=== PATIENT | male | born 1945 | race Caucasian/White ===

== ENCOUNTER 2017-04-18 18:04 | Emergency (ER) | payer MEDICARE ==
[2017-04-18 18:15] VITALS: O2SAT 92
[2017-04-18] MEDS ORDERED: Tylenol #3 Tablet PO ONE ×2 (18:56→20:18)
--- NOTE | 2017-04-18 19:00 | ERPHSYRPT ---
- History of Present Illness Time Seen by Provider: 04/18/17 18:51 Source: patient, family () Patient Subjective Stated Complaint: tripped over oxygen cord and fell onto chest on arm of sofa. pain to left upper chest Triage Nursing Assessment: ambulated to room per self. is on home oxygen at 3L. skin w/d, color normal, resp slightly labored. tender to left upper chest. no bruising noted at this time. Physician History: CC: chest injury Hx: 71 y/o patient of Dr Johnson tripped in O2 cord and fell against his sofa couch arm. Struck left upper anterior chest wall. Not short of breath. Occurred this afternoon. He took aleve. He has COPD. No head injury, neck pain, back pain or other injury. Pain is sharp and worse when lifting to sit up. Timing/Duration: today Severity: moderate Allergies/Adverse Reactions: ampicillin Allergy (Intermediate, Verified 04/18/17 18:13) Swelling of Hands Home Medications: Fluticasone Propionate [Flonase Allergy Relief] 2 spray NS DAILY 10/21/14 [ History] Fluticasone/Salmeterol Disc [Advair 250-50 Diskus 14 Dose] 1 each IH BID 10/21/14 [History] Furosemide 40 mg PO TID 10/21/14 [History] Gabapentin [Neurontin] 600 mg PO BID 10/21/14 [History] Glipizide 10 mg [Glucotrol 10 MG] 10 mg PO BID 10/21/14 [History] Insulin Glargine,Hum.rec.anlog [Lantus] 10 unit SQ DAILY PRN 10/21/14 [History] Loratadine 10 mg [Claritin 10 mg] 10 mg PO DAILY 10/21/14 [History] Metformin HCl 500 mg [Glucophage 500 MG] 500 mg PO HS 10/21/14 [History] Metformin HCl 850 mg [Glucophage 850 MG] 850 mg PO BID 10/21/14 [History] Metolazone 2.5 mg [Zaroxolyn 2.5 MG] 2.5 mg PO TID 10/21/14 [History] Naproxen 375 mg [Naprosyn 375 mg] 375 mg PO BID 10/21/14 [History] Omeprazole 20 MG [Prilosec 20 mg] 20 mg PO DAILY 10/21/14 [History] Potassium Chloride 10 Meq Tab* [Klor Con 10 MEQ] 4 tab PO TID 10/21/14 [ History] Ranitidine HCl [Zantac] 150 mg PO HS 10/21/14 [History] Roflumilast [Daliresp] 500 mcg PO DAILY 10/21/14 [History] Tiotropium [place] Inhaler [Spiriva 18 Mcg/Cap Inhaler] 1 ea IH DAILY 06/25 [History] Zolpidem Tartrate 10 mg PO HS 10/21/14 [History] Hx Tetanus, Diphtheria Vaccination/Date Given: No Hx Influenza Vaccination/Date Given: No Hx Pneumococcal Vaccination/Date Given: Yes - Review of Systems Constitutional: No Fever, No Chills Eyes: No Symptoms Ears, Nose, & Throat: No Symptoms Respiratory: Dyspnea (normal), No Cough Cardiac: Chest Pain (left upper anterior ribs) Abdominal/Gastrointestinal: No Abdominal Pain Musculoskeletal: Injury (chest), No Back Pain, No Neck Pain Neurological: No Focal Weakness, No Parasthesia All Other Systems: Reviewed and Negative - Past Medical History Pertinent Past Medical History: Yes Neurological History: No Pertinent History ENT History: Cataracts Cardiac History: Congestive Heart Failure Respiratory History: Bronchitis, CHF, COPD, Emphysema, Pneumonia, Sleep Apnea Endocrine Medical History: Diabetes Type II Musculoskeletal History: Arthritis, Fractures GI Medical History: No Pertinent History History: No Pertinent History Psycho-Social History: No Pertinent History Male Reproductive Disorders: No Pertinent History - Past Surgical History Past Surgical History: Yes Neuro Surgical History: No Pertinent History Cardiac: No Pertinent History Respiratory: No Pertinent History Gastrointestinal: No Pertinent History Genitourinary: No Pertinent History Musculoskeletal: No Pertinent History Male Surgical History: No Pertinent History Other Surgical History: Cataract Surgery - Social History Smoking Status: Former smoker How long have you smoked: 45 years Exposure to second hand smoke: Yes Drug Use: none Patient Lives Alone: No - Nursing Vital Signs Nursing Vital Signs: Initial Vital Signs Temperature 97 F 04/18/17 18:06 Pulse Rate 90 04/18/17 18:06 Respiratory Rate 24 04/18/17 18:06 Blood Pressure 171/84 04/18/17 18:06 O2 Sat by Pulse Oximetry 92 L 04/18/17 18:06 Pain Scale Pain Intensity 8 - Physical Exam General Appearance: alert Eye Exam: PERRL/EOMI Ears, Nose, Throat Exam: moist mucous membranes Neck Exam: normal inspection, non-tender, supple Respiratory Exam: normal breath sounds, chest tenderness (left anterior chest wall, no bruising) Cardiovascular Exam: regular rate/rhythm Gastrointestinal/Abdomen Exam: soft, No tenderness, No distention Back Exam: normal inspection, normal range of motion Extremity Exam: normal inspection, normal range of motion Neurologic Exam: alert, oriented x 3, cooperative, sensation nml, No motor deficits Skin Exam: warm, dry, No rash SpO2 Interpretation: borderline oxygenation, O2 applied SpO2: 92 Oxygen Delivery: Nasal Cannula - Course Nursing assessment & vital signs reviewed: Yes - Radiology Exams cxr X-ray Interpretation: Reviewed by me, No Fracture, No Pneumothorax Ordered Tests: Active Orders 24 hr Category Date Time Status ACCUCHECK [Accucheck] STAT Care 04/18/17 19:00 Active Cold Application STAT Care 04/18/17 18:56 Active CHEST 2 VIEWS (PA AND LAT) Stat Exams 04/18/17 18:57 Taken Medication Summary Discontinued Medications Generic Name Dose Route Start Last Admin Trade Name Joceline PRN Reason Stop Dose Admin Acetaminophen/Codeine Phosphate 1 tab 04/18/17 18:56 04/18/17 19:11 Tylenol #3 Tablet PO 04/18/17 18:57 1 tab STAT ONE Administration Acetaminophen/Codeine Phosphate Confirm 04/18/17 19:08 Tylenol #3 Tablet Administered 04/18/17 19:09 Dose 1 tab .ROUTE .STK-MED ONE - Progress Progress Note: 04/18/17 20:19 He is stable. Will release with instr. Counseled pt/family regarding: diagnosis, need for follow-up, rad results - Departure Time of Disposition: 20:19 Departure Disposition: Home Clinical Impression: Contusion of rib on left side Qualifiers: Encounter type: initial encounter Qualified Code(s): S20.212A - Contusion of left front wall of thorax, initial encounter Condition: Stable Critical Care Time: No Referrals: IRMA JOHNSON [Primary Care Provider] - Instructions: Prevent Falls, Rib Contusion Additional Instructions: Ice packs off and on. Take care not to fall. Rx codiene for pain. Follow up with Dr Johnson. Return for fever, difficulty breathing, coughing phlegm or concerns. Prescriptions: Codeine Phosphate/APAP #3 [Tylenol #3 Tablet] 1 tab PO Q4-6HPRN PRN #10 tablet PRN Reason: Pain
[2017-04-18] MEDS ORDERED: Tylenol #3 Tablet ONE ×2 (19:08→20:22)
[2017-04-18 23:01] VITALS: BP 115/60; PULSE 78
--- NOTE | 2017-04-19 08:44 | XRAY ---
Indication: Left-sided chest pain following fall. Comparison: October 21, 2014. PA/lateral chest again demonstrates left mid lung atelectasis/scarring. Remaining lungs clear. Heart is not enlarged. New small hiatal hernia. Bony thorax intact again with osteopenia and degenerative changes. Impression: New hiatal hernia. Nothing acute.
== END 2017-04-18 20:29 | disposition home or self-care (01) ==
LOC: ED 18:04
DX: S20.212A Contusion of left front wall of thorax, initial encounter (principal); R07.89 Other chest pain; W01.0XXA Fall on same level from slipping, tripping and stumbling without subsequent striking against object, initial encounter; E11.9 Type 2 diabetes mellitus without complications; Z79.84 Long term (current) use of oral hypoglycemic drugs; Z79.899 Other long term (current) drug therapy; Z79.4 Long term (current) use of insulin; I50.9 Heart failure, unspecified; J44.9 Chronic obstructive pulmonary disease, unspecified
CPT/HCPCS: 71020; 82962; 99283; A9270-GY

== ENCOUNTER 2018-10-15 15:48 | Emergency (ER) | payer MEDICARE ==
[2018-10-15] MEDS ORDERED: PROVENTIL 2.5 MG/3 ML NEB IH ONE ×2 (16:21→16:48)
[2018-10-15] MEDS ORDERED: solu-MEDROL 125 MG IV ONE (16:21)
[2018-10-15] MEDS ORDERED: solu-MEDROL 125 MG ONE (16:28)
--- NOTE | 2018-10-15 16:28 | ERPHSYRPT ---
- History of Present Illness Time Seen by Provider: 10/15/18 16:09 Source: patient Exam Limitations: no limitations Patient Subjective Stated Complaint: shortness of breath Triage Nursing Assessment: Pt presents short of breath and on 3 L NC, p 112, took a nebulizer treatment about 1500, no edema, right mid lobe has a friction rub, cough for past week with some production Physician History: Pt was treated for Pneumonia, completed PO Levaquin last week. He started c/o productive cough, yellow phlegm again 2-3 days, ago, increasing SOB, wheezing. He denies any chest pain, nausea, vomiting, diaphoresis, diarrhea, sore throat other complaints. Timing/Duration: day(s) (2) Activities at Onset: none Severity of Dyspnea-Max: moderate Severity of Dyspnea-Current: moderate Possible Cause: frequent episodes Modifying Factors: Improves With: albuterol inhaler Associated Symptoms: cough, wheezing, productive cough Allergies/Adverse Reactions: ampicillin Allergy (Intermediate, Verified 10/15/18 16:10) Swelling of Hands Home Medications: Fluticasone Propionate [Flonase Allergy Relief] 2 spray NS DAILY 10/21/14 [ History] Furosemide 40 mg PO TID 10/21/14 [History] Gabapentin [Neurontin] 600 mg PO BID 10/21/14 [History] Glipizide 10 mg [Glucotrol 10 MG] 10 mg PO BID 10/21/14 [History] Insulin Glargine,Hum.rec.anlog [Lantus] 10 unit SQ DAILY PRN 10/21/14 [History] Loratadine 10 mg [Claritin 10 mg] 10 mg PO DAILY 10/21/14 [History] Metformin HCl 500 mg [Glucophage 500 MG] 500 mg PO HS 10/21/14 [History] Metformin HCl 850 mg [Glucophage 850 MG] 850 mg PO BID 10/21/14 [History] Metolazone 2.5 mg [Zaroxolyn 2.5 MG] 2.5 mg PO TID 10/21/14 [History] Naproxen 375 mg [Naprosyn 375 mg] 375 mg PO BID 10/21/14 [History] Omeprazole 20 MG [Prilosec 20 mg] 20 mg PO DAILY 10/21/14 [History] Potassium Chloride 10 Meq Tab* [Klor Con 10 MEQ] 4 tab PO TID 10/21/14 [ History] Ranitidine HCl [Zantac] 150 mg PO HS 10/21/14 [History] Roflumilast [Daliresp] 500 mcg PO DAILY 10/21/14 [History] Zolpidem Tartrate 10 mg PO HS 10/21/14 [History] Fluticasone/Umeclidin/Vilanter [Trelegy Ellipta 100-62.5-25] 1 inh PO UD PRN 12/28 [History] Hx Tetanus, Diphtheria Vaccination/Date Given: No Hx Influenza Vaccination/Date Given: No Hx Pneumococcal Vaccination/Date Given: Yes - Review of Systems Constitutional: No Symptoms Eyes: No Symptoms Ears, Nose, & Throat: No Symptoms Respiratory: Cough, Dyspnea, Wheezing Cardiac: No Symptoms Abdominal/Gastrointestinal: No Symptoms Genitourinary Symptoms: No Symptoms Musculoskeletal: No Symptoms Skin: No Symptoms Neurological: No Symptoms All Other Systems: Reviewed and Negative - Past Medical History Pertinent Past Medical History: Yes Neurological History: No Pertinent History ENT History: Cataracts Cardiac History: Congestive Heart Failure Respiratory History: Bronchitis, CHF, COPD, Emphysema, Pneumonia, Sleep Apnea Endocrine Medical History: Diabetes Type II Musculoskeletal History: Arthritis, Fractures GI Medical History: No Pertinent History History: No Pertinent History Psycho-Social History: No Pertinent History Male Reproductive Disorders: No Pertinent History - Past Surgical History Past Surgical History: Yes Neuro Surgical History: No Pertinent History Cardiac: No Pertinent History Respiratory: No Pertinent History Gastrointestinal: No Pertinent History Genitourinary: No Pertinent History Musculoskeletal: No Pertinent History Male Surgical History: No Pertinent History Other Surgical History: Cataract Surgery - Social History Smoking Status: Former smoker How long have you smoked: 45 years Exposure to second hand smoke: Yes Drug Use: none Patient Lives Alone: No - Nursing Vital Signs Nursing Vital Signs: Initial Vital Signs Temperature 98.0 F 10/15/18 15:55 Pulse Rate 115 H 10/15/18 15:55 Respiratory Rate 24 10/15/18 15:55 Blood Pressure 135/81 10/15/18 15:55 O2 Sat by Pulse Oximetry 94 L 10/15/18 15:55 Pain Scale Pain Intensity 0 - Physical Exam General Appearance: no apparent distress Eye Exam: eyes nml inspection Ears, Nose, Throat Exam: normal ENT inspection, normal pharynx Neck Exam: normal inspection, non-tender, supple, No JVD Respiratory Exam: prolonged expirations, rhonchi (diffuse bilateral, mild), wheezing Cardiovascular/Chest Exam: normal heart sounds, regular rate/rhythm, normal peripheral pulses, No murmur, No edema, No JVD Abdominal/Gastrointestinal Exam: soft, normal bowel sounds, No tenderness Extremity Exam: non-tender, No no calf tenderness Peripheral Pulses Exam: dorsalis-pedis (R): 2+, dorsalis-pedis (L): 2+ Neurologic Exam: alert, oriented x 3, normal mood/affect Skin Exam: normal color, warm, dry, No rash Lymphatic Exam: No adenopathy SpO2 Interpretation: normal SpO2: 95 O2 Delivery: Room Air - Course Nursing assessment & vital signs reviewed: Yes EKG Interpreted by Me: RATE (113/min), Sinus Tach, Left [place] Deviation, Right Bundle Branch Block, Non-specific ST Changes - Radiology Exams Chest X-ray Interpretation: Interpreted by me, Other (LLL infiltrate) Ordered Tests: Active Orders 24 hr Category Date Time Status Damper Maker STAT Care 10/15/18 16:22 Active EKG-ER Only STAT Care 10/15/18 16:21 Active IV Insertion STAT Care 10/15/18 16:21 Active Oxygen-ED Only Nasal Cannula 2 lpm Care 10/15/18 16:21 Active CHEST 2 VIEWS (PA AND LAT) Stat Exams 10/15/18 16:22 Taken BLOOD CULTURE Stat Lab 10/15/18 17:09 Received CBC W DIFF Stat Lab 10/15/18 16:30 Completed CMP Stat Lab 10/15/18 16:30 Completed D-DIMER QUANTITATION Stat Lab 10/15/18 16:30 Completed Lactic Acid Stat Lab 10/15/18 16:21 Ordered MAGNESIUM Stat Lab 10/15/18 16:30 Completed Manual Differential NC Stat Lab 10/15/18 16:30 Completed NT PRO BNP Stat Lab 10/15/18 16:30 Completed PROTIME WITH INR Stat Lab 10/15/18 16:30 Completed PTT Stat Lab 10/15/18 16:30 Completed TROPONIN Q3H Lab 10/15/18 16:30 Completed TROPONIN Q3H Lab 10/15/18 19:30 Ordered TROPONIN Q3H Lab 10/15/18 22:30 Ordered Peak Expiratory Flow Rate ONCE RT 10/15/18 17:39 Completed Respiratory Therapy Assessment DAILY RT 10/15/18 17:39 Completed Medication Summary Discontinued Medications Generic Name Dose Route Start Last Admin Trade Name Jocelnie PRN Reason Stop Dose Admin Albuterol Sulfate 2.5 mg 10/15/18 16:21 10/15/18 16:52 Proventil 2.5 Mg/3 Ml Neb IH 10/15/18 16:22 2.5 mg STAT ONE Administration Albuterol Sulfate Confirm 10/15/18 16:48 Proventil 2.5 Mg/3 Ml Neb Administered 10/15/18 16:49 Dose 2.5 mg IH .STK-MED ONE Methylprednisolone Sodium Succinate 125 mg 10/15/18 16:21 10/15/18 16:31 Solu-Medrol 125 Mg IV 10/15/18 16:22 125 mg STAT ONE Administration Methylprednisolone Sodium Succinate Confirm 10/15/18 16:28 Solu-Medrol 125 Mg Administered 10/15/18 16:29 Dose 125 mg .ROUTE .STK-MED ONE Lab/Rad Data: Laboratory Result Diagrams 10/15/18 16:30 10/15/18 16:30 Laboratory Results 10/15/18 10/15/18 10/15/18 Range/Units 16:30 16:30 16:30 WBC (4.0-10.5) K/mm3 RBC (4.1-5.6) M/mm3 Hgb (12.5-18.0) gm/dl Hct (42-50) % MCV (78-100) fl MCH (26-32) pg MCHC (32-36) g/dl RDW (11.5-14.0) % Plt Count (150-450) K/mm3 MPV (6-9.5) fl Absolute Granulocytes (1.4-6.9) Segmented Neutrophils (36.-66.) % Lymphocytes (Manual) (24-44) % Monocytes (Manual) (0.0-12.0) % Eosinophils (Manual) (0.00-3.0) % Platelet Estimate (NORMAL) RBC Morphology PT (8.83-12.87) SECONDS INR (0.8-3.0) APTT (24.1-36.1) SECONDS D-Dimer 305 (215-500) ng/mL Sodium (137-145) mmol/L Potassium (3.5-5.1) mmol/L Chloride (98-107) mmol/L Carbon Dioxide (22-30) mmol/L Anion Gap (5-15) MEQ/L BUN (9-20) mg/dL Creatinine (0.66-1.25) mg/dL Estimated GFR ML/MIN Glucose (74-106) mg/dL Calcium (8.4-10.2) mg/dL Magnesium (1.6-2.3) mg/dL Total Bilirubin (0.2-1.3) mg/dL AST (17-59) U/L ALT (0-50) U/L Alkaline Phosphatase (38-126) U/L Troponin I < 0.012 (0.000-0.034) ng/mL NT-Pro-B Natriuret Pep (0-900) pg/mL Serum Total Protein (6.3-8.2) g/dL Albumin (3.5-5.0) g/dL Influenza Type A Ag NEGATIVE (NEGATIVE) Influenza Type B Ag NEGATIVE (NEGATIVE) RSV (PCR) NEGATIVE (Negative) 10/15/18 10/15/18 10/15/18 Range/Units 16:30 16:30 16:30 WBC 15.1 H (4.0-10.5) K/mm3 RBC 3.76 L (4.1-5.6) M/mm3 Hgb 12.1 L (12.5-18.0) gm/dl Hct 38.2 L (42-50) % MCV 101.6 H (78-100) fl MCH 32.1 H (26-32) pg MCHC 31.7 L (32-36) g/dl RDW 14.8 H (11.5-14.0) % Plt Count 314 (150-450) K/mm3 MPV 10.3 H (6-9.5) fl Absolute Granulocytes 11.18 H (1.4-6.9) Segmented Neutrophils 77 H (36.-66.) % Lymphocytes (Manual) 14 L (24-44) % Monocytes (Manual) 8 (0.0-12.0) % Eosinophils (Manual) 1 (0.00-3.0) % Platelet Estimate NORMAL (NORMAL) RBC Morphology NORMAL PT 12.6 (8.83-12.87) SECONDS INR 1.08 (0.8-3.0) APTT 31.4 (24.1-36.1) SECONDS D-Dimer (215-500) ng/mL Sodium 137 (137-145) mmol/L Potassium 4.3 (3.5-5.1) mmol/L Chloride 95 L (98-107) mmol/L Carbon Dioxide 32 H (22-30) mmol/L Anion Gap 13.9 (5-15) MEQ/L BUN 22 H (9-20) mg/dL Creatinine 1.01 (0.66-1.25) mg/dL Estimated GFR > 60.0 ML/MIN Glucose 125 H (74-106) mg/dL Calcium 9.3 (8.4-10.2) mg/dL Magnesium 1.8 (1.6-2.3) mg/dL Total Bilirubin 0.80 (0.2-1.3) mg/dL AST 19 (17-59) U/L ALT 17 (0-50) U/L Alkaline Phosphatase 61 (38-126) U/L Troponin I (0.000-0.034) ng/mL NT-Pro-B Natriuret Pep 135 (0-900) pg/mL Serum Total Protein 7.6 (6.3-8.2) g/dL Albumin 4.1 (3.5-5.0) g/dL Influenza Type A Ag (NEGATIVE) Influenza Type B Ag (NEGATIVE) RSV (PCR) (Negative) - Progress Progress: improved Air Movement: good Progress Note: 10/15/18 18:32 Patient was given Duoneb treatment, and iv Solumedrol, and fluid, I was planning to start iv antibiotics for possible LLL Pneumonia, COPD exacerbation, awaiting for lactic acid result, he stated, he felt much better, refused further treatment or admission and signed AMA, wanted to follow up with his physician. He is alert and oriented x4, mentally competent and medically stable , afebrile. Counseled pt/family regarding: lab results, diagnosis, need for follow-up, rad results - Departure Departure Disposition: AMA Clinical Impression: Pneumonia Qualifiers: Pneumonia type: due to unspecified organism Laterality: left Lung location: lower lobe of lung Qualified Code(s): J18.1 - Lobar pneumonia, unspecified organism COPD (chronic obstructive pulmonary disease) Qualifiers: COPD type: chronic bronchitis Chronic bronchitis type: unspecified Qualified Code(s): J42 - Unspecified chronic bronchitis Condition: Stable Critical Care Time: No Referrals: TIMA FRAGOSO [Primary Care Provider] - Instructions: Pneumonia, Adult (DC), Exacerbation of COPD (DC), Chronic Obstructive Pulmonary Disease Additional Instructions: Rest x 2-3 days and follow up with your physician, return if severe shortness of breath, chest pain, vomiting, or fever> 102 F! Prescriptions: Azithromycin 250 mg [Zithromax 250 MG TABLET] 250 mg PO ZPACK #6 tablet
[2018-10-15 16:49] LABS: INR 1.08 (0.8-3.0); PROTIME 12.6 SECONDS (8.83-12.87)
[2018-10-15 16:50] LABS: Granulocyte Absolute (ANC) 11.18 (1.4-6.9); Hematocrit 38.2 % (42-50); Hemoglobin 12.1 gm/dl (12.5-18.0); Mean Cell Volume 101.6 fl (78-100); Mean Corpuscular Hgb Concent. 31.7 g/dl (32-36); Mean Platelet Volume 10.3 fl (6-9.5); Platelet Count 314 K/mm3 (150-450); Red Blood Count 3.76 M/mm3 (4.1-5.6); Red Cell Distribution Width 14.8 % (11.5-14.0); White Blood Count 15.1 K/mm3 (4.0-10.5)
[2018-10-15 16:51] LABS: PTT 31.4 SECONDS (24.1-36.1)
[2018-10-15 17:03] LABS: ALBUMIN 4.1 g/dL (3.5-5.0); ALKALINE PHOSPHATASE 61 U/L (38-126); ANION GAP 13.9 MEQ/L (5-15); BLOOD UREA NITROGEN 22 mg/dL (9-20); CHLORIDE 95 mmol/L (98-107); Calcium 9.3 mg/dL (8.4-10.2); Carbon Dioxide 32 mmol/L (22-30); Creatinine 1 1.01 mg/dL (0.66-1.25); Glucose 125 mg/dL (74-106); MAGNESIUM 1.8 mg/dL (1.6-2.3); NT PRO BNP 135 pg/mL (0-900); Potassium 4.3 mmol/L (3.5-5.1); SGOT/AST 19 U/L (17-59); SGPT/ALT 17 U/L (0-50); SODIUM 137 mmol/L (137-145); Total Protein 7.6 g/dL (6.3-8.2)
[2018-10-15 17:11] LABS: Mean Corpuscular Hemoglobin 32.1 pg (26-32)
[2018-10-15 17:24] LABS: INFLUENZA A NEGATIVE (NEGATIVE); INFLUENZA B NEGATIVE (NEGATIVE); RESPIRATORY SYNCTIAL VIRUS NEGATIVE (Negative)
[2018-10-15 17:55] LABS: Eosinophil 1 % (0.00-3.0); Lymphocytes 14 % (24-44); Monocyte 8 % (0.0-12.0); Neutrophils 77 % (36.-66.); Platelet Estimate NORMAL (NORMAL); Total Cells Counted 100
[2018-10-15 18:16] VITALS: BP 115/68; PULSE 120
[2018-10-15 18:35] VITALS: O2SAT 95
--- NOTE | 2018-10-15 20:03 | XRAY ---
Indication: Cough. Comparison: August 27, 2017. PA/lateral chest again demonstrates COPD with new left lower lobe infiltrate/atelectasis and small effusion. Right lung clear. Heart is not enlarged with stable left CT proven pericardiac fat. Bony thorax is intact again with mild osteopenia and degenerative changes. Impression: New left lower lobe infiltrate/atelectasis/effusion.
== END 2018-10-15 18:20 | disposition left against medical advice (07) ==
LOC: ED 15:48
DX: J18.1 Lobar pneumonia, unspecified organism (principal); J44.9 Chronic obstructive pulmonary disease, unspecified; E11.9 Type 2 diabetes mellitus without complications; Z79.4 Long term (current) use of insulin; I50.9 Heart failure, unspecified; G47.30 Sleep apnea, unspecified; M19.90 Unspecified osteoarthritis, unspecified site
CPT/HCPCS: 36000; 36415; 71046; 80053; 83735; 83880; 84484; 85025; 85379; 85610; 85730; 87040; 87631; 93005; 93041; 94150; 94640; 96374; 99284; J2930; J7609; A9270-GY

== ENCOUNTER 2020-11-11 15:50 | Emergency (ER) | payer MEDICARE ==
[2020-11-11 19:02] VITALS: BP 118/60; PULSE 86; O2SAT 98
--- NOTE | 2020-11-11 19:22 | ERPHSYRPT ---
- History of Present Illness Time Seen by Provider: 11/11/20 17:20 Source: patient Exam Limitations: no limitations Patient Subjective Stated Complaint: Pt states "I was sneezing a coupleof times and I think I detatched my retina in my right eye. there are all kinds of black floaties in there, more than there ever has been." Triage Nursing Assessment: Pt presented alert and oriented X 3, skin wpd tp ambualtes with an upright steady gait, able to speak in clear full setnences pt ambulates with an usteady gait. Physician History: Patient is a 75-year-old male presents to our ED with complaints of acute onset floaters of his right eye. Patient states he sneezed and symptoms started. Patient has a history of retinal detachment on the left eye. Retinal detachment was repaired by Dr. Carrillo in [place]. Patient symptoms are similar. Patient wears glasses. No trauma otherwise. No neck pain. No headache. No nausea or vomiting. Symptoms are mild to moderate in intensity. No specific worsening improving factors. Patient voices no other complaints or concerns at this time. Timing/Duration: yesterday Location: right eye Severity: mild Apparent Injury: no Associated Symptoms: other (No eye pain just floaters.) Visual Assistive Devices: Glasses Chemical Exposure: No Trauma: No Welding Arc/Tanning Bed Exposure: No Allergies/Adverse Reactions: ampicillin Allergy (Intermediate, Verified 10/15/18 16:10) Swelling of Hands Home Medications: Fluticasone Propionate [Flonase Allergy Relief] 2 spray NS DAILY 10/21/14 [ History] Furosemide 40 mg PO TID 10/21/14 [History] Gabapentin [Neurontin] 600 mg PO BID 10/21/14 [History] Glipizide 10 mg [Glucotrol 10 MG] 10 mg PO BID 10/21/14 [History] Insulin Glargine,Hum.rec.anlog [Lantus] 10 unit SQ DAILY PRN 10/21/14 [History] Loratadine 10 mg [Claritin 10 mg] 10 mg PO DAILY 10/21/14 [History] Metformin HCl 500 mg [Glucophage 500 MG] 500 mg PO HS 10/21/14 [History] Metformin HCl 850 mg [Glucophage 850 MG] 850 mg PO BID 10/21/14 [History] Metolazone 2.5 mg [Zaroxolyn 2.5 MG] 2.5 mg PO TID 10/21/14 [History] Naproxen 375 mg [Naprosyn 375 mg] 375 mg PO BID 10/21/14 [History] Omeprazole 20 MG [Prilosec 20 mg] 20 mg PO DAILY 10/21/14 [History] Potassium Chloride 10 Meq Tab* [Klor Con 10 MEQ] 4 tab PO TID 10/21/14 [History] Ranitidine HCl [Zantac] 150 mg PO HS 10/21/14 [History] Roflumilast [Daliresp] 500 mcg PO DAILY 10/21/14 [History] Zolpidem Tartrate 10 mg PO HS 10/21/14 [History] Fluticasone/Umeclidin/Vilanter [Trelegy Ellipta 100-62.5-25] 1 inh PO UD PRN 10/15/18 [History] Hx Tetanus, Diphtheria Vaccination/Date Given: Yes Hx Influenza Vaccination/Date Given: Yes Hx Pneumococcal Vaccination/Date Given: Yes Immunizations Up to Date: Yes Travel Risk - International Travel Have you traveled outside of the country in past 3 weeks: No - Coronavirus Screening Are you exhibiting any of the following symptoms?: No Close contact with a COVID-19 positive Pt in past 14-21 Days: No - Vaccine Status Have you recieved a Covid-19 vaccination: No - Review of Systems Constitutional: No Symptoms, No Fever, No Chills Eyes: No Symptoms Ears, Nose, & Throat: No Symptoms Respiratory: No Symptoms, No Cough, No Dyspnea Cardiac: No Symptoms, No Chest Pain, No Edema, No Syncope Abdominal/Gastrointestinal: No Symptoms, No Abdominal Pain, No Nausea, No Vomiting, No Diarrhea Genitourinary Symptoms: No Symptoms, No Dysuria Musculoskeletal: No Symptoms, No Back Pain, No Neck Pain Skin: No Symptoms, No Rash Neurological: No Symptoms, No Dizziness, No Focal Weakness, No Sensory Changes Psychological: No Symptoms Endocrine: No Symptoms Hematologic/Lymphatic: No Symptoms Immunological/Allergic: No Symptoms All Other Systems: Reviewed and Negative - Past Medical History Pertinent Past Medical History: Yes Neurological History: No Pertinent History ENT History: Cataracts Cardiac History: Congestive Heart Failure Respiratory History: Bronchitis, CHF, COPD, Emphysema, Pneumonia, Sleep Apnea Endocrine Medical History: Diabetes Type II Musculoskeletal History: Arthritis, Fractures GI Medical History: No Pertinent History History: No Pertinent History Psycho-Social History: No Pertinent History Male Reproductive Disorders: No Pertinent History - Past Surgical History Past Surgical History: Yes Neuro Surgical History: No Pertinent History Cardiac: No Pertinent History Respiratory: No Pertinent History Gastrointestinal: No Pertinent History Genitourinary: No Pertinent History Musculoskeletal: No Pertinent History Male Surgical History: No Pertinent History Other Surgical History: Cataract Surgery - Social History Smoking Status: Former smoker How long have you smoked: 45 years Exposure to second hand smoke: No Drug Use: none Patient Lives Alone: No - Nursing Vital Signs Nursing Vital Signs: Initial Vital Signs Temperature 98.5 F 11/11/20 17:04 Pulse Rate 90 11/11/20 17:04 Respiratory Rate 20 11/11/20 17:04 Blood Pressure 130/74 11/11/20 17:04 O2 Sat by Pulse Oximetry 95 11/11/20 17:04 Pain Scale Pain Intensity 4 - Physical Exam Vision Acuity Degree Evaluation Phase: Corrected Vision Acuity Right Eye: 20/50 Vision Acuity Left Eye: 20/50 Intraocular Pressure (Tonopen): left (I pressure of your telemetry 17 on the right 15 on the left) Eye Exam: right eye: vision changes, left eye: normal inspection, PERRL, EOMI Ears, Nose, Throat Exam: normal ENT inspection, TMs normal, pharynx normal, moist mucous membranes Neck Exam: normal inspection, non-tender, supple, full range of motion Respiratory Exam: normal breath sounds, chest tenderness, lungs clear, respiratory distress, airway intact Cardiovascular Exam: regular rate/rhythm, normal heart sounds, normal peripheral pulses Gastrointestinal Exam: soft, normal bowel sounds, No tenderness Extremity Exam: normal inspection, normal range of motion Neurologic: alert, oriented x 3, 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 It appears that patient may be experiencing retinal detachment although vitreous humor detachment is possible as well. I spoke to Dr. Bartlett in [place]. He will see patient tomorrow in his office at 8 AM. [facility] [address] [facility] Telephone number is [phone]. He will see patient tomorrow at 8 AM Central time. Counseled pt/family regarding: diagnosis, need for follow-up - Departure Departure Disposition: Home Clinical Impression: Visual disturbance Condition: Stable Critical Care Time: No Referrals: TIMA FRAGOSO [Primary Care Provider] - Additional Instructions: Please follow-up with Dr. Bartlett in [facility]. The address is [address] [place] [address] [place]. Telephone number is [phone] Bartlett office at 8 AM Central time. Discharge/Care Plan JOANN VALADEZ was seen on 11/11/20 in the Emergency Room. The patient was counseled regarding Diagnosis,Lab results, Imaging studies, need for follow up and when to return to the Emergency Room. Prescriptions given: Discharge Note I have spoken with the patient and/or caregivers. I have explained the patient's condition, diagnosis and treatment plan based on the information available to me at this time. I have answered the patient's and/or caregiver's questions and addressed any concerns. The patient and/or caregivers have as good understanding of the patient's diagnosis, condition and treatment plan as can be expected at this point. The vital signs have been stable. The patient's condition is stable and appropriate for discharge from the emergency department. The patient will pursue further outpatient evaluation with the primary care physician or other designated or consulting physician as outlined in the discharge instructions. The patient and/or caregivers are agreeable to this plan of care and follow-up instructions have been explained in detail. The patient and/or caregivers have received these instruction. The patient/and or caregivers are aware that any significant change in condition or worsening of symptoms should prompt an immediate return to this or the closest emergency department or call 911.
== END 2020-11-11 20:01 | disposition home or self-care (01) ==
LOC: ED 15:50
DX: H53.9 Unspecified visual disturbance (principal)
CPT/HCPCS: 99283

== ENCOUNTER 2022-05-05 08:29 | Observation (INO) | payer MEDICARE ==
[2022-05-05] MEDS ORDERED: solu-MEDROL 125 MG, Sterile H2O 10 ml 2 ML IV ONE ×2 (08:33)
[2022-05-05] MEDS ORDERED: DUONEB 0.5-3 MG/3 ml Neb IH ONE ×2 (08:33→08:38)
[2022-05-05] MEDS ORDERED: solu-MEDROL ONE (09:00)
[2022-05-05] MEDS ORDERED: Sterile H2O 10 ml IJ ONE (09:00)
[2022-05-05 09:02] LABS: Absolute Neutrophil Ct (ANC) 12.91 x10^3/uL (1.4-6.9); Basophil (Absolute #) 0.03 x10^3/uL (0-0.4); Eosinophil % 0.2 % (0.00-5.0); Eosinophil (Absolute #) 0.03 x10^3/uL (0-0.5); Hematocrit 34.4 % (42-50); Hemoglobin 10.8 g/dL (12.5-18.0); Lymphocytes % 5.8 % (24.0-44.0); Mean Cell Volume 102.7 fL (78-100); Mean Corpuscular Hemoglobin 32.2 pg (26-32); Mean Corpuscular Hgb Concent. 31.4 g/dL (32-36); Mean Platelet Volume 10.3 fL (7.5-11.0); Monocyte (Absolute #) 1.55 x10^3/uL (0.0-1.3); Neutrophil % 83.1 % (36.0-66.0); Platelet Count 295 x10^3/uL (150-450); Red Blood Count 3.35 x10^6/uL (4.1-5.6); Red Cell Distribution Width 14.1 % (11.5-14.0); White Blood Count 15.5 x10^3/uL (4.0-10.5)
[2022-05-05] MEDS ORDERED: ENOXAPARIN SODIUM SQ STA (09:03)
--- NOTE | 2022-05-05 09:03 | XRAY ---
Indication: Short of breath and productive cough. Comparison: February 20, 2022 Portable chest again hyperinflated with new moderate bibasilar infiltrates/atelectasis/effusions, left greater than right. Heart not enlarged. Bony thorax intact again with osteopenia and degenerative changes.
--- NOTE | 2022-05-05 09:06 | ERPHSYRPT ---
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 My right hip hurts as well." Triage Nursing Assessment: Pt presented alert and oriented X 3, skin pwd pt able to speak in clear full sentences Pt has intermittant productive cough. PT shaking and resting comfortably on the bed. Physician History: Patient 76-year-old male history of COPD requires 2 L nasal cannula 24 hours/day presents to our ED via EMS for evaluation of cough shortness of breath generalized weakness and tremors. Patient states that he had generalized body aches 2 days ago. Patient states today he feels weak. No trauma. No fever. No chest pain. Symptoms are progressive. Symptoms are moderate in intensity. No specific worsening improving factors. Patient voices no other complaints or concerns at this time. Portions of this note were created with voice recognition technology. There may be grammatical, spelling, punctuation or sound alike errors Timing/Duration: day(s) (2 days ago) Severity: moderate Modifying Factors: Improves With: nothing Associated Symptoms: denies symptoms, cough, fever, No abdominal pain, No rash Allergies/Adverse Reactions: ampicillin Allergy (Intermediate, Verified 10/15/18 16:10) Swelling of Hands Home Medications: Fluticasone Propionate [Flonase Allergy Relief] 2 spray NS DAILY 10/21/14 [History] Furosemide 40 mg PO TID 10/21/14 [History] Gabapentin [Neurontin] 600 mg PO BID 10/21/14 [History] Glipizide 10 mg [Glucotrol 10 MG] 10 mg PO BID 10/21/14 [History] Insulin Glargine,Hum.rec.anlog [Lantus] 10 unit SQ DAILY PRN 10/21/14 [History] Loratadine 10 mg [Claritin 10 mg] 10 mg PO DAILY 10/21/14 [History] Metformin HCl 500 mg [Glucophage 500 MG] 500 mg PO HS 10/21/14 [History] Metformin HCl 850 mg [Glucophage 850 MG] 850 mg PO BID 10/21/14 [History] Metolazone 2.5 mg [Zaroxolyn 2.5 MG] 2.5 mg PO TID 10/21/14 [History] Naproxen 375 mg [Naprosyn 375 mg] 375 mg PO BID 10/21/14 [History] Omeprazole 20 MG [Prilosec 20 mg] 20 mg PO DAILY 10/21/14 [History] Potassium Chloride Tab* [Klor Con 10 MEQ] 4 tab PO TID 10/21/14 [History] Roflumilast [Daliresp] 500 mcg PO DAILY 10/21/14 [History] Zolpidem Tartrate 10 mg PO HS 10/21/14 [History] raNITIdine HCL [Zantac] 150 mg PO HS 10/21/14 [History] Fluticasone/Umeclidin/Vilanter [Trelegy Ellipta 100-62.5-25] 1 inh PO UD PRN 10/15/18 [History] Hx Tetanus, Diphtheria Vaccination/Date Given: Yes Hx Influenza Vaccination/Date Given: Yes Hx Pneumococcal Vaccination/Date Given: Yes Immunizations Up to Date: Yes Travel Risk - International Travel Have you traveled outside of the country in past 3 weeks: No - Coronavirus Screening Symptoms: Fever, Cough: New Onset, Shortness of Breath, Headaches/Body Aches/Fatigue - Vaccine Status Have you recieved a Covid-19 vaccination: Yes Concrete Curer: Moderna - Vaccination Dates Date of 2cond Vaccination (if applicable): 2021 - Review of Systems Constitutional: No Symptoms, No Fever, No Chills Eyes: No Symptoms Ears, Nose, & Throat: No Symptoms Respiratory: No Symptoms, No Cough, No Dyspnea Cardiac: No Symptoms, No Chest Pain, No Edema, No Syncope Abdominal/Gastrointestinal: No Symptoms, No Abdominal Pain, No Nausea, No Vomiting, No Diarrhea Genitourinary Symptoms: No Symptoms, No Dysuria Musculoskeletal: No Symptoms, No Back Pain, No Neck Pain Skin: No Symptoms, No Rash Neurological: No Symptoms, No Dizziness, No Focal Weakness, No Sensory Changes Psychological: No Symptoms Endocrine: No Symptoms Hematologic/Lymphatic: No Symptoms Immunological/Allergic: No Symptoms All Other Systems: Reviewed and Negative - Past Medical History Pertinent Past Medical History: Yes Neurological History: No Pertinent History ENT History: Cataracts Cardiac History: Congestive Heart Failure Respiratory History: Bronchitis, CHF, COPD, Emphysema, Pneumonia, Sleep Apnea Endocrine Medical History: Diabetes Type II Musculoskeletal History: Arthritis, Fractures GI Medical History: No Pertinent History History: No Pertinent History Psycho-Social History: No Pertinent History Male Reproductive Disorders: No Pertinent History - Past Surgical History Past Surgical History: Yes Neuro Surgical History: No Pertinent History Cardiac: No Pertinent History Respiratory: No Pertinent History Gastrointestinal: No Pertinent History Genitourinary: No Pertinent History Musculoskeletal: No Pertinent History Male Surgical History: No Pertinent History Other Surgical History: Cataract Surgery - Social History Smoking Status: Former smoker How long have you smoked: 45 years Exposure to second hand smoke: No Drug Use: none Patient Lives Alone: No - Nursing Vital Signs Nursing Vital Signs: Initial Vital Signs Temperature 100.4 F 05/05/22 08:30 Pulse Rate 107 H 05/05/22 08:30 Respiratory Rate 22 05/05/22 08:30 Blood Pressure 123/63 05/05/22 08:30 O2 Sat by Pulse Oximetry 98 05/05/22 08:30 Pain Scale Pain Intensity 2 - Physical Exam General Appearance: no apparent distress, alert Eye Exam: PERRL/EOMI, eyes nml inspection Ears, Nose, Throat Exam: normal ENT inspection, TMs normal, pharynx normal, moist mucous membranes Neck Exam: normal inspection, non-tender, supple, full range of motion Respiratory Exam: normal breath sounds, lungs clear, airway intact, diminished breath sounds, No respiratory distress Cardiovascular Exam: regular rate/rhythm, normal heart sounds, normal peripheral pulses Gastrointestinal/Abdomen Exam: soft, normal bowel sounds, No tenderness, No mass Back Exam: normal inspection, normal range of motion, No CVA tenderness, No vertebral tenderness Extremity Exam: normal inspection, normal range of motion, pelvis stable Neurologic Exam: alert, oriented x 3, cooperative, normal mood/affect, nml cerebellar function, nml station & gait, sensation nml, No motor deficits Skin Exam: normal color, warm, dry, No rash Lymphatic Exam: No adenopathy SpO2 Interpretation: normal SpO2: 98 O2 Delivery: Room Air - Course Nursing assessment & vital signs reviewed: Yes EKG Interpreted by Me: RATE (107), A-fib, NORMAL INTERVALS, Right Bundle Branch Block - Radiology Exams Chest X-ray Interpretation: Teleradiologist Report Ordered Tests: Active Orders 24 hr Category Date Time Status Shredding Machine Knife Changer STAT Care 05/05/22 08:32 Active EKG-ER Only STAT Care 05/05/22 08:31 Active IV Insertion STAT Care 05/05/22 08:31 Active Pulse Oximetry (ED) STAT Care 05/05/22 08:31 Active CHEST 1 VIEW (PORTABLE) Stat Exams 05/05/22 08:31 Completed BLOOD CULTURE Stat Lab 05/05/22 08:50 Received CBC W DIFF Stat Lab 05/05/22 08:50 Completed CMP Stat Lab 05/05/22 08:50 Completed Lactic Acid Stat Lab 05/05/22 08:31 Completed MAGNESIUM Stat Lab 05/05/22 08:50 Completed NT PRO BNP Stat Lab 05/05/22 08:50 Completed TROPONIN Q4H Lab 05/05/22 08:50 Completed TROPONIN Q4H Lab 05/05/22 12:45 Ordered TROPONIN Q4H Lab 05/05/22 16:45 Ordered UA W/RFX CULTURE Stat Lab 05/05/22 09:12 Completed Respiratory Therapy Assessment DAILY RT 05/05/22 08:41 Active Transfer Order Routine Transfer 05/05/22 Ordered Medication Summary Discontinued Medications Generic Name Dose Route Start Last Admin Trade Name Freq PRN Reason Stop Dose Admin Albuterol/Ipratropium 3 ml 05/05/22 08:33 05/05/22 08:43 Ipratropium/Albuterol Sulfate 3 Ml Ampul.Neb IH 05/05/22 08:34 3 ml STAT ONE Administration Albuterol/Ipratropium Confirm 05/05/22 08:38 Ipratropium/Albuterol Sulfate 3 Ml Ampul.Neb Administered 05/05/22 08:39 Dose 3 ml IH .STK-MED ONE Methylprednisolone Sodium 0 mg 05/05/22 08:33 05/05/22 09:00 Succinate 125 mg/ Sterile IV 05/05/22 08:34 125 mg Water 2 ml STAT ONE Administration Enoxaparin Sodium 100 mg 05/05/22 09:03 05/05/22 09:14 Enoxaparin Sodium 120 Mg/0.8 Ml Syringe SQ 05/05/22 09:04 100 mg STAT STA Administration Enoxaparin Sodium Confirm 05/05/22 09:13 Enoxaparin Sodium 120 Mg/0.8 Ml Syringe Administered 05/05/22 09:14 Dose 120 mg SQ .STK-MED ONE Ceftriaxone Sodium/Dextrose 2 g in 50 mls @ 100 mls/hr 05/05/22 09:20 05/05/22 10:26 Rocephin 2 Gm-D5w 50ml Bag IV 05/05/22 09:49 Infused STAT STA Infusion Acyclovir Sodium 500 mg/ 100 mls @ 100 mls/hr 05/05/22 09:20 05/05/22 09:37 Dextrose IV 05/05/22 10:19 Not Given STAT ONE Azithromycin 500 mg in 250 mls @ 250 mls/hr 05/05/22 09:38 05/05/22 10:31 Zithromax 500 Mg/ 250 Ml Nacl Premix IV 05/05/22 10:37 250 mls/hr STAT STA 250 mls/hr Administration Ceftriaxone Sodium/Dextrose Confirm 05/05/22 09:53 Rocephin 2 Gm-D5w 50ml Bag Administered 05/05/22 09:54 Dose 2 g in 50 mls @ ud IV .STK-MED ONE Azithromycin Confirm 05/05/22 10:30 Zithromax 500 Mg/ 250 Ml Nacl Premix Administered 05/05/22 10:31 Dose 500 mg in 250 mls @ ud IV .STK-MED ONE Methylprednisolone Sodium Succinate Confirm 05/05/22 09:00 Methylprednis Sod Succ 125 Mg/2 Ml Vial Administered 05/05/22 09:01 Dose 125 mg .ROUTE .STK-MED ONE Sterile Water Confirm 05/05/22 09:00 Water For Injection,Sterile 10 Ml Vial Administered 05/05/22 09:01 Dose 10 ml IJ .STK-MED ONE Lab/Rad Data: Laboratory Result Diagrams 05/05/22 08:50 05/05/22 08:50 Laboratory Results 05/05/22 05/05/22 05/05/22 Range/Units 09:12 08:50 08:50 WBC (4.0-10.5) x10^3/uL RBC (4.1-5.6) x10^6/uL Hgb (12.5-18.0) g/dL Hct (42-50) % MCV (78-100) fL MCH (26-32) pg MCHC (32-36) g/dL RDW (11.5-14.0) % Plt Count (150-450) x10^3/uL MPV (7.5-11.0) fL Gran % (36.0-66.0) % Immature Gran % (Auto) (0.00-0.4) % Nucleat RBC Rel Count (0.00-0.1) % Eos # (Auto) (0-0.5) x10^3/uL Immature Gran # (Auto) (0.00-0.03) x10^3u/L Absolute Lymphs (auto) (1.0-4.6) x10^3/uL Absolute Monos (auto) (0.0-1.3) x10^3/uL Absolute Nucleated RBC (0.00-0.01) x10^3u/L Lymphocytes % (24.0-44.0) % Monocytes % (0.0-12.0) % Eosinophils % (0.00-5.0) % Basophils % (0.0-0.4) % Absolute Granulocytes (1.4-6.9) x10^3/uL Basophils # (0-0.4) x10^3/uL Sodium (137-145) mmol/L Potassium (3.5-5.1) mmol/L Chloride (98-107) mmol/L Carbon Dioxide (22-30) mmol/L Anion Gap (5-15) MEQ/L BUN (9-20) mg/dL Creatinine (0.66-1.25) mg/dL Estimated GFR ML/MIN Glucose (74-106) mg/dL Lactic Acid (0.4-2.0) Calcium (8.4-10.2) mg/dL Magnesium (1.6-2.3) mg/dL Total Bilirubin (0.2-1.3) mg/dL AST (17-59) U/L ALT (0-50) U/L Alkaline Phosphatase (38-126) U/L Troponin I < 0.012 (0.000-0.034) ng/mL NT-Pro-B Natriuret Pep (0-1800) pg/mL Serum Total Protein (6.3-8.2) g/dL Albumin (3.5-5.0) g/dL Urinalys Dipstick Clnc MAIN LAB Urine Color YELLOW (YELLOW) Urine Appearance CLEAR (CLEAR) Urine pH 5.5 (5-6) Ur Specific Gibson 1.015 (1.005-1.025) POC Urine Protein Conf NEGATIVE (Negative) Urine Ketones NEGATIVE (NEGATIVE) Urine Nitrite NEGATIVE (NEGATIVE) Urine Bilirubin NEGATIVE (NEGATIVE) Urine Urobilinogen 0.2 (0-1) mg/dL Urine Leukocytes NEGATIVE (NEGATIVE) Urine WBC (Auto) 0-2 (0-5) /HPF Urine RBC (Auto) 0-2 (0-2) /HPF U Epithel Cells (Auto) NONE (FEW) /HPF Urine Bacteria (Auto) NONE (NEGATIVE) /HPF Urine RBC SMALL (0-5) Harpreet/ul Urine Mucus (Auto) SLIGHT (NEGATIVE) /HPF Ur Culture Indicated? NO Urine Glucose NEGATIVE (NEGATIVE) mg/dL Influenza Type A Ag NEGATIVE (NEGATIVE) Influenza Type B Ag NEGATIVE (NEGATIVE) RSV (PCR) NEGATIVE (Negative) SARS-CoV-2 (PCR) NEGATIVE (NEGATIVE) 05/05/22 05/05/22 05/05/22 Range/Units 08:50 08:50 08:31 WBC 15.5 H (4.0-10.5) x10^3/uL RBC 3.35 L (4.1-5.6) x10^6/uL Hgb 10.8 L (12.5-18.0) g/dL Hct 34.4 L (42-50) % MCV 102.7 H (78-100) fL MCH 32.2 H (26-32) pg MCHC 31.4 L (32-36) g/dL RDW 14.1 H (11.5-14.0) % Plt Count 295 (150-450) x10^3/uL MPV 10.3 (7.5-11.0) fL Gran % 83.1 H (36.0-66.0) % Immature Gran % (Auto) 0.7 H (0.00-0.4) % Nucleat RBC Rel Count 0.0 (0.00-0.1) % Eos # (Auto) 0.03 (0-0.5) x10^3/uL Immature Gran # (Auto) 0.11 H (0.00-0.03) x10^3u/L Absolute Lymphs (auto) 0.90 L (1.0-4.6) x10^3/uL Absolute Monos (auto) 1.55 H (0.0-1.3) x10^3/uL Absolute Nucleated RBC 0.00 (0.00-0.01) x10^3u/L Lymphocytes % 5.8 L (24.0-44.0) % Monocytes % 10.0 (0.0-12.0) % Eosinophils % 0.2 (0.00-5.0) % Basophils % 0.2 (0.0-0.4) % Absolute Granulocytes 12.91 H (1.4-6.9) x10^3/uL Basophils # 0.03 (0-0.4) x10^3/uL Sodium 136 L (137-145) mmol/L Potassium 3.8 (3.5-5.1) mmol/L Chloride 100 (98-107) mmol/L Carbon Dioxide 30 (22-30) mmol/L Anion Gap 9.4 (5-15) MEQ/L BUN 14 (9-20) mg/dL Creatinine 0.86 (0.66-1.25) mg/dL Estimated GFR > 60.0 ML/MIN Glucose 82 (74-106) mg/dL Lactic Acid 1.7 (0.4-2.0) Calcium 8.9 (8.4-10.2) mg/dL Magnesium 2.0 (1.6-2.3) mg/dL Total Bilirubin 1.30 (0.2-1.3) mg/dL AST 18 (17-59) U/L ALT 15 (0-50) U/L Alkaline Phosphatase 71 (38-126) U/L Troponin I (0.000-0.034) ng/mL NT-Pro-B Natriuret Pep 694 (0-1800) pg/mL Serum Total Protein 7.5 (6.3-8.2) g/dL Albumin 4.0 (3.5-5.0) g/dL Urinalys Dipstick Clnc Urine Color (YELLOW) Urine Appearance (CLEAR) Urine pH (5-6) Ur Specific Gibson (1.005-1.025) POC Urine Protein Conf (Negative) Urine Ketones (NEGATIVE) Urine Nitrite (NEGATIVE) Urine Bilirubin (NEGATIVE) Urine Urobilinogen (0-1) mg/dL Urine Leukocytes (NEGATIVE) Urine WBC (Auto) (0-5) /HPF Urine RBC (Auto) (0-2) /HPF U Epithel Cells (Auto) (FEW) /HPF Urine Bacteria (Auto) (NEGATIVE) /HPF Urine RBC (0-5) Harpreet/ul Urine Mucus (Auto) (NEGATIVE) /HPF Ur Culture Indicated? Urine Glucose (NEGATIVE) mg/dL Influenza Type A Ag (NEGATIVE) Influenza Type B Ag (NEGATIVE) RSV (PCR) (Negative) SARS-CoV-2 (PCR) (NEGATIVE) - Progress Progress: improved Progress Note: Patient reassessed. Patient breathing easier. No shortness of breath at this time. Work-up reveals atrial fibrillation. Patient received weight-based Lovenox. Patient has a history of COPD. Patient requires 2 L of nasal cannula oxygen 24 hours/day. Blood cultures obtained. X-ray reveals bilateral pneumonia. Antibiotics administered. Patient also received Solu-Medrol. Patient has a megaloblastic anemia with a low-grade fever. Case discussed with Dr. White who accepts admission to observation. Patient is COVID-negative. Plan of care discussed with patient. He agrees to admission at [facility] for further evaluation and treatment. Portions of this note were created with voice recognition technology. There may be grammatical, spelling, punctuation or sound alike errors 05/05/22 10:40 Discussed with .: Gary Will see patient in: hospital (observation) Counseled pt/family regarding: lab results, diagnosis, rad results - Departure Departure Disposition: Observation Clinical Impression: Atrial fibrillation, COPD exacerbation, Fever, Leukocytosis, Megaloblastic anemia, Bilateral pulmonary infiltrates on chest x-ray, Pneumonia Condition: Stable Critical Care Time: No Referrals: TIMA FRAGOSO [Primary Care Provider] - Follow up/PCP as directed Instructions: Chronic Obstructive Pulmonary Disease
[2022-05-05] MEDS ORDERED: ENOXAPARIN SODIUM SQ ONE (09:13)
[2022-05-05] MEDS ORDERED: ROCEPHIN 2 Gm-D5w 50ML BAG** 2 G/50 ML IVPB IV STA (09:20)
[2022-05-05] MEDS ORDERED: Zovirax INJ*** 500 MG in D5w 100ML Mini Bag 100 ML 100 ML IV ONE (09:20)
[2022-05-05 09:23] LABS: Appearance CLEAR (CLEAR); Bilirubin NEGATIVE (NEGATIVE); Glucose NEGATIVE (NEGATIVE); Ketones NEGATIVE (NEGATIVE); Mucus SLIGHT /HPF (NEGATIVE); Ph 5.5 (5-6); Protein,Urine Dip NEGATIVE (Negative); RBC 0-2 /HPF (0-2); RBC SMALL Ery/ul (0-5); Specific Gravity 1.015 (1.005-1.025); WBC 0-2 /HPF (0-5)
[2022-05-05 09:24] LABS: Dipstick done @ ? MAIN LAB; Nitrite NEGATIVE (NEGATIVE); Urobilinogen 0.2 mg/dL (0-1)
[2022-05-05 09:26] LABS: ALKALINE PHOSPHATASE 71 U/L (38-126); ANION GAP 9.4 MEQ/L (5-15); BLOOD UREA NITROGEN 14 mg/dL (9-20); CHLORIDE 100 mmol/L (98-107); Calcium 8.9 mg/dL (8.4-10.2); Carbon Dioxide 30 mmol/L (22-30); Creatinine 1 0.86 mg/dL (0.66-1.25); EST GLOMERULAR FILTRATION RATE > 60.0 ML/MIN; Glucose 82 mg/dL (74-106); NT PRO BNP 694 pg/mL (0-1800); Potassium 3.8 mmol/L (3.5-5.1); SGOT/AST 18 U/L (17-59); SGPT/ALT 15 U/L (0-50); SODIUM 136 mmol/L (137-145); Total Protein 7.5 g/dL (6.3-8.2)
[2022-05-05 09:27] LABS: Urine Cultured Indicated? NO
[2022-05-05 09:38] LABS: INFLUENZA A NEGATIVE (NEGATIVE); INFLUENZA B NEGATIVE (NEGATIVE); RESPIRATORY SYNCTIAL VIRUS NEGATIVE (Negative); SARS-CoV-2 Xpert Express NEGATIVE (NEGATIVE)
[2022-05-05] MEDS ORDERED: Zithromax 500 MG/ 250 ML NaCl Premix 500 MG/250 ML IVPB IV STA (09:38)
[2022-05-05] MEDS ORDERED: ROCEPHIN 2 Gm-D5w 50ML BAG** 2 G/50 ML IVPB IV ONE (09:53)
[2022-05-05] MEDS ORDERED: Zithromax 500 MG/ 250 ML NaCl Premix 500 MG/250 ML IVPB IV ONE (10:30)
[2022-05-05 11:00] LABS: Slide Review 1 YES
[2022-05-05] MEDS ORDERED: PROVENTIL 2.5 MG/3 ML NEB IH SCH ×2 (11:02→15:00)
[2022-05-05] MEDS ORDERED: TYLENOL 325 MG PO PRN (11:22)
[2022-05-05] MEDS: PROVENTIL 2.5 MG/3 ML NEB IH SCH ×2 (13:06→17:04)
[2022-05-05] MEDS: solu-MEDROL 60 MG, Sterile H2O 10 ml 2 ML IV SCH ×2 (17:21)
[2022-05-05] MEDS ORDERED: DUONEB 0.5-3 MG/3 ml Neb IH PRN (17:30)
[2022-05-05] MEDS ORDERED: NON-FORMULARY ITEM (Gabapentin [Neurontin] 600 MG Tablet) PO SCH (18:00)
[2022-05-05] MEDS ORDERED: MEDICATION INTERVENTION MC SCH (18:00)
[2022-05-05] MEDS: Glucophage 850 MG PO SCH (18:36)
[2022-05-05] MEDS: Glucotrol 5 MG PO SCH (18:36)
[2022-05-05] MEDS: NEURONTIN PO SCH (18:36)
--- NOTE | 2022-05-05 20:48 | PCM.HP ---
History of Present Illness - Chief Complaint Chief Complaint: generalized weakness for 1-2 days History of Present Illness: is a 76 year old male.history of COPD requires 2 L nasal cannula 24 hours/day presents to our ED via EMS for evaluation of cough shortness of breath generalized weakness and tremors. Patient states that he had generalized body aches 2 days ago. Patient states today he feels weak. No trauma. No fever. No chest pain. Symptoms are progressive. Symptoms are moderate in intensity. No specific worsening improving factors. Patient voices no other complaints or concerns at this time. - Review of Systems Constitutional: Fever, Fatigue, Lethargy, Weakness, No Chills Eyes: No Symptoms Ears, Nose, & Throat: No Symptoms Respiratory: Cough, Orthopnea, Short Of Breath, Wheezing Cardiac: Orthopnea, No Chest Pain, No Edema, No Syncope Abdominal/Gastrointestinal: No Abdominal Pain, No Nausea, No Vomiting, No Diarrhea Genitourinary Symptoms: No Dysuria Musculoskeletal: No Back Pain, No Neck Pain Skin: No Rash Neurological: No Dizziness, No Focal Weakness, No Sensory Changes Psychological: No Symptoms Endocrine: No Symptoms Hematologic/Lymphatic: No Symptoms Immunological/Allergic: No Symptoms Medications & Allergies Home Medications: Home Medication List Furosemide 40 mg PO DAILY 10/21/14 [History Confirmed 05/05/22] Gabapentin [Neurontin] 600 mg PO 1800 10/21/14 [History Confirmed 05/05/22] Glipizide 10 mg [Glucotrol 10 MG] 10 mg PO BID 10/21/14 [History Confirmed 05/05/22] Insulin Glargine,Hum.rec.anlog [Lantus] 10 unit SQ 1600 10/21/14 [History Confirmed 05/05/22] Loratadine 10 mg [Claritin 10 mg] 10 mg PO DAILY 10/21/14 [History Confirmed 05/05/22] Metformin HCl 500 mg [Glucophage 500 MG] 500 mg PO HS 10/21/14 [History Confirmed 05/05/22] Metformin HCl 850 mg [Glucophage 850 MG] 850 mg PO BID 10/21/14 [History Confirmed 05/05/22] Potassium Chloride Tab* [Klor Con 10 MEQ] 4 tab PO DAILY 10/21/14 [History Confirmed 05/05/22] Fluticasone/Umeclidin/Vilanter [Trelegy Ellipta 100-62.5-25] 1 inh PO DAILY 10/15/18 [History Confirmed 05/05/22] Albuterol/Ipratropium 3ml Neb* [DUONEB 0.5-3 MG/3 ml Neb] 3 ml IH QIDPRN PRN 05/05/22 [History Confirmed 05/05/22] Allergies/Adverse Reactions: Allergies Allergy/AdvReac Type Severity Reaction Status Date / Time ampicillin Allergy Intermediate Swelling Verified 10/15/18 16:10 of Hands - Past Medical History Past Medical History: Yes Neurological History: No Pertinent History ENT History: Cataracts Cardiac History: Congestive Heart Failure Respiratory History: Bronchitis, CHF, COPD, Emphysema, Pneumonia, Sleep Apnea Endocrine Medical History: Diabetes Type II Musculoskelatal History: Arthritis, Fractures GI Medical History: No Pertinent History History: No Pertinent History Pyscho-Social History: No Pertinent History Male Reproductive Disorders: No Pertinent History Comment: Home O2 - Past Surgical History Past Surgical History: Yes Neuro Surgical History: No Pertinent History Cardiac History: No Pertinent History Respiratory Surgery: No Pertinent History GI Surgical History: No Pertinent History Genitourinary Surgical Hx: No Pertinent History Musculskeletal Surgical Hx: No Pertinent History Male Surgical History: No Pertinent History Other Surgical History: Cataract Surgery - Social History Smoking Status: Former smoker How long have you smoked: 45 years Exposure to second hand smoke: No Alcohol: None Drug Use: none - Physical Exam Vital Signs: Vital Signs - 24 hr Temp Pulse Resp BP Pulse Ox 05/05/22 20:00 97.7 F 98 H 18 94/51 95 05/05/22 17:06 104 H 18 94 L 05/05/22 16:00 98.6 F 103 H 16 91/52 96 05/05/22 13:12 106 H 16 95 05/05/22 12:34 98.7 F 107 H 16 122/60 94 L 05/05/22 11:02 98.7 F 107 H 16 122/60 94 L 05/05/22 11:01 98.7 F 107 H 16 122/60 94 L 05/05/22 10:42 98 05/05/22 10:21 100.0 F 107 H 26 H 125/81 93 L 05/05/22 09:51 99.9 F 106 H 22 98/50 98 05/05/22 08:47 98 05/05/22 08:43 107 H 24 98 05/05/22 08:30 100.4 F 107 H 22 123/63 98 General Appearance: no apparent distress, alert Neurologic Exam: alert, oriented x 3, cooperative, normal mood/affect, nml cerebellar function, nml station & gait, sensation nml, No motor deficits Eye Exam: PERRL/EOMI, eyes nml inspection Ears, Nose, Throat Exam: normal ENT inspection, TMs normal, pharynx normal, moist mucous membranes Neck Exam: normal inspection, non-tender, supple, full range of motion Respiratory Exam: diminished breath sounds, prolonged expirations, crackles/rales, rhonchi, wheezing, No respiratory distress Cardiovascular Exam: regular rate/rhythm, normal heart sounds, normal peripheral pulses Gastrointestinal/Abdomen Exam: soft, normal bowel sounds, No tenderness, No mass Back Exam: normal inspection, normal range of motion, No CVA tenderness, No vertebral tenderness Extremity Exam: normal inspection, normal range of motion, pelvis stable Skin Exam: normal color, warm, dry, No rash Lymphatic Exam: No adenopathy Results - Labs Lab/Micro Results: Lab Results-Last 24 Hours 05/05/22 05/05/22 05/05/22 Range/Units 08:31 08:50 08:50 WBC 15.5 H (4.0-10.5) x10^3/uL RBC 3.35 L (4.1-5.6) x10^6/uL Hgb 10.8 L (12.5-18.0) g/dL Hct 34.4 L (42-50) % MCV 102.7 H (78-100) fL MCH 32.2 H (26-32) pg MCHC 31.4 L (32-36) g/dL RDW 14.1 H (11.5-14.0) % Plt Count 295 (150-450) x10^3/uL MPV 10.3 (7.5-11.0) fL Gran % 83.1 H (36.0-66.0) % Immature Gran % (Auto) 0.7 H (0.00-0.4) % Nucleat RBC Rel Count 0.0 (0.00-0.1) % Eos # (Auto) 0.03 (0-0.5) x10^3/uL Immature Gran # (Auto) 0.11 H (0.00-0.03) x10^3u/L Absolute Lymphs (auto) 0.90 L (1.0-4.6) x10^3/uL Absolute Monos (auto) 1.55 H (0.0-1.3) x10^3/uL Absolute Nucleated RBC 0.00 (0.00-0.01) x10^3u/L Lymphocytes % 5.8 L (24.0-44.0) % Monocytes % 10.0 (0.0-12.0) % Eosinophils % 0.2 (0.00-5.0) % Basophils % 0.2 (0.0-0.4) % Absolute Granulocytes 12.91 H (1.4-6.9) x10^3/uL Basophils # 0.03 (0-0.4) x10^3/uL Sodium 136 L (137-145) mmol/L Potassium 3.8 (3.5-5.1) mmol/L Chloride 100 (98-107) mmol/L Carbon Dioxide 30 (22-30) mmol/L Anion Gap 9.4 (5-15) MEQ/L BUN 14 (9-20) mg/dL Creatinine 0.86 (0.66-1.25) mg/dL Estimated GFR > 60.0 ML/MIN Glucose 82 (74-106) mg/dL Lactic Acid 1.7 (0.4-2.0) Calcium 8.9 (8.4-10.2) mg/dL Magnesium 2.0 (1.6-2.3) mg/dL Total Bilirubin 1.30 (0.2-1.3) mg/dL AST 18 (17-59) U/L ALT 15 (0-50) U/L Alkaline Phosphatase 71 (38-126) U/L Troponin I (0.000-0.034) ng/mL NT-Pro-B Natriuret Pep 694 (0-1800) pg/mL Serum Total Protein 7.5 (6.3-8.2) g/dL Albumin 4.0 (3.5-5.0) g/dL Prealbumin (17.6-36.0) mg/dL Urinalys Dipstick Clnc Urine Color (YELLOW) Urine Appearance (CLEAR) Urine pH (5-6) Ur Specific [place] (1.005-1.025) POC Urine Protein Conf (Negative) Urine Ketones (NEGATIVE) Urine Nitrite (NEGATIVE) Urine Bilirubin (NEGATIVE) Urine Urobilinogen (0-1) mg/dL Urine Leukocytes (NEGATIVE) Urine WBC (Auto) (0-5) /HPF Urine RBC (Auto) (0-2) /HPF U Epithel Cells (Auto) (FEW) /HPF Urine Bacteria (Auto) (NEGATIVE) /HPF Urine RBC (0-5) Harpreet/ul Urine Mucus (Auto) (NEGATIVE) /HPF Ur Culture Indicated? Urine Glucose (NEGATIVE) mg/dL Influenza Type A Ag (NEGATIVE) Influenza Type B Ag (NEGATIVE) RSV (PCR) (Negative) SARS-CoV-2 (PCR) (NEGATIVE) Slides for Path Review YES 05/05/22 05/05/22 05/05/22 Range/Units 08:50 08:50 09:12 WBC (4.0-10.5) x10^3/uL RBC (4.1-5.6) x10^6/uL Hgb (12.5-18.0) g/dL Hct (42-50) % MCV (78-100) fL MCH (26-32) pg MCHC (32-36) g/dL RDW (11.5-14.0) % Plt Count (150-450) x10^3/uL MPV (7.5-11.0) fL Gran % (36.0-66.0) % Immature Gran % (Auto) (0.00-0.4) % Nucleat RBC Rel Count (0.00-0.1) % Eos # (Auto) (0-0.5) x10^3/uL Immature Gran # (Auto) (0.00-0.03) x10^3u/L Absolute Lymphs (auto) (1.0-4.6) x10^3/uL Absolute Monos (auto) (0.0-1.3) x10^3/uL Absolute Nucleated RBC (0.00-0.01) x10^3u/L Lymphocytes % (24.0-44.0) % Monocytes % (0.0-12.0) % Eosinophils % (0.00-5.0) % Basophils % (0.0-0.4) % Absolute Granulocytes (1.4-6.9) x10^3/uL Basophils # (0-0.4) x10^3/uL Sodium (137-145) mmol/L Potassium (3.5-5.1) mmol/L Chloride (98-107) mmol/L Carbon Dioxide (22-30) mmol/L Anion Gap (5-15) MEQ/L BUN (9-20) mg/dL Creatinine (0.66-1.25) mg/dL Estimated GFR ML/MIN Glucose (74-106) mg/dL Lactic Acid (0.4-2.0) Calcium (8.4-10.2) mg/dL Magnesium (1.6-2.3) mg/dL Total Bilirubin (0.2-1.3) mg/dL AST (17-59) U/L ALT (0-50) U/L Alkaline Phosphatase (38-126) U/L Troponin I < 0.012 (0.000-0.034) ng/mL NT-Pro-B Natriuret Pep (0-1800) pg/mL Serum Total Protein (6.3-8.2) g/dL Albumin (3.5-5.0) g/dL Prealbumin (17.6-36.0) mg/dL Urinalys Dipstick Clnc MAIN LAB Urine Color YELLOW (YELLOW) Urine Appearance CLEAR (CLEAR) Urine pH 5.5 (5-6) Ur Specific [place] 1.015 (1.005-1.025) POC Urine Protein Conf NEGATIVE (Negative) Urine Ketones NEGATIVE (NEGATIVE) Urine Nitrite NEGATIVE (NEGATIVE) Urine Bilirubin NEGATIVE (NEGATIVE) Urine Urobilinogen 0.2 (0-1) mg/dL Urine Leukocytes NEGATIVE (NEGATIVE) Urine WBC (Auto) 0-2 (0-5) /HPF Urine RBC (Auto) 0-2 (0-2) /HPF U Epithel Cells (Auto) NONE (FEW) /HPF Urine Bacteria (Auto) NONE (NEGATIVE) /HPF Urine RBC SMALL (0-5) Harpreet/ul Urine Mucus (Auto) SLIGHT (NEGATIVE) /HPF Ur Culture Indicated? NO Urine Glucose NEGATIVE (NEGATIVE) mg/dL Influenza Type A Ag NEGATIVE (NEGATIVE) Influenza Type B Ag NEGATIVE (NEGATIVE) RSV (PCR) NEGATIVE (Negative) SARS-CoV-2 (PCR) NEGATIVE (NEGATIVE) Slides for Path Review 05/05/22 05/05/22 05/05/22 Range/Units 12:44 12:45 16:45 WBC (4.0-10.5) x10^3/uL RBC (4.1-5.6) x10^6/uL Hgb (12.5-18.0) g/dL Hct (42-50) % MCV (78-100) fL MCH (26-32) pg MCHC (32-36) g/dL RDW (11.5-14.0) % Plt Count (150-450) x10^3/uL MPV (7.5-11.0) fL Gran % (36.0-66.0) % Immature Gran % (Auto) (0.00-0.4) % Nucleat RBC Rel Count (0.00-0.1) % Eos # (Auto) (0-0.5) x10^3/uL Immature Gran # (Auto) (0.00-0.03) x10^3u/L Absolute Lymphs (auto) (1.0-4.6) x10^3/uL Absolute Monos (auto) (0.0-1.3) x10^3/uL Absolute Nucleated RBC (0.00-0.01) x10^3u/L Lymphocytes % (24.0-44.0) % Monocytes % (0.0-12.0) % Eosinophils % (0.00-5.0) % Basophils % (0.0-0.4) % Absolute Granulocytes (1.4-6.9) x10^3/uL Basophils # (0-0.4) x10^3/uL Sodium (137-145) mmol/L Potassium (3.5-5.1) mmol/L Chloride (98-107) mmol/L Carbon Dioxide (22-30) mmol/L Anion Gap (5-15) MEQ/L BUN (9-20) mg/dL Creatinine (0.66-1.25) mg/dL Estimated GFR ML/MIN Glucose (74-106) mg/dL Lactic Acid (0.4-2.0) Calcium (8.4-10.2) mg/dL Magnesium (1.6-2.3) mg/dL Total Bilirubin (0.2-1.3) mg/dL AST (17-59) U/L ALT (0-50) U/L Alkaline Phosphatase (38-126) U/L Troponin I < 0.012 < 0.012 (0.000-0.034) ng/mL NT-Pro-B Natriuret Pep (0-1800) pg/mL Serum Total Protein (6.3-8.2) g/dL Albumin (3.5-5.0) g/dL Prealbumin 9.16 L (17.6-36.0) mg/dL Urinalys Dipstick Clnc Urine Color (YELLOW) Urine Appearance (CLEAR) Urine pH (5-6) Ur Specific [place] (1.005-1.025) POC Urine Protein Conf (Negative) Urine Ketones (NEGATIVE) Urine Nitrite (NEGATIVE) Urine Bilirubin (NEGATIVE) Urine Urobilinogen (0-1) mg/dL Urine Leukocytes (NEGATIVE) Urine WBC (Auto) (0-5) /HPF Urine RBC (Auto) (0-2) /HPF U Epithel Cells (Auto) (FEW) /HPF Urine Bacteria (Auto) (NEGATIVE) /HPF Urine RBC (0-5) Harpreet/ul Urine Mucus (Auto) (NEGATIVE) /HPF Ur Culture Indicated? Urine Glucose (NEGATIVE) mg/dL Influenza Type A Ag (NEGATIVE) Influenza Type B Ag (NEGATIVE) RSV (PCR) (Negative) SARS-CoV-2 (PCR) (NEGATIVE) Slides for Path Review - Radiology Impressions Radiology Exams & Impressions: Radiology Procedures Category Date Time Status CHEST 1 VIEW (PORTABLE) Stat Exams 05/05/22 08:31 Completed RAD/CHEST 1 VIEW (PORTABLE) Indication: Short of breath and productive cough. Comparison: February 20, 2022 Portable chest again hyperinflated with new moderate bibasilar infiltrates/atelectasis/effusions, left greater than right. Heart not enlarged. Bony thorax intact again with osteopenia and degenerative changes. - Other Procedures and Tests Respiratory Therapy 05/05/22 08:41 Respiratory Therapy Assessment DAILY 05/05/22 13:13 Oxygen NASAL CANNULA 3 lpm Assessment/Plan (1) Pneumonia Current Visit: Yes Status: Acute Qualifiers: Pneumonia type: due to Pneumococcus Laterality: bilateral Lung location: lower lobe of lung Qualified Code(s): J13 - Pneumonia due to Streptococcus pneumoniae Assessment & Plan: Chief Complaint Diagnosis Pneumonia, generalized weakness Allergies Allergy/AdvReac Type Severity Reaction Status Date / Time ampicillin Allergy Intermediate Swelling Verified 10/15/18 16:10 of Hands Vital Signs (Last 24 hours) Temp Pulse Resp BP Pulse Ox 05/05/22 20:00 97.7 F 98 H 18 94/51 95 05/05/22 17:06 104 H 18 94 L 05/05/22 16:00 98.6 F 103 H 16 91/52 96 05/05/22 13:12 106 H 16 95 05/05/22 12:34 98.7 F 107 H 16 122/60 94 L 05/05/22 11:02 98.7 F 107 H 16 122/60 94 L 05/05/22 11:01 98.7 F 107 H 16 122/60 94 L 05/05/22 10:42 98 05/05/22 10:21 100.0 F 107 H 26 H 125/81 93 L 05/05/22 09:51 99.9 F 106 H 22 98/50 98 05/05/22 08:47 98 05/05/22 08:43 107 H 24 98 05/05/22 08:30 100.4 F 107 H 22 123/63 98 Home Medications Medication Instructions Recorded Confirmed Last Taken Type Albuterol/Ipratropium 3ml Neb* 3 ml QIDPRN PRN 05/05/22 05/05/22 05/05/22 08:00 History [DUONEB 0.5-3 MG/3 ml Neb] Current Medications Generic Name Dose Route Start Last Admin Trade Name Freq PRN Reason Stop Dose Admin Acetaminophen 650 mg 05/05/22 11:22 Acetaminophen 325 Mg Tablet PO 06/04/22 11:21 Q4H PRN PRN MILD PAIN Albuterol Sulfate 2.5 mg 05/05/22 19:00 05/05/22 17:04 Albuterol Sulfate 2.5 Mg/3 Ml Neb 06/04/22 18:59 2.5 mg TIDRT CHRISTA Administration Albuterol/Ipratropium 3 ml 05/05/22 17:30 Ipratropium/Albuterol Sulfate 3 Ml Ampul.Neb 06/04/22 17:29 QIDPRN PRN SHORTNESS OF BREATH/WHEEZING Methylprednisolone Sodium 0 mg 05/05/22 17:00 05/05/22 17:21 Succinate 60 mg/ Sterile Water IV 06/04/22 16:59 60 mg 2 ml Q6HT CHIRSTA Administration Enoxaparin Sodium 40 mg 05/06/22 10:00 Enoxaparin Sodium 40 Mg/0.4 Ml Syringe SQ 06/05/22 09:59 DAILY CHRISTA Furosemide 40 mg 05/06/22 10:00 Furosemide 40 Mg Tablet PO 06/05/22 09:59 DAILY CHRISTA Gabapentin 600 mg 05/05/22 18:00 05/05/22 18:36 Gabapentin 300 Mg Capsule PO 06/04/22 17:59 600 mg 1800 CHRISTA Administration Glipizide 10 mg 05/05/22 18:00 05/05/22 18:36 Glipizide 5 Mg Tablet PO 06/04/22 17:59 10 mg BIDWM CHRISTA Administration Ceftriaxone Sodium/Dextrose 1 g in 50 mls @ 100 mls/hr 05/06/22 10:00 Rocephin 1 Gm-D5w 50 Ml Bag IV 05/09/22 09:59 Q24H10 CHRISTA Azithromycin 500 mg in 250 mls @ 250 mls/hr 05/06/22 10:00 Zithromax 500 Mg/ 250 Ml Nacl Premix IV 06/05/22 09:59 Q24H10 CHRISTA Insulin Glargine 10 unit 05/06/22 18:00 Insulin Glargine 1 Unit SQ 06/05/22 17:59 1600 CHRISTA Loratadine 10 mg 05/06/22 10:00 Loratadine 10 Mg Tablet PO 06/05/22 09:59 DAILY CHRISTA Metformin HCl 850 mg 05/05/22 18:00 05/05/22 18:36 Metformin Hcl 850 Mg Tablet PO 06/04/22 17:59 850 mg BIDWM CHRISTA Administration Metformin HCl 500 mg 05/05/22 22:00 Metformin Hcl 500 Mg Tablet PO 06/04/22 21:59 HS CHRISTA Miscellaneous Information 1 each 05/05/22 18:00 Medication Intervention 1 Each Each 06/04/22 17:59 .RN TO CHECK CHRISTA Potassium Chloride 40 meq 05/06/22 10:00 Potassium Chloride Tab 10 Meq Tab PO 06/05/22 09:59 DAILY HCRISTA Discontinued Medications Generic Name Dose Route Start Last Admin Trade Name Freq PRN Reason Stop Dose Admin Albuterol Sulfate 2.5 mg 05/05/22 11:02 Albuterol Sulfate 2.5 Mg/3 Ml [facility] 06/04/22 11:01 Q4HRT CHRISTA Albuterol Sulfate 2.5 mg 05/05/22 15:00 Albuterol Sulfate 2.5 Mg/3 Ml [facility] 06/04/22 14:59 TID CHRISTA Albuterol/Ipratropium 3 ml 05/05/22 08:33 05/05/22 08:43 Ipratropium/Albuterol Sulfate 3 Ml [facility]mpul[facility] 05/05/22 08:34 3 ml STAT ONE Administration Albuterol/Ipratropium Confirm 05/05/22 08:38 Ipratropium/Albuterol Sulfate 3 Ml Ampul.Neb Administered 05/05/22 08:39 Dose 3 ml IH .STK-MED ONE Methylprednisolone Sodium 0 mg 05/05/22 08:33 05/05/22 09:00 Succinate 125 mg/ Sterile IV 05/05/22 08:34 125 mg Water 2 ml STAT ONE Administration Enoxaparin Sodium 100 mg 05/05/22 09:03 05/05/22 09:14 Enoxaparin Sodium 120 Mg/0.8 Ml Syringe SQ 05/05/22 09:04 100 mg STAT STA Administration Enoxaparin Sodium Confirm 05/05/22 09:13 Enoxaparin Sodium 120 Mg/0.8 Ml Syringe Administered 05/05/22 09:14 Dose 120 mg SQ .STK-MED ONE Ceftriaxone Sodium/Dextrose 2 g in 50 mls @ 100 mls/hr 05/05/22 09:20 05/05/22 10:26 Rocephin 2 Gm-D5w 50ml Bag IV 05/05/22 09:49 Infused STAT STA Infusion Acyclovir Sodium 500 mg/ 100 mls @ 100 mls/hr 05/05/22 09:20 05/05/22 09:37 Dextrose IV 05/05/22 10:19 Not Given STAT ONE Azithromycin 500 mg in 250 mls @ 250 mls/hr 05/05/22 09:38 05/05/22 10:31 Zithromax 500 Mg/ 250 Ml Nacl Premix IV 05/05/22 10:37 250 mls/hr STAT STA 250 mls/hr Administration Ceftriaxone Sodium/Dextrose Confirm 05/05/22 09:53 Rocephin 2 Gm-D5w 50ml Bag Administered 05/05/22 09:54 Dose 2 g in 50 mls @ ud IV .STK-MED ONE Azithromycin Confirm 05/05/22 10:30 Zithromax 500 Mg/ 250 Ml Nacl Premix Administered 05/05/22 10:31 Dose 500 mg in 250 mls @ ud IV .STK-MED ONE Methylprednisolone Sodium Succinate Confirm 05/05/22 09:00 Methylprednis Sod Succ 125 Mg/2 Ml Vial Administered 05/05/22 09:01 Dose 125 mg .ROUTE .STK-MED ONE Sterile Water Confirm 05/05/22 09:00 Water For Injection,Sterile 10 Ml Vial Administered 05/05/22 09:01 Dose 10 ml IJ .STK-MED ONE Intake & Output (Last 24 hours) 05/03/22 05/04/22 05/05/22 05/06/22 11:59 11:59 11:59 11:59 Intake Total 1060 Balance 1060 Weight 94 kg 94 kg Microbiology Results (Last 24 hours) 05/05/22 08:50 Blood Blood Culture Gram Stain - Pending 05/05/22 08:50 Blood Blood Culture - Pending 05/05/22 08:50 Blood Blood Culture Gram Stain - Pending 05/05/22 08:50 Blood Blood Culture - Pending Laboratory Results (Last 24 hours) 05/05/22 05/05/22 05/05/22 16:45 12:45 12:44 WBC RBC Hgb Hct MCV MCH MCHC RDW Plt Count MPV Gran % Immature Gran % (Auto) Nucleat RBC Rel Count Eos # (Auto) Immature Gran # (Auto) Absolute Lymphs (auto) Absolute Monos (auto) Absolute Nucleated RBC Lymphocytes % Monocytes % Eosinophils % Basophils % Absolute Granulocytes Basophils # Sodium Potassium Chloride Carbon Dioxide Anion Gap BUN Creatinine Estimated GFR Glucose Lactic Acid Calcium Magnesium Total Bilirubin AST ALT Alkaline Phosphatase Troponin I < 0.012 < 0.012 NT-Pro-B Natriuret Pep Serum Total Protein Albumin Prealbumin 9.16 L Urinalys Dipstick Clnc Urine Color Urine Appearance Urine pH Ur Specific [place] POC Urine Protein Conf Urine Ketones Urine Nitrite Urine Bilirubin Urine Urobilinogen Urine Leukocytes Urine WBC (Auto) Urine RBC (Auto) U Epithel Cells (Auto) Urine Bacteria (Auto) Urine RBC Urine Mucus (Auto) Ur Culture Indicated? Urine Glucose Influenza Type A Ag Influenza Type B Ag RSV (PCR) SARS-CoV-2 (PCR) Slides for Path Review 05/05/22 05/05/22 05/05/22 09:12 08:50 08:50 WBC RBC Hgb Hct MCV MCH MCHC RDW Plt Count MPV Gran % Immature Gran % (Auto) Nucleat RBC Rel Count Eos # (Auto) Immature Gran # (Auto) Absolute Lymphs (auto) Absolute Monos (auto) Absolute Nucleated RBC Lymphocytes % Monocytes % Eosinophils % Basophils % Absolute Granulocytes Basophils # Sodium Potassium Chloride Carbon Dioxide Anion Gap BUN Creatinine Estimated GFR Glucose Lactic Acid Calcium Magnesium Total Bilirubin AST ALT Alkaline Phosphatase Troponin I < 0.012 NT-Pro-B Natriuret Pep Serum Total Protein Albumin Prealbumin Urinalys Dipstick Clnc MAIN LAB Urine Color YELLOW Urine Appearance CLEAR Urine pH 5.5 Ur Specific [place] 1.015 POC Urine Protein Conf NEGATIVE Urine Ketones NEGATIVE Urine Nitrite NEGATIVE Urine Bilirubin NEGATIVE Urine Urobilinogen 0.2 Urine Leukocytes NEGATIVE Urine WBC (Auto) 0-2 Urine RBC (Auto) 0-2 U Epithel Cells (Auto) NONE Urine Bacteria (Auto) NONE Urine RBC SMALL Urine Mucus (Auto) SLIGHT Ur Culture Indicated? NO Urine Glucose NEGATIVE Influenza Type A Ag NEGATIVE Influenza Type B Ag NEGATIVE RSV (PCR) NEGATIVE SARS-CoV-2 (PCR) NEGATIVE Slides for Path Review 05/05/22 05/05/22 05/05/22 08:50 08:50 08:31 WBC 15.5 H RBC 3.35 L Hgb 10.8 L Hct 34.4 L MCV 102.7 H MCH 32.2 H MCHC 31.4 L RDW 14.1 H Plt Count 295 MPV 10.3 Gran % 83.1 H Immature Gran % (Auto) 0.7 H Nucleat RBC Rel Count 0.0 Eos # (Auto) 0.03 Immature Gran # (Auto) 0.11 H Absolute Lymphs (auto) 0.90 L Absolute Monos (auto) 1.55 H Absolute Nucleated RBC 0.00 Lymphocytes % 5.8 L Monocytes % 10.0 Eosinophils % 0.2 Basophils % 0.2 Absolute Granulocytes 12.91 H Basophils # 0.03 Sodium 136 L Potassium 3.8 Chloride 100 Carbon Dioxide 30 Anion Gap 9.4 BUN 14 Creatinine 0.86 Estimated GFR > 60.0 Glucose 82 Lactic Acid 1.7 Calcium 8.9 Magnesium 2.0 Total Bilirubin 1.30 AST 18 ALT 15 Alkaline Phosphatase 71 Troponin I NT-Pro-B Natriuret Pep 694 Serum Total Protein 7.5 Albumin 4.0 Prealbumin Urinalys Dipstick Clnc Urine Color Urine Appearance Urine pH Ur Specific [place] POC Urine Protein Conf Urine Ketones Urine Nitrite Urine Bilirubin Urine Urobilinogen Urine Leukocytes Urine WBC (Auto) Urine RBC (Auto) U Epithel Cells (Auto) Urine Bacteria (Auto) Urine RBC Urine Mucus (Auto) Ur Culture Indicated? Urine Glucose Influenza Type A Ag Influenza Type B Ag RSV (PCR) SARS-CoV-2 (PCR) Slides for Path Review YES Orders (Last 24 hours) Category Date Time Status Bedrest ROUTINE Activity 05/05/22 11:02 Active Biomedical Equipment Tech STAT Care 05/05/22 08:32 Completed Code Status Order ROUTINE Care 05/05/22 11:02 Active EKG-ER Only STAT Care 05/05/22 08:31 Completed IV Care Q6H Care 05/05/22 11:02 Active IV Insertion STAT Care 05/05/22 08:[address] in Observation ROUTINE Care 05/05/22 11:02 Active Pulse Oximetry (ED) STAT Care 05/05/22 08:31 Completed René De Santiago ROUTINE Care 05/05/22 11:02 Active Telemetry q4h Care 05/05/22 11:02 Active Weight,Daily 0600 Care 05/05/22 11:02 Active Cardio-Pulmonary Rehab .as ordered Cons 05/05/22 12:00 Active Consistent Carbohydrate Diet 2000 Calorie Diet 05/05/22 Dinner Active CHEST 1 VIEW (PORTABLE) Stat Exams 05/05/22 08:31 Completed BLOOD CULTURE Stat Lab 05/05/22 08:50 Received CBC AM.LAB Lab 05/06/22 04:00 Ordered CBC W DIFF Stat Lab 05/05/22 08:50 Completed CMP AM.LAB Lab 05/06/22 04:00 Ordered CMP Stat Lab 05/05/22 08:50 Completed COVID/FLU/RSV Panel Stat Lab 05/05/22 08:50 Completed Lactic Acid Stat Lab 05/05/22 08:31 Completed MAGNESIUM Stat Lab 05/05/22 08:50 Completed NT PRO BNP Stat Lab 05/05/22 08:50 Completed PREALBUMIN Routine Lab 05/05/22 12:44 Completed TROPONIN Q4H Lab 05/05/22 08:50 Completed TROPONIN Q4H Lab 05/05/22 12:45 Completed TROPONIN Q4H Lab 05/05/22 16:45 Completed UA W/RFX CULTURE Stat Lab 05/05/22 09:12 Completed Acetaminophen 325 mg [Tylenol 325 mg] Med 05/05/22 11:22 Active 650 mg PO Q4H PRN PRN Acyclovir Sodium Inj [Zovirax INJ] 500 mg Med 05/05/22 09:20 Disc ontinued D5w 100 ml [D5w 100ML Mini Bag 100 ML] 100 ml IV STAT Albuterol 2.5 mg/3 ml Neb [Proventil 2.5 mg/3 ml Neb Med 05/05/22 11:02 Discontinued ] 2.5 mg IH Q4HRT Albuterol 2.5 mg/3 ml Neb [Proventil 2.5 mg/3 ml Neb Med 05/05/22 15:00 Discontinued ] 2.5 mg IH TID Albuterol 2.5 mg/3 ml Neb [Proventil 2.5 mg/3 ml Neb Med 05/05/22 19:00 Active ] 2.5 mg IH TIDRT Albuterol/Ipratropium 3ml Neb* [DUONEB 0.5-3 MG/3 ml Med 05/05/22 08:38 Discontinued Neb] 3 ml IH .STK-MED ONE Albuterol/Ipratropium 3ml Neb* [DUONEB 0.5-3 MG/3 ml Med 05/05/22 17:30 Active Neb] 3 ml IH QIDPRN PRN Albuterol/Ipratropium 3ml Neb* [DUONEB 0.5-3 MG/3 ml Med 05/05/22 08:33 Discontinued Neb] 3 ml IH STAT ONE Azithromycin 500 mg/250 ml [Zithromax 500 MG/ 250 ML Med 05/06/22 10:00 Active NaCl Premix] 500 mg in 250 ml IV Q24H10 Azithromycin 500 mg/250 ml [Zithromax 500 MG/ 250 ML Med 05/05/22 09:38 Discontinued NaCl Premix] 500 mg in 250 ml IV STAT Azithromycin 500 mg/250 ml [Zithromax 500 MG/ 250 ML Med 05/05/22 10:30 Discontinued NaCl Premix] 500 mg in 250 ml IV UD Ceftriaxone 1 GM/50 ML PREMIX* [ROCEPHIN 1 Gm-D5w 50 ml Med 05/06/22 10:00 Active Bag] 1 g in 50 ml IV Q24H10 Ceftriaxone 2 GM/50 ML PREMIX* [ROCEPHIN 2 Gm-D5w 50ML Med 05/05/22 09:20 Discontinued BAG] 2 g in 50 ml IV STAT Ceftriaxone 2 GM/50 ML PREMIX* [ROCEPHIN 2 Gm-D5w 50ML Med 05/05/22 09:53 Discontinued BAG] 2 g in 50 ml IV UD Enoxaparin Sodium [Enoxaparin Sodium] Med 05/05/22 09:03 Discontinued 100 mg SQ STAT STA Enoxaparin Sodium [Enoxaparin Sodium] Med 05/05/22 09:13 Discontinued 120 mg SQ .STK-MED ONE Enoxaparin Sodium [Enoxaparin Sodium] Med 05/06/22 10:00 Active 40 mg SQ DAILY Flu Vacc [id number](65Yr Up)/Pf [Fluzone High-Dose Quad Med 05/06/22 10:00 Once 2021-] 240 mcg IM .ONCE ONE Furosemide 40 mg [Lasix 40 MG] Med 05/06/22 10:00 Active 40 mg PO DAILY Gabapentin [Neurontin ] Med 05/05/22 18:00 Active 600 mg PO 1800 Glipizide 5 mg [Glucotrol 5 MG] Med 05/05/22 18:00 Active 10 mg PO BIDWM Insulin Glargine [Lantus Insulin] Med 05/06/22 18:00 Active 10 unit SQ 1600 Loratadine 10 mg [Claritin 10 mg] Med 05/06/22 10:00 Active 10 mg PO DAILY Medication Intervention Med 05/05/22 18:00 Active 1 each MC .RN TO CHECK Metformin HCl 500 mg [Glucophage 500 MG] Med 05/05/22 22:00 Active 500 mg PO HS Metformin HCl 850 mg [Glucophage 850 MG] Med 05/05/22 18:00 Active 850 mg PO BIDWM Methylprednis Sod Succ 125 mg* [solu-MEDROL] Med 05/05/22 09:00 Discontinued 125 mg .ROUTE .STK-MED ONE Methylprednis Sod Succ 125 mg* [solu-MEDROL] 125 mg Med 05/05/22 08:33 Discontinued Water For Injection,Sterile [Sterile H2O 10 ml] 2 ml IV STAT Methylprednis Sod Succ 125 mg* [solu-MEDROL] 60 mg Med 05/05/22 17:00 Active Water For Injection,Sterile [Sterile H2O 10 ml] 2 ml IV Q6HT Potassium Chloride Tab* [Klor Con] Med 05/06/22 10:00 Active 40 meq PO DAILY Water For Injection,Sterile [Sterile H2O 10 ml] Med 05/05/22 09:00 Discontinued 10 ml IJ .STK-MED ONE Oxygen NASAL CANNULA 3 lpm RT 05/05/22 13:13 Active Pulse Oximetry .spot check RT 05/05/22 13:12 Active Pulse Oximetry CONTINUOUS RT 05/05/22 11:02 Completed Respiratory Therapy Assessment DAILY RT 05/05/22 08:41 Active Transfer Order Routine Transfer 05/05/22 Completed Patient Care Notes (Last 24 hours) 05/05/22 11:35 [employer]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 Initialized on 05/05/22 11:35 - END OF NOTE Code(s): J18.9 - PNEUMONIA, UNSPECIFIED ORGANISM (2) COPD (chronic obstructive pulmonary disease) Current Visit: Yes Status: Chronic
[2022-05-05] MEDS ORDERED: Glucophage 500 MG PO SCH (22:00)
[2022-05-05] MEDS ORDERED: NON-FORMULARY ITEM (Glipizide 10 Mg*** [Glucotrol 10 Mg***] 10 MG Tablet) PO SCH (22:00)
[2022-05-06] MEDS: solu-MEDROL 60 MG, Sterile H2O 10 ml 2 ML IV SCH ×10 (00:24→23:34)
[2022-05-06 04:38] LABS: Hematocrit 31.4 % (42-50); Hemoglobin 10.1 g/dL (12.5-18.0); Mean Cell Volume 99.4 fL (78-100); Mean Corpuscular Hgb Concent. 32.2 g/dL (32-36); Platelet Count 319 x10^3/uL (150-450); Red Blood Count 3.16 x10^6/uL (4.1-5.6); Red Cell Distribution Width 13.7 % (11.5-14.0); White Blood Count 10.8 x10^3/uL (4.0-10.5)
[2022-05-06 05:04] LABS: ALBUMIN 3.8 g/dL (3.5-5.0); ALKALINE PHOSPHATASE 69 U/L (38-126); ANION GAP 14.3 MEQ/L (5-15); BLOOD UREA NITROGEN 25 mg/dL (9-20); CHLORIDE 96 mmol/L (98-107); Calcium 8.7 mg/dL (8.4-10.2); Carbon Dioxide 27 mmol/L (22-30); Creatinine 1 0.86 mg/dL (0.66-1.25); EST GLOMERULAR FILTRATION RATE > 60.0 ML/MIN; Glucose 232 mg/dL (74-106); Potassium 3.7 mmol/L (3.5-5.1); SGOT/AST 23 U/L (17-59); SGPT/ALT 20 U/L (0-50); SODIUM 133 mmol/L (137-145); Total Protein 7.3 g/dL (6.3-8.2)
[2022-05-06] MEDS: Advair Hfa 115/21 Common canister IH SCH ×2 (05:37→19:13)
[2022-05-06] MEDS: PROVENTIL 2.5 MG/3 ML NEB IH SCH ×3 (05:37→19:03)
[2022-05-06] MEDS: Glucotrol 5 MG PO SCH ×2 (07:45→17:16)
[2022-05-06] MEDS: Glucophage 850 MG PO SCH ×2 (07:46→17:16)
[2022-05-06] MEDS: Lasix 40 MG PO SCH (09:11)
[2022-05-06] MEDS: CLARITIN 10 MG PO SCH (09:11)
[2022-05-06] MEDS: ROCEPHIN 1 Gm-D5w 50 ml Bag** 1 G/50 ML IVPB IV SCH (09:12)
[2022-05-06] MEDS: ENOXAPARIN SODIUM SQ SCH (09:12)
[2022-05-06] MEDS: Klor Con PO SCH (09:12)
[2022-05-06] MEDS: Zithromax 500 MG/ 250 ML NaCl Premix 500 MG/250 ML IVPB IV SCH (09:48)
[2022-05-06] MEDS ORDERED: FLUZONE HIGH-DOSE QUAD 2022-23 IM ONE (10:00)
[2022-05-06] MEDS ORDERED: UMECLIDINIUM PO SCH (10:00)
[2022-05-06] MEDS ORDERED: VILANTEROL PO SCH (10:00)
[2022-05-06] MEDS ORDERED: [UNRECOGNIZED DRUG - OTHER] PO SCH (10:00)
[2022-05-06] MEDS: HUMALOG SQ PRN ×3 (12:18→21:56)
[2022-05-06] MEDS: NEURONTIN PO SCH (17:16)
--- NOTE | 2022-05-06 17:36 | PCM.NOTE ---
Date and Time: 05/06/221734 Subjective Assessment: doing little better - Review of Systems Constitutional: No Fever, No Chills Eyes: No Symptoms Ears, Nose, & Throat: No Symptoms Respiratory: Orthopnea, Short Of Breath, No Cough Cardiac: No Chest Pain, No Edema, No Syncope Abdominal/Gastrointestinal: No Abdominal Pain, No Nausea, No Vomiting, No Diarrhea Genitourinary Symptoms: No Dysuria Musculoskeletal: No Back Pain, No Neck Pain Skin: No Rash Neurological: No Dizziness, No Focal Weakness, No Sensory Changes Psychological: No Symptoms Endocrine: No Symptoms Hematologic/Lymphatic: No Symptoms Immunological/Allergic: No Symptoms Objective Exam General Appearance: no apparent distress, alert Neurologic Exam: alert, oriented x 3, cooperative, normal mood/affect, nml cerebellar function, sensation nml, No motor deficits Skin Exam: normal color, warm, dry Eye Exam: PERRL, EOMI, eyes nml inspection Ears, Nose, Throat Exam: normal ENT inspection, pharynx normal, moist mucous membranes Neck Exam: normal inspection, non-tender, supple, full range of motion Respiratory Exam: diminished breath sounds, No respiratory distress Cardiovascular Exam: regular rate/rhythm, normal heart sounds Gastrointestinal/Abdomen Exam: soft, No tenderness, No mass Extremity Exam: normal inspection, normal range of motion Back Exam: normal inspection, normal range of motion, No CVA tenderness, No vertebral tenderness Male Genitalia Exam: deferred Rectal Exam: deferred OBJECTIVE DATA Vital Signs: Vital Signs - 24 hr Temp Pulse Resp BP Pulse Ox 05/06/22 16:00 97.5 F 102 H 20 118/61 99 05/06/22 12:58 96 H 20 95 05/06/22 11:33 97.5 F 102 H 22 116/56 96 05/06/22 07:33 97.5 F 95 H 17 108/56 93 L 05/06/22 05:20 86 18 95 05/06/22 04:00 97.6 F 95 H 18 117/61 96 05/05/22 23:40 97.9 F 94 H 20 108/64 95 05/05/22 20:00 97.7 F 98 H 18 94/51 95 Pain Assessment - Last Documented Pain Intensity 0 Intake and Output: Intake & Output 05/04/22 05/05/22 05/06/22 05/07/22 11:59 11:59 11:59 11:59 Intake Total 2220 240 Balance 2220 240 Weight 94 kg 94 kg Lab Results: Lab Results-Last 24 Hours 05/05/22 05/06/22 05/06/22 Range/Units 22:04 04:37 04:37 WBC 10.8 H (4.0-10.5) x10^3/uL RBC 3.16 L (4.1-5.6) x10^6/uL Hgb 10.1 L (12.5-18.0) g/dL Hct 31.4 L (42-50) % MCV 99.4 (78-100) fL MCH 32.0 (26-32) pg MCHC 32.2 (32-36) g/dL RDW 13.7 (11.5-14.0) % Plt Count 319 (150-450) x10^3/uL MPV 11.0 (7.5-11.0) fL Sodium 133 L (137-145) mmol/L Potassium 3.7 (3.5-5.1) mmol/L Chloride 96 L (98-107) mmol/L Carbon Dioxide 27 (22-30) mmol/L Anion Gap 14.3 (5-15) MEQ/L BUN 25 H (9-20) mg/dL Creatinine 0.86 (0.66-1.25) mg/dL Estimated GFR > 60.0 ML/MIN Glucose 232 H (74-106) mg/dL POC Glucometer 288 H (74 to 106) mg/dL Hemoglobin A1c (4.5-6.0) % Calcium 8.7 (8.4-10.2) mg/dL Total Bilirubin 0.60 (0.2-1.3) mg/dL AST 23 (17-59) U/L ALT 20 (0-50) U/L Alkaline Phosphatase 69 (38-126) U/L Serum Total Protein 7.3 (6.3-8.2) g/dL Albumin 3.8 (3.5-5.0) g/dL 05/06/22 05/06/22 05/06/22 Range/Units 07:21 11:21 16:15 WBC (4.0-10.5) x10^3/uL RBC (4.1-5.6) x10^6/uL Hgb (12.5-18.0) g/dL Hct (42-50) % MCV (78-100) fL MCH (26-32) pg MCHC (32-36) g/dL RDW (11.5-14.0) % Plt Count (150-450) x10^3/uL MPV (7.5-11.0) fL Sodium (137-145) mmol/L Potassium (3.5-5.1) mmol/L Chloride (98-107) mmol/L Carbon Dioxide (22-30) mmol/L Anion Gap (5-15) MEQ/L BUN (9-20) mg/dL Creatinine (0.66-1.25) mg/dL Estimated GFR ML/MIN Glucose (74-106) mg/dL POC Glucometer 247 H 247 H (74 to 106) mg/dL Hemoglobin A1c 5.00 (4.5-6.0) % Calcium (8.4-10.2) mg/dL Total Bilirubin (0.2-1.3) mg/dL AST (17-59) U/L ALT (0-50) U/L Alkaline Phosphatase (38-126) U/L Serum Total Protein (6.3-8.2) g/dL Albumin (3.5-5.0) g/dL 05/06/22 Range/Units 16:20 WBC (4.0-10.5) x10^3/uL RBC (4.1-5.6) x10^6/uL Hgb (12.5-18.0) g/dL Hct (42-50) % MCV (78-100) fL MCH (26-32) pg MCHC (32-36) g/dL RDW (11.5-14.0) % Plt Count (150-450) x10^3/uL MPV (7.5-11.0) fL Sodium (137-145) mmol/L Potassium (3.5-5.1) mmol/L Chloride (98-107) mmol/L Carbon Dioxide (22-30) mmol/L Anion Gap (5-15) MEQ/L BUN (9-20) mg/dL Creatinine (0.66-1.25) mg/dL Estimated GFR ML/MIN Glucose (74-106) mg/dL POC Glucometer 217 H (74 to 106) mg/dL Hemoglobin A1c (4.5-6.0) % Calcium (8.4-10.2) mg/dL Total Bilirubin (0.2-1.3) mg/dL AST (17-59) U/L ALT (0-50) U/L Alkaline Phosphatase (38-126) U/L Serum Total Protein (6.3-8.2) g/dL Albumin (3.5-5.0) g/dL Radiology Exams: Radiology Procedures Category Date Time Status CHEST 1 VIEW (PORTABLE) Stat Exams 05/05/22 08:31 Completed Assessment/Plan (1) Pneumonia Current Visit: Yes Status: Acute Qualifiers: Pneumonia type: due to Pneumococcus Laterality: bilateral Lung location: lower lobe of lung Qualified Code(s): J13 - Pneumonia due to Streptococcus pneumoniae Assessment & Plan: Chief Complaint Diagnosis generalized weakness for 1-2 days Allergies Allergy/AdvReac Type Severity Reaction Status Date / Time ampicillin Allergy Intermediate Swelling Verified 10/15/18 16:10 of Hands Vital Signs (Last 24 hours) Temp Pulse Resp BP Pulse Ox 05/06/22 16:00 97.5 F 102 H 20 118/61 99 05/06/22 12:58 96 H 20 95 05/06/22 11:33 97.5 F 102 H 22 116/56 96 05/06/22 07:33 97.5 F 95 H 17 108/56 93 L 05/06/22 05:20 86 18 95 05/06/22 04:00 97.6 F 95 H 18 117/61 96 05/05/22 23:40 97.9 F 94 H 20 108/64 95 05/05/22 20:00 97.7 F 98 H 18 94/51 95 Home Medications Medication Instructions Recorded Confirmed Last Taken Type Albuterol/Ipratropium 3ml Neb* 3 ml IH QIDPRN PRN 05/05/22 05/05/22 05/05/22 08:00 History [DUONEB 0.5-3 MG/3 ml Neb] Current Medications Generic Name Dose Route Start Last Admin Trade Name Freq PRN Reason Stop Dose Admin Acetaminophen 650 mg 05/05/22 11:22 Acetaminophen 325 Mg Tablet PO 06/04/22 11:21 Q4H PRN PRN MILD PAIN Albuterol Sulfate 2.5 mg 05/05/22 19:00 05/06/22 12:55 Albuterol Sulfate 2.5 Mg/3 Ml [facility] 06/04/22 18:59 2.5 mg TIDRT CHRISTA Administration Albuterol/Ipratropium 3 ml 05/05/22 17:30 Ipratropium/Albuterol Sulfate 3 Ml Ampul.[facility] 06/04/22 17:29 QIDPRN PRN SHORTNESS OF BREATH/WHEEZING Methylprednisolone Sodium 0 mg 05/05/22 17:00 05/06/22 17:22 Succinate 60 mg/ Sterile Water IV 06/04/22 16:59 60 mg 2 ml Q6HT CHRISTA Administration Enoxaparin Sodium 40 mg 05/06/22 10:00 05/06/22 09:12 Enoxaparin Sodium 40 Mg/0.4 Ml Syringe SQ 06/05/22 09:59 40 mg DAILY CHRISTA Administration Furosemide 40 mg 05/06/22 10:00 05/06/22 09:11 Furosemide 40 Mg Tablet PO 06/05/22 09:59 40 mg DAILY CHRISTA Administration Gabapentin 600 mg 05/05/22 18:00 05/06/22 17:16 Gabapentin 300 Mg Capsule PO 06/04/22 17:59 600 mg 1800 CHRISTA Administration Glipizide 10 mg 05/05/22 18:00 05/06/22 17:16 Glipizide 5 Mg Tablet PO 06/04/22 17:59 10 mg BIDWM CHRISTA Administration Ceftriaxone Sodium/Dextrose 1 g in 50 mls @ 100 mls/hr 05/06/22 10:00 05/06/22 09:12 Rocephin 1 Gm-D5w 50 Ml Bag IV 05/09/22 09:59 100 mls/hr Q24H10 CHRISTA Administration Azithromycin 500 mg in 250 mls @ 250 mls/hr 05/06/22 10:00 05/06/22 09:48 Zithromax 500 Mg/ 250 Ml Nacl Premix IV 06/05/22 09:59 250 mls/hr Q24H10 CHRISTA Administration Insulin Glargine 10 unit 05/06/22 18:00 05/06/22 17:17 Insulin Glargine 1 Unit SQ 06/05/22 17:59 10 unit 1600 CHRISTA Administration Insulin Human Lispro 0 unit 05/06/22 11:55 05/06/22 17:16 Insulin Lispro 1 Unit SQ 06/05/22 11:54 2 unit UD PRN Administration HYPERGLYCEMIA Loratadine 10 mg 05/06/22 10:00 05/06/22 09:11 Loratadine 10 Mg Tablet PO 06/05/22 09:59 10 mg DAILY CHRISTA Administration Metformin HCl 850 mg 05/05/22 18:00 05/06/22 17:16 Metformin Hcl 850 Mg Tablet PO 06/04/22 17:59 850 mg BIDWM CHRISTA Administration Miscellaneous Information 1 each 05/05/22 18:00 Medication Intervention 1 Each Each 06/04/22 17:59 .RN TO CHECK CHRISTA Potassium Chloride 40 meq 05/06/22 10:00 05/06/22 09:12 Potassium Chloride Tab 10 Meq Tab PO 06/05/22 09:59 40 meq DAILY CHRISTA Administration Fluticasone/Salmeterol 2 puff 05/06/22 07:00 05/06/22 05:37 Fluticasone/Salmeterol 115/21 - 120 Puff Common Canister 06/05/22 06:59 2 puff BIDRT CHRISTA Administration Discontinued Medications Generic Name Dose Route Start Last Admin Trade Name Freq PRN Reason Stop Dose Admin Albuterol Sulfate 2.5 mg 05/05/22 11:02 05/05/22 23:39 Albuterol Sulfate 2.5 Mg/3 Ml [facility] 06/04/22 11:01 Not Given Q4HRT CHRISTA Albuterol Sulfate 2.5 mg 05/05/22 15:00 Albuterol Sulfate 2.5 Mg/3 Ml [facility] 06/04/22 14:59 TID CHRISTA Albuterol/Ipratropium 3 ml 05/05/22 08:33 05/05/22 08:43 Ipratropium/Albuterol Sulfate 3 Ml Ampul.Neb 05/05/22 08:34 3 ml STAT ONE Administration Albuterol/Ipratropium Confirm 05/05/22 08:38 Ipratropium/Albuterol Sulfate 3 Ml Ampul.Neb Administered 05/05/22 08:39 Dose 3 ml IH .STK-MED ONE Methylprednisolone Sodium 0 mg 05/05/22 08:33 05/05/22 09:00 Succinate 125 mg/ Sterile IV 05/05/22 08:34 125 mg Water 2 ml STAT ONE Administration Enoxaparin Sodium 100 mg 05/05/22 09:03 05/05/22 09:14 Enoxaparin Sodium 120 Mg/0.8 Ml Syringe SQ 05/05/22 09:04 100 mg STAT STA Administration Enoxaparin Sodium Confirm 05/05/22 09:13 Enoxaparin Sodium 120 Mg/0.8 Ml Syringe Administered 05/05/22 09:14 Dose 120 mg SQ .STK-MED ONE Ceftriaxone Sodium/Dextrose 2 g in 50 mls @ 100 mls/hr 05/05/22 09:20 05/05/22 10:26 Rocephin 2 Gm-D5w 50ml Bag IV 05/05/22 09:49 Infused STAT STA Infusion Acyclovir Sodium 500 mg/ 100 mls @ 100 mls/hr 05/05/22 09:20 05/05/22 09:37 Dextrose IV 05/05/22 10:19 Not Given STAT ONE Azithromycin 500 mg in 250 mls @ 250 mls/hr 05/05/22 09:38 05/05/22 10:31 Zithromax 500 Mg/ 250 Ml Nacl Premix IV 05/05/22 10:37 250 mls/hr STAT STA 250 mls/hr Administration Ceftriaxone Sodium/Dextrose Confirm 05/05/22 09:53 Rocephin 2 Gm-D5w 50ml Bag Administered 05/05/22 09:54 Dose 2 g in 50 mls @ ud IV .STK-MED ONE Azithromycin Confirm 05/05/22 10:30 Zithromax 500 Mg/ 250 Ml Nacl Premix Administered 05/05/22 10:31 Dose 500 mg in 250 mls @ ud IV .STK-MED ONE Metformin HCl 500 mg 05/05/22 22:00 05/05/22 22:31 Metformin Hcl 500 Mg Tablet PO 06/04/22 21:59 Not Given HS CHRISTA Methylprednisolone Sodium Succinate Confirm 05/05/22 09:00 Methylprednis Sod Succ 125 Mg/2 Ml Vial Administered 05/05/22 09:01 Dose 125 mg .ROUTE .STK-MED ONE Sterile Water Confirm 05/05/22 09:00 Water For Injection,Sterile 10 Ml Vial Administered 05/05/22 09:01 Dose 10 ml IJ .STK-MED ONE Intake & Output (Last 24 hours) 10/2405/05/22 05/06/22 05/07/22 11:59 11:59 11:59 11:59 Intake Total 2220 240 Balance 2220 240 Weight 94 kg 94 kg Microbiology Results (Last 24 hours) 05/05/22 08:50 Blood Blood Culture Gram Stain - Pending 05/05/22 08:50 Blood Blood Culture - Preliminary NO GROWTH TO DATE 05/05/22 08:50 Blood Blood Culture Gram Stain - Pending 05/05/22 08:50 Blood Blood Culture - Preliminary NO GROWTH TO DATE Laboratory Results (Last 24 hours) 05/06/22 05/06/22 05/06/22 16:20 16:15 11:21 WBC RBC Hgb Hct MCV MCH MCHC RDW Plt Count MPV Sodium Potassium Chloride Carbon Dioxide Anion Gap BUN Creatinine Estimated GFR Glucose POC Glucometer 217 H 247 H Hemoglobin A1c 5.00 Calcium Total Bilirubin AST ALT Alkaline Phosphatase Serum Total Protein Albumin 05/06/22 05/06/22 05/06/22 07:21 04:37 04:37 WBC 10.8 H RBC 3.16 L Hgb 10.1 L Hct 31.4 L MCV 99.4 MCH 32.0 MCHC 32.2 RDW 13.7 Plt Count 319 MPV 11.0 Sodium 133 L Potassium 3.7 Chloride 96 L Carbon Dioxide 27 Anion Gap 14.3 BUN 25 H Creatinine 0.86 Estimated GFR > 60.0 Glucose 232 H POC Glucometer 247 H Hemoglobin A1c Calcium 8.7 Total Bilirubin 0.60 AST 23 ALT 20 Alkaline Phosphatase 69 Serum Total Protein 7.3 Albumin 3.8 05/05/22 22:04 WBC RBC Hgb Hct MCV MCH MCHC RDW Plt Count MPV Sodium Potassium Chloride Carbon Dioxide Anion Gap BUN Creatinine Estimated GFR Glucose POC Glucometer 288 H Hemoglobin A1c Calcium Total Bilirubin AST ALT Alkaline Phosphatase Serum Total Protein Albumin Orders (Last 24 hours) Category Date Time Status POCT Glucose Check ACHS Care 05/06/22 07:49 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 Cons 05/06/22 11:56 Active CBC AM.LAB Lab 05/06/22 04:37 Completed CMP AM.LAB Lab 05/06/22 04:37 Completed HEMOGLOBIN A1C Urgent Lab 05/06/22 16:15 Completed POCT GLUCOSE Stat Lab 05/05/22 22:04 Completed POCT GLUCOSE Stat Lab 05/06/22 07:21 Completed POCT GLUCOSE Stat Lab 05/06/22 11:21 Completed POCT GLUCOSE Stat Lab 05/06/22 16:20 Completed TROPONIN Q4H Lab 05/05/22 16:45 Completed Albuterol 2.5 mg/3 ml Neb [Proventil 2.5 mg/3 ml Neb Med 05/05/22 19:00 Active ] 2.5 mg IH TIDRT Albuterol/Ipratropium 3ml Neb* [DUONEB 0.5-3 MG/3 ml Med 05/05/22 17:30 Active Neb] 3 ml IH QIDPRN PRN Azithromycin 500 mg/250 ml [Zithromax 500 MG/ 250 ML Med 05/06/22 10:00 Active NaCl Premix] 500 mg in 250 ml IV Q24H10 Ceftriaxone 1 GM/50 ML PREMIX* [ROCEPHIN 1 Gm-D5w 50 ml Med 05/06/22 10:00 Active Bag] 1 g in 50 ml IV Q24H10 Enoxaparin Sodium [Enoxaparin Sodium] Med 05/06/22 10:00 Active 40 mg SQ DAILY Flu Vacc [id number](65Yr Up)/Pf [Fluzone High-Dose Quad Med 05/06/22 10:00 Discontinued 2021-] 240 mcg IM .ONCE ONE Fluticasone/Salmeterol 115/21 [Advair Hfa 115/21 Common Med 05/06/22 07:00 Active canister*] 2 puff IH BIDRT Furosemide 40 mg [Lasix 40 MG] Med 05/06/22 10:00 Active 40 mg PO DAILY Gabapentin [Neurontin ] Med 05/05/22 18:00 Active 600 mg PO 1800 Glipizide 5 mg [Glucotrol 5 MG] Med 05/05/22 18:00 Active 10 mg PO BIDWM Insulin Glargine [Lantus Insulin] Med 05/06/22 18:00 Active 10 unit SQ 1600 Insulin Lispro [Humalog] Med 05/06/22 11:55 Active See Dose Instructions SQ UD PRN Loratadine 10 mg [Claritin 10 mg] Med 05/06/22 10:00 Active 10 mg PO DAILY Medication Intervention Med 05/05/22 18:00 Active 1 each MC .RN TO CHECK Metformin HCl 500 mg [Glucophage 500 MG] Med 05/05/22 22:00 Discontinued 500 mg PO HS Metformin HCl 850 mg [Glucophage 850 MG] Med 05/05/22 18:00 Active 850 mg PO BIDWM Methylprednis Sod Succ 125 mg* [solu-MEDROL] 60 mg Med 05/05/22 17:00 Active Water For Injection,Sterile [Sterile H2O 10 ml] 2 ml IV Q6HT Potassium Chloride Tab* [Klor Con] Med 05/06/22 10:00 Active 40 meq PO DAILY OT Eval and Treat (MD Order) ONCE OT 05/06/22 11:56 Active PT Eval & Treat (MD Order) ONCE PT 05/06/22 11:55 Active Respiratory MDI UD RT 05/06/22 05:33 Completed Patient Care Notes (Last 24 hours) 05/05/22 22:32 Nursing Note by Ruth Griggs Patient stated that he does not take metformin at night time anymore but he forgot to tell RN on admission. He refuses DM medication at bedtime. Initialized on 05/05/22 22:32 - END OF NOTE Code(s): J18.9 - PNEUMONIA, UNSPECIFIED ORGANISM (2) COPD (chronic obstructive pulmonary disease) Current Visit: Yes Status: Chronic
[2022-05-06] MEDS ORDERED: Lantus Insulin SQ SCH (18:00)
[2022-05-07] MEDS: Advair Hfa 115/21 Common canister IH SCH (06:08)
[2022-05-07] MEDS: PROVENTIL 2.5 MG/3 ML NEB IH SCH ×2 (06:08→12:49)
[2022-05-07] MEDS: solu-MEDROL 60 MG, Sterile H2O 10 ml 2 ML IV SCH ×2 (06:13)
[2022-05-07] MEDS: Klor Con PO SCH (08:15)
[2022-05-07] MEDS: Lasix 40 MG PO SCH (08:16)
[2022-05-07] MEDS: Glucophage 850 MG PO SCH (08:16)
[2022-05-07] MEDS: Glucotrol 5 MG PO SCH (08:16)
[2022-05-07] MEDS: Zithromax 500 MG/ 250 ML NaCl Premix 500 MG/250 ML IVPB IV SCH (08:16)
[2022-05-07] MEDS: ROCEPHIN 1 Gm-D5w 50 ml Bag** 1 G/50 ML IVPB IV SCH (08:16)
[2022-05-07] MEDS: ENOXAPARIN SODIUM SQ SCH (08:16)
[2022-05-07] MEDS: CLARITIN 10 MG PO SCH (08:16)
[2022-05-07 12:04] VITALS: BP 115/58
[2022-05-07 12:52] VITALS: PULSE 94; O2SAT 98
--- NOTE | 2022-05-07 17:32 | PCM.DS ---
Discharge Summary Date of Admission: 05/05/22 10:53 Admitting Physician: JANA ANTUNEZ Primary Care Provider: TIMA FRAGOSO Allergies Allergies ampicillin Allergy (Intermediate, Verified 10/15/18 16:10) Swelling of Hands Hospital Summary - Hospital Course Hospital Course: Chief Complaint Diagnosis generalized weakness for 1-2 days Allergies Allergy/AdvReac Type Severity Reaction Status Date / Time ampicillin Allergy Intermediate Swelling Verified 10/15/18 16:10 of Hands Vital Signs (Last 24 hours) Temp Pulse Resp BP Pulse Ox 05/07/22 12:51 94 H 20 98 05/07/22 12:00 97.9 F 91 H 16 115/58 96 05/07/22 07:46 97.9 F 93 H 16 117/56 93 L 05/07/22 06:10 89 18 96 05/07/22 03:52 97.8 F 87 20 119/58 96 05/06/22 23:37 97.5 F 99 H 19 133/67 97 05/06/22 20:00 97.7 F 96 H 20 112/51 96 05/06/22 19:03 104 H 20 97 Home Medications Medication Instructions Recorded Confirmed Last Taken Type Albuterol/Ipratropium 3ml Neb* 3 ml IH QIDPRN PRN 05/05/22 05/05/22 05/05/22 08:00 History [DUONEB 0.5-3 MG/3 ml Neb] Cephalexin Mh 500 mg [Keflex 500 500 mg PO QID #28 cap 05/07/22 Unknown Rx mg] Methylprednisolone Packet 4 mg PO UD #30 packet 05/07/22 Unknown Rx [Medrol Dosepack] Current Medications Discontinued Medications Generic Name Dose Route Start Last Admin Trade Name Freq PRN Reason Stop Dose Admin Acetaminophen 650 mg 05/05/22 11:22 Acetaminophen 325 Mg Tablet PO 06/04/22 11:21 Q4H PRN PRN MILD PAIN Albuterol Sulfate 2.5 mg 05/05/22 11:02 05/05/22 23:39 Albuterol Sulfate 2.5 Mg/3 Ml Neb 06/04/22 11:01 Not Given Q4HRT CHRISTA Albuterol Sulfate 2.5 mg 05/05/22 15:00 Albuterol Sulfate 2.5 Mg/3 Ml Neb 06/04/22 14:59 TID CHRISTA Albuterol Sulfate 2.5 mg 05/05/22 19:00 05/07/22 12:49 Albuterol Sulfate 2.5 Mg/3 Ml Neb 06/04/22 18:59 2.5 mg TIDRT CHRISTA Administration Albuterol/Ipratropium 3 ml 05/05/22 08:33 05/05/22 08:43 Ipratropium/Albuterol Sulfate 3 Ml Ampul.Neb IH 05/05/22 08:34 3 ml STAT ONE Administration Albuterol/Ipratropium Confirm 05/05/22 08:38 Ipratropium/Albuterol Sulfate 3 Ml Ampul.Neb Administered 05/05/22 08:39 Dose 3 ml IH .STK-MED ONE Albuterol/Ipratropium 3 ml 05/05/22 17:30 Ipratropium/Albuterol Sulfate 3 Ml Ampul.[facility] 06/04/22 17:29 QIDPRN PRN SHORTNESS OF BREATH/WHEEZING Methylprednisolone Sodium 0 mg 05/05/22 08:33 05/05/22 09:00 Succinate 125 mg/ Sterile IV 05/05/22 08:34 125 mg Water 2 ml STAT ONE Administration Methylprednisolone Sodium 0 mg 05/05/22 17:00 05/07/22 06:13 Succinate 60 mg/ Sterile Water IV 06/04/22 16:59 60 mg 2 ml Q6HT CHRISTA Administration Enoxaparin Sodium 100 mg 05/05/22 09:03 05/05/22 09:14 Enoxaparin Sodium 120 Mg/0.8 Ml Syringe SQ 05/05/22 09:04 100 mg STAT STA Administration Enoxaparin Sodium Confirm 05/05/22 09:13 Enoxaparin Sodium 120 Mg/0.8 Ml Syringe Administered 05/05/22 09:14 Dose 120 mg SQ .STK-MED ONE Enoxaparin Sodium 40 mg 05/06/22 10:00 05/07/22 08:16 Enoxaparin Sodium 40 Mg/0.4 Ml Syringe SQ 06/05/22 09:59 40 mg DAILY CHRISTA Administration Furosemide 40 mg 05/06/22 10:00 05/07/22 08:16 Furosemide 40 Mg Tablet PO 06/05/22 09:59 40 mg DAILY CHRISTA Administration Gabapentin 600 mg 05/05/22 18:00 05/06/22 17:16 Gabapentin 300 Mg Capsule PO 06/04/22 17:59 600 mg 1800 CHRISTA Administration Glipizide 10 mg 05/05/22 18:00 05/07/22 08:16 Glipizide 5 Mg Tablet PO 06/04/22 17:59 10 mg BIDWM CHRISTA Administration Ceftriaxone Sodium/Dextrose 2 g in 50 mls @ 100 mls/hr 05/05/22 09:20 05/05/22 10:26 Rocephin 2 Gm-D5w 50ml Bag IV 05/05/22 09:49 Infused STAT STA Infusion Acyclovir Sodium 500 mg/ 100 mls @ 100 mls/hr 05/05/22 09:20 05/05/22 09:37 Dextrose IV 05/05/22 10:19 Not Given STAT ONE Azithromycin 500 mg in 250 mls @ 250 mls/hr 05/05/22 09:38 05/05/22 10:31 Zithromax 500 Mg/ 250 Ml Nacl Premix IV 05/05/22 10:37 250 mls/hr STAT STA 250 mls/hr Administration Ceftriaxone Sodium/Dextrose Confirm 05/05/22 09:53 Rocephin 2 Gm-D5w 50ml Bag Administered 05/05/22 09:54 Dose 2 g in 50 mls @ ud IV .STK-MED ONE Azithromycin Confirm 05/05/22 10:30 Zithromax 500 Mg/ 250 Ml Nacl Premix Administered 05/05/22 10:31 Dose 500 mg in 250 mls @ ud IV .STK-MED ONE Ceftriaxone Sodium/Dextrose 1 g in 50 mls @ 100 mls/hr 05/06/22 10:00 05/07/22 08:16 Rocephin 1 Gm-D5w 50 Ml Bag IV 05/10/22 09:59 100 mls/hr Q24H10 CHRISTA Administration Azithromycin 500 mg in 250 mls @ 250 mls/hr 05/06/22 10:00 05/07/22 08:16 Zithromax 500 Mg/ 250 Ml Nacl Premix IV 06/05/22 09:59 250 mls/hr Q24H10 CHRISTA Administration Insulin Glargine 10 unit 05/06/22 18:00 05/06/22 17:17 Insulin Glargine 1 Unit SQ 06/05/22 17:59 10 unit 1600 CHRISTA Administration Insulin Human Lispro 0 unit 05/06/22 11:55 05/06/22 21:56 Insulin Lispro 1 Unit SQ 06/05/22 11:54 2 unit UD PRN Administration HYPERGLYCEMIA Loratadine 10 mg 05/06/22 10:00 05/07/22 08:16 Loratadine 10 Mg Tablet PO 06/05/22 09:59 10 mg DAILY CHRISTA Administration Metformin HCl 850 mg 05/05/22 18:00 05/07/22 08:16 Metformin Hcl 850 Mg Tablet PO 06/04/22 17:59 850 mg BIDWM CHRISTA Administration Metformin HCl 500 mg 05/05/22 22:00 05/05/22 22:31 Metformin Hcl 500 Mg Tablet PO 06/04/22 21:59 Not Given HS CHRISTA Methylprednisolone Sodium Succinate Confirm 05/05/22 09:00 Methylprednis Sod Succ 125 Mg/2 Ml Vial Administered 05/05/22 09:01 Dose 125 mg .ROUTE .STK-MED ONE Miscellaneous Information 1 each 05/05/22 18:00 Medication Intervention 1 Each Each 06/04/22 17:59 .RN TO CHECK CHRISTA Potassium Chloride 40 meq 05/06/22 10:00 05/07/22 08:15 Potassium Chloride Tab 10 Meq Tab PO 06/05/22 09:59 40 meq DAILY CHRISTA Administration Fluticasone/Salmeterol 2 puff 05/06/22 07:00 05/07/22 06:08 Fluticasone/Salmeterol 115/21 - 120 Puff Common Canister IH 06/05/22 06:59 2 puff BIDRT CHRISTA Administration Sterile Water Confirm 05/05/22 09:00 Water For Injection,Sterile 10 Ml Vial Administered 05/05/22 09:01 Dose 10 ml IJ .STK-MED ONE Intake & Output (Last 24 hours) 05/05/22 05/06/22 05/07/22 05/08/22 11:59 11:59 11:59 11:59 Intake Total 2220 2120 480 Balance 2220 2120 480 Weight 94 kg 94 kg 107.8 kg Laboratory Results (Last 24 hours) 05/07/22 05/07/22 05/07/22 11:02 10:58 07:28 POC Glucometer 163 H 135 H 179 H 05/06/22 21:22 POC Glucometer 210 H Orders (Last 24 hours) Category Date Time Status Discharge Planning,Consult Routine Discharge 05/07/22 Active Discharge Routine Discharge 05/07/22 Ordered POCT GLUCOSE Stat Lab 05/06/22 21:22 Completed POCT GLUCOSE Stat Lab 05/07/22 07:28 Completed POCT GLUCOSE Stat Lab 05/07/22 10:58 Completed POCT GLUCOSE Stat Lab 05/07/22 11:02 Completed Insulin Glargine [Lantus Insulin] Med 05/06/22 18:00 Discontinued 10 unit SQ 1600 Patient Care Notes (Last 24 hours) 05/07/22 15:12 Nursing Note by Ruddy Avelar SPOKE TO DR ANTUNEZ IN REGARDS ONE OF PT DX IS AFIB AND HAS BEEN ON LOVENOX DURING STAY BUT NO HOME BLOOD THINNERS. HE STATES PT TO FOLLOW UP WITH PCP FOR MED REGIMEN Initialized on 05/07/22 15:12 - END OF NOTE 05/07/22 14:25 Case Management Note by Vianey Cruz ROLLATOR DELIVERED TO PATIENT Initialized on 05/07/22 14:25 - END OF NOTE 05/07/22 12:35 Case Management Note by Vianey Cruz ORDER FOR ROLLATOR SUBMITTED TO [facility]- S/W REP REBECCA- HE WILL BRING BARIATRIC ROLLATOR TO HOSPITAL FOR PATIENT Initialized on 05/07/22 12:35 - END OF NOTE 05/07/22 12:11 Case Management Note by Vianey Cruz Addendum entered by Vianey Cruz 05/07/22 12:12: PATIENT REPORTS HE ALREADY HAS HOME O2 WELL Original Note: S/W PATIENT - HE REPORTS HIS DAUGHTER LIVES WITH HIM AND IS WITH HIM ALL THE TIME. WE DISCUSSED HHC AGAIN BUT PATIENT DECLINED. HE ALSO DECLINED OTPT PT HAS TRANSPORTATION IS A HARDSHIP. PATIENT DENIES ANY NEW NEEDS. HE PLANS TO RETURN HOME WITH HIS DAUGHTER TO ASSIST HIM Initialized on 05/07/22 12:11 - END OF NOTE 05/07/22 11:39 Physical Therapy Note by Thu(#[id number],Pérez Pt in bed and agreeable to PT. Pt was able to sit to stand and amb with Rollator and SBA. Pt amb 120' with 3L O2 with minimal SOB. Pt notes that this was a similar distance as walking to his mailbox. Pt was not able to be trained on sitting on Rollator use with standard sized rollator. Pt attempted sitting in seat but was not able to sit in standard sized Rollator. D/c planning was also in the room to see this. Rollator was discussed with d/c planning as pt does not meet qualification for bariatric Rollator due to recent weight loss. PT cannot recommend standard size as it will very likely cause hard to pt as sides and knobs would damage skin on pt hips, thus negating benefits of Rollator. Initialized on 05/07/22 11:39 - END OF NOTE 05/07/22 09:21 Nursing Note by Ruddy Avelar DR CALLED, UPDATED ON PT. STATES PT CAN DC HOME. SEE ABOUT GETTING HHC FOR PT. SEND HOME ON CEFALEXIN 500MG QID X7 DAYS, MEDROL DOSE PACK, F/U WITH PCP Initialized on 05/07/22 09:21 - END OF NOTE 05/06/22 17:57 OT Plan of Care Note by Valentín(Harmeet#[id number]),Lucero OT Eval OT Eval and Treat MD Order Start: 05/06/22 11:56 Freq: ONCE Status: Active Protocol: Created 05/06/22 11:56 ANDI (Rec: 05/06/22 11:56 ANDI MRS- [id number]) Document 05/06/22 17:39 NORIS (Rec: 05/06/22 17:56 [id number]) OT Assessment Pertinent Past Medical History Patient is a who lives with one of his daughter's in a one-story home with 4 steps and right-side railing to enter the home. Per patient, he drives himself in the community to medical appointments and grocery shopping the latter of which he performs with his daughter using an electric shopping cart. He enjoys reasing, watching TV, and playing games on his computer. He reports that he has a walk-in shower with shower chair that he uses for self-bathing and a raised -height toilet. He sleeps in a power recliner and has for a couple of years. He states that he began noticing progressive weakness at home until he called EMS and was brought to [facility] ED where he was admitted and diagnosed with pneumonia. Please see medical chart for complete medical history. Equipment at Home Prior to Admission Walker Comment Raised toilet seat, shower chair, long-handled shower head, sock aid, Mehdi reports that he had a rollator; however, it was damaged and no longer useful for him, raised -height toilet, walk-in shower , power recliner (x2) Date 05/06/22 Feeding WFL Comment Patient is able to perform self-feeding independently. Grooming WFL Comment Patient is able to perform grooming/hygiene independently including combing hair, washing face, and trimming velez. Bathing Impaired Comment Patient requires SBA for safety due to decreased functional endurance and strength Dressing WFL Comment Patient is able to perform total body dressing with Modified [place] using modified techniques and AE/AD Toileting WFL Comment Patient is able to perform urinary voiding using urinal and toilet for bowel elimination with SBA during functional mobility for safety . He reports ability to perform toilet hygiene, but this was not assessed by OTR this date. IADLS (If indicated) Homemaking,etc Impaired Comment Mehdi reports that he lives with his daughter who performs cooking, laundry, dishes, and some housekeeping. Bed Mobility WFL Toilet Transfers WFL Functional Endurance Decreased. Mehdi demonstrates increased SOB with functional mobility to room door using rollator and with 3.0L O2 via nasal cannula. Cognition A&O to person, place, and time Other Objective Data Yogi Index of ADLs: 85/100, indicative of total independence Adaptive Equipment/Durable Medical toilet safety rails, long- Equipment needed/recommended handled brush Functional Problem List decreased functional strength (4-/5 BUE), decreased functional activity tolerance Pain Limitations Mehdi denied pain this date. Therapuetic Interventions Evaluation, Therapeutic Activity/ADL, Therapeutic Exercise, DME/AE/AD education/ training Functional Goals of Treatment 1. Patient will be independent with HEP and recommendations by time of discharge. 2. Patient will demonstrate good carryover of energy conservation strategies by time of discharge in order to improve safety with I/ADL performance. 3. Patient will demonstrate improved BUE strength to at least 4/5 in order to improve ease of performing IADLs by time of discharge. OT Inpatient Plan of Care Date of Evaluation 05/06/22 Treatment Diagnosis Muscle Weakness Precaution/Orders as written Eval & Treat Frequency/Duration 1x/day excluding weekends and holidays Patient assessed for Rehab Services Yes Was notification received of nursing Yes assessment trigger Chart screen completed Yes Are referral orders warranted for Yes evaluation Is an intervention justified at this Yes time Comment OTR provided general education to patient regarding Home Health Services and recommendation for home. He verbalized understanding and stated that he would like to discuss this with his daughter first so as not to offend her with extra help. OT to see patient 1x/day through duration of stay excluding weekends and holidays to address functional strength, functional endurance, and independence and safety with I /ADLs including Evaluation/Re- Assessment, Therapeutic Exercise, Therapeutic Activity /ADL, Neuromuscular Re- Education, Energy Conservation training, and AE/AD/DME training as needed in order to promote independence and safety with I/ADL performance and safe return to home environment. Initialized on 05/06/22 17:57 - END OF NOTE - Vitals & Intake/Output Vital Signs: Vital Signs Temperature 97.9 F 05/07/22 12:00 Pulse Rate 94 H 05/07/22 12:51 Respiratory Rate 20 05/07/22 12:51 Blood Pressure 115/58 05/07/22 12:00 O2 Sat by Pulse Oximetry 98 05/07/22 12:51 Intake & Output: Intake & Output 05/05/22 05/06/22 05/07/22 05/08/22 11:59 11:59 11:59 11:59 Intake Total 2220 2120 480 Balance 2220 2120 480 Weight 94 kg 94 kg 107.8 kg - Lab Result Diagrams: 05/06/22 04:37 05/06/22 04:37 Lab Results-Last 24 Hrs: Lab Results-Last 24 Hours 05/06/22 05/07/22 05/07/22 Range/Units 21:22 07:28 10:58 POC Glucometer 210 H 179 H 135 H (74 to 106) mg/dL 05/07/22 Range/Units 11:02 POC Glucometer 163 H (74 to 106) mg/dL Micro Results-Entire Visit: Microbiology 05/05/22 08:50 Blood Culture - Preliminary Blood NO GROWTH TO DATE 05/05/22 08:50 Blood Culture - Preliminary Blood NO GROWTH TO DATE Accuchecks Date 05/07/22 Date 05/07/22 Time 12:04 Time 07:45 - Procedures and Test Procedures and Tests throughout Hospitalization: Therapy Orders & Screens 05/05/22 08:41 Respiratory Therapy Assessment DAILY Comment: 05/05/22 13:13 Oxygen NASAL CANNULA 3 lpm Comment: Diagnosis: Pneumonia, generalized weakness 05/06/22 05:33 Respiratory MDI UD Comment: Diagnosis: generalized weakness for 1-2 days 05/06/22 11:55 PT Eval & Treat (MD Order) ONCE Reason for Eval:: WEAKNESS Diagnosis: generalized weakness for 1-2 days 05/06/22 11:56 OT Eval and Treat (MD Order) ONCE Comment: Consulting Provider: Physician Instructions: Reason For Exam: Diagnosis: generalized weakness for 1-2 days Discharge Exam General Appearance: no apparent distress, alert Neurologic Exam: alert, oriented x 3, cooperative, normal mood/affect, nml cerebellar function, sensation nml, No motor deficits Eye Exam: PERRL, EOMI, eyes nml inspection Ears, Nose, Throat Exam: normal ENT inspection, pharynx normal, moist mucous membranes Neck Exam: normal inspection, non-tender, supple, full range of motion Respiratory Exam: normal breath sounds, lungs clear, No respiratory distress Cardiovascular Exam: regular rate/rhythm, normal heart sounds Gastrointestinal/Abdomen Exam: soft, No tenderness, No mass Male Genitalia Exam: deferred Rectal Exam: deferred Back Exam: normal inspection, normal range of motion, No CVA tenderness, No vertebral tenderness Extremity Exam: normal inspection, normal range of motion Skin Exam: normal color, warm, dry Final Diagnosis/Problem List - Final Discharge Diagnosis/Problem (1) Pneumonia Status: Resolved Code(s): J18.9 - PNEUMONIA, UNSPECIFIED ORGANISM (2) COPD (chronic obstructive pulmonary disease) Status: Chronic - Discharge Discharge Date: 05/07/22 Disposition: Home, Self-Care Condition: Stable Prescriptions: New Cephalexin Mh 500 mg [Keflex 500 mg] 500 mg PO QID #28 cap Methylprednisolone Packet [Medrol Dosepack] 4 mg PO UD #30 packet Continue Loratadine 10 mg [Claritin 10 mg] 10 mg PO DAILY Gabapentin [Neurontin] 600 mg PO 1800 Insulin Glargine,Hum.rec.anlog [Lantus] 10 unit SQ 1600 Potassium Chloride Tab* [Klor Con] 4 tab PO DAILY Furosemide 40 mg PO DAILY Metformin HCl 850 mg [Glucophage 850 MG] 850 mg PO BID Glipizide 10 mg [Glucotrol 10 MG] 10 mg PO BID Fluticasone/Umeclidin/Vilanter [Trelegy Ellipta 100-62.5-25] 1 inh PO DAILY Albuterol/Ipratropium 3ml Neb* [DUONEB 0.5-3 MG/3 ml Neb] 3 ml IH QIDPRN PRN PRN Reason: Shortness Of Breath/Wheezing Instructions: Pneumonia, Adult (DC) Follow up with: TIMA FRAGOSO [Primary Care Provider] - 05/14/22 2:30 pm
== END 2022-05-07 14:33 | disposition home or self-care (01) ==
LOC: ED 08:29 → MED SURG 10:53
PROVIDERS: ADMIT General Practice; ATTEND General Practice
DX: J18.9 Pneumonia, unspecified organism (principal); J44.9 Chronic obstructive pulmonary disease, unspecified; I50.9 Heart failure, unspecified; E11.9 Type 2 diabetes mellitus without complications; D64.9 Anemia, unspecified; Z79.899 Other long term (current) drug therapy; Z20.828 Contact with and (suspected) exposure to other viral communicable diseases; Z99.81 Dependence on supplemental oxygen
CPT/HCPCS: 0241U; 36000; 36415; 71045; 80053; 81015; 82947; 83036; 83605; 83735; 83880; 84134; 84484; 85025; 85027; 87040; 93005; 93041; 93268; 94640; 94760; 96365; 96367; 96372; 96374; 97110; 97161; 97165; 99285; G0008; G0378; 90662; J0456; J0696; J1650; J1817; J2930; J7609; A9270-GY

== ENCOUNTER 2023-01-09 18:47 | Observation (INO) | payer MEDICARE ==
--- NOTE | 2023-01-09 18:57 | ERPHSYRPT ---
- History of Present Illness Time Seen by Provider: 01/09/23 18:52 Source: patient, EMS Exam Limitations: no limitations Physician History: pt was more SOB today and has Hx COPD. No CP or ABd pain. usually on 3 L NC. ABD nontender. CHest with wheezes nontender all ext. Neuro no change normal mental status. Discussed risk/benefit of labs - CBC, CMP, CXR, ELG, Trop BNP, D DIMER, and Tx duoneb, steroids, with pt and he wishes to proceed. results discussed with pt. EMS served as confirming additional Hx independent source. Timing/Duration: today Severity of Dyspnea-Max: moderate Severity of Dyspnea-Current: moderate Possible Cause: frequent episodes, chronic episodes Associated Symptoms: cough, wheezing, weakness Allergies/Adverse Reactions: ampicillin Allergy (Intermediate, Verified 01/09/23 18:53) Swelling of Hands Home Medications: Furosemide 40 mg PO DAILY 10/21/14 [History] Gabapentin [Neurontin] 600 mg PO 1800 10/21/14 [History] Glipizide 10 mg [Glucotrol 10 MG] 10 mg PO BID 10/21/14 [History] Insulin Glargine,Hum.rec.anlog [Lantus] 10 unit SQ 1600 10/21/14 [History] Loratadine 10 mg [Claritin 10 mg] 10 mg PO DAILY 10/21/14 [History] Metformin HCl 850 mg [Glucophage 850 MG] 850 mg PO BID 10/21/14 [History] Potassium Chloride Tab* [Klor Con] 4 tab PO DAILY 10/21/14 [History] Fluticasone/Umeclidin/Vilanter [Trelegy Ellipta 100-62.5-25] 1 inh PO DAILY 10/15/18 [History] Albuterol/Ipratropium 3ml Neb* [DUONEB 0.5-3 MG/3 ml Neb] 3 ml IH QIDPRN PRN 05/05/22 [History] Guaifenesin [Mucus Relief] 400 mg PO DAILY 01/09/23 [History] Hx Tetanus, Diphtheria Vaccination/Date Given: Yes Hx Influenza Vaccination/Date Given: Yes Hx Pneumococcal Vaccination/Date Given: Yes Travel Risk - Vaccine Status Have you recieved a Covid-19 vaccination: Yes 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 - Vaccination Dates Date of 2cond Vaccination (if applicable): 2021 - Review of Systems Constitutional: No Fever, No Chills Eyes: No Symptoms Ears, Nose, & Throat: No Symptoms Respiratory: No Cough, No Dyspnea Cardiac: No Chest Pain, No Edema, No Syncope Abdominal/Gastrointestinal: No Abdominal Pain, No Nausea, No Vomiting, No Diarrhea Genitourinary Symptoms: No Dysuria Musculoskeletal: No Back Pain, No Neck Pain Skin: No Rash Neurological: No Dizziness, No Focal Weakness, No Sensory Changes Psychological: No Symptoms Endocrine: No Symptoms Hematologic/Lymphatic: No Symptoms Immunological/Allergic: No Symptoms All Other Systems: Reviewed and Negative - Past Medical History Pertinent Past Medical History: Yes Neurological History: No Pertinent History ENT History: Cataracts Cardiac History: Congestive Heart Failure Respiratory History: Bronchitis, CHF, COPD, Emphysema, Pneumonia, Sleep Apnea Endocrine Medical History: Diabetes Type II Musculoskeletal History: Arthritis, Fractures GI Medical History: No Pertinent History History: No Pertinent History Psycho-Social History: No Pertinent History Male Reproductive Disorders: No Pertinent History Other Medical History: Home O2 - Past Surgical History Past Surgical History: Yes Neuro Surgical History: No Pertinent History Cardiac: No Pertinent History Respiratory: No Pertinent History Gastrointestinal: No Pertinent History Genitourinary: No Pertinent History Musculoskeletal: No Pertinent History Male Surgical History: No Pertinent History Other Surgical History: Cataract Surgery - Social History Smoking Status: Former smoker How long have you smoked: 45 years Exposure to second hand smoke: No Drug Use: none Patient Lives Alone: No - Nursing Vital Signs Nursing Vital Signs: Initial Vital Signs Temperature 98.7 F 01/09/23 18:55 Pulse Rate 90 01/09/23 18:55 Respiratory Rate 25 H 01/09/23 18:55 Blood Pressure 131/59 01/09/23 18:55 O2 Sat by Pulse Oximetry 97 01/09/23 18:55 Pain Scale Pain Intensity 0 - Physical Exam General Appearance: mild distress, alert Eye Exam: PERRL/EOMI, eyes nml inspection Ears, Nose, Throat Exam: hearing grossly normal, normal ENT inspection, normal pharynx Neck Exam: normal inspection, supple Respiratory Exam: airway intact, rhonchi, wheezing Cardiovascular/Chest Exam: normal heart sounds, regular rate/rhythm Abdominal/Gastrointestinal Exam: soft, No tenderness, No distention, No mass Rectal Exam: deferred Extremity Exam: non-tender, normal range of motion, normal inspection, no calf tenderness, no pedal edema Peripheral Pulses Exam: carotid (R): 2+, carotid (L): 2+, femoral (R): 2+, femoral (L): 2+, dorsalis-pedis (R): 2+, dorsalis-pedis (L): 2+ Neurologic Exam: alert, oriented x 3, cooperative, 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 institution 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 as tested, normal mood/affect, nml cerebellar function, nml station & gait, sensation nml, No motor deficits Skin Exam: normal color, warm, No dry SpO2 Interpretation: borderline oxygenation, O2 applied SpO2: 95 O2 Delivery: High Flow - Course Nursing assessment & vital signs reviewed: Yes EKG Interpreted by Me: Sinus Rhythm, Right Bundle Branch Block, Non-specific ST Changes, Other (prolonged OK and APCs) - Radiology Exams Chest X-ray Interpretation: Teleradiologist Report, Infiltrates - CT Exams Chest CT Interpretation: Tele-radiologist Report, No PE Ordered Tests: Active Orders 24 hr Category Date Time Status Lithographic Proofer STAT Care 01/09/23 18:59 Active EKG-ER Only STAT Care 01/09/23 18:58 Active IV Insertion STAT Care 01/09/23 18:58 Active Pulse Oximetry (ED) STAT Care 01/09/23 18:58 Active CHEST 1 VIEW (PORTABLE) Stat Exams 01/09/23 18:59 Completed CHEST WITH CONTRAST [CT] Stat Exams 01/09/23 20:09 Completed CBC W DIFF Stat Lab 01/09/23 19:11 Completed CMP Stat Lab 01/09/23 19:11 Completed D-DIMER QUANTITATIVE Stat Lab 01/09/23 19:11 Completed Lactic Acid Stat Lab 01/09/23 19:52 Completed NT PRO BNPII Stat Lab 01/09/23 19:11 Completed TROPONIN Q4H Lab 01/09/23 19:11 Completed TROPONIN Q4H Lab 01/09/23 23:30 Completed TROPONIN Q4H Lab 01/10/23 03:00 Ordered UA W/RFX UR CULTURE Stat Lab 01/09/23 21:00 Completed Respiratory Therapy Assessment DAILY RT 01/09/23 19:07 Completed Medication Summary Generic Name Dose Route Start Last Admin Trade Name Freq PRN Reason Stop Dose Admin Sodium Chloride 1,000 mls @ 50 mls/hr 01/09/23 19:00 01/09/23 19:17 Sodium Chloride 0.9% 1000 Ml IV 02/08/23 18:59 50 mls/hr .Q20H CHRISTA Administration Discontinued Medications Generic Name Dose Route Start Last Admin Trade Name Joceline PRN Reason Stop Dose Admin Albuterol/Ipratropium 3 ml 01/09/23 18:58 01/09/23 19:10 Ipratropium/Albuterol Sulfate 3 Ml Ampul.Neb IH 01/09/23 18:59 3 ml STAT ONE Administration Albuterol/Ipratropium Confirm 01/09/23 19:06 Ipratropium/Albuterol Sulfate 3 Ml Ampul.Neb Administered 01/09/23 19:07 Dose 3 ml IH .STK-MED ONE Methylprednisolone Sodium 0 mg 01/09/23 18:58 01/09/23 19:16 Succinate 125 mg/ Sterile IV 01/09/23 18:59 125 mg Water 2 ml STAT ONE Administration Azithromycin 500 mg in 250 mls @ 250 mls/hr 01/10/23 00:11 01/10/23 00:22 Zithromax 500 Mg/ 250 Ml Nacl Premix IV 01/10/23 01:10 250 mls/hr STAT ONE Administration Azithromycin Confirm 01/10/23 00:21 Zithromax 500 Mg/ 250 Ml Nacl Premix Administered 01/10/23 00:22 Dose 500 mg in 250 mls @ ud IV .STK-MED ONE Methylprednisolone Sodium Succinate Confirm 01/09/23 19:15 Methylprednis Sod Succ 125 Mg/2 Ml Vial Administered 01/09/23 19:16 Dose 125 mg .ROUTE .STK-MED ONE Sterile Water Confirm 01/09/23 19:15 Water For Injection,Sterile 10 Ml Vial Administered 01/09/23 19:16 Dose 10 ml IJ .STK-MED ONE Lab/Rad Data: Laboratory Result Diagrams 01/09/23 19:11 01/09/23 19:11 Laboratory Results 01/09/23 01/09/23 01/09/23 Range/Units 23:30 21:00 19:52 WBC (4.0-10.5) x10^3/uL RBC (4.1-5.6) x10^6/uL Hgb (12.5-18.0) g/dL Hct (42-50) % MCV (78-100) fL MCH (26-32) pg MCHC (32-36) g/dL RDW (11.5-14.0) % Plt Count (150-450) x10^3/uL MPV (7.5-11.0) fL Gran % (36.0-66.0) % Immature Gran % (Auto) (0.00-0.4) % Nucleat RBC Rel Count (0.00-0.1) % Eos # (Auto) (0-0.5) x10^3/uL Immature Gran # (Auto) (0.00-0.03) x10^3u/L Absolute Lymphs (auto) (1.0-4.6) x10^3/uL Absolute Monos (auto) (0.0-1.3) x10^3/uL Absolute Nucleated RBC (0.00-0.01) x10^3u/L Lymphocytes % (24.0-44.0) % Monocytes % (0.0-12.0) % Eosinophils % (0.00-5.0) % Basophils % (0.0-0.4) % Absolute Granulocytes (1.4-6.9) x10^3/uL Basophils # (0-0.4) x10^3/uL D-Dimer (0.0-0.50) mg/L Sodium (137-145) mmol/L Potassium (3.5-5.1) mmol/L Chloride (98-107) mmol/L Carbon Dioxide (22-30) mmol/L Anion Gap (5-15) MEQ/L BUN (9-20) mg/dL Creatinine (0.66-1.25) mg/dL Estimated GFR ML/MIN Glucose (74-106) mg/dL Lactic Acid 1.1 (0.4-2.0) Calcium (8.4-10.2) mg/dL Total Bilirubin (0.2-1.3) mg/dL AST (17-59) U/L ALT (0-50) U/L Alkaline Phosphatase (38-126) U/L Troponin I < 0.012 (0.000-0.034) ng/mL NT-Pro-B Natriuret Pep (<300) pg/mL Serum Total Protein (6.3-8.2) g/dL Albumin (3.5-5.0) g/dL Urine Color Yellow (Yellow) Urine Appearance Clear (Clear) Urine pH 7.0 (4.6-8.0) Ur Specific [place] 1.025 (1.005-1.030) Urine Protein Negative (Negative) Urine Glucose (UA) Negative (Negative) mg/dL Urine Ketones Trace A (Negative) Urine Blood Negative (Negative) Urine Nitrite Negative (Negative) Urine Bilirubin Negative (Negative) Urine Urobilinogen 2.0 A (0.2) mg/dL Ur Leukocyte Esterase Negative (Negative) U Hyaline Cast (Auto) NONE SEEN (0-2) /LPF Urine Microscopic RBC 3-5 (0-5) /HPF Urine Microscopic WBC 0-2 (0-5) /HPF Ur Epithelial Cells Rare (None Seen) /HPF Urine Bacteria None Seen (None Seen) /HPF Urine Culture Reflexed NO (NO) Influenza Type A Ag (NEGATIVE) Influenza Type B Ag (NEGATIVE) RSV (PCR) (NEGATIVE) SARS-CoV-2 (PCR) (NEGATIVE) 01/09/23 01/09/23 01/09/23 Range/Units 19:41 19:11 19:11 WBC (4.0-10.5) x10^3/uL RBC (4.1-5.6) x10^6/uL Hgb (12.5-18.0) g/dL Hct (42-50) % MCV (78-100) fL MCH (26-32) pg MCHC (32-36) g/dL RDW (11.5-14.0) % Plt Count (150-450) x10^3/uL MPV (7.5-11.0) fL Gran % (36.0-66.0) % Immature Gran % (Auto) (0.00-0.4) % Nucleat RBC Rel Count (0.00-0.1) % Eos # (Auto) (0-0.5) x10^3/uL Immature Gran # (Auto) (0.00-0.03) x10^3u/L Absolute Lymphs (auto) (1.0-4.6) x10^3/uL Absolute Monos (auto) (0.0-1.3) x10^3/uL Absolute Nucleated RBC (0.00-0.01) x10^3u/L Lymphocytes % (24.0-44.0) % Monocytes % (0.0-12.0) % Eosinophils % (0.00-5.0) % Basophils % (0.0-0.4) % Absolute Granulocytes (1.4-6.9) x10^3/uL Basophils # (0-0.4) x10^3/uL D-Dimer (0.0-0.50) mg/L Sodium (137-145) mmol/L Potassium (3.5-5.1) mmol/L Chloride (98-107) mmol/L Carbon Dioxide (22-30) mmol/L Anion Gap (5-15) MEQ/L BUN (9-20) mg/dL Creatinine (0.66-1.25) mg/dL Estimated GFR ML/MIN Glucose (74-106) mg/dL Lactic Acid (0.4-2.0) Calcium (8.4-10.2) mg/dL Total Bilirubin (0.2-1.3) mg/dL AST (17-59) U/L ALT (0-50) U/L Alkaline Phosphatase (38-126) U/L Troponin I < 0.012 (0.000-0.034) ng/mL NT-Pro-B Natriuret Pep 543 (<300) pg/mL Serum Total Protein (6.3-8.2) g/dL Albumin (3.5-5.0) g/dL Urine Color (Yellow) Urine Appearance (Clear) Urine pH (4.6-8.0) Ur Specific [place] (1.005-1.030) Urine Protein (Negative) Urine Glucose (UA) (Negative) mg/dL Urine Ketones (Negative) Urine Blood (Negative) Urine Nitrite (Negative) Urine Bilirubin (Negative) Urine Urobilinogen (0.2) mg/dL Ur Leukocyte Esterase (Negative) U Hyaline Cast (Auto) (0-2) /LPF Urine Microscopic RBC (0-5) /HPF Urine Microscopic WBC (0-5) /HPF Ur Epithelial Cells (None Seen) /HPF Urine Bacteria (None Seen) /HPF Urine Culture Reflexed (NO) Influenza Type A Ag NEGATIVE (NEGATIVE) Influenza Type B Ag NEGATIVE (NEGATIVE) RSV (PCR) NEGATIVE (NEGATIVE) SARS-CoV-2 (PCR) NEGATIVE (NEGATIVE) 01/09/23 01/09/23 01/09/23 Range/Units 19:11 19:11 19:11 WBC 9.1 (4.0-10.5) x10^3/uL RBC 3.30 L (4.1-5.6) x10^6/uL Hgb 10.3 L (12.5-18.0) g/dL Hct 32.2 L (42-50) % MCV 97.6 (78-100) fL MCH 31.2 (26-32) pg MCHC 32.0 (32-36) g/dL RDW 14.8 H (11.5-14.0) % Plt Count 260 (150-450) x10^3/uL MPV 10.6 (7.5-11.0) fL Gran % 68.2 H (36.0-66.0) % Immature Gran % (Auto) 0.3 (0.00-0.4) % Nucleat RBC Rel Count 0.0 (0.00-0.1) % Eos # (Auto) 0.14 (0-0.5) x10^3/uL Immature Gran # (Auto) 0.03 (0.00-0.03) x10^3u/L Absolute Lymphs (auto) 1.62 (1.0-4.6) x10^3/uL Absolute Monos (auto) 1.04 (0.0-1.3) x10^3/uL Absolute Nucleated RBC 0.00 (0.00-0.01) x10^3u/L Lymphocytes % 17.9 L (24.0-44.0) % Monocytes % 11.5 (0.0-12.0) % Eosinophils % 1.5 (0.00-5.0) % Basophils % 0.6 (0.0-0.4) % Absolute Granulocytes 6.17 (1.4-6.9) x10^3/uL Basophils # 0.05 (0-0.4) x10^3/uL D-Dimer 1.00 H* (0.0-0.50) mg/L Sodium 139 (137-145) mmol/L Potassium 3.8 (3.5-5.1) mmol/L Chloride 100 (98-107) mmol/L Carbon Dioxide 33 H (22-30) mmol/L Anion Gap 9.9 (5-15) MEQ/L BUN 22 H (9-20) mg/dL Creatinine 0.90 (0.66-1.25) mg/dL Estimated GFR > 60.0 ML/MIN Glucose 128 H (74-106) mg/dL Lactic Acid (0.4-2.0) Calcium 8.8 (8.4-10.2) mg/dL Total Bilirubin 0.40 (0.2-1.3) mg/dL AST 24 (17-59) U/L ALT 14 (0-50) U/L Alkaline Phosphatase 64 (38-126) U/L Troponin I (0.000-0.034) ng/mL NT-Pro-B Natriuret Pep (<300) pg/mL Serum Total Protein 6.9 (6.3-8.2) g/dL Albumin 3.7 (3.5-5.0) g/dL Urine Color (Yellow) Urine Appearance (Clear) Urine pH (4.6-8.0) Ur Specific [place] (1.005-1.030) Urine Protein (Negative) Urine Glucose (UA) (Negative) mg/dL Urine Ketones (Negative) Urine Blood (Negative) Urine Nitrite (Negative) Urine Bilirubin (Negative) Urine Urobilinogen (0.2) mg/dL Ur Leukocyte Esterase (Negative) U Hyaline Cast (Auto) (0-2) /LPF Urine Microscopic RBC (0-5) /HPF Urine Microscopic WBC (0-5) /HPF Ur Epithelial Cells (None Seen) /HPF Urine Bacteria (None Seen) /HPF Urine Culture Reflexed (NO) Influenza Type A Ag (NEGATIVE) Influenza Type B Ag (NEGATIVE) RSV (PCR) (NEGATIVE) SARS-CoV-2 (PCR) (NEGATIVE) - Progress Progress: improved, re-examined Air Movement: good Progress Note: 01/10/23 02:[address] Hill the hospitalist and also discussed with pt and family and all agree best for pt to be in hosp for obs. Blood Culture(s) Obtained: No Antibiotics given: Yes Discussed with Dr.: Other (Dr. Hill) Will see patient in: hospital (observation) Counseled pt/family regarding: lab results, diagnosis, need for follow-up, rad results Medical Desision Making - Independent Historian Additional History obtained from: Family - Discussion of managment Care discussed with:: hospitalist Reviewed:: Test results, Need for additional workup Agreed on:: Treatment plan, need for follow-up, decision to admit, place in obs Will see patient: in hospital - Diagnostic Testing Diagnostic test were ordered, analyzed, and reviewed by me: Yes Radiological Interpretation: Teleradiologist Report - Risk of complications The pt has a mod risk of morbidity or mortality based on: Need for prescription drug management The pt has a high risk of morbidity or mortality based on: Decision regarding hospitilization or escalation of hosp level of care - Departure Departure Disposition: Observation Clinical Impression: COPD exacerbation Condition: Good Critical Care Time: No Referrals: TIMA FRAGOSO [ACTIVE STAFF] - Follow up/PCP as directed Instructions: Chronic Obstructive Pulmonary Disease
[2023-01-09] MEDS ORDERED: solu-MEDROL 125 MG, Sterile H2O 10 ml 2 ML IV ONE ×2 (18:58)
[2023-01-09] MEDS ORDERED: DUONEB 0.5-3 MG/3 ml Neb IH ONE ×2 (18:58→19:06)
[2023-01-09] MEDS ORDERED: Sodium Chloride 0.9% 1000 ML 1,000 ML IV SCH (19:00)
[2023-01-09 19:13] LABS: Absolute Neutrophil Ct (ANC) 6.17 x10^3/uL (1.4-6.9); BASOPHIL % 0.6 % (0.0-0.4); Basophil (Absolute #) 0.05 x10^3/uL (0-0.4); Eosinophil % 1.5 % (0.00-5.0); Eosinophil (Absolute #) 0.14 x10^3/uL (0-0.5); Hematocrit 32.2 % (42-50); Hemoglobin 10.3 g/dL (12.5-18.0); IMMATURE GRAN # 0.03 x10^3u/L (0.00-0.03); IMMATURE GRAN % 0.3 % (0.00-0.4); Lymphocyte (Absolute #) 1.62 x10^3/uL (1.0-4.6); Lymphocytes % 17.9 % (24.0-44.0); Mean Cell Volume 97.6 fL (78-100); Mean Corpuscular Hemoglobin 31.2 pg (26-32); Mean Platelet Volume 10.6 fL (7.5-11.0); Monocyte (Absolute #) 1.04 x10^3/uL (0.0-1.3); Monocytes % 11.5 % (0.0-12.0); Neutrophil % 68.2 % (36.0-66.0); Platelet Count 260 x10^3/uL (150-450); Red Cell Distribution Width 14.8 % (11.5-14.0); White Blood Count 9.1 x10^3/uL (4.0-10.5)
[2023-01-09] MEDS ORDERED: Sterile H2O 10 ml IJ ONE (19:15)
[2023-01-09] MEDS ORDERED: solu-MEDROL ONE (19:15)
[2023-01-09 19:26] LABS: ALBUMIN 3.7 g/dL (3.5-5.0); ALKALINE PHOSPHATASE 64 U/L (38-126); ANION GAP 9.9 MEQ/L (5-15); BLOOD UREA NITROGEN 22 mg/dL (9-20); CHLORIDE 100 mmol/L (98-107); Calcium 8.8 mg/dL (8.4-10.2); Carbon Dioxide 33 mmol/L (22-30); EST GLOMERULAR FILTRATION RATE > 60.0 ML/MIN; Glucose 128 mg/dL (74-106); Potassium 3.8 mmol/L (3.5-5.1); SGOT/AST 24 U/L (17-59); SGPT/ALT 14 U/L (0-50); SODIUM 139 mmol/L (137-145); Total Protein 6.9 g/dL (6.3-8.2)
[2023-01-09 20:20] LABS: INFLUENZA A NEGATIVE (NEGATIVE); INFLUENZA B NEGATIVE (NEGATIVE); RESPIRATORY SYNCTIAL VIRUS NEGATIVE (NEGATIVE); SARS-CoV-2 Xpert Express NEGATIVE (NEGATIVE)
--- NOTE | 2023-01-09 21:13 | XRAY ---
Indication: Short of breath. Comparison: November 13, 2022 Portable chest demonstrates new mild bibasilar infiltrates/atelectasis/effusions, left greater than right. Heart within normal limits for AP portable technique. Bony thorax intact with osteopenia and mild degenerative changes.
[2023-01-09 21:37] LABS: Appearance Clear (Clear); Bacteria None Seen /HPF (None Seen); Bilirubin Negative (Negative); Blood Negative (Negative); Epithelial Cells Rare /HPF (None Seen); Glucose, Urine Negative (Negative); Hyaline Casts NONE SEEN /LPF (0-2); Ketones Trace (Negative); Leukocyte Esterase Negative (Negative); Nitrite Negative (Negative); Protein,Urine Dip Negative (Negative); Specific Gravity 1.025 (1.005-1.030); WBC 0-2 /HPF (0-5)
[2023-01-09 21:44] LABS: ADD URINE CULTURE? NO (NO)
--- NOTE | 2023-01-09 22:59 | XRAY ---
CLINICAL HISTORY:Elevated Ddimer 1.00. PE protocol. COMPARISON:None. TECHNIQUES:Axial CTA images of the chest with intravenous contrast using a pulmonary embolism protocol as per angiographic protocol. xx ml of Inj. Omnipaque (350 mg/100 ml) were administered as intravenous contrast agent. Three-dimensional MIP-rendered reformations in Coronal and Sagittal planes were performed, reconstructed and reviewed. CTDI 60.13 mGy, DLP 1185.9 mGycm. FINDINGS: No evidence of central or segmental pulmonary embolism is seen. There is no evidence for aneurysm or dissection of the thoracic aorta. 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 Infiltrates in both lower lobes, more evident on the left side. Mild left pleural effusion. Mild deviation of the mediastinum to the left side. IMPRESSION: Negative study for pulmonary embolism. Bilateral infiltrates, more evident on the left lung base. Mild left pleural effusion. Electronically Signed by: Jimena Dent MD. (01/09/2023 21:44:18 BUSINESS ANALYSIS SPECIALIST)
[2023-01-10] MEDS ORDERED: Zithromax 500 MG/ 250 ML NaCl Premix 500 MG/250 ML IVPB IV ONE ×2 (00:11→00:21)
--- NOTE | 2023-01-10 03:13 | PCM.HP ---
History of Present Illness - Chief Complaint Chief Complaint: SOB History of Present Illness: is a 77 year old male with hx of COPD and chronic respiratory failure on 3Ls NC O2 at home, DMII, Neuropathy, GINA and CHF presented to ER with worsening SOB, cough, wheezing and weakness starting a few days prior and worsening. In ER, he needed 5Ls NC O2, received treatment for COPD exacerbation, improved back to 3Ls NC O2. Cxry is suggesting infiltrates. ER doc wants to keep for steroid and ABX. Pt seen by me via telemedicine. He is calm, comfortable now on 3Ls NC O2 The entirety of this visit is done via telemedicine. The pt gave me verbal consent to have this telemedicine visit - Review of Systems Constitutional: Weakness Eyes: No Symptoms Ears, Nose, & Throat: No Symptoms Respiratory: Cough, Short Of Breath, Wheezing Cardiac: No Symptoms Abdominal/Gastrointestinal: No Symptoms Genitourinary Symptoms: No Symptoms Musculoskeletal: No Symptoms Skin: No Symptoms Neurological: No Symptoms Psychological: No Symptoms Endocrine: No Symptoms Hematologic/Lymphatic: No Symptoms Immunological/Allergic: No Symptoms Medications & Allergies Home Medications: Home Medication List Furosemide 40 mg PO DAILY 10/21/14 [History Confirmed 01/09/23] Gabapentin [Neurontin] 600 mg PO 1800 10/21/14 [History Confirmed 01/09/23] Glipizide 10 mg [Glucotrol 10 MG] 10 mg PO BID 10/21/14 [History Confirmed 01/09/23] Insulin Glargine,Hum.rec.anlog [Lantus] 10 unit SQ 1600 10/21/14 [History Confirmed 01/09/23] Loratadine 10 mg [Claritin 10 mg] 10 mg PO DAILY 10/21/14 [History Confirmed 01/09/23] Metformin HCl 850 mg [Glucophage 850 MG] 850 mg PO BID 10/21/14 [History Confirmed 01/09/23] Potassium Chloride Tab* [Klor Con] 4 tab PO DAILY 10/21/14 [History Confirmed 01/09/23] Fluticasone/Umeclidin/Vilanter [Trelegy Ellipta 100-62.5-25] 1 inh PO DAILY 10/15/18 [History Confirmed 01/09/23] Albuterol/Ipratropium 3ml Neb* [DUONEB 0.5-3 MG/3 ml Neb] 3 ml IH QIDPRN PRN 05/05/22 [History Confirmed 01/09/23] Guaifenesin [Mucus Relief] 400 mg PO DAILY 01/09/23 [History Confirmed 01/09/23] Allergies/Adverse Reactions: Allergies Allergy/AdvReac Type Severity Reaction Status Date / Time ampicillin Allergy Intermediate Swelling Verified 01/09/23 18:53 of Hands - Past Medical History Past Medical History: Yes Neurological History: No Pertinent History ENT History: Cataracts Cardiac History: Congestive Heart Failure Respiratory History: Bronchitis, CHF, COPD, Emphysema, Pneumonia, Sleep Apnea Endocrine Medical History: Diabetes Type II Musculoskelatal History: Arthritis, Fractures GI Medical History: No Pertinent History History: No Pertinent History Pyscho-Social History: No Pertinent History Male Reproductive Disorders: No Pertinent History Comment: Home O2 - Past Surgical History Past Surgical History: Yes Neuro Surgical History: No Pertinent History Cardiac History: No Pertinent History Respiratory Surgery: No Pertinent History GI Surgical History: No Pertinent History Genitourinary Surgical Hx: No Pertinent History Musculskeletal Surgical Hx: No Pertinent History Male Surgical History: No Pertinent History Other Surgical History: Cataract Surgery - Social History Smoking Status: Former smoker How long have you smoked: 45 years Exposure to second hand smoke: No Alcohol: None Drug Use: none Significant Family History: no pertinent family hx - Physical Exam Vital Signs: Vital Signs - 24 hr Temp Pulse Resp BP BP Pulse Ox 01/10/23 03:00 96 H 22 106/68 97 01/10/23 02:51 95 01/10/23 02:10 97 H 12 121/71 98 01/10/23 02:09 98 01/10/23 01:00 99 H 23 148/65 98 01/10/23 00:00 98 H 19 129/69 96 01/09/23 23:00 100 H 19 118/69 96 01/09/23 22:00 101 H 18 123/70 97 01/09/23 21:00 99 H 21 114/62 97 01/09/23 20:00 94 H 25 H 110/61 98 01/09/23 19:10 90 27 H 96 01/09/23 19:08 95 01/09/23 19:01 93 H 25 H 113/45 97 01/09/23 18:55 98.7 F 90 24 131/59 98 General Appearance: no apparent distress Neurologic Exam: alert, oriented x 3, cooperative, normal mood/affect Eye Exam: PERRL/EOMI, eyes nml inspection Ears, Nose, Throat Exam: normal ENT inspection Neck Exam: normal inspection, supple, full range of motion Respiratory Exam: diminished breath sounds, wheezing Cardiovascular Exam: regular rate/rhythm, normal heart sounds Gastrointestinal/Abdomen Exam: soft, normal bowel sounds Male Genitalia Exam: other (deferred) Rectal Exam: deferred Back Exam: normal inspection Extremity Exam: normal inspection Skin Exam: normal color, dry Results - Labs Lab/Micro Results: Lab Results-Last 24 Hours 01/09/23 01/09/23 01/09/23 Range/Units 19:11 19:11 19:11 WBC 9.1 (4.0-10.5) x10^3/uL RBC 3.30 L (4.1-5.6) x10^6/uL Hgb 10.3 L (12.5-18.0) g/dL Hct 32.2 L (42-50) % MCV 97.6 (78-100) fL MCH 31.2 (26-32) pg MCHC 32.0 (32-36) g/dL RDW 14.8 H (11.5-14.0) % Plt Count 260 (150-450) x10^3/uL MPV 10.6 (7.5-11.0) fL Gran % 68.2 H (36.0-66.0) % Immature Gran % (Auto) 0.3 (0.00-0.4) % Nucleat RBC Rel Count 0.0 (0.00-0.1) % Eos # (Auto) 0.14 (0-0.5) x10^3/uL Immature Gran # (Auto) 0.03 (0.00-0.03) x10^3u/L Absolute Lymphs (auto) 1.62 (1.0-4.6) x10^3/uL Absolute Monos (auto) 1.04 (0.0-1.3) x10^3/uL Absolute Nucleated RBC 0.00 (0.00-0.01) x10^3u/L Lymphocytes % 17.9 L (24.0-44.0) % Monocytes % 11.5 (0.0-12.0) % Eosinophils % 1.5 (0.00-5.0) % Basophils % 0.6 (0.0-0.4) % Absolute Granulocytes 6.17 (1.4-6.9) x10^3/uL Basophils # 0.05 (0-0.4) x10^3/uL D-Dimer 1.00 H* (0.0-0.50) mg/L Sodium 139 (137-145) mmol/L Potassium 3.8 (3.5-5.1) mmol/L Chloride 100 (98-107) mmol/L Carbon Dioxide 33 H (22-30) mmol/L Anion Gap 9.9 (5-15) MEQ/L BUN 22 H (9-20) mg/dL Creatinine 0.90 (0.66-1.25) mg/dL Estimated GFR > 60.0 ML/MIN Glucose 128 H (74-106) mg/dL Lactic Acid (0.4-2.0) Calcium 8.8 (8.4-10.2) mg/dL Total Bilirubin 0.40 (0.2-1.3) mg/dL AST 24 (17-59) U/L ALT 14 (0-50) U/L Alkaline Phosphatase 64 (38-126) U/L Troponin I (0.000-0.034) ng/mL NT-Pro-B Natriuret Pep (<300) pg/mL Serum Total Protein 6.9 (6.3-8.2) g/dL Albumin 3.7 (3.5-5.0) g/dL Urine Color (Yellow) Urine Appearance (Clear) Urine pH (4.6-8.0) Ur Specific [place] (1.005-1.030) Urine Protein (Negative) Urine Glucose (UA) (Negative) mg/dL Urine Ketones (Negative) Urine Blood (Negative) Urine Nitrite (Negative) Urine Bilirubin (Negative) Urine Urobilinogen (0.2) mg/dL Ur Leukocyte Esterase (Negative) U Hyaline Cast (Auto) (0-2) /LPF Urine Microscopic RBC (0-5) /HPF Urine Microscopic WBC (0-5) /HPF Ur Epithelial Cells (None Seen) /HPF Urine Bacteria (None Seen) /HPF Urine Culture Reflexed (NO) Influenza Type A Ag (NEGATIVE) Influenza Type B Ag (NEGATIVE) RSV (PCR) (NEGATIVE) SARS-CoV-2 (PCR) (NEGATIVE) 01/09/23 01/09/23 01/09/23 Range/Units 19:11 19:11 19:41 WBC (4.0-10.5) x10^3/uL RBC (4.1-5.6) x10^6/uL Hgb (12.5-18.0) g/dL Hct (42-50) % MCV (78-100) fL MCH (26-32) pg MCHC (32-36) g/dL RDW (11.5-14.0) % Plt Count (150-450) x10^3/uL MPV (7.5-11.0) fL Gran % (36.0-66.0) % Immature Gran % (Auto) (0.00-0.4) % Nucleat RBC Rel Count (0.00-0.1) % Eos # (Auto) (0-0.5) x10^3/uL Immature Gran # (Auto) (0.00-0.03) x10^3u/L Absolute Lymphs (auto) (1.0-4.6) x10^3/uL Absolute Monos (auto) (0.0-1.3) x10^3/uL Absolute Nucleated RBC (0.00-0.01) x10^3u/L Lymphocytes % (24.0-44.0) % Monocytes % (0.0-12.0) % Eosinophils % (0.00-5.0) % Basophils % (0.0-0.4) % Absolute Granulocytes (1.4-6.9) x10^3/uL Basophils # (0-0.4) x10^3/uL D-Dimer (0.0-0.50) mg/L Sodium (137-145) mmol/L Potassium (3.5-5.1) mmol/L Chloride (98-107) mmol/L Carbon Dioxide (22-30) mmol/L Anion Gap (5-15) MEQ/L BUN (9-20) mg/dL Creatinine (0.66-1.25) mg/dL Estimated GFR ML/MIN Glucose (74-106) mg/dL Lactic Acid (0.4-2.0) Calcium (8.4-10.2) mg/dL Total Bilirubin (0.2-1.3) mg/dL AST (17-59) U/L ALT (0-50) U/L Alkaline Phosphatase (38-126) U/L Troponin I < 0.012 (0.000-0.034) ng/mL NT-Pro-B Natriuret Pep 543 (<300) pg/mL Serum Total Protein (6.3-8.2) g/dL Albumin (3.5-5.0) g/dL Urine Color (Yellow) Urine Appearance (Clear) Urine pH (4.6-8.0) Ur Specific [place] (1.005-1.030) Urine Protein (Negative) Urine Glucose (UA) (Negative) mg/dL Urine Ketones (Negative) Urine Blood (Negative) Urine Nitrite (Negative) Urine Bilirubin (Negative) Urine Urobilinogen (0.2) mg/dL Ur Leukocyte Esterase (Negative) U Hyaline Cast (Auto) (0-2) /LPF Urine Microscopic RBC (0-5) /HPF Urine Microscopic WBC (0-5) /HPF Ur Epithelial Cells (None Seen) /HPF Urine Bacteria (None Seen) /HPF Urine Culture Reflexed (NO) Influenza Type A Ag NEGATIVE (NEGATIVE) Influenza Type B Ag NEGATIVE (NEGATIVE) RSV (PCR) NEGATIVE (NEGATIVE) SARS-CoV-2 (PCR) NEGATIVE (NEGATIVE) 01/09/23 01/09/23 01/09/23 Range/Units 19:52 21:00 23:30 WBC (4.0-10.5) x10^3/uL RBC (4.1-5.6) x10^6/uL Hgb (12.5-18.0) g/dL Hct (42-50) % MCV (78-100) fL MCH (26-32) pg MCHC (32-36) g/dL RDW (11.5-14.0) % Plt Count (150-450) x10^3/uL MPV (7.5-11.0) fL Gran % (36.0-66.0) % Immature Gran % (Auto) (0.00-0.4) % Nucleat RBC Rel Count (0.00-0.1) % Eos # (Auto) (0-0.5) x10^3/uL Immature Gran # (Auto) (0.00-0.03) x10^3u/L Absolute Lymphs (auto) (1.0-4.6) x10^3/uL Absolute Monos (auto) (0.0-1.3) x10^3/uL Absolute Nucleated RBC (0.00-0.01) x10^3u/L Lymphocytes % (24.0-44.0) % Monocytes % (0.0-12.0) % Eosinophils % (0.00-5.0) % Basophils % (0.0-0.4) % Absolute Granulocytes (1.4-6.9) x10^3/uL Basophils # (0-0.4) x10^3/uL D-Dimer (0.0-0.50) mg/L Sodium (137-145) mmol/L Potassium (3.5-5.1) mmol/L Chloride (98-107) mmol/L Carbon Dioxide (22-30) mmol/L Anion Gap (5-15) MEQ/L BUN (9-20) mg/dL Creatinine (0.66-1.25) mg/dL Estimated GFR ML/MIN Glucose (74-106) mg/dL Lactic Acid 1.1 (0.4-2.0) Calcium (8.4-10.2) mg/dL Total Bilirubin (0.2-1.3) mg/dL AST (17-59) U/L ALT (0-50) U/L Alkaline Phosphatase (38-126) U/L Troponin I < 0.012 (0.000-0.034) ng/mL NT-Pro-B Natriuret Pep (<300) pg/mL Serum Total Protein (6.3-8.2) g/dL Albumin (3.5-5.0) g/dL Urine Color Yellow (Yellow) Urine Appearance Clear (Clear) Urine pH 7.0 (4.6-8.0) Ur Specific [place] 1.025 (1.005-1.030) Urine Protein Negative (Negative) Urine Glucose (UA) Negative (Negative) mg/dL Urine Ketones Trace A (Negative) Urine Blood Negative (Negative) Urine Nitrite Negative (Negative) Urine Bilirubin Negative (Negative) Urine Urobilinogen 2.0 A (0.2) mg/dL Ur Leukocyte Esterase Negative (Negative) U Hyaline Cast (Auto) NONE SEEN (0-2) /LPF Urine Microscopic RBC 3-5 (0-5) /HPF Urine Microscopic WBC 0-2 (0-5) /HPF Ur Epithelial Cells Rare (None Seen) /HPF Urine Bacteria None Seen (None Seen) /HPF Urine Culture Reflexed NO (NO) Influenza Type A Ag (NEGATIVE) Influenza Type B Ag (NEGATIVE) RSV (PCR) (NEGATIVE) SARS-CoV-2 (PCR) (NEGATIVE) - Radiology Impressions Radiology Exams & Impressions: Radiology Procedures Category Date Time Status CHEST 1 VIEW (PORTABLE) Stat Exams 01/09/23 18:59 Completed CHEST WITH CONTRAST [CT] Stat Exams 01/09/23 20:09 Completed Assessment/Plan (1) COPD exacerbation Current Visit: Yes Status: Acute Assessment & Plan: Solumedrol, rocephin, updrafts scheduled and prn. CXR suggestive of infiltrate. BC x 2 sent. He is normally on 3Ls at home, and he is at baseline now at 3Ls NC O2. Code(s): J44.1 - CHRONIC OBSTRUCTIVE PULMONARY DISEASE W (ACUTE) EXACERBATION (2) Acute and chronic respiratory failure ([id number]) Current Visit: Yes Status: Acute Assessment & Plan: Came in worse, needing 5Ls NC O2, but after receiving updrafts in ER, he came back down to 3Ls NC O2. Treating COPD exacerbation Code(s): J96.20 - ACUTE AND CHR RESP FAILURE, UNSP W HYPOXIA OR HYPERCAPNIA (3) Anemia Current Visit: Yes Status: Acute Assessment & Plan: Hgb 10.2, check iron stores and proceed from there. He denies black or bloody stools Code(s): D64.9 - ANEMIA, UNSPECIFIED (4) DM II (diabetes mellitus, type II), controlled Current Visit: Yes Status: Acute Assessment & Plan: Check A1C. Accucheck qAC and HS., ADA diet. SSI. He takes Metformin at home, we can continue this here Code(s): E11.9 - TYPE 2 DIABETES MELLITUS WITHOUT COMPLICATIONS (5) CHF (congestive heart failure) Current Visit: Yes Status: Acute Assessment & Plan: Has a hx of this, overall, does not appear volume overloaded. BNP 543. Trop negative x 1. Will monitor without diuretic Code(s): I50.9 - HEART FAILURE, UNSPECIFIED
[2023-01-10] MEDS ORDERED: HUMALOG SQ PRN (04:00)
[2023-01-10] MEDS ORDERED: DUONEB 0.5-3 MG/3 ml Neb IH SCH (04:00)
[2023-01-10 05:32] LABS: Hematocrit 36.8 % (42-50); Hemoglobin 11.3 g/dL (12.5-18.0); Mean Cell Volume 99.2 fL (78-100); Mean Corpuscular Hemoglobin 30.5 pg (26-32); Mean Corpuscular Hgb Concent. 30.7 g/dL (32-36); Mean Platelet Volume 10.3 fL (7.5-11.0); Platelet Count 280 x10^3/uL (150-450); Red Blood Count 3.71 x10^6/uL (4.1-5.6); Red Cell Distribution Width 14.8 % (11.5-14.0); White Blood Count 9.2 x10^3/uL (4.0-10.5)
[2023-01-10] MEDS ORDERED: solu-MEDROL 60 MG, Sterile H2O 10 ml 2 ML IV SCH ×2 (06:00)
[2023-01-10 06:14] LABS: ANION GAP 15.1 MEQ/L (5-15); BLOOD UREA NITROGEN 21 mg/dL (9-20); CHLORIDE 99 mmol/L (98-107); Carbon Dioxide 29 mmol/L (22-30); Creatinine 1 0.66 mg/dL (0.66-1.25); EST GLOMERULAR FILTRATION RATE > 60.0 ML/MIN; Glucose 214 mg/dL (74-106); PREALBUMIN 18.37 mg/dL (17.6-36.0); SODIUM 139 mmol/L (137-145)
[2023-01-10] MEDS ORDERED: Sterile H2O 10 ml IJ ONE (06:41)
[2023-01-10] MEDS ORDERED: solu-MEDROL ONE (06:41)
[2023-01-10] MEDS ORDERED: Advair Hfa 115/21 Common canister IH SCH (07:00)
[2023-01-10] MEDS ORDERED: PROVENTIL 2.5 MG/3 ML NEB IH SCH (08:00)
[2023-01-10 08:12] VITALS: PULSE 96
[2023-01-10 09:45] VITALS: BP 118/65; O2SAT 96
[2023-01-10] MEDS ORDERED: Klor Con PO SCH (10:00)
[2023-01-10] MEDS ORDERED: CLARITIN 10 MG PO SCH (10:00)
[2023-01-10] MEDS ORDERED: Spiriva 18 Mcg/Cap Inhaler IH SCH (10:00)
[2023-01-10] MEDS ORDERED: Lasix 40 MG PO SCH (10:00)
[2023-01-10] MEDS ORDERED: NON-FORMULARY ITEM (Glipizide 10 Mg*** [Glucotrol 10 Mg***] 10 MG Tablet) PO SCH (10:00)
[2023-01-10] MEDS ORDERED: Glucotrol 5 MG PO SCH (10:00)
[2023-01-10] MEDS ORDERED: Mucinex 600MG ER Tabs PO PRN (10:00)
--- NOTE | 2023-01-10 11:30 | PCM.DS ---
Discharge Summary Date of Admission: 01/10/23 03:57 Date of Discharge: 01/10/23 Admitting Physician: JAY PELAYO DO Primary Care Provider: IRMA ALAN Allergies Allergies ampicillin Allergy (Intermediate, Verified 01/09/23 18:53) Swelling of Hands Hospital Summary - Vitals & Intake/Output Vital Signs: Vital Signs Temperature 98.2 F 01/10/23 08:00 Pulse Rate 96 H 01/10/23 08:00 Respiratory Rate 20 01/10/23 08:00 Blood Pressure 118/65 01/10/23 08:00 O2 Sat by Pulse Oximetry 96 01/10/23 08:00 Intake & Output: Intake & Output 01/07/23 01/08/23 01/09/23 01/10/23 11:59 11:59 11:59 11:59 Intake Total 150 Balance 150 Weight 95.3 kg - Lab Result Diagrams: 01/10/23 05:29 01/10/23 05:29 Lab Results-Last 24 Hrs: Lab Results-Last 24 Hours 01/09/23 01/09/23 01/09/23 Range/Units 19:11 19:11 19:11 WBC 9.1 (4.0-10.5) x10^3/uL RBC 3.30 L (4.1-5.6) x10^6/uL Hgb 10.3 L (12.5-18.0) g/dL Hct 32.2 L (42-50) % MCV 97.6 (78-100) fL MCH 31.2 (26-32) pg MCHC 32.0 (32-36) g/dL RDW 14.8 H (11.5-14.0) % Plt Count 260 (150-450) x10^3/uL MPV 10.6 (7.5-11.0) fL Gran % 68.2 H (36.0-66.0) % Immature Gran % (Auto) 0.3 (0.00-0.4) % Nucleat RBC Rel Count 0.0 (0.00-0.1) % Eos # (Auto) 0.14 (0-0.5) x10^3/uL Immature Gran # (Auto) 0.03 (0.00-0.03) x10^3u/L Absolute Lymphs (auto) 1.62 (1.0-4.6) x10^3/uL Absolute Monos (auto) 1.04 (0.0-1.3) x10^3/uL Absolute Nucleated RBC 0.00 (0.00-0.01) x10^3u/L Lymphocytes % 17.9 L (24.0-44.0) % Monocytes % 11.5 (0.0-12.0) % Eosinophils % 1.5 (0.00-5.0) % Basophils % 0.6 (0.0-0.4) % Absolute Granulocytes 6.17 (1.4-6.9) x10^3/uL Basophils # 0.05 (0-0.4) x10^3/uL D-Dimer 1.00 H* (0.0-0.50) mg/L Sodium 139 (137-145) mmol/L Potassium 3.8 (3.5-5.1) mmol/L Chloride 100 (98-107) mmol/L Carbon Dioxide 33 H (22-30) mmol/L Anion Gap 9.9 (5-15) MEQ/L BUN 22 H (9-20) mg/dL Creatinine 0.90 (0.66-1.25) mg/dL Estimated GFR > 60.0 ML/MIN Glucose 128 H (74-106) mg/dL POC Glucometer (74 to 106) mg/dL Hemoglobin A1c (4.5-6.0) % Lactic Acid (0.4-2.0) Calcium 8.8 (8.4-10.2) mg/dL Total Bilirubin 0.40 (0.2-1.3) mg/dL AST 24 (17-59) U/L ALT 14 (0-50) U/L Alkaline Phosphatase 64 (38-126) U/L Troponin I (0.000-0.034) ng/mL NT-Pro-B Natriuret Pep (<300) pg/mL Serum Total Protein 6.9 (6.3-8.2) g/dL Albumin 3.7 (3.5-5.0) g/dL Prealbumin (17.6-36.0) mg/dL Urine Color (Yellow) Urine Appearance (Clear) Urine pH (4.6-8.0) Ur Specific [place] (1.005-1.030) Urine Protein (Negative) Urine Glucose (UA) (Negative) mg/dL Urine Ketones (Negative) Urine Blood (Negative) Urine Nitrite (Negative) Urine Bilirubin (Negative) Urine Urobilinogen (0.2) mg/dL Ur Leukocyte Esterase (Negative) U Hyaline Cast (Auto) (0-2) /LPF Urine Microscopic RBC (0-5) /HPF Urine Microscopic WBC (0-5) /HPF Ur Epithelial Cells (None Seen) /HPF Urine Bacteria (None Seen) /HPF Urine Culture Reflexed (NO) Influenza Type A Ag (NEGATIVE) Influenza Type B Ag (NEGATIVE) RSV (PCR) (NEGATIVE) SARS-CoV-2 (PCR) (NEGATIVE) 01/09/23 01/09/23 01/09/23 Range/Units 19:11 19:11 19:41 WBC (4.0-10.5) x10^3/uL RBC (4.1-5.6) x10^6/uL Hgb (12.5-18.0) g/dL Hct (42-50) % MCV (78-100) fL MCH (26-32) pg MCHC (32-36) g/dL RDW (11.5-14.0) % Plt Count (150-450) x10^3/uL MPV (7.5-11.0) fL Gran % (36.0-66.0) % Immature Gran % (Auto) (0.00-0.4) % Nucleat RBC Rel Count (0.00-0.1) % Eos # (Auto) (0-0.5) x10^3/uL Immature Gran # (Auto) (0.00-0.03) x10^3u/L Absolute Lymphs (auto) (1.0-4.6) x10^3/uL Absolute Monos (auto) (0.0-1.3) x10^3/uL Absolute Nucleated RBC (0.00-0.01) x10^3u/L Lymphocytes % (24.0-44.0) % Monocytes % (0.0-12.0) % Eosinophils % (0.00-5.0) % Basophils % (0.0-0.4) % Absolute Granulocytes (1.4-6.9) x10^3/uL Basophils # (0-0.4) x10^3/uL D-Dimer (0.0-0.50) mg/L Sodium (137-145) mmol/L Potassium (3.5-5.1) mmol/L Chloride (98-107) mmol/L Carbon Dioxide (22-30) mmol/L Anion Gap (5-15) MEQ/L BUN (9-20) mg/dL Creatinine (0.66-1.25) mg/dL Estimated GFR ML/MIN Glucose (74-106) mg/dL POC Glucometer (74 to 106) mg/dL Hemoglobin A1c (4.5-6.0) % Lactic Acid (0.4-2.0) Calcium (8.4-10.2) mg/dL Total Bilirubin (0.2-1.3) mg/dL AST (17-59) U/L ALT (0-50) U/L Alkaline Phosphatase (38-126) U/L Troponin I < 0.012 (0.000-0.034) ng/mL NT-Pro-B Natriuret Pep 543 (<300) pg/mL Serum Total Protein (6.3-8.2) g/dL Albumin (3.5-5.0) g/dL Prealbumin (17.6-36.0) mg/dL Urine Color (Yellow) Urine Appearance (Clear) Urine pH (4.6-8.0) Ur Specific [place] (1.005-1.030) Urine Protein (Negative) Urine Glucose (UA) (Negative) mg/dL Urine Ketones (Negative) Urine Blood (Negative) Urine Nitrite (Negative) Urine Bilirubin (Negative) Urine Urobilinogen (0.2) mg/dL Ur Leukocyte Esterase (Negative) U Hyaline Cast (Auto) (0-2) /LPF Urine Microscopic RBC (0-5) /HPF Urine Microscopic WBC (0-5) /HPF Ur Epithelial Cells (None Seen) /HPF Urine Bacteria (None Seen) /HPF Urine Culture Reflexed (NO) Influenza Type A Ag NEGATIVE (NEGATIVE) Influenza Type B Ag NEGATIVE (NEGATIVE) RSV (PCR) NEGATIVE (NEGATIVE) SARS-CoV-2 (PCR) NEGATIVE (NEGATIVE) 01/09/23 01/09/23 01/09/23 Range/Units 19:52 21:00 23:30 WBC (4.0-10.5) x10^3/uL RBC (4.1-5.6) x10^6/uL Hgb (12.5-18.0) g/dL Hct (42-50) % MCV (78-100) fL MCH (26-32) pg MCHC (32-36) g/dL RDW (11.5-14.0) % Plt Count (150-450) x10^3/uL MPV (7.5-11.0) fL Gran % (36.0-66.0) % Immature Gran % (Auto) (0.00-0.4) % Nucleat RBC Rel Count (0.00-0.1) % Eos # (Auto) (0-0.5) x10^3/uL Immature Gran # (Auto) (0.00-0.03) x10^3u/L Absolute Lymphs (auto) (1.0-4.6) x10^3/uL Absolute Monos (auto) (0.0-1.3) x10^3/uL Absolute Nucleated RBC (0.00-0.01) x10^3u/L Lymphocytes % (24.0-44.0) % Monocytes % (0.0-12.0) % Eosinophils % (0.00-5.0) % Basophils % (0.0-0.4) % Absolute Granulocytes (1.4-6.9) x10^3/uL Basophils # (0-0.4) x10^3/uL D-Dimer (0.0-0.50) mg/L Sodium (137-145) mmol/L Potassium (3.5-5.1) mmol/L Chloride (98-107) mmol/L Carbon Dioxide (22-30) mmol/L Anion Gap (5-15) MEQ/L BUN (9-20) mg/dL Creatinine (0.66-1.25) mg/dL Estimated GFR ML/MIN Glucose (74-106) mg/dL POC Glucometer (74 to 106) mg/dL Hemoglobin A1c (4.5-6.0) % Lactic Acid 1.1 (0.4-2.0) Calcium (8.4-10.2) mg/dL Total Bilirubin (0.2-1.3) mg/dL AST (17-59) U/L ALT (0-50) U/L Alkaline Phosphatase (38-126) U/L Troponin I < 0.012 (0.000-0.034) ng/mL NT-Pro-B Natriuret Pep (<300) pg/mL Serum Total Protein (6.3-8.2) g/dL Albumin (3.5-5.0) g/dL Prealbumin (17.6-36.0) mg/dL Urine Color Yellow (Yellow) Urine Appearance Clear (Clear) Urine pH 7.0 (4.6-8.0) Ur Specific [place] 1.025 (1.005-1.030) Urine Protein Negative (Negative) Urine Glucose (UA) Negative (Negative) mg/dL Urine Ketones Trace A (Negative) Urine Blood Negative (Negative) Urine Nitrite Negative (Negative) Urine Bilirubin Negative (Negative) Urine Urobilinogen 2.0 A (0.2) mg/dL Ur Leukocyte Esterase Negative (Negative) U Hyaline Cast (Auto) NONE SEEN (0-2) /LPF Urine Microscopic RBC 3-5 (0-5) /HPF Urine Microscopic WBC 0-2 (0-5) /HPF Ur Epithelial Cells Rare (None Seen) /HPF Urine Bacteria None Seen (None Seen) /HPF Urine Culture Reflexed NO (NO) Influenza Type A Ag (NEGATIVE) Influenza Type B Ag (NEGATIVE) RSV (PCR) (NEGATIVE) SARS-CoV-2 (PCR) (NEGATIVE) 01/10/23 01/10/23 01/10/23 Range/Units 04:20 05:29 05:29 WBC 9.2 (4.0-10.5) x10^3/uL RBC 3.71 L (4.1-5.6) x10^6/uL Hgb 11.3 L (12.5-18.0) g/dL Hct 36.8 L (42-50) % MCV 99.2 (78-100) fL MCH 30.5 (26-32) pg MCHC 30.7 L (32-36) g/dL RDW 14.8 H (11.5-14.0) % Plt Count 280 (150-450) x10^3/uL MPV 10.3 (7.5-11.0) fL Gran % (36.0-66.0) % Immature Gran % (Auto) (0.00-0.4) % Nucleat RBC Rel Count (0.00-0.1) % Eos # (Auto) (0-0.5) x10^3/uL Immature Gran # (Auto) (0.00-0.03) x10^3u/L Absolute Lymphs (auto) (1.0-4.6) x10^3/uL Absolute Monos (auto) (0.0-1.3) x10^3/uL Absolute Nucleated RBC (0.00-0.01) x10^3u/L Lymphocytes % (24.0-44.0) % Monocytes % (0.0-12.0) % Eosinophils % (0.00-5.0) % Basophils % (0.0-0.4) % Absolute Granulocytes (1.4-6.9) x10^3/uL Basophils # (0-0.4) x10^3/uL D-Dimer (0.0-0.50) mg/L Sodium 139 (137-145) mmol/L Potassium 4.0 (3.5-5.1) mmol/L Chloride 99 (98-107) mmol/L Carbon Dioxide 29 (22-30) mmol/L Anion Gap 15.1 H (5-15) MEQ/L BUN 21 H (9-20) mg/dL Creatinine 0.66 (0.66-1.25) mg/dL Estimated GFR > 60.0 ML/MIN Glucose 214 H (74-106) mg/dL POC Glucometer (74 to 106) mg/dL Hemoglobin A1c (4.5-6.0) % Lactic Acid (0.4-2.0) Calcium 9.0 (8.4-10.2) mg/dL Total Bilirubin (0.2-1.3) mg/dL AST (17-59) U/L ALT (0-50) U/L Alkaline Phosphatase (38-126) U/L Troponin I < 0.012 (0.000-0.034) ng/mL NT-Pro-B Natriuret Pep (<300) pg/mL Serum Total Protein (6.3-8.2) g/dL Albumin (3.5-5.0) g/dL Prealbumin 18.37 (17.6-36.0) mg/dL Urine Color (Yellow) Urine Appearance (Clear) Urine pH (4.6-8.0) Ur Specific [place] (1.005-1.030) Urine Protein (Negative) Urine Glucose (UA) (Negative) mg/dL Urine Ketones (Negative) Urine Blood (Negative) Urine Nitrite (Negative) Urine Bilirubin (Negative) Urine Urobilinogen (0.2) mg/dL Ur Leukocyte Esterase (Negative) U Hyaline Cast (Auto) (0-2) /LPF Urine Microscopic RBC (0-5) /HPF Urine Microscopic WBC (0-5) /HPF Ur Epithelial Cells (None Seen) /HPF Urine Bacteria (None Seen) /HPF Urine Culture Reflexed (NO) Influenza Type A Ag (NEGATIVE) Influenza Type B Ag (NEGATIVE) RSV (PCR) (NEGATIVE) SARS-CoV-2 (PCR) (NEGATIVE) 01/10/23 01/10/23 Range/Units 07:39 08:10 WBC (4.0-10.5) x10^3/uL RBC (4.1-5.6) x10^6/uL Hgb (12.5-18.0) g/dL Hct (42-50) % MCV (78-100) fL MCH (26-32) pg MCHC (32-36) g/dL RDW (11.5-14.0) % Plt Count (150-450) x10^3/uL MPV (7.5-11.0) fL Gran % (36.0-66.0) % Immature Gran % (Auto) (0.00-0.4) % Nucleat RBC Rel Count (0.00-0.1) % Eos # (Auto) (0-0.5) x10^3/uL Immature Gran # (Auto) (0.00-0.03) x10^3u/L Absolute Lymphs (auto) (1.0-4.6) x10^3/uL Absolute Monos (auto) (0.0-1.3) x10^3/uL Absolute Nucleated RBC (0.00-0.01) x10^3u/L Lymphocytes % (24.0-44.0) % Monocytes % (0.0-12.0) % Eosinophils % (0.00-5.0) % Basophils % (0.0-0.4) % Absolute Granulocytes (1.4-6.9) x10^3/uL Basophils # (0-0.4) x10^3/uL D-Dimer (0.0-0.50) mg/L Sodium (137-145) mmol/L Potassium (3.5-5.1) mmol/L Chloride (98-107) mmol/L Carbon Dioxide (22-30) mmol/L Anion Gap (5-15) MEQ/L BUN (9-20) mg/dL Creatinine (0.66-1.25) mg/dL Estimated GFR ML/MIN Glucose (74-106) mg/dL POC Glucometer 211 H (74 to 106) mg/dL Hemoglobin A1c 4.77 (4.5-6.0) % Lactic Acid (0.4-2.0) Calcium (8.4-10.2) mg/dL Total Bilirubin (0.2-1.3) mg/dL AST (17-59) U/L ALT (0-50) U/L Alkaline Phosphatase (38-126) U/L Troponin I (0.000-0.034) ng/mL NT-Pro-B Natriuret Pep (<300) pg/mL Serum Total Protein (6.3-8.2) g/dL Albumin (3.5-5.0) g/dL Prealbumin (17.6-36.0) mg/dL Urine Color (Yellow) Urine Appearance (Clear) Urine pH (4.6-8.0) Ur Specific [place] (1.005-1.030) Urine Protein (Negative) Urine Glucose (UA) (Negative) mg/dL Urine Ketones (Negative) Urine Blood (Negative) Urine Nitrite (Negative) Urine Bilirubin (Negative) Urine Urobilinogen (0.2) mg/dL Ur Leukocyte Esterase (Negative) U Hyaline Cast (Auto) (0-2) /LPF Urine Microscopic RBC (0-5) /HPF Urine Microscopic WBC (0-5) /HPF Ur Epithelial Cells (None Seen) /HPF Urine Bacteria (None Seen) /HPF Urine Culture Reflexed (NO) Influenza Type A Ag (NEGATIVE) Influenza Type B Ag (NEGATIVE) RSV (PCR) (NEGATIVE) SARS-CoV-2 (PCR) (NEGATIVE) - Radiology Exams Ordered Rad Exams-Entire Visit: Radiology Procedures Category Date Time Status CHEST 1 VIEW (PORTABLE) Stat Exams 01/09/23 18:59 Completed CHEST WITH CONTRAST [CT] Stat Exams 01/09/23 20:09 Completed - Procedures and Test Procedures and Tests throughout Hospitalization: Therapy Orders & Screens 01/09/23 19:07 Respiratory Therapy Assessment DAILY Comment: 01/10/23 04:00 Oxygen Nasal Cannula 3 lpm Comment: Respiratory Therapy Consult ROUTINE Comment: Reason For Exam: Discharge Exam Neurologic Exam: alert, oriented x 3, cooperative Eye Exam: eyes nml inspection Neck Exam: normal inspection Respiratory Exam: normal breath sounds Cardiovascular Exam: regular rate/rhythm, normal heart sounds Telemedicine Encounter - Telemedicine Encounter Telemedicine Encounter: The entirety of this encounter was performed via Telemedicine" - Discharge Disposition: Home, Self-Care Condition: Good Prescriptions: Continue Loratadine 10 mg [Claritin 10 mg] 10 mg PO DAILY Gabapentin [Neurontin] 600 mg PO 1800 Insulin Glargine,Hum.rec.anlog [Lantus] 10 unit SQ 1600 Potassium Chloride Tab* [Klor Con] 4 tab PO DAILY Furosemide 40 mg PO DAILY Metformin HCl 850 mg [Glucophage 850 MG] 850 mg PO BID Glipizide 10 mg [Glucotrol 10 MG] 10 mg PO BID Fluticasone/Umeclidin/Vilanter [Trelegy Ellipta 100-62.5-25] 1 inh PO DAILY Albuterol/Ipratropium 3ml Neb* [DUONEB 0.5-3 MG/3 ml Neb] 3 ml IH QIDPRN PRN PRN Reason: Shortness Of Breath/Wheezing Guaifenesin [Mucus Relief] 400 mg PO DAILY Instructions: Exacerbation of COPD (DC) Additional Instructions: If power at home is not restored, please stay with friends or family until power is restored. Return to ER if you experience shortness of breath or unable to get access to portable oxygen. Follow up with: IRMA ALAN [Primary Care Provider] -
[2023-01-10] MEDS ORDERED: NEURONTIN PO SCH (18:00)
[2023-01-10] MEDS ORDERED: NON-FORMULARY ITEM (Gabapentin [Neurontin] 600 MG Tablet) PO SCH (18:00)
[2023-01-10] MEDS ORDERED: Zithromax 500 MG/ 250 ML NaCl Premix 500 MG/250 ML IVPB IV SCH (22:00)
== END 2023-01-10 11:10 | disposition home or self-care (01) ==
LOC: ED 18:47 → MED SURG 01-10 03:57
PROVIDERS: ADMIT Internal Medicine; ATTEND Family Medicine
DX: J44.1 Chronic obstructive pulmonary disease with (acute) exacerbation (principal); J96.20 Acute and chronic respiratory failure, unspecified whether with hypoxia or hypercapnia; I50.9 Heart failure, unspecified; E11.9 Type 2 diabetes mellitus without complications; D64.9 Anemia, unspecified; I51.9 Heart disease, unspecified; Z99.81 Dependence on supplemental oxygen; Z79.899 Other long term (current) drug therapy; Z20.828 Contact with and (suspected) exposure to other viral communicable diseases
CPT/HCPCS: 0241U; 36415; 71045; 71260; 80048; 80053; 81001; 82947; 83036; 83605; 83880; 84134; 84484; 85025; 85027; 85379; 93005; 93041; 93268; 94640; 94760; 94762; 96365; 96374; 99285; G0378; Q3014; J0456; J2930; J7609; A9270-GY

== ENCOUNTER 2023-05-19 09:14 | Emergency (ER) | payer MEDICARE ==
--- NOTE | 2023-05-19 09:15 | ERPHSYRPT ---
- History of Present Illness Time Seen by Provider: 05/19/23 09:15 Source: patient Exam Limitations: no limitations Physician History: This is a 77-year-old white male patient of Dr. Johnson and portuguese tutor Dr. Stevens and presents with worsening shortness of breath with exertion over the last week. Patient denies chest pain. He has no abdominal pain. He has not had a fever. He denies cough. Patient has history of COPD and is dependent on 3 L of oxygen via nasal cannula. He is diabetic, has a history of CHF and arthritis. Patient is a former smoker but smoked for 45 years. Patient was brought into the emergency department by the paramedics who provided additional, independent history on this patient. He lives at home with his daughter. The paramedics provided the patient with a DuoNeb treatment as well as a dose of 125 mg intravenous Solu-Medrol. Timing/Duration: week(s) (1), worse Severity of Dyspnea-Max: moderate Severity of Dyspnea-Current: mild (To moderate) Possible Cause: frequent episodes Modifying Factors: Improves With: activity (Worsening), exertion (Worsens), oxygen, rest (Proves) Associated Symptoms: weakness, No cough, No chest pain/discomfort, No fever, No chills Allergies/Adverse Reactions: ampicillin Allergy (Intermediate, Verified 05/19/23 09:19) Swelling of Hands Home Medications: Furosemide 40 mg PO DAILY 10/21/14 [History] Gabapentin [Neurontin] 600 mg PO HS 10/21/14 [History] Glipizide 10 mg [Glucotrol 10 MG] 10 mg PO BID 10/21/14 [History] Insulin Glargine,Hum.rec.anlog [Lantus] 10 unit SQ 1600 PRN 10/21/14 [History] Loratadine 10 mg [Claritin 10 mg] 10 mg PO DAILY 10/21/14 [History] Metformin HCl 850 mg [Glucophage 850 MG] 850 mg PO BID 10/21/14 [History] Potassium Chloride Tab* [Klor Con] 4 tab PO DAILY 10/21/14 [History] Fluticasone/Umeclidin/Vilanter [Trelegy Ellipta 100-62.5-25] 1 inh PO DAILY 10/15/18 [History] Albuterol/Ipratropium 3ml Neb* [DUONEB 0.5-3 MG/3 ml Neb] 3 ml IH QIDPRN PRN 05/05/22 [History] Guaifenesin [Mucus Relief] 400 mg PO DAILY 01/09/23 [History] Hx Tetanus, Diphtheria Vaccination/Date Given: Yes Hx Influenza Vaccination/Date Given: Yes Hx Pneumococcal Vaccination/Date Given: Yes Travel Risk - International Travel Have you traveled outside of the country in past 3 weeks: No - Coronavirus Screening Are you exhibiting any of the following symptoms?: Yes Symptoms: Shortness of Breath Close contact with a COVID-19 positive Pt in past 14-21 Days: No - Vaccine Status Have you recieved a Covid-19 vaccination: Yes Feather Boner: Moderna - Vaccination Dates Date of 2cond Vaccination (if applicable): 2021 - Review of Systems Constitutional: Weakness Eyes: No Symptoms Ears, Nose, & Throat: No Symptoms Respiratory: Dyspnea, Dyspnea on Exertion (BURCH) Cardiac: No Symptoms, No Chest Pain Abdominal/Gastrointestinal: No Symptoms Genitourinary Symptoms: No Symptoms Musculoskeletal: No Symptoms Skin: No Symptoms Neurological: No Symptoms Psychological: No Symptoms Endocrine: No Symptoms Hematologic/Lymphatic: No Symptoms Immunological/Allergic: No Symptoms All Other Systems: Reviewed and Negative - Past Medical History Pertinent Past Medical History: Yes Neurological History: No Pertinent History ENT History: Cataracts, Other Cardiac History: Congestive Heart Failure Respiratory History: Asthma, Bronchitis, CHF, COPD, Emphysema, Pneumonia, Sleep Apnea Endocrine Medical History: Diabetes Type II Musculoskeletal History: Arthritis GI Medical History: No Pertinent History History: No Pertinent History Psycho-Social History: No Pertinent History Male Reproductive Disorders: No Pertinent History Other Medical History: Home O2, retinal detachment left eye, retinal hemhorage rt eye - Past Surgical History Past Surgical History: Yes Neuro Surgical History: No Pertinent History Cardiac: No Pertinent History Respiratory: No Pertinent History Gastrointestinal: No Pertinent History Genitourinary: No Pertinent History Musculoskeletal: No Pertinent History Male Surgical History: No Pertinent History Other Surgical History: Cataract Surgery, retinal surgery - Social History Smoking Status: Former smoker How long have you smoked: 45 years Exposure to second hand smoke: No Drug Use: none Patient Lives Alone: No Significant Family History: no pertinent family hx - Nursing Vital Signs Nursing Vital Signs: Initial Vital Signs Temperature 97.9 F 05/19/23 09:14 Pulse Rate 102 H 05/19/23 09:14 Respiratory Rate 27 H 05/19/23 09:14 Blood Pressure 118/65 05/19/23 09:14 O2 Sat by Pulse Oximetry 96 05/19/23 09:14 Pain Scale Pain Intensity 0 - Physical Exam General Appearance: mild distress, alert, anxiety, thin Eye Exam: PERRL/EOMI, eyes nml inspection Ears, Nose, Throat Exam: hearing grossly normal, normal ENT inspection, normal pharynx Neck Exam: normal inspection, non-tender, supple, full range of motion Respiratory Exam: normal breath sounds, lungs clear, airway intact, No chest tenderness, No respiratory distress Cardiovascular/Chest Exam: normal heart sounds, regular rate/rhythm, normal p eripheral pulses Abdominal/Gastrointestinal Exam: soft, normal bowel sounds, No tenderness Rectal Exam: not done Extremity Exam: non-tender Neurologic Exam: alert, oriented x 3, cooperative, 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 as tested, normal mood/affect Skin Exam: normal color, warm, dry Lymphatic Exam: No adenopathy SpO2 Interpretation: normal O2 Delivery: Nasal Cannula (3 liters) - Course Nursing assessment & vital signs reviewed: Yes EKG Interpreted by Me: RATE (104), Sinus Tach, LAFB, NORMAL INTERVALS, Right Bundle Branch Block, Other (No acute ischemic changes on today's twelve-lead EKG) Ordered Tests: Active Orders 24 hr Category Date Time Status EKG-ER Only STAT Care 05/19/23 09:31 Active IV Insertion STAT Care 05/19/23 09:31 Active Oxygen-ED Only Nasal Cannula 3 lpm Care 05/19/23 09:31 Active Pulse Oximetry (ED) STAT Care 05/19/23 09:31 Active CHEST 1 VIEW (PORTABLE) Stat Exams 05/19/23 09:32 Completed ARTERIAL BLOOD GASES Stat Lab 05/19/23 09:46 Completed BLOOD CULTURE Stat Lab 05/19/23 09:57 Received CBC W DIFF Stat Lab 05/19/23 09:57 Completed CMP Stat Lab 05/19/23 09:57 Completed MAGNESIUM Stat Lab 05/19/23 09:57 Completed NT PRO BNPII Stat Lab 05/19/23 09:57 Completed PROTIME WITH INR Stat Lab 05/19/23 09:57 Completed TROPONIN Q4H Lab 05/19/23 09:57 Completed TROPONIN Q4H Lab 05/19/23 13:05 Completed TROPONIN Q4H Lab 05/19/23 17:45 Ordered Medication Summary Discontinued Medications Generic Name Dose Route Start Last Admin Trade Name Joceline PRN Reason Stop Dose Admin Furosemide 40 mg 05/19/23 10:25 05/19/23 11:17 Furosemide 40 Mg/4 Ml Vial IV 05/19/23 10:26 40 mg STAT ONE Administration Furosemide Confirm 05/19/23 11:12 Furosemide 40 Mg/4 Ml Vial Administered 05/19/23 11:13 Dose 40 mg .ROUTE .STK-MED ONE Levofloxacin/Dextrose 500 mg in 100 mls @ 100 mls/hr 05/19/23 11:18 05/19/23 12:34 Levofloxacin 500mg/100ml D5w IV 05/19/23 12:17 Infused STAT STA Infusion Levofloxacin/Dextrose Confirm 05/19/23 11:21 Levofloxacin 500mg/100ml D5w Administered 05/19/23 11:22 Dose 500 mg in 100 mls @ ud IV .STK-MED ONE Metoprolol Tartrate 2.5 mg 05/19/23 13:26 05/19/23 13:46 Metoprolol Tartrate 5 Mg/5 Ml Vial IV 05/19/23 13:27 2.5 mg STAT ONE Administration Metoprolol Tartrate Confirm 05/19/23 13:45 Metoprolol Tartrate 5 Mg/5 Ml Vial Administered 05/19/23 13:46 Dose 5 mg IV .STK-MED ONE Lab/Rad Data: Laboratory Result Diagrams 05/19/23 09:57 05/19/23 09:57 Laboratory Results 05/19/23 05/19/23 05/19/23 Range/Units Unknown 13:05 09:57 WBC (4.0-10.5) x10^3/uL RBC (4.1-5.6) x10^6/uL Hgb (12.5-18.0) g/dL Hct (42-50) % MCV (78-100) fL MCH (26-32) pg MCHC (32-36) g/dL RDW (11.5-14.0) % Plt Count (150-450) x10^3/uL MPV (7.5-11.0) fL Gran % (36.0-66.0) % Immature Gran % (Auto) (0.00-0.4) % Nucleat RBC Rel Count (0.00-0.1) % Eos # (Auto) (0-0.5) x10^3/uL Immature Gran # (Auto) (0.00-0.03) x10^3u/L Absolute Lymphs (auto) (1.0-4.6) x10^3/uL Absolute Monos (auto) (0.0-1.3) x10^3/uL Absolute Nucleated RBC (0.00-0.01) x10^3u/L Lymphocytes % (24.0-44.0) % Monocytes % (0.0-12.0) % Eosinophils % (0.00-5.0) % Basophils % (0.0-0.4) % Absolute Granulocytes (1.4-6.9) x10^3/uL Basophils # (0-0.4) x10^3/uL PT (9.4-12.5) SECONDS INR (0.8-3.0) Puncture Site pCO2 (35-45) mmHg pO2 (75-100) mmHg Base Excess (-2.0-2.0) O2 Saturation (94-100) g/dF ABG pH (7.35-7.45) ABG HCO3 (22-28) ABG O2 Sat (Measured) (95-100) % Dmitriy Test A-a Gradient a/A Ratio Hemoglobin Carboxyhemoglobin (0.0-6.9) % THgb Methemoglobin (1.4-1.5) % Potassium 4.3 (3.5-5.1) Temperature C POC O2 Flow Rate % Sodium 135 L (137-145) mmol/L Chloride 93 L (98-107) mmol/L Carbon Dioxide 33 H (22-30) mmol/L Anion Gap 13.7 (5-15) MEQ/L BUN 15 (9-20) mg/dL Creatinine 0.73 (0.66-1.25) mg/dL Estimated GFR 93.7 ML/MIN Glucose 81 (74-106) mg/dL Calcium 9.3 (8.4-10.2) mg/dL Magnesium (1.6-2.3) mg/dL Total Bilirubin 0.50 (0.2-1.3) mg/dL AST 17 (17-59) U/L ALT 13 (0-50) U/L Alkaline Phosphatase 89 (38-126) U/L Troponin I < 0.012 (0.000-0.034) ng/mL NT-Pro-B Natriuret Pep (<300) pg/mL Serum Total Protein 6.9 (6.3-8.2) g/dL Albumin 3.7 (3.5-5.0) g/dL Influenza Type A Ag NEGATIVE (NEGATIVE) Influenza Type B Ag NEGATIVE (NEGATIVE) RSV (PCR) NEGATIVE (NEGATIVE) SARS-CoV-2 (PCR) NEGATIVE (NEGATIVE) 05/19/23 05/19/23 05/19/23 Range/Units 09:57 09:57 09:57 WBC (4.0-10.5) x10^3/uL RBC (4.1-5.6) x10^6/uL Hgb (12.5-18.0) g/dL Hct (42-50) % MCV (78-100) fL MCH (26-32) pg MCHC (32-36) g/dL RDW (11.5-14.0) % Plt Count (150-450) x10^3/uL MPV (7.5-11.0) fL Gran % (36.0-66.0) % Immature Gran % (Auto) (0.00-0.4) % Nucleat RBC Rel Count (0.00-0.1) % Eos # (Auto) (0-0.5) x10^3/uL Immature Gran # (Auto) (0.00-0.03) x10^3u/L Absolute Lymphs (auto) (1.0-4.6) x10^3/uL Absolute Monos (auto) (0.0-1.3) x10^3/uL Absolute Nucleated RBC (0.00-0.01) x10^3u/L Lymphocytes % (24.0-44.0) % Monocytes % (0.0-12.0) % Eosinophils % (0.00-5.0) % Basophils % (0.0-0.4) % Absolute Granulocytes (1.4-6.9) x10^3/uL Basophils # (0-0.4) x10^3/uL PT 11.3 (9.4-12.5) SECONDS INR 1.04 (0.8-3.0) Puncture Site pCO2 (35-45) mmHg pO2 (75-100) mmHg Base Excess (-2.0-2.0) O2 Saturation (94-100) g/dF ABG pH (7.35-7.45) ABG HCO3 (22-28) ABG O2 Sat (Measured) (95-100) % Dmitriy Test A-a Gradient a/A Ratio Hemoglobin Carboxyhemoglobin (0.0-6.9) % THgb Methemoglobin (1.4-1.5) % Potassium (3.5-5.1) Temperature C POC O2 Flow Rate % Sodium (137-145) mmol/L Chloride (98-107) mmol/L Carbon Dioxide (22-30) mmol/L Anion Gap (5-15) MEQ/L BUN (9-20) mg/dL Creatinine (0.66-1.25) mg/dL Estimated GFR ML/MIN Glucose (74-106) mg/dL Calcium (8.4-10.2) mg/dL Magnesium (1.6-2.3) mg/dL Total Bilirubin (0.2-1.3) mg/dL AST (17-59) U/L ALT (0-50) U/L Alkaline Phosphatase (38-126) U/L Troponin I < 0.012 (0.000-0.034) ng/mL NT-Pro-B Natriuret Pep 833 (<300) pg/mL Serum Total Protein (6.3-8.2) g/dL Albumin (3.5-5.0) g/dL Influenza Type A Ag (NEGATIVE) Influenza Type B Ag (NEGATIVE) RSV (PCR) (NEGATIVE) SARS-CoV-2 (PCR) (NEGATIVE) 05/19/23 05/19/23 05/19/23 Range/Units 09:57 09:57 09:46 WBC 13.8 H (4.0-10.5) x10^3/uL RBC 3.50 L (4.1-5.6) x10^6/uL Hgb 10.8 L (12.5-18.0) g/dL Hct 34.9 L (42-50) % MCV 99.7 (78-100) fL MCH 30.9 (26-32) pg MCHC 30.9 L (32-36) g/dL RDW 14.5 H (11.5-14.0) % Plt Count 409 (150-450) x10^3/uL MPV 10.6 (7.5-11.0) fL Gran % 82.0 H (36.0-66.0) % Immature Gran % (Auto) 0.7 H (0.00-0.4) % Nucleat RBC Rel Count 0.0 (0.00-0.1) % Eos # (Auto) 0.03 (0-0.5) x10^3/uL Immature Gran # (Auto) 0.09 H (0.00-0.03) x10^3u/L Absolute Lymphs (auto) 0.98 L (1.0-4.6) x10^3/uL Absolute Monos (auto) 1.33 H (0.0-1.3) x10^3/uL Absolute Nucleated RBC 0.00 (0.00-0.01) x10^3u/L Lymphocytes % 7.1 L (24.0-44.0) % Monocytes % 9.7 (0.0-12.0) % Eosinophils % 0.2 (0.00-5.0) % Basophils % 0.3 (0.0-0.4) % Absolute Granulocytes 11.29 H (1.4-6.9) x10^3/uL Basophils # 0.04 (0-0.4) x10^3/uL PT (9.4-12.5) SECONDS INR (0.8-3.0) Puncture Site RIGHT RADIAL pCO2 53 H (35-45) mmHg pO2 70 L (75-100) mmHg Base Excess 15.0 H (-2.0-2.0) O2 Saturation 93.2 L (94-100) g/dF ABG pH 7.49 H (7.35-7.45) ABG HCO3 40.4 H* (22-28) ABG O2 Sat (Measured) 95.6 (95-100) % Dmitriy Test YES A-a Gradient 92 a/A Ratio 0.43 Hemoglobin 10.8 Carboxyhemoglobin 1.3 (0.0-6.9) % THgb Methemoglobin 1.2 L (1.4-1.5) % Potassium 3.8 (3.5-5.1) Temperature 37.0 C POC O2 Flow Rate 32 % Sodium (137-145) mmol/L Chloride (98-107) mmol/L Carbon Dioxide (22-30) mmol/L Anion Gap (5-15) MEQ/L BUN (9-20) mg/dL Creatinine (0.66-1.25) mg/dL Estimated GFR ML/MIN Glucose (74-106) mg/dL Calcium (8.4-10.2) mg/dL Magnesium 1.8 (1.6-2.3) mg/dL Total Bilirubin (0.2-1.3) mg/dL AST (17-59) U/L ALT (0-50) U/L Alkaline Phosphatase (38-126) U/L Troponin I (0.000-0.034) ng/mL NT-Pro-B Natriuret Pep (<300) pg/mL Serum Total Protein (6.3-8.2) g/dL Albumin (3.5-5.0) g/dL Influenza Type A Ag (NEGATIVE) Influenza Type B Ag (NEGATIVE) RSV (PCR) (NEGATIVE) SARS-CoV-2 (PCR) (NEGATIVE) - Progress Progress: improved, re-examined Air Movement: good Progress Note: 05/19/23 09:41 This patient's medical issue is 1 of moderate complexity. Level complex in the work-up performed is based on review of the patient's past medical history, review the patient's medication list, review the patient's drug allergy list, history of present illness and physical findings on examination. The work-up in this patient includes CBC, CMP, ABG, chest x-ray, twelve-lead EKG, BNP, troponin level. We will also have respiratory therapy evaluate this patient. 05/19/23 10:24 Chest x-ray was interpreted by the radiologist and I reviewed the impression. The chest x-ray is grossly unchanged from the comparison film. There is persistent bibasilar infiltrates/atelectasis/effusion left side greater than right. 05/19/23 13:25 The repeat, 3-hour twelve-lead EKG was interpreted by me. Patient's heart rate is 107 bpm. It is sinus tachycardia. There is persistent right bundle branch block and left anterior fascicular block. No other changes. There is no evidence of any acute ischemic changes on today's twelve-lead EKG. 05/19/23 14:08 Patient was reexamined. His lungs are clear. He denies chest pain. He states that he is ready to go home he is breathing much better. He has had 2 twelve- lead EKGs which do not show any acute ischemia. His heart rate now is in the 90s he is oxygenating 97 to 98% on his usual 3 L. I did review the results of the chest x-ray and laboratory studies with him. His 2 troponins are normal (less than 0.012). We we will remotely send a prescription for antibiotics to his pharmacy. He will be instructed to take an extra dose of Lasix tonight and tomorrow. Blood Culture(s) Obtained: Yes Counseled pt/family regarding: lab results, diagnosis, need for follow-up, rad results Medical Desision Making - Independent Historian Additional History obtained from: Arboreal Scientist/EMT - Diagnostic Testing Diagnostic test were ordered, analyzed, and reviewed by me: Yes Radiological Interpretation: Reviewed by me, Teleradiologist Report - Risk of complications The pt has a mod risk of morbidity or mortality based on: Need for prescription drug management - Departure Departure Disposition: Home Clinical Impression: Pulmonary infiltrate on chest x-ray, Pleural effusion Condition: Stable Critical Care Time: No Referrals: IRMA JOHNSON [Primary Care Provider] - Follow up/PCP as directed Additional Instructions: Take your antibiotics as prescribed. Take an additional Lasix tonight at home. Take 1 additional Lasix tomorrow, 02/17/2023, then resume your Lasix as prescribed. Call your primary care provider tomorrow, 05/20/2023, to make arranges for an appointment in 3 to 5 days. Return to the emergency department if your symptoms worsen Prescriptions: Levofloxacin [Levaquin 500 MG Tablet] 500 mg PO DAILY #7 tablet
[2023-05-19 09:23] VITALS: TEMP 97.9
[2023-05-19 09:55] LABS: A-aADO2 92; ABG HEMOGLOBIN 10.8; ABG POTASSIUM 3.8 (3.5-5.1); ARTERIAL BLD GAS O2 SATURATION 95.6 % (95-100); ARTERIAL BLOOD GAS FIO2 32 %; ARTERIAL BLOOD GAS PCO2 53 mmHg (35-45); ARTERIAL BLOOD GAS PO2 70 mmHg (75-100); ARTERIAL BLOOD GAS pH 7.49 (7.35-7.45); CARBOXYHEMOGLOBIN 1.3 % THgb (0.0-6.9); HCO3- 40.4 (22-28); HGB O2 SAT 93.2 g/dF (94-100); Methhemoglobin 1.2 % (1.4-1.5); paO2 pAO1 0.43
[2023-05-19 09:56] LABS: ABG SITE RIGHT RADIAL; ALLEN TEST OK? YES
--- NOTE | 2023-05-19 10:11 | XRAY ---
Indication: Short of breath. Comparison: March 18, 2023 Portable chest slightly rotated again grossly unchanged. There remains bibasilar infiltrates/atelectasis/effusions again left greater than right. Heart not enlarged. Bony thorax intact again with osteopenia and mild degenerative changes.
[2023-05-19 10:15] LABS: Absolute Neutrophil Ct (ANC) 11.29 x10^3/uL (1.4-6.9); BASOPHIL % 0.3 % (0.0-0.4); Basophil (Absolute #) 0.04 x10^3/uL (0-0.4); Eosinophil % 0.2 % (0.00-5.0); Eosinophil (Absolute #) 0.03 x10^3/uL (0-0.5); Hematocrit 34.9 % (42-50); Hemoglobin 10.8 g/dL (12.5-18.0); IMMATURE GRAN # 0.09 x10^3u/L (0.00-0.03); IMMATURE GRAN % 0.7 % (0.00-0.4); Lymphocyte (Absolute #) 0.98 x10^3/uL (1.0-4.6); Lymphocytes % 7.1 % (24.0-44.0); Mean Cell Volume 99.7 fL (78-100); Mean Corpuscular Hemoglobin 30.9 pg (26-32); Mean Corpuscular Hgb Concent. 30.9 g/dL (32-36); Mean Platelet Volume 10.6 fL (7.5-11.0); Monocyte (Absolute #) 1.33 x10^3/uL (0.0-1.3); Monocytes % 9.7 % (0.0-12.0); Platelet Count 409 x10^3/uL (150-450); Red Cell Distribution Width 14.5 % (11.5-14.0); White Blood Count 13.8 x10^3/uL (4.0-10.5)
[2023-05-19] MEDS ORDERED: Lasix 40 MG/4 ML IV ONE (10:25)
[2023-05-19 10:49] LABS: INR 1.04 (0.8-3.0); PROTIME 11.3 SECONDS (9.4-12.5)
[2023-05-19 10:53] LABS: INFLUENZA A NEGATIVE (NEGATIVE); INFLUENZA B NEGATIVE (NEGATIVE); RESPIRATORY SYNCTIAL VIRUS NEGATIVE (NEGATIVE); SARS-CoV-2 Xpert Express NEGATIVE (NEGATIVE)
[2023-05-19 11:02] VITALS: O2SAT 96
[2023-05-19] MEDS ORDERED: Lasix 40 MG/4 ML ONE (11:12)
[2023-05-19 11:15] LABS: ALBUMIN 3.7 g/dL (3.5-5.0); ANION GAP 13.7 MEQ/L (5-15); BILIRUBIN,TOTAL 0.5 mg/dL (0.2-1.3); Calcium 9.3 mg/dL (8.4-10.2); Creatinine 1 0.73 mg/dL (0.66-1.25); EST GLOMERULAR FILTRATION RATE 93.7 ML/MIN; Potassium 4.3 mmol/L (3.5-5.1); Total Protein 6.9 g/dL (6.3-8.2)
[2023-05-19] MEDS ORDERED: Levofloxacin 500MG/100ML D5W 500 MG/100 ML BAG IV STA (11:18)
[2023-05-19] MEDS ORDERED: Levofloxacin 500MG/100ML D5W 500 MG/100 ML BAG IV ONE (11:21)
[2023-05-19] MEDS ORDERED: LOPRESSOR INJECTION IV ONE ×2 (13:26→13:45)
[2023-05-19 13:30] VITALS: PULSE 110
[2023-05-19 13:49] VITALS: BP 135/78; RESP 33
== END 2023-05-19 14:42 | disposition home or self-care (01) ==
LOC: ED 09:14
DX: J90 Pleural effusion, not elsewhere classified (principal); R91.8 Other nonspecific abnormal finding of lung field; R06.02 Shortness of breath; E11.9 Type 2 diabetes mellitus without complications; J43.9 Emphysema, unspecified; Z79.84 Long term (current) use of oral hypoglycemic drugs; Z79.899 Other long term (current) drug therapy; Z99.81 Dependence on supplemental oxygen; Z20.828 Contact with and (suspected) exposure to other viral communicable diseases; I50.9 Heart failure, unspecified
CPT/HCPCS: 0241U; 36000; 36415; 36600; 71045; 80053; 82375; 82803; 83735; 83880; 84484; 85025; 85610; 87040; 93005; 94760; 96374; 96375; 99284; J1940; J1956

== ENCOUNTER 2023-08-25 12:26 | Observation (INO) | payer MEDICARE ==
[2023-08-25 13:14] LABS: Appearance Clear (Clear); Bacteria None Seen /HPF (None Seen); Bilirubin Negative (Negative); Blood Negative (Negative); Epithelial Cells None Seen /HPF (None Seen); Glucose, Urine 500 mg/dL (Negative); Hyaline Casts NONE SEEN /LPF (0-2); Ketones Negative (Negative); Leukocyte Esterase Trace (Negative); Nitrite Negative (Negative); Ph 5.5 (4.6-8.0); Protein,Urine Dip Negative (Negative); RBC 0-2 /HPF (0-5); Specific Gravity 1.015 (1.005-1.030); Urobilinogen 0.2 mg/dL (0.2); WBC 0-2 /HPF (0-5)
--- NOTE | 2023-08-25 13:20 | ERPHSYRPT ---
- History of Present Illness Time Seen by Provider: 08/25/23 12:38 Source: patient, EMS Exam Limitations: no limitations Patient Subjective Stated Complaint: Hypoglycemia Triage Nursing Assessment: Patient brought into ED per EMS and transferred to bed with assist of 2. Patient A+O X 3. Patient's skin pink, warm and dry. Patient complains of hypoglycemia. Patient states he was sitting in his recliner when he tried to get up and couldn't and stated "he felt drunk". Patient states he checked his BS and it was 79. EMS arrived and BS was 53. Patent was given 2 1/2 tubes of oral glucose and BS came to 68. Current BS here was 116. Patient denies pain or discomfort. Physician History: 78 years old with history of diabetes mellitus, chronic respiratory failure on 3 L oxygen, recent pneumonia currently on IV infusions outpatient is brought in the ER by EMS after patient was noted to have low blood sugar. Patient reports he was sitting on a recliner, stood up and felt lightheaded, weak all over, checked his blood sugar which was in 70s, when EMS arrived patient blood sugar was in 50s, given oral glucose and it improved and on presentation in the ER it is low 100s. Patient feels back to his baseline. Denies any chest pain or palpitations. No increased shortness of breath than usual. No abdominal pain nausea vomiting or diarrhea reported. Patient is taking Farxiga, glipizide and metformin. Allergies/Adverse Reactions: ampicillin Allergy (Intermediate, Verified 08/25/23 21:24) Swelling of Hands Home Medications: Furosemide 40 mg PO DAILY 10/21/14 [History] Gabapentin [Neurontin] 600 mg PO HS 10/21/14 [History] Loratadine 10 mg [Claritin 10 mg] 10 mg PO DAILY 10/21/14 [History] Metformin HCl 850 mg [Glucophage 850 MG] 850 mg PO BID 10/21/14 [History] Potassium Chloride Tab* [Klor Con] 4 tab PO DAILY 10/21/14 [History] Fluticasone/Umeclidin/Vilanter [Trelegy Ellipta 100-62.5-25] 1 inh PO DAILY 10/15/18 [History] Albuterol/Ipratropium 3ml Neb* [DUONEB 0.5-3 MG/3 ml Neb] 3 ml IH QIDPRN PRN 05/05/22 [History] Guaifenesin [Mucus Relief] 400 mg PO DAILY 01/09/23 [History] Acetaminophen/Diphenhydramine [Tylenol Pm Exstr 500-25Mg Cplt] 2 each PO HS 08/25/23 [History] Insulin Detemir [Levemir Flexpen] 10 unit SQ DAILY PRN PRN 08/25/23 [History] Hx Tetanus, Diphtheria Vaccination/Date Given: Yes Hx Influenza Vaccination/Date Given: Yes Hx Pneumococcal Vaccination/Date Given: Yes Immunizations Up to Date: Yes Travel Risk - International Travel Have you traveled outside of the country in past 3 weeks: No - Coronavirus Screening Are you exhibiting any of the following symptoms?: No Close contact with a COVID-19 positive Pt in past 14-21 Days: No - Vaccine Status Have you recieved a Covid-19 vaccination: Yes Saw Man: Moderna - Vaccination Dates Date of 2cond Vaccination (if applicable): 2021 - Review of Systems Constitutional: Fatigue, Weakness Eyes: No Symptoms Ears, Nose, & Throat: No Symptoms Respiratory: Cough, Dyspnea Cardiac: No Symptoms Abdominal/Gastrointestinal: No Symptoms Genitourinary Symptoms: No Symptoms Neurological: No Symptoms Psychological: No Symptoms Endocrine: No Symptoms Hematologic/Lymphatic: No Symptoms Immunological/Allergic: No Symptoms - Past Medical History Pertinent Past Medical History: Yes Neurological History: No Pertinent History ENT History: Cataracts, Other Cardiac History: Congestive Heart Failure Respiratory History: Asthma, Bronchitis, CHF, COPD, Emphysema, Pneumonia, Sleep Apnea Endocrine Medical History: Diabetes Type II Musculoskeletal History: Arthritis GI Medical History: No Pertinent History History: No Pertinent History Psycho-Social History: No Pertinent History Male Reproductive Disorders: No Pertinent History Other Medical History: Home O2, retinal detachment left eye, retinal hemhorage rt eye - Past Surgical History Past Surgical History: Yes Neuro Surgical History: No Pertinent History Cardiac: No Pertinent History Respiratory: Other Gastrointestinal: No Pertinent History Genitourinary: No Pertinent History Musculoskeletal: No Pertinent History Male Surgical History: No Pertinent History Other Surgical History: Cataract Surgery, retinal surgery,bronchoscopy - Social History Smoking Status: Former smoker How long have you smoked: 45 years Exposure to second hand smoke: No Drug Use: none Patient Lives Alone: No Significant Family History: no pertinent family hx - Nursing Vital Signs Nursing Vital Signs: Initial Vital Signs Temperature 96.6 F 08/25/23 12:45 Pulse Rate 90 08/25/23 12:45 Respiratory Rate 18 08/25/23 12:45 Blood Pressure 142/87 08/25/23 12:45 O2 Sat by Pulse Oximetry 100 08/25/23 12:45 Pain Scale Pain Intensity 0 - Physical Exam General Appearance: no apparent distress, alert Eye Exam: PERRL/EOMI Ears, Nose, Throat Exam: normal ENT inspection Neck Exam: normal inspection Respiratory Exam: diminished breath sounds, rhonchi Cardiovascular Exam: regular rate/rhythm, normal heart sounds Gastrointestinal/Abdomen Exam: soft, normal bowel sounds, No tenderness Extremity Exam: normal inspection, normal range of motion Neurologic Exam: alert, oriented x 3, cooperative, band saw filer II-XII nml as tested, normal mood/affect, nml cerebellar function, sensation nml, No motor deficits SpO2 Interpretation: O2 applied SpO2: 100 O2 Delivery: Nasal Cannula Ordered Tests: Active Orders 24 hr Category Date Time Status Bedrest ROUTINE Activity 08/25/23 20:35 Completed Up With Assistance ROUTINE Activity 08/25/23 20:35 Completed Call Admit Doctor for Orders ON ADMISSION Care 08/25/23 20:35 Completed Magnetizer ROUTINE Care 08/25/23 20:35 Completed Code Status Order ROUTINE Care 08/25/23 20:35 Completed Fall Protocol Q1H Care 08/25/23 20:35 Completed Neuro Checks Q4H Care 08/25/23 20:[address] in Observation ROUTINE Care 08/25/23 20:35 Completed Oxygen Nasal Cannula 3 lpm RT 08/25/23 20:35 Completed Pulse Oximetry CONTINUOUS RT 08/25/23 20:35 Completed Respiratory Therapy Consult ONCE RT 08/25/23 20:35 Completed Medication Summary Discontinued Medications Generic Name Dose Route Start Last Admin Trade Name Freq PRN Reason Stop Dose Admin Acetaminophen 1,000 mg 08/26/23 22:00 Acetaminophen 500 Mg Tablet PO 09/25/23 21:59 HS CHRISTA Albuterol/Ipratropium 3 ml 08/26/23 07:00 08/26/23 13:07 Ipratropium/Albuterol Sulfate 3 Ml Ampul.Neb IH 09/25/23 06:59 3 ml TIDRT CHRISTA Administration Albuterol/Ipratropium 3 ml 08/25/23 22:15 08/25/23 22:17 Ipratropium/Albuterol Sulfate 3 Ml Ampul.Neb IH 09/24/23 22:14 3 ml Q4HPRN PRN Administration SHORTNESS OF BREATH/WHEEZING Albuterol/Ipratropium 3 ml 08/25/23 23:53 Ipratropium/Albuterol Sulfate 3 Ml Ampul.Neb 09/24/23 23:52 QIDPRN PRN SHORTNESS OF BREATH/WHEEZING Bisacodyl 10 mg 08/25/23 23:37 Bisacodyl 10 Mg Supp.Rect MN 09/24/23 23:36 QDP PRN CONSTIPATION Dextrose 50 ml 08/25/23 14:20 08/25/23 14:23 Dextrose 50%-Water 50 Ml Abboject IV 08/25/23 14:21 50 ml STAT ONE Administration Dextrose Confirm 08/25/23 14:22 Dextrose 50%-Water 50 Ml Abboject Administered 08/25/23 14:23 Dose 50 ml IV .STK-MED ONE Diphenhydramine HCl 50 mg 08/26/23 22:00 Diphenhydramine Hcl 25 Mg Capsule PO 09/25/23 21:59 HS CHRISTA Docusate Sodium 100 mg 08/26/23 10:00 08/26/23 08:45 Docusate Sodium 100 Mg Capsule PO 09/25/23 09:59 100 mg BID CHRISTA Administration Furosemide 40 mg 08/26/23 10:00 08/26/23 08:46 Furosemide 40 Mg Tablet PO 09/25/23 09:59 40 mg DAILY CHRISTA Administration Gabapentin 600 mg 08/26/23 22:00 Gabapentin 300 Mg Capsule PO 09/25/23 21:59 HS CHRISTA Guaifenesin 600 mg 08/26/23 10:00 08/26/23 08:45 Guaifenesin 600 Mg Tablet Er PO 09/25/23 09:59 600 mg DAILY CHRISTA Administration Heparin Sodium (Beef Lung) 5,000 unit 08/26/23 10:00 08/26/23 08:46 Heparin 5000 Units/0.5 Ml 5,000 Unit/0.5 Ml Syr SQ 09/25/23 09:59 5,000 unit BID CHRISTA Administration Dextrose 250 mls @ 20 mls/hr 08/25/23 15:30 08/25/23 16:06 Dextrose 10% 250 Ml IV 09/24/23 15:29 20 mls/hr .[id number] CHRISTA Administration Dextrose Confirm 08/25/23 15:59 Dextrose 10% 250 Ml Administered 08/25/23 16:00 Dose 250 mls @ ud IV .STK-MED ONE Insulin Human Lispro 0 unit 08/25/23 23:55 Insulin Lispro 1 Unit SQ 09/24/23 23:54 UD PRN HYPERGLYCEMIA Loratadine 10 mg 08/26/23 10:00 08/26/23 08:45 Loratadine 10 Mg Tablet PO 09/25/23 09:59 10 mg DAILY CHRISTA Administration Ondansetron HCl 4 mg 08/25/23 23:55 Ondansetron Hcl 4 Mg/2 Ml Vial IV 09/24/23 23:54 Q6H PRN PRN NAUSEA/VOMITING Polyethylene Glycol 17 gm 08/26/23 10:00 08/26/23 08:44 Polyethylene Glycol 3350 17 Gm Packet PO 09/25/23 09:59 17 gm DAILY CHRISTA Administration Potassium Chloride 40 meq 08/26/23 10:00 08/26/23 08:45 Potassium Chloride Tab 10 Meq Tab PO 09/25/23 09:59 40 meq DAILY CHRISTA Administration Fluticasone/Salmeterol 2 puff 08/26/23 07:00 08/26/23 07:21 Fluticasone/Salmeterol 115/21 - 120 Puff Common Canister 09/25/23 06:59 2 puff BIDRT CHRISTA Administration Tiotropium [place] 1 ea 08/26/23 10:00 08/26/23 07:27 Tiotropium [place] 18 Mcg/Cap Inhaler 09/25/23 09:59 1 ea DAILY CHRISTA Administration Lab/Rad Data: Laboratory Result Diagrams 08/25/23 13:23 08/25/23 13:23 Laboratory Results 08/25/23 08/25/23 08/25/23 Range/Units 14:50 14:01 13:23 WBC (4.0-10.5) x10^3/uL RBC (4.1-5.6) x10^6/uL Hgb (12.5-18.0) g/dL Hct (42-50) % MCV (78-100) fL MCH (26-32) pg MCHC (32-36) g/dL RDW (11.5-14.0) % Plt Count (150-450) x10^3/uL MPV (7.5-11.0) fL Gran % (36.0-66.0) % Immature Gran % (Auto) (0.00-0.4) % Nucleat RBC Rel Count (0.00-0.1) % Eos # (Auto) (0-0.5) x10^3/uL Immature Gran # (Auto) (0.00-0.03) x10^3u/L Absolute Lymphs (auto) (1.0-4.6) x10^3/uL Absolute Monos (auto) (0.0-1.3) x10^3/uL Absolute Nucleated RBC (0.00-0.01) x10^3u/L Lymphocytes % (24.0-44.0) % Monocytes % (0.0-12.0) % Eosinophils % (0.00-5.0) % Basophils % (0.0-0.4) % Absolute Granulocytes (1.4-6.9) x10^3/uL Basophils # (0-0.4) x10^3/uL Sodium 135 L (137-145) mmol/L Potassium 4.5 (3.5-5.1) mmol/L Chloride 92 L (98-107) mmol/L Carbon Dioxide 37 H (22-30) mmol/L Anion Gap 10.0 (5-15) MEQ/L BUN 19 (9-20) mg/dL Creatinine 1.21 (0.66-1.25) mg/dL Estimated GFR 61.3 ML/MIN Glucose 49 L* (74-106) mg/dL POC Glucometer 108 H 92 (74 to 106) mg/dL Lactic Acid (0.4-2.0) Calcium 9.1 (8.4-10.2) mg/dL Total Bilirubin 0.50 (0.2-1.3) mg/dL AST 23 (17-59) U/L ALT 13 (0-50) U/L Alkaline Phosphatase 69 (38-126) U/L Serum Total Protein 7.8 (6.3-8.2) g/dL Albumin 4.5 (3.5-5.0) g/dL Urine Color (Yellow) Urine Appearance (Clear) Urine pH (4.6-8.0) Ur Specific [place] (1.005-1.030) Urine Protein (Negative) Urine Glucose (UA) (Negative) mg/dL Urine Ketones (Negative) Urine Blood (Negative) Urine Nitrite (Negative) Urine Bilirubin (Negative) Urine Urobilinogen (0.2) mg/dL Ur Leukocyte Esterase (Negative) U Hyaline Cast (Auto) (0-2) /LPF Urine Microscopic RBC (0-5) /HPF Urine Microscopic WBC (0-5) /HPF Ur Epithelial Cells (None Seen) /HPF Urine Bacteria (None Seen) /HPF Urine Culture Reflexed (NO) 08/25/23 08/25/23 08/25/23 Range/Units 13:23 13:01 12:58 WBC 6.8 (4.0-10.5) x10^3/uL RBC 3.61 L (4.1-5.6) x10^6/uL Hgb 11.1 L (12.5-18.0) g/dL Hct 36.9 L (42-50) % MCV 102.2 H (78-100) fL MCH 30.7 (26-32) pg MCHC 30.1 L (32-36) g/dL RDW 15.7 H (11.5-14.0) % Plt Count 312 (150-450) x10^3/uL MPV 10.6 (7.5-11.0) fL Gran % 69.2 H (36.0-66.0) % Immature Gran % (Auto) 0.3 (0.00-0.4) % Nucleat RBC Rel Count 0.0 (0.00-0.1) % Eos # (Auto) 0.21 (0-0.5) x10^3/uL Immature Gran # (Auto) 0.02 (0.00-0.03) x10^3u/L Absolute Lymphs (auto) 1.22 (1.0-4.6) x10^3/uL Absolute Monos (auto) 0.63 (0.0-1.3) x10^3/uL Absolute Nucleated RBC 0.00 (0.00-0.01) x10^3u/L Lymphocytes % 17.9 L (24.0-44.0) % Monocytes % 9.2 (0.0-12.0) % Eosinophils % 3.1 (0.00-5.0) % Basophils % 0.3 (0.0-0.4) % Absolute Granulocytes 4.73 (1.4-6.9) x10^3/uL Basophils # 0.02 (0-0.4) x10^3/uL Sodium (137-145) mmol/L Potassium (3.5-5.1) mmol/L Chloride (98-107) mmol/L Carbon Dioxide (22-30) mmol/L Anion Gap (5-15) MEQ/L BUN (9-20) mg/dL Creatinine (0.66-1.25) mg/dL Estimated GFR ML/MIN Glucose (74-106) mg/dL POC Glucometer (74 to 106) mg/dL Lactic Acid 2.1 H (0.4-2.0) Calcium (8.4-10.2) mg/dL Total Bilirubin (0.2-1.3) mg/dL AST (17-59) U/L ALT (0-50) U/L Alkaline Phosphatase (38-126) U/L Serum Total Protein (6.3-8.2) g/dL Albumin (3.5-5.0) g/dL Urine Color Yellow (Yellow) Urine Appearance Clear (Clear) Urine pH 5.5 (4.6-8.0) Ur Specific [place] 1.015 (1.005-1.030) Urine Protein Negative (Negative) Urine Glucose (UA) 500 A (Negative) mg/dL Urine Ketones Negative (Negative) Urine Blood Negative (Negative) Urine Nitrite Negative (Negative) Urine Bilirubin Negative (Negative) Urine Urobilinogen 0.2 (0.2) mg/dL Ur Leukocyte Esterase Trace A (Negative) U Hyaline Cast (Auto) NONE SEEN (0-2) /LPF Urine Microscopic RBC 0-2 (0-5) /HPF Urine Microscopic WBC 0-2 (0-5) /HPF Ur Epithelial Cells None Seen (None Seen) /HPF Urine Bacteria None Seen (None Seen) /HPF Urine Culture Reflexed NO (NO) - Progress Progress: improved Progress Note: 08/25/23 16:40 78 years old with history of diabetes mellitus on oral hypoglycemics is evaluated for hypoglycemia. Patient blood sugar improved after oral glucose but dropped again to 49 while in the ER. Patient is given D50 ampule, recheck is 108. Chemistries fairly unremarkable otherwise. Lactate of 2.1. Patient is started on D10 infusion. No UTI. Patient is on antibiotics for his pneumonia. I do not know the exact cause of his hypoglycemia but does not seem sepsis, may need adjustment in dose of medications. I have discussed with Dr. Godinez, reviewed history, workup and agreed with admission. I have discussed the results of workup and plan of admission with patient who understand and agree. 08/25/23 16:[address]Pema: Paul Will see patient in: hospital (observation) Counseled pt/family regarding: lab results, diagnosis, need for follow-up Medical Desision Making - Discussion of managment Care discussed with:: hospitalist Reviewed:: Test results Agreed on:: Treatment plan, place in obs Will see patient: in hospital - Diagnostic Testing Diagnostic test were ordered, analyzed, and reviewed by me: Yes Radiological Interpretation: Reviewed by me - Risk of complications The pt has a high risk of morbidity or mortality based on: Decision regarding hospitilization or escalation of hosp level of care - Departure Departure Disposition: Observation Clinical Impression: Hypoglycemia Condition: Stable Critical Care Time: No
[2023-08-25 13:23] LABS: ADD URINE CULTURE? NO (NO)
[2023-08-25 13:44] LABS: Absolute Neutrophil Ct (ANC) 4.73 x10^3/uL (1.4-6.9); BASOPHIL % 0.3 % (0.0-0.4); Basophil (Absolute #) 0.02 x10^3/uL (0-0.4); Eosinophil % 3.1 % (0.00-5.0); Eosinophil (Absolute #) 0.21 x10^3/uL (0-0.5); Hematocrit 36.9 % (42-50); Hemoglobin 11.1 g/dL (12.5-18.0); IMMATURE GRAN # 0.02 x10^3u/L (0.00-0.03); IMMATURE GRAN % 0.3 % (0.00-0.4); Lymphocyte (Absolute #) 1.22 x10^3/uL (1.0-4.6); Lymphocytes % 17.9 % (24.0-44.0); Mean Cell Volume 102.2 fL (78-100); Mean Corpuscular Hemoglobin 30.7 pg (26-32); Mean Corpuscular Hgb Concent. 30.1 g/dL (32-36); Mean Platelet Volume 10.6 fL (7.5-11.0); Monocyte (Absolute #) 0.63 x10^3/uL (0.0-1.3); Monocytes % 9.2 % (0.0-12.0); Neutrophil % 69.2 % (36.0-66.0); Platelet Count 312 x10^3/uL (150-450); Red Blood Count 3.61 x10^6/uL (4.1-5.6); Red Cell Distribution Width 15.7 % (11.5-14.0); White Blood Count 6.8 x10^3/uL (4.0-10.5)
[2023-08-25 14:00] LABS: ALBUMIN 4.5 g/dL (3.5-5.0); BILIRUBIN,TOTAL 0.5 mg/dL (0.2-1.3); Calcium 9.1 mg/dL (8.4-10.2); Creatinine 1 1.21 mg/dL (0.66-1.25); EST GLOMERULAR FILTRATION RATE 61.3 ML/MIN; Potassium 4.5 mmol/L (3.5-5.1); Total Protein 7.8 g/dL (6.3-8.2)
[2023-08-25] MEDS ORDERED: D50W 50 ml Abboject IV ONE (14:22)
[2023-08-25] MEDS: D50W 50 ml Abboject IV ONE (14:23)
[2023-08-25] MEDS ORDERED: DEXTROSE 10% 250 ML 250 ML IV ONE (15:59)
[2023-08-25] MEDS: DEXTROSE 10% 250 ML 250 ML IV SCH (16:06)
[2023-08-25] MEDS: DUONEB 0.5-3 MG/3 ml Neb IH PRN (22:17)
[2023-08-25] MEDS ORDERED: Dulcolax 10 MG SUPP PR PRN (23:37)
[2023-08-25] MEDS ORDERED: DUONEB 0.5-3 MG/3 ml Neb IH PRN (23:53)
[2023-08-25] MEDS ORDERED: HUMALOG SQ PRN (23:55)
[2023-08-25] MEDS ORDERED: Zofran 4 MG/2 ML VIAL IV PRN (23:55)
--- NOTE | 2023-08-26 00:03 | PCM.HP ---
History of Present Illness - Chief Complaint Chief Complaint: hypoglycemia Date: 08/25/23 History of Present Illness: is a 78 year old male with a history of diabetes mellitus (who recently started on Farxiga a few weeks ago but denies any other changes to his diabetic regimen), chronic respiratory failure on 3 L oxygen, and recent pneumonia (currently on IV Merem infusions outpatient) who is brought in the ER by EMS after patient was noted to have low blood sugar. Patient reports he was sitting on a recliner, stood up and felt lightheaded, weak all over, checked his blood sugar which was in 70s, when EMS arrived patient blood sugar was in 50s, given oral glucose and it improved and on presentation in the ER it was in the low 100s. Patient at that time felt back to his baseline. Denies any chest pain or palpitations. No increased shortness of breath than usual. No fever, abdominal pain, nausea vomiting or diarrhea reported. Patient is taking Farxiga, glipizide and metformin. Blood sugar remained persistently low in the ED so he was admitted for further monitoring. He states that he has been eating 3 square meals daily and not skipping any meals. The patient has had constipation with no BM in about 4 days, which is not usual for him. - Review of Systems Constitutional: Fatigue Eyes: No Symptoms Ears, Nose, & Throat: No Symptoms Respiratory: No Symptoms Cardiac: No Symptoms Abdominal/Gastrointestinal: No Symptoms Genitourinary Symptoms: No Symptoms Musculoskeletal: No Symptoms Skin: No Symptoms Neurological: Dizziness Psychological: No Symptoms Endocrine: No Symptoms Hematologic/Lymphatic: No Symptoms Immunological/Allergic: No Symptoms All Other Systems: Reviewed and Negative Medications & Allergies Home Medications: Home Medication List Furosemide 40 mg PO DAILY 10/21/14 [History Confirmed 08/25/23] Gabapentin [Neurontin] 600 mg PO HS 10/21/14 [History Confirmed 08/25/23] Glipizide 10 mg [Glucotrol 10 MG] 10 mg PO BID 10/21/14 [History Confirmed 08/25/23] Loratadine 10 mg [Claritin 10 mg] 10 mg PO DAILY 10/21/14 [History Confirmed 08/25/23] Metformin HCl 850 mg [Glucophage 850 MG] 850 mg PO BID 10/21/14 [History Confirmed 08/25/23] Potassium Chloride Tab* [Klor Con] 4 tab PO DAILY 10/21/14 [History Confirmed 08/25/23] Fluticasone/Umeclidin/Vilanter [Trelegy Ellipta 100-62.5-25] 1 inh PO DAILY 10/15/18 [History Confirmed 08/25/23] Albuterol/Ipratropium 3ml Neb* [DUONEB 0.5-3 MG/3 ml Neb] 3 ml IH QIDPRN PRN 05/05/22 [History Confirmed 08/25/23] Guaifenesin [Mucus Relief] 400 mg PO DAILY 01/09/23 [History Confirmed 08/25/23] Acetaminophen/Diphenhydramine [Tylenol Pm Ex-Strength Caplet] 2 each PO HS 08/25/23 [History Confirmed 08/25/23] Insulin Detemir [Levemir Flexpen] 10 unit SQ DAILY PRN PRN 08/25/23 [History Confirmed 08/25/23] Allergies/Adverse Reactions: Allergies Allergy/AdvReac Type Severity Reaction Status Date / Time ampicillin Allergy Intermediate Swelling Verified 08/25/23 21:24 of Hands - Past Medical History Past Medical History: Yes Neurological History: No Pertinent History ENT History: Cataracts, Other Cardiac History: Congestive Heart Failure Respiratory History: Asthma, Bronchitis, CHF, COPD, Emphysema, Pneumonia, Sleep Apnea Endocrine Medical History: Diabetes Type II Musculoskelatal History: Arthritis GI Medical History: No Pertinent History History: No Pertinent History Pyscho-Social History: No Pertinent History Male Reproductive Disorders: No Pertinent History Comment: Home O2, retinal detachment left eye, retinal hemhorage rt eye - Past Surgical History Past Surgical History: Yes Neuro Surgical History: No Pertinent History Cardiac History: No Pertinent History Respiratory Surgery: Other GI Surgical History: No Pertinent History Genitourinary Surgical Hx: No Pertinent History Musculskeletal Surgical Hx: No Pertinent History Male Surgical History: No Pertinent History Other Surgical History: Cataract Surgery, retinal surgery,bronchoscopy Significant Family History: no pertinent family hx - Social History Smoking Status: Former smoker How long have you smoked: 45 years Exposure to second hand smoke: No Alcohol: None Drug Use: none - Social Determinants of Health Will the patient participate in the screening: Yes Do you worry about a steady place to live?: No Do you have any problems with any of the following?: No known problems In the past 12 months,have you had to go without utilities?: No Have you or anyone in your house had to go without enough: No Transportation Issues: No Has anyone in your support network made you feel unsafe?: No Does the patient want assistance with any of the above?: No - Physical Exam Vital Signs: Vital Signs - 24 hr Temp Pulse Resp BP BP Pulse Ox 08/25/23 23:54 97.5 F 92 H 20 101/50 96 08/25/23 22:18 88 20 98 08/25/23 21:00 97.6 F 82 20 114/54 98 08/25/23 20:57 88 22 98 08/25/23 20:00 88 24 106/61 98 08/25/23 19:40 89 25 H 96/48 99 08/25/23 19:30 85 23 89/52 98 08/25/23 19:00 85 22 136/68 98 08/25/23 18:30 84 18 114/62 99 08/25/23 18:00 83 19 141/70 100 08/25/23 17:30 88 23 115/65 98 08/25/23 17:01 86 18 174/85 100 08/25/23 16:42 100 08/25/23 16:30 92 H 18 126/63 100 08/25/23 16:00 87 20 119/68 100 08/25/23 15:30 90 17 130/82 08/25/23 15:00 88 24 129/68 100 08/25/23 14:50 87 21 99 08/25/23 14:40 93 H 21 95 08/25/23 14:33 94 H 19 76 L 08/25/23 14:03 85 20 145/72 100 08/25/23 12:45 96.6 F 90 18 142/87 100 General Appearance: no apparent distress, alert Neurologic Exam: alert, oriented x 3, cooperative, risk mgr II-XII nml as tested, normal mood/affect, nml cerebellar function, sensation nml, No motor deficits Eye Exam: PERRL/EOMI, eyes nml inspection Ears, Nose, Throat Exam: normal ENT inspection, pharynx normal, moist mucous me mbranes Neck Exam: normal inspection, non-tender, supple, full range of motion Respiratory Exam: normal breath sounds, lungs clear, No respiratory distress Cardiovascular Exam: regular rate/rhythm, normal heart sounds Gastrointestinal/Abdomen Exam: soft, normal bowel sounds, No tenderness, No mass Back Exam: normal range of motion, CVA tenderness, vertebral tenderness Extremity Exam: normal inspection, normal range of motion, pelvis stable Skin Exam: normal color, warm, dry, No rash Results - Labs Lab/Micro Results: Lab Results-Last 24 Hours 08/25/23 08/25/23 08/25/23 Range/Units 12:58 13:01 13:23 WBC 6.8 (4.0-10.5) x10^3/uL RBC 3.61 L (4.1-5.6) x10^6/uL Hgb 11.1 L (12.5-18.0) g/dL Hct 36.9 L (42-50) % MCV 102.2 H (78-100) fL MCH 30.7 (26-32) pg MCHC 30.1 L (32-36) g/dL RDW 15.7 H (11.5-14.0) % Plt Count 312 (150-450) x10^3/uL MPV 10.6 (7.5-11.0) fL Gran % 69.2 H (36.0-66.0) % Immature Gran % (Auto) 0.3 (0.00-0.4) % Nucleat RBC Rel Count 0.0 (0.00-0.1) % Eos # (Auto) 0.21 (0-0.5) x10^3/uL Immature Gran # (Auto) 0.02 (0.00-0.03) x10^3u/L Absolute Lymphs (auto) 1.22 (1.0-4.6) x10^3/uL Absolute Monos (auto) 0.63 (0.0-1.3) x10^3/uL Absolute Nucleated RBC 0.00 (0.00-0.01) x10^3u/L Lymphocytes % 17.9 L (24.0-44.0) % Monocytes % 9.2 (0.0-12.0) % Eosinophils % 3.1 (0.00-5.0) % Basophils % 0.3 (0.0-0.4) % Absolute Granulocytes 4.73 (1.4-6.9) x10^3/uL Basophils # 0.02 (0-0.4) x10^3/uL Sodium (137-145) mmol/L Potassium (3.5-5.1) mmol/L Chloride (98-107) mmol/L Carbon Dioxide (22-30) mmol/L Anion Gap (5-15) MEQ/L BUN (9-20) mg/dL Creatinine (0.66-1.25) mg/dL Estimated GFR ML/MIN Glucose (74-106) mg/dL POC Glucometer (74 to 106) mg/dL Lactic Acid 2.1 H (0.4-2.0) Calcium (8.4-10.2) mg/dL Total Bilirubin (0.2-1.3) mg/dL AST (17-59) U/L ALT (0-50) U/L Alkaline Phosphatase (38-126) U/L Serum Total Protein (6.3-8.2) g/dL Albumin (3.5-5.0) g/dL Urine Color Yellow (Yellow) Urine Appearance Clear (Clear) Urine pH 5.5 (4.6-8.0) Ur Specific [place] 1.015 (1.005-1.030) Urine Protein Negative (Negative) Urine Glucose (UA) 500 A (Negative) mg/dL Urine Ketones Negative (Negative) Urine Blood Negative (Negative) Urine Nitrite Negative (Negative) Urine Bilirubin Negative (Negative) Urine Urobilinogen 0.2 (0.2) mg/dL Ur Leukocyte Esterase Trace A (Negative) U Hyaline Cast (Auto) NONE SEEN (0-2) /LPF Urine Microscopic RBC 0-2 (0-5) /HPF Urine Microscopic WBC 0-2 (0-5) /HPF Ur Epithelial Cells None Seen (None Seen) /HPF Urine Bacteria None Seen (None Seen) /HPF Urine Culture Reflexed NO (NO) 08/25/23 08/25/23 08/25/23 Range/Units 13:23 14:01 14:50 WBC (4.0-10.5) x10^3/uL RBC (4.1-5.6) x10^6/uL Hgb (12.5-18.0) g/dL Hct (42-50) % MCV (78-100) fL MCH (26-32) pg MCHC (32-36) g/dL RDW (11.5-14.0) % Plt Count (150-450) x10^3/uL MPV (7.5-11.0) fL Gran % (36.0-66.0) % Immature Gran % (Auto) (0.00-0.4) % Nucleat RBC Rel Count (0.00-0.1) % Eos # (Auto) (0-0.5) x10^3/uL Immature Gran # (Auto) (0.00-0.03) x10^3u/L Absolute Lymphs (auto) (1.0-4.6) x10^3/uL Absolute Monos (auto) (0.0-1.3) x10^3/uL Absolute Nucleated RBC (0.00-0.01) x10^3u/L Lymphocytes % (24.0-44.0) % Monocytes % (0.0-12.0) % Eosinophils % (0.00-5.0) % Basophils % (0.0-0.4) % Absolute Granulocytes (1.4-6.9) x10^3/uL Basophils # (0-0.4) x10^3/uL Sodium 135 L (137-145) mmol/L Potassium 4.5 (3.5-5.1) mmol/L Chloride 92 L (98-107) mmol/L Carbon Dioxide 37 H (22-30) mmol/L Anion Gap 10.0 (5-15) MEQ/L BUN 19 (9-20) mg/dL Creatinine 1.21 (0.66-1.25) mg/dL Estimated GFR 61.3 ML/MIN Glucose 49 L* (74-106) mg/dL POC Glucometer 92 108 H (74 to 106) mg/dL Lactic Acid (0.4-2.0) Calcium 9.1 (8.4-10.2) mg/dL Total Bilirubin 0.50 (0.2-1.3) mg/dL AST 23 (17-59) U/L ALT 13 (0-50) U/L Alkaline Phosphatase 69 (38-126) U/L Serum Total Protein 7.8 (6.3-8.2) g/dL Albumin 4.5 (3.5-5.0) g/dL Urine Color (Yellow) Urine Appearance (Clear) Urine pH (4.6-8.0) Ur Specific [place] (1.005-1.030) Urine Protein (Negative) Urine Glucose (UA) (Negative) mg/dL Urine Ketones (Negative) Urine Blood (Negative) Urine Nitrite (Negative) Urine Bilirubin (Negative) Urine Urobilinogen (0.2) mg/dL Ur Leukocyte Esterase (Negative) U Hyaline Cast (Auto) (0-2) /LPF Urine Microscopic RBC (0-5) /HPF Urine Microscopic WBC (0-5) /HPF Ur Epithelial Cells (None Seen) /HPF Urine Bacteria (None Seen) /HPF Urine Culture Reflexed (NO) 08/25/23 08/25/23 Range/Units 20:33 22:03 WBC (4.0-10.5) x10^3/uL RBC (4.1-5.6) x10^6/uL Hgb (12.5-18.0) g/dL Hct (42-50) % MCV (78-100) fL MCH (26-32) pg MCHC (32-36) g/dL RDW (11.5-14.0) % Plt Count (150-450) x10^3/uL MPV (7.5-11.0) fL Gran % (36.0-66.0) % Immature Gran % (Auto) (0.00-0.4) % Nucleat RBC Rel Count (0.00-0.1) % Eos # (Auto) (0-0.5) x10^3/uL Immature Gran # (Auto) (0.00-0.03) x10^3u/L Absolute Lymphs (auto) (1.0-4.6) x10^3/uL Absolute Monos (auto) (0.0-1.3) x10^3/uL Absolute Nucleated RBC (0.00-0.01) x10^3u/L Lymphocytes % (24.0-44.0) % Monocytes % (0.0-12.0) % Eosinophils % (0.00-5.0) % Basophils % (0.0-0.4) % Absolute Granulocytes (1.4-6.9) x10^3/uL Basophils # (0-0.4) x10^3/uL Sodium (137-145) mmol/L Potassium (3.5-5.1) mmol/L Chloride (98-107) mmol/L Carbon Dioxide (22-30) mmol/L Anion Gap (5-15) MEQ/L BUN (9-20) mg/dL Creatinine (0.66-1.25) mg/dL Estimated GFR ML/MIN Glucose (74-106) mg/dL POC Glucometer 223 H 132 H (74 to 106) mg/dL Lactic Acid (0.4-2.0) Calcium (8.4-10.2) mg/dL Total Bilirubin (0.2-1.3) mg/dL AST (17-59) U/L ALT (0-50) U/L Alkaline Phosphatase (38-126) U/L Serum Total Protein (6.3-8.2) g/dL Albumin (3.5-5.0) g/dL Urine Color (Yellow) Urine Appearance (Clear) Urine pH (4.6-8.0) Ur Specific [place] (1.005-1.030) Urine Protein (Negative) Urine Glucose (UA) (Negative) mg/dL Urine Ketones (Negative) Urine Blood (Negative) Urine Nitrite (Negative) Urine Bilirubin (Negative) Urine Urobilinogen (0.2) mg/dL Ur Leukocyte Esterase (Negative) U Hyaline Cast (Auto) (0-2) /LPF Urine Microscopic RBC (0-5) /HPF Urine Microscopic WBC (0-5) /HPF Ur Epithelial Cells (None Seen) /HPF Urine Bacteria (None Seen) /HPF Urine Culture Reflexed (NO) Accuchecks Date 08/25/23 Date 08/25/23 Time 20:36 Time 14:01 - Other Procedures and Tests Respiratory Therapy 08/25/23 20:35 Oxygen Nasal Cannula 3 lpm 08/25/23 22:18 Respiratory Therapy Assessment DAILY Assessment/Plan (1) Hypoglycemia Current Visit: Yes Status: Acute Assessment & Plan: Receiving slow infusion of dextrose with accuchecks. Holding home regimen. Code(s): E16.2 - HYPOGLYCEMIA, UNSPECIFIED (2) DM II (diabetes mellitus, type II), controlled Current Visit: No Status: Acute Assessment & Plan: May need to consider suspending the patient's sulfonurea medication because of prolonged hypoglycemia. Will follow with ISS. Code(s): E11.9 - TYPE 2 DIABETES MELLITUS WITHOUT COMPLICATIONS (3) Constipation Current Visit: Yes Status: Acute Assessment & Plan: Bowel regimen. Code(s): K59.00 - CONSTIPATION, UNSPECIFIED (4) Dizziness Current Visit: Yes Status: Acute Assessment & Plan: PT assessment. Likely due to hypoglycemia. Code(s): R42 - DIZZINESS AND GIDDINESS Telemedicine Encounter - Telemedicine Encounter Telemedicine Encounter: The entirety of this encounter was performed via Telemedicine"
[2023-08-26 05:29] LABS: Absolute Neutrophil Ct (ANC) 4.34 x10^3/uL (1.4-6.9); BASOPHIL % 0.3 % (0.0-0.4); Basophil (Absolute #) 0.02 x10^3/uL (0-0.4); Eosinophil (Absolute #) 0.27 x10^3/uL (0-0.5); Hematocrit 35.3 % (42-50); Hemoglobin 10.7 g/dL (12.5-18.0); IMMATURE GRAN # 0.03 x10^3u/L (0.00-0.03); IMMATURE GRAN % 0.4 % (0.00-0.4); Lymphocyte (Absolute #) 1.32 x10^3/uL (1.0-4.6); Lymphocytes % 19.5 % (24.0-44.0); Mean Cell Volume 100.6 fL (78-100); Mean Corpuscular Hemoglobin 30.5 pg (26-32); Mean Corpuscular Hgb Concent. 30.3 g/dL (32-36); Mean Platelet Volume 10.8 fL (7.5-11.0); Monocytes % 11.8 % (0.0-12.0); Platelet Count 318 x10^3/uL (150-450); Red Blood Count 3.51 x10^6/uL (4.1-5.6); Red Cell Distribution Width 15.8 % (11.5-14.0); White Blood Count 6.8 x10^3/uL (4.0-10.5)
[2023-08-26 05:56] LABS: ANION GAP 7.2 MEQ/L (5-15); Calcium 9.2 mg/dL (8.4-10.2); Creatinine 1 0.96 mg/dL (0.66-1.25); EST GLOMERULAR FILTRATION RATE 80.9 ML/MIN; Potassium 4.1 mmol/L (3.5-5.1)
[2023-08-26] MEDS: Advair Hfa 115/21 Common canister IH SCH (07:21)
[2023-08-26] MEDS: DUONEB 0.5-3 MG/3 ml Neb IH SCH (07:21)
[2023-08-26] MEDS: Spiriva 18 Mcg/Cap Inhaler IH SCH (07:27)
[2023-08-26] MEDS: Miralax Powder 17GM PACKET PO SCH (08:44)
[2023-08-26] MEDS: Docusate Sodium 100 MG PO SCH (08:45)
[2023-08-26] MEDS: Klor Con PO SCH (08:45)
[2023-08-26] MEDS: CLARITIN 10 MG PO SCH (08:45)
[2023-08-26] MEDS: Mucinex 600MG ER Tabs PO SCH (08:45)
[2023-08-26] MEDS: Lasix 40 MG PO SCH (08:46)
[2023-08-26] MEDS: HEPARIN 5000 UNITS/0.5 ML (HIGH RISK MED) SQ SCH (08:46)
[2023-08-26] MEDS ORDERED: VILANTEROL PO SCH (10:00)
[2023-08-26] MEDS ORDERED: [UNRECOGNIZED DRUG - OTHER] PO SCH (10:00)
[2023-08-26] MEDS ORDERED: UMECLIDINIUM PO SCH (10:00)
--- NOTE | 2023-08-26 11:11 | PCM.DS ---
Discharge Summary Date of Admission: 08/25/23 20:26 Date of Discharge: 08/26/23 Admitting Physician: ULISSES FIORE MD Primary Care Provider: IRMA ALAN Allergies Allergies ampicillin Allergy (Intermediate, Verified 08/25/23 21:24) Swelling of Hands Hospital Summary - Vitals & Intake/Output Vital Signs: Vital Signs Temperature 96.9 F 08/26/23 07:50 Pulse Rate 69 08/26/23 07:50 Respiratory Rate 18 08/26/23 07:50 Blood Pressure 98/53 08/26/23 07:50 O2 Sat by Pulse Oximetry 97 08/26/23 07:50 Intake & Output: Intake & Output 08/23/23 08/24/23 08/25/23 08/26/23 11:59 11:59 11:59 11:59 Intake Total 511 Balance 511 Weight 81.2 kg - Lab Result Diagrams: 08/26/23 04:45 08/26/23 04:45 Lab Results-Last 24 Hrs: Lab Results-Last 24 Hours 08/25/23 08/25/23 08/25/23 Range/Units 12:58 13:01 13:23 WBC 6.8 (4.0-10.5) x10^3/uL RBC 3.61 L (4.1-5.6) x10^6/uL Hgb 11.1 L (12.5-18.0) g/dL Hct 36.9 L (42-50) % MCV 102.2 H (78-100) fL MCH 30.7 (26-32) pg MCHC 30.1 L (32-36) g/dL RDW 15.7 H (11.5-14.0) % Plt Count 312 (150-450) x10^3/uL MPV 10.6 (7.5-11.0) fL Gran % 69.2 H (36.0-66.0) % Immature Gran % (Auto) 0.3 (0.00-0.4) % Nucleat RBC Rel Count 0.0 (0.00-0.1) % Eos # (Auto) 0.21 (0-0.5) x10^3/uL Immature Gran # (Auto) 0.02 (0.00-0.03) x10^3u/L Absolute Lymphs (auto) 1.22 (1.0-4.6) x10^3/uL Absolute Monos (auto) 0.63 (0.0-1.3) x10^3/uL Absolute Nucleated RBC 0.00 (0.00-0.01) x10^3u/L Lymphocytes % 17.9 L (24.0-44.0) % Monocytes % 9.2 (0.0-12.0) % Eosinophils % 3.1 (0.00-5.0) % Basophils % 0.3 (0.0-0.4) % Absolute Granulocytes 4.73 (1.4-6.9) x10^3/uL Basophils # 0.02 (0-0.4) x10^3/uL Sodium (137-145) mmol/L Potassium (3.5-5.1) mmol/L Chloride (98-107) mmol/L Carbon Dioxide (22-30) mmol/L Anion Gap (5-15) MEQ/L BUN (9-20) mg/dL Creatinine (0.66-1.25) mg/dL Estimated GFR ML/MIN Glucose (74-106) mg/dL POC Glucometer (74 to 106) mg/dL Hemoglobin A1c (4.5-6.0) % Lactic Acid 2.1 H (0.4-2.0) Calcium (8.4-10.2) mg/dL Total Bilirubin (0.2-1.3) mg/dL AST (17-59) U/L ALT (0-50) U/L Alkaline Phosphatase (38-126) U/L Serum Total Protein (6.3-8.2) g/dL Albumin (3.5-5.0) g/dL Urine Color Yellow (Yellow) Urine Appearance Clear (Clear) Urine pH 5.5 (4.6-8.0) Ur Specific Krypton 1.015 (1.005-1.030) Urine Protein Negative (Negative) Urine Glucose (UA) 500 A (Negative) mg/dL Urine Ketones Negative (Negative) Urine Blood Negative (Negative) Urine Nitrite Negative (Negative) Urine Bilirubin Negative (Negative) Urine Urobilinogen 0.2 (0.2) mg/dL Ur Leukocyte Esterase Trace A (Negative) U Hyaline Cast (Auto) NONE SEEN (0-2) /LPF Urine Microscopic RBC 0-2 (0-5) /HPF Urine Microscopic WBC 0-2 (0-5) /HPF Ur Epithelial Cells None Seen (None Seen) /HPF Urine Bacteria None Seen (None Seen) /HPF Urine Culture Reflexed NO (NO) 08/25/23 08/25/23 08/25/23 Range/Units 13:23 14:01 14:50 WBC (4.0-10.5) x10^3/uL RBC (4.1-5.6) x10^6/uL Hgb (12.5-18.0) g/dL Hct (42-50) % MCV (78-100) fL MCH (26-32) pg MCHC (32-36) g/dL RDW (11.5-14.0) % Plt Count (150-450) x10^3/uL MPV (7.5-11.0) fL Gran % (36.0-66.0) % Immature Gran % (Auto) (0.00-0.4) % Nucleat RBC Rel Count (0.00-0.1) % Eos # (Auto) (0-0.5) x10^3/uL Immature Gran # (Auto) (0.00-0.03) x10^3u/L Absolute Lymphs (auto) (1.0-4.6) x10^3/uL Absolute Monos (auto) (0.0-1.3) x10^3/uL Absolute Nucleated RBC (0.00-0.01) x10^3u/L Lymphocytes % (24.0-44.0) % Monocytes % (0.0-12.0) % Eosinophils % (0.00-5.0) % Basophils % (0.0-0.4) % Absolute Granulocytes (1.4-6.9) x10^3/uL Basophils # (0-0.4) x10^3/uL Sodium 135 L (137-145) mmol/L Potassium 4.5 (3.5-5.1) mmol/L Chloride 92 L (98-107) mmol/L Carbon Dioxide 37 H (22-30) mmol/L Anion Gap 10.0 (5-15) MEQ/L BUN 19 (9-20) mg/dL Creatinine 1.21 (0.66-1.25) mg/dL Estimated GFR 61.3 ML/MIN Glucose 49 L* (74-106) mg/dL POC Glucometer 92 108 H (74 to 106) mg/dL Hemoglobin A1c (4.5-6.0) % Lactic Acid (0.4-2.0) Calcium 9.1 (8.4-10.2) mg/dL Total Bilirubin 0.50 (0.2-1.3) mg/dL AST 23 (17-59) U/L ALT 13 (0-50) U/L Alkaline Phosphatase 69 (38-126) U/L Serum Total Protein 7.8 (6.3-8.2) g/dL Albumin 4.5 (3.5-5.0) g/dL Urine Color (Yellow) Urine Appearance (Clear) Urine pH (4.6-8.0) Ur Specific Krypton (1.005-1.030) Urine Protein (Negative) Urine Glucose (UA) (Negative) mg/dL Urine Ketones (Negative) Urine Blood (Negative) Urine Nitrite (Negative) Urine Bilirubin (Negative) Urine Urobilinogen (0.2) mg/dL Ur Leukocyte Esterase (Negative) U Hyaline Cast (Auto) (0-2) /LPF Urine Microscopic RBC (0-5) /HPF Urine Microscopic WBC (0-5) /HPF Ur Epithelial Cells (None Seen) /HPF Urine Bacteria (None Seen) /HPF Urine Culture Reflexed (NO) 08/25/23 08/25/23 08/26/23 Range/Units 20:33 22:03 04:45 WBC 6.8 (4.0-10.5) x10^3/uL RBC 3.51 L (4.1-5.6) x10^6/uL Hgb 10.7 L (12.5-18.0) g/dL Hct 35.3 L (42-50) % MCV 100.6 H (78-100) fL MCH 30.5 (26-32) pg MCHC 30.3 L (32-36) g/dL RDW 15.8 H (11.5-14.0) % Plt Count 318 (150-450) x10^3/uL MPV 10.8 (7.5-11.0) fL Gran % 64.0 (36.0-66.0) % Immature Gran % (Auto) 0.4 (0.00-0.4) % Nucleat RBC Rel Count 0.0 (0.00-0.1) % Eos # (Auto) 0.27 (0-0.5) x10^3/uL Immature Gran # (Auto) 0.03 (0.00-0.03) x10^3u/L Absolute Lymphs (auto) 1.32 (1.0-4.6) x10^3/uL Absolute Monos (auto) 0.80 (0.0-1.3) x10^3/uL Absolute Nucleated RBC 0.00 (0.00-0.01) x10^3u/L Lymphocytes % 19.5 L (24.0-44.0) % Monocytes % 11.8 (0.0-12.0) % Eosinophils % 4.0 (0.00-5.0) % Basophils % 0.3 (0.0-0.4) % Absolute Granulocytes 4.34 (1.4-6.9) x10^3/uL Basophils # 0.02 (0-0.4) x10^3/uL Sodium (137-145) mmol/L Potassium (3.5-5.1) mmol/L Chloride (98-107) mmol/L Carbon Dioxide (22-30) mmol/L Anion Gap (5-15) MEQ/L BUN (9-20) mg/dL Creatinine (0.66-1.25) mg/dL Estimated GFR ML/MIN Glucose (74-106) mg/dL POC Glucometer 223 H 132 H (74 to 106) mg/dL Hemoglobin A1c (4.5-6.0) % Lactic Acid (0.4-2.0) Calcium (8.4-10.2) mg/dL Total Bilirubin (0.2-1.3) mg/dL AST (17-59) U/L ALT (0-50) U/L Alkaline Phosphatase (38-126) U/L Serum Total Protein (6.3-8.2) g/dL Albumin (3.5-5.0) g/dL Urine Color (Yellow) Urine Appearance (Clear) Urine pH (4.6-8.0) Ur Specific Krypton (1.005-1.030) Urine Protein (Negative) Urine Glucose (UA) (Negative) mg/dL Urine Ketones (Negative) Urine Blood (Negative) Urine Nitrite (Negative) Urine Bilirubin (Negative) Urine Urobilinogen (0.2) mg/dL Ur Leukocyte Esterase (Negative) U Hyaline Cast (Auto) (0-2) /LPF Urine Microscopic RBC (0-5) /HPF Urine Microscopic WBC (0-5) /HPF Ur Epithelial Cells (None Seen) /HPF Urine Bacteria (None Seen) /HPF Urine Culture Reflexed (NO) 08/26/23 08/26/23 08/26/23 Range/Units 04:45 05:30 05:50 WBC (4.0-10.5) x10^3/uL RBC (4.1-5.6) x10^6/uL Hgb (12.5-18.0) g/dL Hct (42-50) % MCV (78-100) fL MCH (26-32) pg MCHC (32-36) g/dL RDW (11.5-14.0) % Plt Count (150-450) x10^3/uL MPV (7.5-11.0) fL Gran % (36.0-66.0) % Immature Gran % (Auto) (0.00-0.4) % Nucleat RBC Rel Count (0.00-0.1) % Eos # (Auto) (0-0.5) x10^3/uL Immature Gran # (Auto) (0.00-0.03) x10^3u/L Absolute Lymphs (auto) (1.0-4.6) x10^3/uL Absolute Monos (auto) (0.0-1.3) x10^3/uL Absolute Nucleated RBC (0.00-0.01) x10^3u/L Lymphocytes % (24.0-44.0) % Monocytes % (0.0-12.0) % Eosinophils % (0.00-5.0) % Basophils % (0.0-0.4) % Absolute Granulocytes (1.4-6.9) x10^3/uL Basophils # (0-0.4) x10^3/uL Sodium 135 L (137-145) mmol/L Potassium 4.1 (3.5-5.1) mmol/L Chloride 93 L (98-107) mmol/L Carbon Dioxide 40 H (22-30) mmol/L Anion Gap 7.2 (5-15) MEQ/L BUN 23 H (9-20) mg/dL Creatinine 0.96 (0.66-1.25) mg/dL Estimated GFR 80.9 ML/MIN Glucose 112 H (74-106) mg/dL POC Glucometer (74 to 106) mg/dL Hemoglobin A1c 4.50 (4.5-6.0) % Lactic Acid 1.3 (0.4-2.0) Calcium 9.2 (8.4-10.2) mg/dL Total Bilirubin (0.2-1.3) mg/dL AST (17-59) U/L ALT (0-50) U/L Alkaline Phosphatase (38-126) U/L Serum Total Protein (6.3-8.2) g/dL Albumin (3.5-5.0) g/dL Urine Color (Yellow) Urine Appearance (Clear) Urine pH (4.6-8.0) Ur Specific Krypton (1.005-1.030) Urine Protein (Negative) Urine Glucose (UA) (Negative) mg/dL Urine Ketones (Negative) Urine Blood (Negative) Urine Nitrite (Negative) Urine Bilirubin (Negative) Urine Urobilinogen (0.2) mg/dL Ur Leukocyte Esterase (Negative) U Hyaline Cast (Auto) (0-2) /LPF Urine Microscopic RBC (0-5) /HPF Urine Microscopic WBC (0-5) /HPF Ur Epithelial Cells (None Seen) /HPF Urine Bacteria (None Seen) /HPF Urine Culture Reflexed (NO) 08/26/23 Range/Units 07:04 WBC (4.0-10.5) x10^3/uL RBC (4.1-5.6) x10^6/uL Hgb (12.5-18.0) g/dL Hct (42-50) % MCV (78-100) fL MCH (26-32) pg MCHC (32-36) g/dL RDW (11.5-14.0) % Plt Count (150-450) x10^3/uL MPV (7.5-11.0) fL Gran % (36.0-66.0) % Immature Gran % (Auto) (0.00-0.4) % Nucleat RBC Rel Count (0.00-0.1) % Eos # (Auto) (0-0.5) x10^3/uL Immature Gran # (Auto) (0.00-0.03) x10^3u/L Absolute Lymphs (auto) (1.0-4.6) x10^3/uL Absolute Monos (auto) (0.0-1.3) x10^3/uL Absolute Nucleated RBC (0.00-0.01) x10^3u/L Lymphocytes % (24.0-44.0) % Monocytes % (0.0-12.0) % Eosinophils % (0.00-5.0) % Basophils % (0.0-0.4) % Absolute Granulocytes (1.4-6.9) x10^3/uL Basophils # (0-0.4) x10^3/uL Sodium (137-145) mmol/L Potassium (3.5-5.1) mmol/L Chloride (98-107) mmol/L Carbon Dioxide (22-30) mmol/L Anion Gap (5-15) MEQ/L BUN (9-20) mg/dL Creatinine (0.66-1.25) mg/dL Estimated GFR ML/MIN Glucose (74-106) mg/dL POC Glucometer 116 H (74 to 106) mg/dL Hemoglobin A1c (4.5-6.0) % Lactic Acid (0.4-2.0) Calcium (8.4-10.2) mg/dL Total Bilirubin (0.2-1.3) mg/dL AST (17-59) U/L ALT (0-50) U/L Alkaline Phosphatase (38-126) U/L Serum Total Protein (6.3-8.2) g/dL Albumin (3.5-5.0) g/dL Urine Color (Yellow) Urine Appearance (Clear) Urine pH (4.6-8.0) Ur Specific Krypton (1.005-1.030) Urine Protein (Negative) Urine Glucose (UA) (Negative) mg/dL Urine Ketones (Negative) Urine Blood (Negative) Urine Nitrite (Negative) Urine Bilirubin (Negative) Urine Urobilinogen (0.2) mg/dL Ur Leukocyte Esterase (Negative) U Hyaline Cast (Auto) (0-2) /LPF Urine Microscopic RBC (0-5) /HPF Urine Microscopic WBC (0-5) /HPF Ur Epithelial Cells (None Seen) /HPF Urine Bacteria (None Seen) /HPF Urine Culture Reflexed (NO) Micro Results-Entire Visit: Accuchecks Date 08/26/23 Date 08/25/23 Date 08/25/23 Time 20:36 Time 14:01 - Procedures and Test Procedures and Tests throughout Hospitalization: Therapy Orders & Screens 08/25/23 20:35 Oxygen Nasal Cannula 3 lpm Comment: Respiratory Therapy Consult ONCE Comment: Reason For Exam: 08/25/23 21:22 OT Screen per Nursing Assess ONCE Comment: Protocol Order Physician Instructions: Greater than 3 points order OT Admission Screening Reason For Exam: Triggered on Admission Diagnosis: hypoglycemia Open Wound/Cellutlitis/Pressure Ulcers: No Acute Fx/ORIF/Change in wt bearing status: No Severe MUSCULOSKELETAL pain: No ADL Dysfunction: Yes Acute CVA w/Hemiparesis/Hemiplegia: No Decreased Functional Mobility/Strength: Yes Sprain/Strain: No Acute Post-op Mobility Dysfunction: No Total Points: 4 PT Screen per Nursing Assess ONCE Comment: Protocol Order Physician Instructions: Greater than 3 points order PT Admission Screenin Reason For Exam: Triggered on Admission Diagnosis: hypoglycemia Open Wound/Cellutlitis/Pressure Ulcers: No Acute Fx/ORIF/Change in wt bearing status: No Severe MUSCULOSKELETAL pain: No ADL Dysfunction: Yes Acute CVA w/Hemiparesis/Hemiplegia: No Decreased Functional Mobility/Strength: Yes Sprain/Strain: No Acute Post-op Mobility Dysfunction: No Total Points: 4 RT Screen per Nursing Assess ONCE Comment: Protocol Order Physician Instructions: Greater than 3 points order RT Admission Screen Reason For Exam: Triggered on Admission Diagnosis: hypoglycemia Diagnosis: hypoglycemia Pneumonia: Yes Home O2: Yes Asthma: Yes CHF: Yes Home CPAP/BIPAP: Yes: doesn't wear it Home Nebs/MDI: Yes Total Points: 25 ST Screen per Nursing Assess ONCE Comment: Protocol Order Physician Instructions: Greater than [address] Admission Screening Reason For Exam: Triggered on Admission Diagnosis: hypoglycemia CVA/Dyshpagia/Aphasia: No Cognitive Deficits: No Dehydration/Nutrition Deficit: No Reflux: No Oral-Motor Difficulties: No Pneumonia: Yes Fpc Resident: No Total Points: 5 08/25/23 22:18 Respiratory Therapy Assessment DAILY Comment: Diagnosis: hypoglycemia 08/25/23 23:55 PT Eval & Treat (MD Order) ONCE Reason for Eval:: fall safety assessment Diagnosis: hypoglycemia - Discharge Disposition: Home, Self-Care Condition: Stable Prescriptions: Continue Loratadine 10 mg [Claritin 10 mg] 10 mg PO DAILY Gabapentin [Neurontin] 600 mg PO HS Potassium Chloride Tab* [Klor Con] 4 tab PO DAILY Furosemide 40 mg PO DAILY Metformin HCl 850 mg [Glucophage 850 MG] 850 mg PO BID Fluticasone/Umeclidin/Vilanter [Trelegy Ellipta 100-62.5-25] 1 inh PO DAILY Albuterol/Ipratropium 3ml Neb* [DUONEB 0.5-3 MG/3 ml Neb] 3 ml IH QIDPRN PRN PRN Reason: Shortness Of Breath/Wheezing Guaifenesin [Mucus Relief] 400 mg PO DAILY Insulin Detemir [Levemir Flexpen] 10 unit SQ DAILY PRN PRN PRN Reason: Hypoglycemia Acetaminophen/Diphenhydramine [Tylenol Pm Exstr 500-25Mg Cplt] 2 each PO HS Discontinued Glipizide 10 mg [Glucotrol 10 MG] 10 mg PO BID Follow up with: IRMA ALAN [Primary Care Provider] - 09/02/23 10:15 am
[2023-08-26 12:36] VITALS: BP 96/52; TEMP 98.2
[2023-08-26 13:11] VITALS: PULSE 91; RESP 18
[2023-08-26 19:34] VITALS: O2SAT 100
[2023-08-26] MEDS ORDERED: BENADRYL 25 MG CAPSULE PO SCH (22:00)
[2023-08-26] MEDS ORDERED: TYLENOL EXTRA STRENGTH 500 MG PO SCH (22:00)
[2023-08-26] MEDS ORDERED: NEURONTIN PO SCH (22:00)
== END 2023-08-26 15:02 | disposition home or self-care (01) ==
LOC: ED 12:26 → MED SURG 20:26
PROVIDERS: ADMIT Internal Medicine Nephrology; ATTEND Internal Medicine Nephrology
DX: E11.649 Type 2 diabetes mellitus with hypoglycemia without coma (principal); K59.00 Constipation, unspecified; R42 Dizziness and giddiness; J96.10 Chronic respiratory failure, unspecified whether with hypoxia or hypercapnia; I50.9 Heart failure, unspecified; Z99.81 Dependence on supplemental oxygen; Z79.899 Other long term (current) drug therapy; Z20.828 Contact with and (suspected) exposure to other viral communicable diseases
CPT/HCPCS: 36415; 80048; 80053; 81001; 82947; 83036; 83605; 85025; 87040; 93268; 94640; 94762; 96374; 99284; J1644; Q3014; A9270-GY; G0378

== ENCOUNTER 2023-09-07 16:33 | Observation (INO) | payer MEDICARE ==
[2023-09-07 17:16] LABS: Absolute Neutrophil Ct (ANC) 6.84 x10^3/uL (1.4-6.9); BASOPHIL % 0.2 % (0.0-0.4); Basophil (Absolute #) 0.02 x10^3/uL (0-0.4); Eosinophil % 0.5 % (0.00-5.0); Eosinophil (Absolute #) 0.04 x10^3/uL (0-0.5); Hematocrit 37.5 % (42-50); Hemoglobin 11.2 g/dL (12.5-18.0); IMMATURE GRAN # 0.03 x10^3u/L (0.00-0.03); IMMATURE GRAN % 0.4 % (0.00-0.4); Lymphocytes % 9.8 % (24.0-44.0); Mean Cell Volume 102.7 fL (78-100); Mean Corpuscular Hemoglobin 30.7 pg (26-32); Mean Corpuscular Hgb Concent. 29.9 g/dL (32-36); Mean Platelet Volume 10.7 fL (7.5-11.0); Monocyte (Absolute #) 0.44 x10^3/uL (0.0-1.3); Monocytes % 5.4 % (0.0-12.0); Neutrophil % 83.7 % (36.0-66.0); Platelet Count 235 x10^3/uL (150-450); Red Blood Count 3.65 x10^6/uL (4.1-5.6); Red Cell Distribution Width 15.1 % (11.5-14.0); White Blood Count 8.2 x10^3/uL (4.0-10.5)
[2023-09-07 17:30] LABS: ALBUMIN 4.4 g/dL (3.5-5.0); BILIRUBIN,TOTAL 0.5 mg/dL (0.2-1.3); Calcium 9.3 mg/dL (8.4-10.2); Creatinine 1 0.8 mg/dL (0.66-1.25); EST GLOMERULAR FILTRATION RATE 90.6 ML/MIN; Potassium 4.4 mmol/L (3.5-5.1); Total Protein 7.5 g/dL (6.3-8.2)
[2023-09-07 17:37] LABS: ANION GAP 12.4 MEQ/L (5-15)
--- NOTE | 2023-09-07 17:48 | ERPHSYRPT ---
- History of Present Illness Time Seen by Provider: 09/07/23 16:50 Source: patient Exam Limitations: no limitations Patient Subjective Stated Complaint: SHORT OF BREATH Triage Nursing Assessment: Pt brought to the ER by EMS, tachycardic, hypoxic, t achypnic, denies pain, states that he was fine yesterday but short of breath today and turned his oxygen up but it didn't do anything for him, pulses normal, skin n/w/d, doesn't appear to be in distress and laying quietly on the bed, pt states that he doesn't walk much, pt has a cough but can not get anything up today Physician History: Patient is a 78-year-old male presents to our ED via EMS for evaluation of shortness of breath. EMS reports patient was hypoxic. Patient requires supplemental oxygen via nasal cannula. Patient reports he increased his oxygen delivery by couple liters and it does not help his symptoms. No associated chest pain. No nausea vomiting or diaphoresis. Patient symptoms are progressive. Symptoms are moderate in intensity. Symptoms are worse with exertion. Symptoms improved with rest. Patient voices no other complaints or concerns at this time. Portions of this note were created with voice recognition technology. There may be grammatical, spelling, punctuation or sound alike errors Timing/Duration: today Activities at Onset: none Severity of Dyspnea-Max: moderate Severity of Dyspnea-Current: mild Possible Cause: no prior episodes Modifying Factors: Improves With: activity Associated Symptoms: denies symptoms Allergies/Adverse Reactions: ampicillin Allergy (Intermediate, Verified 09/07/23 16:47) Swelling of Hands Home Medications: Furosemide 40 mg PO DAILY 10/21/14 [History] Gabapentin [Neurontin] 600 mg PO HS 10/21/14 [History] Loratadine 10 mg [Claritin 10 mg] 10 mg PO DAILY 10/21/14 [History] Metformin HCl 850 mg [Glucophage 850 MG] 850 mg PO BID 10/21/14 [History] Potassium Chloride Tab* [Klor Con] 4 tab PO DAILY 10/21/14 [History] Fluticasone/Umeclidin/Vilanter [Trelegy Ellipta 100-62.5-25] 1 inh PO DAILY 10/15/18 [History] Albuterol/Ipratropium 3ml Neb* [DUONEB 0.5-3 MG/3 ml Neb] 3 ml IH QIDPRN PRN 05/05/22 [History] Guaifenesin [Mucus Relief] 400 mg PO DAILY 01/09/23 [History] Acetaminophen/Diphenhydramine [Tylenol Pm Exstr 500-25Mg Cplt] 2 each PO HS 08/25/23 [History] Insulin Detemir [Levemir Flexpen] 10 unit SQ DAILY PRN PRN 08/25/23 [History] Hx Tetanus, Diphtheria Vaccination/Date Given: Yes Hx Influenza Vaccination/Date Given: Yes Hx Pneumococcal Vaccination/Date Given: Yes Travel Risk - International Travel Have you traveled outside of the country in past 3 weeks: No - Coronavirus Screening Are you exhibiting any of the following symptoms?: No - Vaccine Status Have you recieved a Covid-19 vaccination: Yes [employer] Line: Moderna - Vaccination Dates Date of 2cond Vaccination (if applicable): 2021 - Review of Systems Constitutional: No Symptoms Eyes: No Symptoms Ears, Nose, & Throat: No Symptoms Respiratory: No Symptoms, No Cough, No Dyspnea Cardiac: No Symptoms, No Chest Pain, No Edema, No Syncope Abdominal/Gastrointestinal: No Symptoms, No Abdominal Pain, No Nausea, No Vomiting, No Diarrhea Genitourinary Symptoms: No Symptoms, No Dysuria Musculoskeletal: No Symptoms, No Back Pain, No Neck Pain Skin: No Symptoms, No Rash Neurological: No Symptoms, No Dizziness, No Focal Weakness, No Sensory Changes Psychological: No Symptoms Endocrine: No Symptoms Hematologic/Lymphatic: No Symptoms Immunological/Allergic: No Symptoms All Other Systems: Reviewed and Negative - Past Medical History Pertinent Past Medical History: Yes Neurological History: No Pertinent History ENT History: Cataracts, Other Cardiac History: Congestive Heart Failure Respiratory History: Asthma, Bronchitis, CHF, COPD, Emphysema, Pneumonia, Sleep Apnea Endocrine Medical History: Diabetes Type II Musculoskeletal History: Arthritis GI Medical History: No Pertinent History History: No Pertinent History Psycho-Social History: No Pertinent History Male Reproductive Disorders: No Pertinent History Other Medical History: Home O2, retinal detachment left eye, retinal hemhorage rt eye - Past Surgical History Past Surgical History: Yes Neuro Surgical History: No Pertinent History Cardiac: No Pertinent History Respiratory: Other Gastrointestinal: No Pertinent History Genitourinary: No Pertinent History Musculoskeletal: No Pertinent History Male Surgical History: No Pertinent History Other Surgical History: Cataract Surgery, retinal surgery,bronchoscopy - Social History Smoking Status: Former smoker How long have you smoked: 45 years Exposure to second hand smoke: No Drug Use: none Patient Lives Alone: No Significant Family History: no pertinent family hx - Nursing Vital Signs Nursing Vital Signs: Initial Vital Signs Temperature 97.3 F 09/07/23 16:36 Pulse Rate 115 H 09/07/23 16:36 Respiratory Rate 09/07/23 16:36 Blood Pressure 108/48 09/07/23 16:36 O2 Sat by Pulse Oximetry 88 L 09/07/23 16:36 Pain Scale Pain Intensity 0 - Physical Exam General Appearance: no apparent distress, alert Eye Exam: PERRL/EOMI Neck Exam: normal inspection, supple Respiratory Exam: diminished breath sounds, crackles/rales, rhonchi Cardiovascular/Chest Exam: normal heart sounds, regular rate/rhythm Abdominal/Gastrointestinal Exam: soft, No tenderness, No distention, No mass Extremity Exam: non-tender, normal range of motion, normal inspection, no calf tenderness, no pedal edema Neurologic Exam: alert, oriented x 3, cooperative, quality assurance representative II-XII nml as tested, sensation nml, No motor deficits Skin Exam: normal color, warm, No dry Lymphatic Exam: No adenopathy SpO2 Interpretation: normal SpO2: 90 O2 Delivery: Room Air - Course Nursing assessment & vital signs reviewed: Yes EKG Interpreted by Me: RATE (115), Sinus Tach, NORMAL AXIS, NORMAL INTERVALS (Right bundle branch block and left anterior fascicular block) - Radiology Exams Chest X-ray Interpretation: Interpreted by me (No acute findings) Ordered Tests: Active Orders 24 hr Category Date Time Status Interactive Art Director STAT Care 09/07/23 16:53 Active EKG-ER Only STAT Care 09/07/23 16:53 Active IV Insertion STAT Care 09/07/23 16:53 Active Pulse Oximetry (ED) STAT Care 09/07/23 16:53 Active CHEST 1 VIEW (PORTABLE) Stat Exams 09/07/23 16:53 Taken BLOOD CULTURE Stat Lab 09/07/23 18:15 Received CBC W DIFF Stat Lab 09/07/23 17:10 Completed CMP Stat Lab 09/07/23 17:10 Completed TROPONIN Q4H Lab 09/07/23 17:10 Completed TROPONIN Q4H Lab 09/07/23 21:00 Ordered TROPONIN Q4H Lab 09/08/23 01:00 Ordered Transfer Order Routine Transfer 09/07/23 Ordered Medication Summary Discontinued Medications Generic Name Dose Route Start Last Admin Trade Name Joceline PRHans Reason Stop Dose Admin Albuterol/Ipratropium 3 ml 09/07/23 17:49 09/07/23 17:55 Ipratropium/Albuterol Sulfate 3 Ml Ampul.Neb IH 09/07/23 17:50 3 ml STAT ONE Administration Albuterol/Ipratropium Confirm 09/07/23 17:52 Ipratropium/Albuterol Sulfate 3 Ml Ampul.Neb Administered 09/07/23 17:53 Dose 3 ml IH .STK-MED ONE Methylprednisolone Sodium 0 mg 09/07/23 17:49 09/07/23 18:11 Succinate 125 mg/ Sterile IV 09/07/23 17:50 125 mg Water 2 ml STAT ONE Administration Ceftriaxone Sodium/Dextrose 2 g in 50 mls @ 100 mls/hr 09/07/23 17:49 09/07/23 18:47 Rocephin 2 Gm-D5w 50ml Bag IV 09/07/23 18:18 0 mls/hr STAT STA 0 mls/hr Infusion Azithromycin 500 mg in 250 mls @ 250 mls/hr 09/07/23 17:49 09/07/23 18:45 Zithromax 500 Mg/ 250 Ml Nacl Premix IV 09/07/23 18:48 250 mls/hr STAT STA 250 mls/hr Administration Ceftriaxone Sodium/Dextrose Confirm 09/07/23 18:10 Rocephin 2 Gm-D5w 50ml Bag Administered 09/07/23 18:11 Dose 2 g in 50 mls @ ud IV .STK-MED ONE Azithromycin Confirm 09/07/23 18:45 Zithromax 500 Mg/ 250 Ml Nacl Premix Administered 09/07/23 18:46 Dose 500 mg in 250 mls @ ud IV .STK-MED ONE Methylprednisolone Sodium Succinate Confirm 09/07/23 18:10 Methylprednis Sod Succ 125 Mg/2 Ml Vial Administered 09/07/23 18:11 Dose 125 mg .ROUTE .STK-MED ONE Sterile Water Confirm 09/07/23 18:10 Water For Injection,Sterile 10 Ml Vial Administered 09/07/23 18:11 Dose 10 ml IJ .STK-MED ONE Lab/Rad Data: Laboratory Result Diagrams 09/07/23 17:10 09/07/23 17:10 Laboratory Results 09/07/23 09/07/23 09/07/23 Range/Units 17:10 17:10 17:10 WBC 8.2 (4.0-10.5) x10^3/uL RBC 3.65 L (4.1-5.6) x10^6/uL Hgb 11.2 L (12.5-18.0) g/dL Hct 37.5 L (42-50) % MCV 102.7 H (78-100) fL MCH 30.7 (26-32) pg MCHC 29.9 L (32-36) g/dL RDW 15.1 H (11.5-14.0) % Plt Count 235 (150-450) x10^3/uL MPV 10.7 (7.5-11.0) fL Gran % 83.7 H (36.0-66.0) % Immature Gran % (Auto) 0.4 (0.00-0.4) % Nucleat RBC Rel Count 0.0 (0.00-0.1) % Eos # (Auto) 0.04 (0-0.5) x10^3/uL Immature Gran # (Auto) 0.03 (0.00-0.03) x10^3u/L Absolute Lymphs (auto) 0.80 L (1.0-4.6) x10^3/uL Absolute Monos (auto) 0.44 (0.0-1.3) x10^3/uL Absolute Nucleated RBC 0.00 (0.00-0.01) x10^3u/L Lymphocytes % 9.8 L (24.0-44.0) % Monocytes % 5.4 (0.0-12.0) % Eosinophils % 0.5 (0.00-5.0) % Basophils % 0.2 (0.0-0.4) % Absolute Granulocytes 6.84 (1.4-6.9) x10^3/uL Basophils # 0.02 (0-0.4) x10^3/uL Sodium 137 (137-145) mmol/L Potassium 4.4 (3.5-5.1) mmol/L Chloride 90 L (98-107) mmol/L Carbon Dioxide 39 H (22-30) mmol/L Anion Gap 12.4 (5-15) MEQ/L BUN 17 (9-20) mg/dL Creatinine 0.80 (0.66-1.25) mg/dL Estimated GFR 90.6 ML/MIN Glucose 149 H (74-106) mg/dL Calcium 9.3 (8.4-10.2) mg/dL Total Bilirubin 0.50 (0.2-1.3) mg/dL AST 25 (17-59) U/L ALT 13 (0-50) U/L Alkaline Phosphatase 77 (38-126) U/L Troponin I 0.014 (0.000-0.034) ng/mL Serum Total Protein 7.5 (6.3-8.2) g/dL Albumin 4.4 (3.5-5.0) g/dL - Progress Progress: improved Air Movement: good Progress Note: Case discussed with Dr. Godinez at 6:[address] Godinez accepts admission to observation. Admit orders entered. Plan of care discussed with patient. He agrees to admission to [facility] for further evaluation and treatment. Portions of this note were created with voice recognition technology. There may be grammatical, spelling, punctuation or sound alike errors Patient is a 78-year-old male history of COPD presents to our ED with shortness of breath. Physical exam reveals coarse diminished and scattered wheezing throughout both lung guy. 09/07/23 19:18 Complexity problem addressed is moderate acute complicated No critical care time Complex of data reviewed and analyzed is extensive. Test ordered test reviewed for results analyzed and correlated clinically. Management discussed with hospitalist who accepts admission to observation. Risk of complication and or risk of morbidity/mortality of patient management is high. Patient requires hospitalization for further evaluation and treatment. Vital stable. Time spent to admit patient is approximately 20 minutes. Plan of care established for shared decision making. No social determinants of health present impede follow-up. Portions of this note were created with voice recognition technology. There may be grammatical, spelling, punctuation or sound alike errors Blood Culture(s) Obtained: Yes Antibiotics given: Yes Counseled pt/family regarding: lab results, diagnosis, rad results - Departure Departure Disposition: Observation Clinical Impression: COPD exacerbation, Hypoxia, Macrocytic anemia Condition: Stable Critical Care Time: No Referrals: IRMA ALAN [Primary Care Provider] - Follow up/PCP as directed Instructions: Chronic Obstructive Pulmonary Disease
[2023-09-07] MEDS ORDERED: DUONEB 0.5-3 MG/3 ml Neb IH ONE (17:52)
[2023-09-07] MEDS: DUONEB 0.5-3 MG/3 ml Neb IH ONE (17:55)
[2023-09-07] MEDS ORDERED: Sterile H2O 10 ml IJ ONE (18:10)
[2023-09-07] MEDS ORDERED: ROCEPHIN 2 Gm-D5w 50ML BAG** 2 G/50 ML IVPB IV ONE (18:10)
[2023-09-07] MEDS ORDERED: solu-MEDROL ONE (18:10)
[2023-09-07] MEDS: solu-MEDROL 125 MG, Sterile H2O 10 ml 2 ML IV ONE (18:11)
[2023-09-07] MEDS: ROCEPHIN 2 Gm-D5w 50ML BAG** 2 G/50 ML IVPB IV STA (18:12)
[2023-09-07] MEDS: Zithromax 500 MG/ 250 ML NaCl Premix 500 MG/250 ML IVPB IV STA (18:45)
[2023-09-07] MEDS ORDERED: Zithromax 500 MG/ 250 ML NaCl Premix 500 MG/250 ML IVPB IV ONE (18:45)
--- NOTE | 2023-09-07 22:05 | PCM.HP ---
History of Present Illness - Chief Complaint Chief Complaint: COPD exacerbation Date: 09/07/23 History of Present Illness: Mr. VALADEZ is a 78 year old male with a past medical history significant for hypertension, diabetes, CHF and COPD with recent hospitalization for hypoxia who presents to the hospital with a one day history of increasing shortness of breath. He tried his inhalers without success so he came to the ER. He was found to be hypoxic and has been recommended for admission. No fever or chills. No cough productive of sputum. No nausea, vomiting or diarrhea. No dysuria, hematuria or foamy urine. - Review of Systems Constitutional: No Fever Eyes: No Vision Changes Ears, Nose, & Throat: No Ear Discharge Respiratory: Short Of Breath, No Cough Cardiac: No Chest Pain, No Edema, No Palpitations Abdominal/Gastrointestinal: No Abdominal Pain, No Nausea, No Vomiting, No Diarrhea Genitourinary Symptoms: No Dysuria, No Frequency, No Hematuria Musculoskeletal: No Arthralgias Skin: No Cellulitis Neurological: No Dizziness Psychological: No Suicidal Ideations Endocrine: No Polyuria, No Polydipsia Medications & Allergies Home Medications: Home Medication List Furosemide 40 mg PO DAILY 10/21/14 [History Confirmed 09/07/23] Gabapentin [Neurontin] 600 mg PO HS 10/21/14 [History Confirmed 09/07/23] Loratadine 10 mg [Claritin 10 mg] 10 mg PO DAILY 10/21/14 [History Confirmed 09/07/23] Metformin HCl 850 mg [Glucophage 850 MG] 850 mg PO BID 10/21/14 [History Confirmed 09/07/23] Potassium Chloride Tab* [Klor Con] 40 meq PO DAILY 10/21/14 [History Confirmed 09/07/23] Fluticasone/Umeclidin/Vilanter [Trelegy Ellipta 100-62.5-25] 1 inh PO DAILY 10/15/18 [History Confirmed 09/07/23] Albuterol/Ipratropium 3ml Neb* [DUONEB 0.5-3 MG/3 ml Neb] 3 ml IH QIDPRN PRN 05/05/22 [History Confirmed 09/07/23] Guaifenesin [Mucus Relief] 400 mg PO DAILY 01/09/23 [History Confirmed 09/07/23] Acetaminophen/Diphenhydramine [Tylenol Pm Exstr 500-25Mg Cplt] 2 each PO HS 08/25/23 [History Confirmed 09/07/23] Insulin Detemir [Levemir Flexpen] 10 unit SQ DAILY PRN PRN 08/25/23 [History Confirmed 09/07/23] glipiZIDE [Glipizide] 10 mg PO BID 09/07/23 [History Confirmed 09/07/23] Allergies/Adverse Reactions: Allergies Allergy/AdvReac Type Severity Reaction Status Date / Time ampicillin Allergy Intermediate Swelling Verified 09/07/23 21:33 of Hands - Past Medical History Past Medical History: Yes Neurological History: No Pertinent History ENT History: Cataracts, Other Cardiac History: Congestive Heart Failure Respiratory History: CHF, COPD, Emphysema, Pneumonia, Sleep Apnea Endocrine Medical History: Diabetes Type II Musculoskelatal History: Arthritis GI Medical History: No Pertinent History History: No Pertinent History Pyscho-Social History: No Pertinent History Male Reproductive Disorders: No Pertinent History Comment: Home O2 3L NC, retinal detachment left eye, retinal hemorrhage rt eye - Past Surgical History Past Surgical History: Yes Neuro Surgical History: No Pertinent History Cardiac History: No Pertinent History Respiratory Surgery: Other GI Surgical History: No Pertinent History Genitourinary Surgical Hx: No Pertinent History Musculskeletal Surgical Hx: No Pertinent History Male Surgical History: No Pertinent History Other Surgical History: Cataract Surgery, retinal surgery, bronchoscopy Significant Family History: no pertinent family hx - Social History Smoking Status: Former smoker How long have you smoked: 45 years Exposure to second hand smoke: No Alcohol: None Drug Use: none - Social Determinants of Health Will the patient participate in the screening: Yes Do you worry about a steady place to live?: No In the past 12 months,have you had to go without utilities?: No Have you or anyone in your house had to go without enough: No Transportation Issues: No Has anyone in your support network made you feel unsafe?: No Does the patient want assistance with any of the above?: No - Physical Exam Vital Signs: Vital Signs - 24 hr Temp Pulse Resp BP BP Pulse Ox 09/07/23 21:29 108 H 90 L 09/07/23 20:01 108 H 24 106/50 96 09/07/23 19:48 108 H 28 H 109/56 95 09/07/23 19:32 111 H 25 H 94/48 94 L 09/07/23 19:30 109 H 28 H 81/52 92 L 09/07/23 19:20 90 L 09/07/23 19:00 112 H 27 H 92/60 92 L 09/07/23 18:30 115 H 27 H 100/49 92 L 09/07/23 18:04 90 L 09/07/23 18:00 115 H 25 H 105/58 90 L 09/07/23 17:56 116 H 26 H 89 L 09/07/23 16:36 97.3 F 115 H 26 H 108/48 90 L Oxygen-Last 24 hours Oxygen Flowrate (L/min)-RT 15 General Appearance: mild distress Neurologic Exam: alert Ears, Nose, Throat Exam: dry mucous membranes Neck Exam: supple Respiratory Exam: accessory muscle use Cardiovascular Exam: regular rate/rhythm Gastrointestinal/Abdomen Exam: soft Extremity Exam: No zaynab's sign, No pedal edema Skin Exam: warm Results - Labs Lab/Micro Results: Lab Results-Last 24 Hours 09/07/23 09/07/23 09/07/23 Range/Units 17:10 17:10 17:10 WBC 8.2 (4.0-10.5) x10^3/uL RBC 3.65 L (4.1-5.6) x10^6/uL Hgb 11.2 L (12.5-18.0) g/dL Hct 37.5 L (42-50) % MCV 102.7 H (78-100) fL MCH 30.7 (26-32) pg MCHC 29.9 L (32-36) g/dL RDW 15.1 H (11.5-14.0) % Plt Count 235 (150-450) x10^3/uL MPV 10.7 (7.5-11.0) fL Gran % 83.7 H (36.0-66.0) % Immature Gran % (Auto) 0.4 (0.00-0.4) % Nucleat RBC Rel Count 0.0 (0.00-0.1) % Eos # (Auto) 0.04 (0-0.5) x10^3/uL Immature Gran # (Auto) 0.03 (0.00-0.03) x10^3u/L Absolute Lymphs (auto) 0.80 L (1.0-4.6) x10^3/uL Absolute Monos (auto) 0.44 (0.0-1.3) x10^3/uL Absolute Nucleated RBC 0.00 (0.00-0.01) x10^3u/L Lymphocytes % 9.8 L (24.0-44.0) % Monocytes % 5.4 (0.0-12.0) % Eosinophils % 0.5 (0.00-5.0) % Basophils % 0.2 (0.0-0.4) % Absolute Granulocytes 6.84 (1.4-6.9) x10^3/uL Basophils # 0.02 (0-0.4) x10^3/uL Sodium 137 (137-145) mmol/L Potassium 4.4 (3.5-5.1) mmol/L Chloride 90 L (98-107) mmol/L Carbon Dioxide 39 H (22-30) mmol/L Anion Gap 12.4 (5-15) MEQ/L BUN 17 (9-20) mg/dL Creatinine 0.80 (0.66-1.25) mg/dL Estimated GFR 90.6 ML/MIN Glucose 149 H (74-106) mg/dL POC Glucometer (74 to 106) mg/dL Calcium 9.3 (8.4-10.2) mg/dL Total Bilirubin 0.50 (0.2-1.3) mg/dL AST 25 (17-59) U/L ALT 13 (0-50) U/L Alkaline Phosphatase 77 (38-126) U/L Troponin I 0.014 (0.000-0.034) ng/mL Serum Total Protein 7.5 (6.3-8.2) g/dL Albumin 4.4 (3.5-5.0) g/dL 09/07/23 09/07/23 Range/Units 21:10 21:42 WBC (4.0-10.5) x10^3/uL RBC (4.1-5.6) x10^6/uL Hgb (12.5-18.0) g/dL Hct (42-50) % MCV (78-100) fL MCH (26-32) pg MCHC (32-36) g/dL RDW (11.5-14.0) % Plt Count (150-450) x10^3/uL MPV (7.5-11.0) fL Gran % (36.0-66.0) % Immature Gran % (Auto) (0.00-0.4) % Nucleat RBC Rel Count (0.00-0.1) % Eos # (Auto) (0-0.5) x10^3/uL Immature Gran # (Auto) (0.00-0.03) x10^3u/L Absolute Lymphs (auto) (1.0-4.6) x10^3/uL Absolute Monos (auto) (0.0-1.3) x10^3/uL Absolute Nucleated RBC (0.00-0.01) x10^3u/L Lymphocytes % (24.0-44.0) % Monocytes % (0.0-12.0) % Eosinophils % (0.00-5.0) % Basophils % (0.0-0.4) % Absolute Granulocytes (1.4-6.9) x10^3/uL Basophils # (0-0.4) x10^3/uL Sodium (137-145) mmol/L Potassium (3.5-5.1) mmol/L Chloride (98-107) mmol/L Carbon Dioxide (22-30) mmol/L Anion Gap (5-15) MEQ/L BUN (9-20) mg/dL Creatinine (0.66-1.25) mg/dL Estimated GFR ML/MIN Glucose (74-106) mg/dL POC Glucometer 155 H (74 to 106) mg/dL Calcium (8.4-10.2) mg/dL Total Bilirubin (0.2-1.3) mg/dL AST (17-59) U/L ALT (0-50) U/L Alkaline Phosphatase (38-126) U/L Troponin I < 0.012 (0.000-0.034) ng/mL Serum Total Protein (6.3-8.2) g/dL Albumin (3.5-5.0) g/dL - Radiology Impressions Radiology Exams & Impressions: Radiology Procedures Category Date Time Status CHEST 1 VIEW (PORTABLE) Stat Exams 09/07/23 16:53 Taken Assessment/Plan (1) Alkalosis, metabolic Current Visit: Yes Status: Acute Assessment & Plan: Likely a secondary response to a primary respiratory acidosis but may also be volume contraction from diuretics 1. Hold diuretics 2. Check ABG Code(s): E87.3 - ALKALOSIS (2) Acute and chronic respiratory failure ([id number]) Current Visit: No Status: Acute Qualifiers: Respiratory failure complication: hypoxia Qualified Code(s): J96.21 - Acute and chronic respiratory failure with hypoxia Assessment & Plan: Likely from COPD exacerbation but need to rule out viral etiologies versus PE 1. Admit to observation status 2. Steroids/duonebs 3. Defer antibiotics given afebrile and normal WBC 4. Check d-dimer 5. Check for COVID/influenza 6. Supplemental oxygen Code(s): J96.20 - ACUTE AND CHR RESP FAILURE, UNSP W HYPOXIA OR HYPERCAPNIA (3) CHF (congestive heart failure) Current Visit: No Status: Acute Qualifiers: Heart failure type: systolic Heart failure chronicity: chronic Qualified Code(s): I50.22 - Chronic systolic (congestive) heart failure Assessment & Plan: Clinically euvolemic, no evidence of CHF on CXR 1. Hold diuretics 2. Limit salt 3. Monitor on telemetry Code(s): I50.9 - HEART FAILURE, UNSPECIFIED (4) DM II (diabetes mellitus, type II), controlled Current Visit: No Status: Acute Qualifiers: Diabetes mellitus prison insulin use: with buttermaker use Assessment & Plan: Under control but suspect it will increase from Solumedrol 1. FSBS qAC/HS 2. Continue Metformin 3. Insulin sliding scale Code(s): E11.9 - TYPE 2 DIABETES MELLITUS WITHOUT COMPLICATIONS Telemedicine Encounter - Telemedicine Encounter Telemedicine Encounter: The entirety of this encounter was performed via Telemedicine"
[2023-09-07] MEDS ORDERED: Docusate Sodium 100 MG PO PRN (22:06)
[2023-09-07] MEDS ORDERED: HUMULIN R SQ PRN (22:06)
[2023-09-07 22:40] LABS: A-aADO2 378; ABG HEMOGLOBIN 11.7; ABG POTASSIUM 4.9 (3.5-5.1); ARTERIAL BLD GAS O2 SATURATION 94.3 % (95-100); ARTERIAL BLOOD GAS BASE EXCESS 11.5 (-2.0-2.0); ARTERIAL BLOOD GAS FIO2 75 %; ARTERIAL BLOOD GAS PO2 72 mmHg (75-100); ARTERIAL BLOOD GAS pH 7.37 (7.35-7.45); CARBOXYHEMOGLOBIN 0.7 % THgb (0.0-6.9); HGB O2 SAT 92.9 g/dF (94-100); Methhemoglobin 0.8 % (1.4-1.5); paO2 pAO1 0.16
[2023-09-07 22:42] LABS: ARTERIAL BLOOD GAS PCO2 68 mmHg (35-45)
[2023-09-07 22:43] LABS: ABG SITE LEFT RADIAL; ALLEN TEST OK? Yes; HCO3- 39.3 (22-28)
[2023-09-08] MEDS: NEURONTIN PO ONE (00:38)
[2023-09-08] MEDS: TYLENOL 325 MG PO PRN (00:39)
[2023-09-08] MEDS: DUONEB 0.5-3 MG/3 ml Neb IH SCH (01:13)
[2023-09-08 01:58] LABS: Hematocrit 37.8 % (42-50); Hemoglobin 11.4 g/dL (12.5-18.0); Mean Cell Volume 101.3 fL (78-100); Mean Corpuscular Hemoglobin 30.6 pg (26-32); Mean Corpuscular Hgb Concent. 30.2 g/dL (32-36); Mean Platelet Volume 11.1 fL (7.5-11.0); Platelet Count 229 x10^3/uL (150-450); Red Blood Count 3.73 x10^6/uL (4.1-5.6); Red Cell Distribution Width 15.3 % (11.5-14.0); White Blood Count 3.4 x10^3/uL (4.0-10.5)
[2023-09-08 02:20] LABS: ALBUMIN 4.2 g/dL (3.5-5.0); BILIRUBIN,TOTAL 0.5 mg/dL (0.2-1.3); Calcium 9.4 mg/dL (8.4-10.2); Creatinine 1 0.73 mg/dL (0.66-1.25); EST GLOMERULAR FILTRATION RATE 93.1 ML/MIN; Potassium 4.7 mmol/L (3.5-5.1); Total Protein 7.4 g/dL (6.3-8.2)
[2023-09-08 02:36] LABS: INFLUENZA A NEGATIVE (NEGATIVE); INFLUENZA B NEGATIVE (NEGATIVE); RESPIRATORY SYNCTIAL VIRUS NEGATIVE (NEGATIVE); SARS-CoV-2 Xpert Express NEGATIVE (NEGATIVE)
[2023-09-08] MEDS: Spiriva 18 Mcg/Cap Inhaler IH SCH (06:48)
[2023-09-08] MEDS: Advair Hfa 115/21 Common canister IH SCH (06:49)
[2023-09-08] MEDS ORDERED: solu-MEDROL ONE (06:51)
[2023-09-08] MEDS ORDERED: Sterile H2O 10 ml IJ ONE (06:51)
[2023-09-08] MEDS: solu-MEDROL 40 MG, Sterile H2O 10 ml 1 ML IV SCH (06:57)
--- NOTE | 2023-09-08 08:49 | XRAY ---
Indication: Short of breath. Comparison: June 24, 2023 Portable chest grossly unchanged again demonstrating bibasilar infiltrates/atelectasis/effusions again left greater than right. Heart not enlarged. No new cardiopulmonary abnormalities.
[2023-09-08] MEDS: Glucophage 850 MG PO SCH (08:55)
[2023-09-08] MEDS: Glucotrol 5 MG PO SCH (08:55)
--- NOTE | 2023-09-08 09:21 | XRAY ---
Indication: Elevated d-dimer. Multiple contiguous images obtained through the chest using 80 cc Isovue 370 contrast and PE protocol. Comparison: None Good opacification of the pulmonary arteries to include the lobar and segmental branches. No pulmonary embolus. Heart is not enlarged. Aorta minimally arteriosclerotic without aneurysm/dissection. No pathologic mediastinal/hilar lymphadenopathy. Lungs demonstrate near-complete consolidating left lower lobe airspace disease with small effusion. Lesser infiltrate/atelectasis posterior right lower lobe. Small left upper lobe calcified granuloma. Bony thorax intact with osteopenia, mild degenerative changes throughout spine, minimal dextroscoliosis, and old posterior left 5-7 rib fractures. Limited upper abdomen demonstrates mild scattered colonic fecal debris. Impression: 1. Negative pulmonary embolus. 2. Consolidating left lower lobe airspace disease with small effusion. Rule out aspiration pneumonia. Minimal right lower lobe infiltrate/atelectasis. 3. Chronic findings including arteriosclerotic disease, chronic bony findings, and old granulomatous disease.
[2023-09-08 09:30] LABS: PROCALCITONIN 0.097 ng/mL (0.030-0.080)
[2023-09-08] MEDS: CLARITIN 10 MG PO SCH (10:16)
[2023-09-08] MEDS: Protonix 40MG Tablet PO SCH (10:17)
[2023-09-08] MEDS: ENOXAPARIN SODIUM SQ SCH (10:18)
[2023-09-08] MEDS: Lasix 40 MG/4 ML IV SCH (12:36)
[2023-09-08] MEDS: LEVOFLOXACIN 750MG/150ML D5W 750 MG/150 ML BAG IV SCH (12:36)
--- NOTE | 2023-09-08 15:14 | PCM.NOTE ---
Date and Time: 09/08/23 1508 Subjective Assessment: 09/08/23 Mr. VALADEZ is a 78 year old male with a past medical history significant for hypertension, diabetes, CHF and COPD with recent hospitalization for hypoxia. He presented to the hospital on 09/07/23 with a one day history of increasing shortness of breath. He tried his inhalers without success so he came to the ER. He was found to be hypoxic and has been recommended for admission. This morning he was on 15L oxymyzier with O2 at 98%. He was then turned down to 10L oxymizer with O2 at 94%. Will start pt on antibiotics for COPD exacerbation. He has decreased lung sounds throughout. CXR shows atelatasis, procal and BNP elevated. Continue steriods and duonebs and start lasix. He started having diarrhea this afternoon. Probiotics started. Stool specimen sent for c-diff and culture. He explains he is breathing better today. He denies CP, abd. pain, N/V. - Review of Systems Constitutional: No Fever, No Chills Eyes: No Symptoms Ears, Nose, & Throat: No Symptoms Respiratory: Short Of Breath, No Cough Cardiac: No Chest Pain, No Edema, No Syncope Abdominal/Gastrointestinal: Diarrhea, No Abdominal Pain, No Nausea, No Vomiting Genitourinary Symptoms: No Dysuria Musculoskeletal: No Back Pain, No Neck Pain Skin: No Rash Neurological: No Dizziness, No Focal Weakness, No Sensory Changes Psychological: No Symptoms Endocrine: No Symptoms Hematologic/Lymphatic: No Symptoms Immunological/Allergic: No Symptoms Objective Exam General Appearance: no apparent distress, alert Neurologic Exam: alert, oriented x 3, cooperative, normal mood/affect, nml cerebellar function, sensation nml, No motor deficits Skin Exam: normal color, warm, dry Eye Exam: PERRL, EOMI, eyes nml inspection Ears, Nose, Throat Exam: normal ENT inspection, pharynx normal, moist mucous membranes Neck Exam: normal inspection, non-tender, supple, full range of motion Respiratory Exam: diminished breath sounds, No respiratory distress Cardiovascular Exam: regular rate/rhythm, normal heart sounds Gastrointestinal/Abdomen Exam: soft, No tenderness, No mass Extremity Exam: normal inspection, normal range of motion Back Exam: normal inspection, normal range of motion, No CVA tenderness, No vertebral tenderness Male Genitalia Exam: deferred Rectal Exam: deferred OBJECTIVE DATA Vital Signs: Vital Signs - 24 hr Temp Pulse Resp BP BP Pulse Ox 09/08/23 12:36 106 H 24 94 L 09/08/23 12:00 97.8 F 102 H 19 134/65 99 09/08/23 08:00 97.5 F 104 H 19 107/55 100 09/08/23 06:50 101 H 24 98 09/08/23 04:00 97.1 F 100 H 22 117/56 99 09/08/23 01:15 109 H 24 91 L 09/07/23 23:51 97.8 F 112 H 24 115/56 92 L 09/07/23 22:50 109 H 24 93 L 09/07/23 21:59 97.5 F 110 H 22 120/57 90 L 09/07/23 21:29 108 H 90 L 09/07/23 20:01 108 H 24 106/50 96 09/07/23 19:48 108 H 28 H 109/56 95 09/07/23 19:32 111 H 25 H 94/48 94 L 09/07/23 19:30 109 H 28 H 81/52 92 L 09/07/23 19:20 90 L 09/07/23 19:00 112 H 27 H 92/60 92 L 09/07/23 18:30 115 H 27 H 100/49 92 L 09/07/23 18:04 90 L 09/07/23 18:00 115 H 25 H 105/58 90 L 09/07/23 17:56 116 H 26 H 89 L 09/07/23 16:36 97.3 F 115 H 26 H 108/48 90 L Oxygen-Last 24 hours Oxygen Flowrate (L/min)-RT 15 Pain Assessment - Last Documented Pain Intensity 0 Intake and Output: Intake & Output 09/06/23 09/07/23 09/08/23 09/09/23 11:59 11:59 11:59 11:59 Intake Total 720 120 Balance 720 120 Weight 76.6 kg Lab Results: Lab Results-Last 24 Hours 09/07/23 09/07/23 09/07/23 Range/Units 01:56 01:56 17:10 WBC 8.2 (4.0-10.5) x10^3/uL RBC 3.65 L (4.1-5.6) x10^6/uL Hgb 11.2 L (12.5-18.0) g/dL Hct 37.5 L (42-50) % MCV 102.7 H (78-100) fL MCH 30.7 (26-32) pg MCHC 29.9 L (32-36) g/dL RDW 15.1 H (11.5-14.0) % Plt Count 235 (150-450) x10^3/uL MPV 10.7 (7.5-11.0) fL Gran % 83.7 H (36.0-66.0) % Immature Gran % (Auto) 0.4 (0.00-0.4) % Nucleat RBC Rel Count 0.0 (0.00-0.1) % Eos # (Auto) 0.04 (0-0.5) x10^3/uL Immature Gran # (Auto) 0.03 (0.00-0.03) x10^3u/L Absolute Lymphs (auto) 0.80 L (1.0-4.6) x10^3/uL Absolute Monos (auto) 0.44 (0.0-1.3) x10^3/uL Absolute Nucleated RBC 0.00 (0.00-0.01) x10^3u/L Lymphocytes % 9.8 L (24.0-44.0) % Monocytes % 5.4 (0.0-12.0) % Eosinophils % 0.5 (0.00-5.0) % Basophils % 0.2 (0.0-0.4) % Absolute Granulocytes 6.84 (1.4-6.9) x10^3/uL Basophils # 0.02 (0-0.4) x10^3/uL D-Dimer 0.77 H* (0.0-0.50) mg/L Puncture Site pCO2 (35-45) mmHg pO2 (75-100) mmHg Base Excess (-2.0-2.0) O2 Saturation (94-100) g/dF ABG pH (7.35-7.45) ABG HCO3 (22-28) ABG O2 Sat (Measured) (95-100) % Dmitriy Test A-a Gradient a/A Ratio Hemoglobin Carboxyhemoglobin (0.0-6.9) % THgb Methemoglobin (1.4-1.5) % Temperature C POC O2 Flow Rate % Sodium (137-145) mmol/L Potassium (3.5-5.1) mmol/L Chloride (98-107) mmol/L Carbon Dioxide (22-30) mmol/L Anion Gap (5-15) MEQ/L BUN (9-20) mg/dL Creatinine (0.66-1.25) mg/dL Estimated GFR ML/MIN Glucose (74-106) mg/dL POC Glucometer (74 to 106) mg/dL Calcium (8.4-10.2) mg/dL Total Bilirubin (0.2-1.3) mg/dL AST (17-59) U/L ALT (0-50) U/L Alkaline Phosphatase (38-126) U/L Troponin I (0.000-0.034) ng/mL NT-Pro-B Natriuret Pep (<300) pg/mL Serum Total Protein (6.3-8.2) g/dL Albumin (3.5-5.0) g/dL Procalcitonin (0.030-0.080) ng/mL Influenza Type A Ag NEGATIVE (NEGATIVE) Influenza Type B Ag NEGATIVE (NEGATIVE) RSV (PCR) NEGATIVE (NEGATIVE) SARS-CoV-2 (PCR) NEGATIVE (NEGATIVE) 09/07/23 09/07/23 09/07/23 Range/Units 17:10 17:10 21:10 WBC (4.0-10.5) x10^3/uL RBC (4.1-5.6) x10^6/uL Hgb (12.5-18.0) g/dL Hct (42-50) % MCV (78-100) fL MCH (26-32) pg MCHC (32-36) g/dL RDW (11.5-14.0) % Plt Count (150-450) x10^3/uL MPV (7.5-11.0) fL Gran % (36.0-66.0) % Immature Gran % (Auto) (0.00-0.4) % Nucleat RBC Rel Count (0.00-0.1) % Eos # (Auto) (0-0.5) x10^3/uL Immature Gran # (Auto) (0.00-0.03) x10^3u/L Absolute Lymphs (auto) (1.0-4.6) x10^3/uL Absolute Monos (auto) (0.0-1.3) x10^3/uL Absolute Nucleated RBC (0.00-0.01) x10^3u/L Lymphocytes % (24.0-44.0) % Monocytes % (0.0-12.0) % Eosinophils % (0.00-5.0) % Basophils % (0.0-0.4) % Absolute Granulocytes (1.4-6.9) x10^3/uL Basophils # (0-0.4) x10^3/uL D-Dimer (0.0-0.50) mg/L Puncture Site pCO2 (35-45) mmHg pO2 (75-100) mmHg Base Excess (-2.0-2.0) O2 Saturation (94-100) g/dF ABG pH (7.35-7.45) ABG HCO3 (22-28) ABG O2 Sat (Measured) (95-100) % Dmitriy Test A-a Gradient a/A Ratio Hemoglobin Carboxyhemoglobin (0.0-6.9) % THgb Methemoglobin (1.4-1.5) % Temperature C POC O2 Flow Rate % Sodium 137 (137-145) mmol/L Potassium 4.4 (3.5-5.1) mmol/L Chloride 90 L (98-107) mmol/L Carbon Dioxide 39 H (22-30) mmol/L Anion Gap 12.4 (5-15) MEQ/L BUN 17 (9-20) mg/dL Creatinine 0.80 (0.66-1.25) mg/dL Estimated GFR 90.6 ML/MIN Glucose 149 H (74-106) mg/dL POC Glucometer (74 to 106) mg/dL Calcium 9.3 (8.4-10.2) mg/dL Total Bilirubin 0.50 (0.2-1.3) mg/dL AST 25 (17-59) U/L ALT 13 (0-50) U/L Alkaline Phosphatase 77 (38-126) U/L Troponin I 0.014 < 0.012 (0.000-0.034) ng/mL NT-Pro-B Natriuret Pep (<300) pg/mL Serum Total Protein 7.5 (6.3-8.2) g/dL Albumin 4.4 (3.5-5.0) g/dL Procalcitonin (0.030-0.080) ng/mL Influenza Type A Ag (NEGATIVE) Influenza Type B Ag (NEGATIVE) RSV (PCR) (NEGATIVE) SARS-CoV-2 (PCR) (NEGATIVE) 09/07/23 09/07/23 09/08/23 Range/Units 21:42 22:30 01:56 WBC (4.0-10.5) x10^3/uL RBC (4.1-5.6) x10^6/uL Hgb (12.5-18.0) g/dL Hct (42-50) % MCV (78-100) fL MCH (26-32) pg MCHC (32-36) g/dL RDW (11.5-14.0) % Plt Count (150-450) x10^3/uL MPV (7.5-11.0) fL Gran % (36.0-66.0) % Immature Gran % (Auto) (0.00-0.4) % Nucleat RBC Rel Count (0.00-0.1) % Eos # (Auto) (0-0.5) x10^3/uL Immature Gran # (Auto) (0.00-0.03) x10^3u/L Absolute Lymphs (auto) (1.0-4.6) x10^3/uL Absolute Monos (auto) (0.0-1.3) x10^3/uL Absolute Nucleated RBC (0.00-0.01) x10^3u/L Lymphocytes % (24.0-44.0) % Monocytes % (0.0-12.0) % Eosinophils % (0.00-5.0) % Basophils % (0.0-0.4) % Absolute Granulocytes (1.4-6.9) x10^3/uL Basophils # (0-0.4) x10^3/uL D-Dimer (0.0-0.50) mg/L Puncture Site LEFT RADIAL pCO2 68 H* (35-45) mmHg pO2 72 L (75-100) mmHg Base Excess 11.5 H (-2.0-2.0) O2 Saturation 92.9 L (94-100) g/dF ABG pH 7.37 (7.35-7.45) ABG HCO3 39.3 H* (22-28) ABG O2 Sat (Measured) 94.3 L (95-100) % Dmitriy Test Yes A-a Gradient 378 a/A Ratio 0.16 Hemoglobin 11.7 Carboxyhemoglobin 0.7 (0.0-6.9) % THgb Methemoglobin 0.8 L (1.4-1.5) % Temperature 37.0 C POC O2 Flow Rate 75 % Sodium (137-145) mmol/L Potassium 4.9 (3.5-5.1) mmol/L Chloride (98-107) mmol/L Carbon Dioxide (22-30) mmol/L Anion Gap (5-15) MEQ/L BUN (9-20) mg/dL Creatinine (0.66-1.25) mg/dL Estimated GFR ML/MIN Glucose (74-106) mg/dL POC Glucometer 155 H (74 to 106) mg/dL Calcium (8.4-10.2) mg/dL Total Bilirubin (0.2-1.3) mg/dL AST (17-59) U/L ALT (0-50) U/L Alkaline Phosphatase (38-126) U/L Troponin I 0.013 (0.000-0.034) ng/mL NT-Pro-B Natriuret Pep (<300) pg/mL Serum Total Protein (6.3-8.2) g/dL Albumin (3.5-5.0) g/dL Procalcitonin (0.030-0.080) ng/mL Influenza Type A Ag (NEGATIVE) Influenza Type B Ag (NEGATIVE) RSV (PCR) (NEGATIVE) SARS-CoV-2 (PCR) (NEGATIVE) 09/08/23 09/08/23 09/08/23 Range/Units 01:56 01:56 04:30 WBC 3.4 L (4.0-10.5) x10^3/uL RBC 3.73 L (4.1-5.6) x10^6/uL Hgb 11.4 L (12.5-18.0) g/dL Hct 37.8 L (42-50) % MCV 101.3 H (78-100) fL MCH 30.6 (26-32) pg MCHC 30.2 L (32-36) g/dL RDW 15.3 H (11.5-14.0) % Plt Count 229 (150-450) x10^3/uL MPV 11.1 H (7.5-11.0) fL Gran % (36.0-66.0) % Immature Gran % (Auto) (0.00-0.4) % Nucleat RBC Rel Count (0.00-0.1) % Eos # (Auto) (0-0.5) x10^3/uL Immature Gran # (Auto) (0.00-0.03) x10^3u/L Absolute Lymphs (auto) (1.0-4.6) x10^3/uL Absolute Monos (auto) (0.0-1.3) x10^3/uL Absolute Nucleated RBC (0.00-0.01) x10^3u/L Lymphocytes % (24.0-44.0) % Monocytes % (0.0-12.0) % Eosinophils % (0.00-5.0) % Basophils % (0.0-0.4) % Absolute Granulocytes (1.4-6.9) x10^3/uL Basophils # (0-0.4) x10^3/uL D-Dimer (0.0-0.50) mg/L Puncture Site pCO2 (35-45) mmHg pO2 (75-100) mmHg Base Excess (-2.0-2.0) O2 Saturation (94-100) g/dF ABG pH (7.35-7.45) ABG HCO3 (22-28) ABG O2 Sat (Measured) (95-100) % Dmitriy Test A-a Gradient a/A Ratio Hemoglobin Carboxyhemoglobin (0.0-6.9) % THgb Methemoglobin (1.4-1.5) % Temperature C POC O2 Flow Rate % Sodium 136 L (137-145) mmol/L Potassium 4.7 (3.5-5.1) mmol/L Chloride 92 L (98-107) mmol/L Carbon Dioxide 38 H (22-30) mmol/L Anion Gap 11.0 (5-15) MEQ/L BUN 20 (9-20) mg/dL Creatinine 0.73 (0.66-1.25) mg/dL Estimated GFR 93.1 ML/MIN Glucose 220 H (74-106) mg/dL POC Glucometer (74 to 106) mg/dL Calcium 9.4 (8.4-10.2) mg/dL Total Bilirubin 0.50 (0.2-1.3) mg/dL AST 24 (17-59) U/L ALT 15 (0-50) U/L Alkaline Phosphatase 78 (38-126) U/L Troponin I (0.000-0.034) ng/mL NT-Pro-B Natriuret Pep 2450 (<300) pg/mL Serum Total Protein 7.4 (6.3-8.2) g/dL Albumin 4.2 (3.5-5.0) g/dL Procalcitonin 0.097 H (0.030-0.080) ng/mL Influenza Type A Ag (NEGATIVE) Influenza Type B Ag (NEGATIVE) RSV (PCR) (NEGATIVE) SARS-CoV-2 (PCR) (NEGATIVE) 09/08/23 09/08/23 Range/Units 07:32 11:50 WBC (4.0-10.5) x10^3/uL RBC (4.1-5.6) x10^6/uL Hgb (12.5-18.0) g/dL Hct (42-50) % MCV (78-100) fL MCH (26-32) pg MCHC (32-36) g/dL RDW (11.5-14.0) % Plt Count (150-450) x10^3/uL MPV (7.5-11.0) fL Gran % (36.0-66.0) % Immature Gran % (Auto) (0.00-0.4) % Nucleat RBC Rel Count (0.00-0.1) % Eos # (Auto) (0-0.5) x10^3/uL Immature Gran # (Auto) (0.00-0.03) x10^3u/L Absolute Lymphs (auto) (1.0-4.6) x10^3/uL Absolute Monos (auto) (0.0-1.3) x10^3/uL Absolute Nucleated RBC (0.00-0.01) x10^3u/L Lymphocytes % (24.0-44.0) % Monocytes % (0.0-12.0) % Eosinophils % (0.00-5.0) % Basophils % (0.0-0.4) % Absolute Granulocytes (1.4-6.9) x10^3/uL Basophils # (0-0.4) x10^3/uL D-Dimer (0.0-0.50) mg/L Puncture Site pCO2 (35-45) mmHg pO2 (75-100) mmHg Base Excess (-2.0-2.0) O2 Saturation (94-100) g/dF ABG pH (7.35-7.45) ABG HCO3 (22-28) ABG O2 Sat (Measured) (95-100) % Dmitriy Test A-a Gradient a/A Ratio Hemoglobin Carboxyhemoglobin (0.0-6.9) % THgb Methemoglobin (1.4-1.5) % Temperature C POC O2 Flow Rate % Sodium (137-145) mmol/L Potassium (3.5-5.1) mmol/L Chloride (98-107) mmol/L Carbon Dioxide (22-30) mmol/L Anion Gap (5-15) MEQ/L BUN (9-20) mg/dL Creatinine (0.66-1.25) mg/dL Estimated GFR ML/MIN Glucose (74-106) mg/dL POC Glucometer 149 H 200 H (74 to 106) mg/dL Calcium (8.4-10.2) mg/dL Total Bilirubin (0.2-1.3) mg/dL AST (17-59) U/L ALT (0-50) U/L Alkaline Phosphatase (38-126) U/L Troponin I (0.000-0.034) ng/mL NT-Pro-B Natriuret Pep (<300) pg/mL Serum Total Protein (6.3-8.2) g/dL Albumin (3.5-5.0) g/dL Procalcitonin (0.030-0.080) ng/mL Influenza Type A Ag (NEGATIVE) Influenza Type B Ag (NEGATIVE) RSV (PCR) (NEGATIVE) SARS-CoV-2 (PCR) (NEGATIVE) Radiology Exams: Radiology Procedures Category Date Time Status CHEST 1 VIEW (PORTABLE) Stat Exams 09/07/23 16:53 Completed CHEST WITH CONTRAST [CT] Stat Exams 09/08/23 08:56 Completed Multi-Disciplinary Progress Notes: Multi-Disciplinary Progress Notes 09/08/23 12:04 Case Management Note by Elizabeth Barnard REFERRAL FAXED TO [facility]. THEY WILL NEED NOTIFIED AT TIME OF DC AT [phone]. THEY WILL NEED FAXED DC INSTRUCTIONS, DC MED LIST, AND DC SUMMARY IF AVAILABLE TO [phone] Initialized on 09/08/23 12:04 - END OF NOTE Assessment/Plan (1) Alkalosis, metabolic Current Visit: Yes Status: Acute Assessment & Plan: -2:2 chronic diarrhea - Stool sample sent - pt eating and drinking well - probiotics - Hold lasix - gentle IVF Code(s): E87.3 - ALKALOSIS (2) COPD exacerbation Current Visit: Yes Status: Acute Assessment & Plan: - Oxymizer 15L- then turned down to 10L @ 94% - Baseline oxygen 3lNC - Antibiotics, steroids, duonebs Code(s): J44.1 - CHRONIC OBSTRUCTIVE PULMONARY DISEASE W (ACUTE) EXACERBATION (3) Acute and chronic respiratory failure ([id number]) Current Visit: No Status: Acute Qualifiers: Respiratory failure complication: hypoxia Qualified Code(s): J96.21 - Acute and chronic respiratory failure with hypoxia Assessment & Plan: - 2:2 COPD exacerbation - Oxymyzier 15L- then turned down to 10L @ 94% - Baseline oxygen 3lNC - Antibiotocs, steriods, duonebs - Procal 0.097 - D-dimer 0.77 - CXR 09/07 Portable chest grossly unchanged again demonstrating bibasilar infiltrates/atelectasis/effusions again left greater than right. Heart not enlarged. No new cardiopulmonary abnormalities - CTA 09/08 Impression: 1. Negative pulmonary embolus. 2. Consolidating left lower lobe airspace disease with small effusion. Rule out aspiration pneumonia. Minimal right lower lobe infiltrate/atelectasis. 3. Chronic findings including arteriosclerotic disease, chronic bony findings, and old granulomatous disease. Code(s): J96.20 - ACUTE AND CHR RESP FAILURE, UNSP W HYPOXIA OR HYPERCAPNIA (4) CHF (congestive heart failure) Current Visit: No Status: Acute Qualifiers: Heart failure type: systolic Heart failure chronicity: chronic Qualified Code(s): I50.22 - Chronic systolic (congestive) heart failure Assessment & Plan: - Hold diuretics for now - limit salt - tele - Echo 05/31/23 The M-mode 2D, and Doppler echocardiogram including color flow Doppler shows the left ventricle is normal in size. The wall thickness is normal. There is accentuated contractility of the left ventricle. The ejection fraction is estimated to be 60 and 65%. The right ventricle is not well visualized. The left atrium is mildly dilated. The interatrial septum is intact. The right atrium is normal. The aortic valve opens well. It is trileaflet. The mitral valve is normal. There is mild tricuspid regurgitation. The right ventricular systolic pressure is calculated to be 24 mm of Mercury. The pulmonic valve is not well visualized. The aortic root is normal. There is no pericardial effusion present. IMPRESSION: 1) NO PERICARDIAL EFFUSION IS NOTED. 2) ACCENTUATED CONTRACTILITY OF THE LEFT VENTRICLE. THE HEART RATE RANGES FROM 95 TO142 BEATS/MINUTE. 3) MILD LEFT ATRIAL DILATATION. 4) MILD TRICUSPID REGURGITATION. 5) NORMAL RIGHT VENTRICULAR SYSTOLIC PRESSURE. Code(s): I50.9 - HEART FAILURE, UNSPECIFIED (5) DM II (diabetes mellitus, type II), controlled Current Visit: No Status: Acute Qualifiers: Diabetes mellitus supervisor intermediates insulin use: with mcc use Assessment & Plan: - FSBS qAC/HS - Metformin stopped for 48 hours d/t CTA - Insulin humalog sliding scale Code(s): E11.9 - TYPE 2 DIABETES MELLITUS WITHOUT COMPLICATIONS (6) Chronic diarrhea Current Visit: Yes Status: Chronic Assessment & Plan: - stool for c-diff and culture - gentle IVF - probiotics VTE: Lovenox PPI: protonix Next of kin: Nilam Busch [phone]- child Code status: Full D/c plan: 2-3 days Code(s): K52.9 - NONINFECTIVE GASTROENTERITIS AND COLITIS, UNSPECIFIED
[2023-09-08 15:47] LABS: ALBUMIN 4.2 g/dL (3.5-5.0); BILIRUBIN,TOTAL 0.4 mg/dL (0.2-1.3); Calcium 9.4 mg/dL (8.4-10.2); Creatinine 1 0.92 mg/dL (0.66-1.25); EST GLOMERULAR FILTRATION RATE 85.1 ML/MIN; Potassium 4.3 mmol/L (3.5-5.1); Total Protein 7.1 g/dL (6.3-8.2)
[2023-09-08] MEDS: Acidophilus TABLET PO SCH (16:17)
[2023-09-08 16:35] LABS: ANION GAP 12.3 MEQ/L (5-15)
[2023-09-08] MEDS: Sodium Chloride 0.9% 1000 ML 1,000 ML IV SCH (18:51)
[2023-09-08] MEDS: HUMALOG SQ PRN (21:38)
[2023-09-09 05:06] LABS: Hematocrit 36.5 % (42-50); Mean Corpuscular Hemoglobin 30.7 pg (26-32); Mean Corpuscular Hgb Concent. 30.1 g/dL (32-36); Mean Platelet Volume 10.8 fL (7.5-11.0); Platelet Count 254 x10^3/uL (150-450); Red Blood Count 3.58 x10^6/uL (4.1-5.6); Red Cell Distribution Width 15.4 % (11.5-14.0); White Blood Count 5.9 x10^3/uL (4.0-10.5)
[2023-09-09 05:44] LABS: ALBUMIN 4.2 g/dL (3.5-5.0); BILIRUBIN,TOTAL 0.5 mg/dL (0.2-1.3); Calcium 9.8 mg/dL (8.4-10.2); Creatinine 1 0.66 mg/dL (0.66-1.25); Potassium 4.3 mmol/L (3.5-5.1)
[2023-09-09 05:56] LABS: ANION GAP 13.3 MEQ/L (5-15)
--- NOTE | 2023-09-09 09:13 | PCM.NOTE ---
Date and Time: 09/09/2307 Subjective Assessment: 09/08/23 Mr. VALADEZ is a 78 year old male with a past medical history significant for hypertension, diabetes, CHF and COPD with recent hospitalization for hypoxia. He presented to the hospital on 09/07/23 with a one day history of increasing shortness of breath. He tried his inhalers without success so he came to the ER. He was found to be hypoxic and has been recommended for admission. This morning he was on 15L oxymyzier with O2 at 98%. He was then turned down to 10L oxymizer with O2 at 94%. Will start pt on antibiotics for COPD exacerbation. He has decreased lung sounds throughout. CXR shows atelatasis, procal and BNP elevated. Continue steriods and duonebs. Lasix held d/t elevated Co2. He started having diarrhea this afternoon. Probiotics started. Stool specimen sent for c-diff and culture. He explains he is breathing better today. He denies CP, abd. pain, N/V. 09/09/23 Pt sitting up in chair. He is feeling much better. He is on 3lNC @ 99% today. Loose stools have improved. Abd/ CT pelvis pending CT was negative for PE. Continue to hold lasix. Co2 improving. Continue antibiotics for COPD exacerbation. He continues to have decreased lung sounds throughout. He denies CP, N/V. - Review of Systems Constitutional: Fatigue, No Fever, No Chills Eyes: No Symptoms Ears, Nose, & Throat: No Symptoms Respiratory: Short Of Breath, No Cough Cardiac: No Chest Pain, No Edema, No Syncope Abdominal/Gastrointestinal: Abdominal Pain, Diarrhea, No Nausea, No Vomiting Genitourinary Symptoms: No Dysuria Musculoskeletal: No Back Pain, No Neck Pain Skin: No Rash Neurological: No Dizziness, No Focal Weakness, No Sensory Changes Psychological: No Symptoms Endocrine: No Symptoms Hematologic/Lymphatic: No Symptoms Immunological/Allergic: No Symptoms Objective Exam General Appearance: no apparent distress, alert Neurologic Exam: alert, oriented x 3, cooperative, normal mood/affect, nml cerebellar function, sensation nml, No motor deficits Skin Exam: normal color, warm, dry Eye Exam: PERRL, EOMI, eyes nml inspection Ears, Nose, Throat Exam: normal ENT inspection, pharynx normal, moist mucous membranes Neck Exam: normal inspection, non-tender, supple, full range of motion Respiratory Exam: diminished breath sounds, No respiratory distress Cardiovascular Exam: regular rate/rhythm, normal heart sounds, tachycardia Gastrointestinal/Abdomen Exam: soft, No tenderness, No mass Extremity Exam: normal inspection, normal range of motion Back Exam: normal inspection, normal range of motion, No CVA tenderness, No vertebral tenderness Male Genitalia Exam: deferred Rectal Exam: deferred OBJECTIVE DATA Vital Signs: Vital Signs - 24 hr Temp Pulse Resp BP Pulse Ox 09/09/23 07:33 97.1 F 109 H 20 142/72 99 09/09/23 07:25 110 H 18 99 09/09/23 04:00 97.6 F 102 H 22 127/79 97 09/09/23 01:23 108 H 24 97 09/08/23 23:27 98.5 F 108 H 23 101/59 97 09/08/23 21:29 109 H 09/08/23 19:19 98 F 107 H 22 100/51 99 09/08/23 19:04 106 H 24 99 09/08/23 16:00 98.6 F 106 H 20 101/50 99 09/08/23 12:36 106 H 24 94 L 09/08/23 12:00 97.8 F 102 H 19 134/65 99 Pain Assessment - Last Documented Pain Intensity 0 Intake and Output: Intake & Output 09/06/23 09/07/23 09/08/23 09/09/23 11:59 11:59 11:59 11:59 Intake Total 720 1140 Balance 720 1140 Weight 76.6 kg Lab Results: Lab Results-Last 24 Hours 09/08/23 09/08/23 09/08/23 Range/Units 04:30 11:50 15:31 WBC (4.0-10.5) x10^3/uL RBC (4.1-5.6) x10^6/uL Hgb (12.5-18.0) g/dL Hct (42-50) % MCV (78-100) fL MCH (26-32) pg MCHC (32-36) g/dL RDW (11.5-14.0) % Plt Count (150-450) x10^3/uL MPV (7.5-11.0) fL Sodium 137 (137-145) mmol/L Potassium 4.3 (3.5-5.1) mmol/L Chloride 90 L (98-107) mmol/L Carbon Dioxide 39 H (22-30) mmol/L Anion Gap 12.3 (5-15) MEQ/L BUN 25 H (9-20) mg/dL Creatinine 0.92 (0.66-1.25) mg/dL Estimated GFR 85.1 ML/MIN Glucose 144 H (74-106) mg/dL POC Glucometer 200 H (74 to 106) mg/dL Calcium 9.4 (8.4-10.2) mg/dL Magnesium 2.0 (1.6-2.3) mg/dL Total Bilirubin 0.40 (0.2-1.3) mg/dL AST 20 (17-59) U/L ALT 14 (0-50) U/L Alkaline Phosphatase 73 (38-126) U/L NT-Pro-B Natriuret Pep 2450 (<300) pg/mL Serum Total Protein 7.1 (6.3-8.2) g/dL Albumin 4.2 (3.5-5.0) g/dL Procalcitonin 0.097 H (0.030-0.080) ng/mL 09/09/23 09/09/23 09/09/23 Range/Units 04:00 04:46 04:46 WBC 5.9 (4.0-10.5) x10^3/uL RBC 3.58 L (4.1-5.6) x10^6/uL Hgb 11.0 L (12.5-18.0) g/dL Hct 36.5 L (42-50) % MCV 102.0 H (78-100) fL MCH 30.7 (26-32) pg MCHC 30.1 L (32-36) g/dL RDW 15.4 H (11.5-14.0) % Plt Count 254 (150-450) x10^3/uL MPV 10.8 (7.5-11.0) fL Sodium 139 (137-145) mmol/L Potassium 4.3 (3.5-5.1) mmol/L Chloride 92 L (98-107) mmol/L Carbon Dioxide 38 H (22-30) mmol/L Anion Gap 13.3 (5-15) MEQ/L BUN 37 H (9-20) mg/dL Creatinine 0.66 (0.66-1.25) mg/dL Estimated GFR 96.0 ML/MIN Glucose 165 H (74-106) mg/dL POC Glucometer (74 to 106) mg/dL Calcium 9.8 (8.4-10.2) mg/dL Magnesium 2.3 (1.6-2.3) mg/dL Total Bilirubin 0.50 (0.2-1.3) mg/dL AST 20 (17-59) U/L ALT 13 (0-50) U/L Alkaline Phosphatase 67 (38-126) U/L NT-Pro-B Natriuret Pep (<300) pg/mL Serum Total Protein 7.0 (6.3-8.2) g/dL Albumin 4.2 (3.5-5.0) g/dL Procalcitonin (0.030-0.080) ng/mL Radiology Exams: Radiology Procedures Category Date Time Status ABDOMEN AND PELVIS W CONTRAST [CT] Urgent Exams 09/09/23 07:45 Ordered CHEST 1 VIEW (PORTABLE) Stat Exams 09/07/23 16:53 Completed CHEST WITH CONTRAST [CT] Stat Exams 09/08/23 08:56 Completed Multi-Disciplinary Progress Notes: Multi-Disciplinary Progress Notes 09/08/23 12:04 Case Management Note by Elizabeth Barnard REFERRAL FAXED TO [facility]. THEY WILL NEED NOTIFIED AT TIME OF DC AT [phone]. THEY WILL NEED FAXED DC INSTRUCTIONS, DC MED LIST, AND DC SUMMARY IF AVAILABLE TO [phone] Initialized on 09/08/23 12:04 - END OF NOTE Assessment/Plan (1) Alkalosis, metabolic Current Visit: Yes Status: Acute Assessment & Plan: -2:2 chronic diarrhea - Stool sample pending - pt eating and drinking well - probiotics - Hold lasix - gentle IVF - Co2 38- slightly improved - Will check CT adb/pelvis for adrenal concern/ chronic diarrhea Code(s): E87.3 - ALKALOSIS (2) COPD exacerbation Current Visit: Yes Status: Acute Assessment & Plan: - Oxymizer 15L- then turned down to 10L @ 94% - Baseline oxygen 3lNC - Antibiotics, steroids, duonebs - On Baseline oxygen 3LNC @ 99% Code(s): J44.1 - CHRONIC OBSTRUCTIVE PULMONARY DISEASE W (ACUTE) EXACERBATION (3) Acute and chronic respiratory failure ([id number]) Current Visit: No Status: Acute Qualifiers: Respiratory failure complication: hypoxia Qualified Code(s): J96.21 - Acute and chronic respiratory failure with hypoxia Assessment & Plan: - 2:2 COPD exacerbation - Oxymyzier 15L- then turned down to 10L @ 94% - Baseline oxygen 3lNC - Antibiotocs, steriods, duonebs - Procal 0.097 - D-dimer 0.77 - CXR 09/07 Portable chest grossly unchanged again demonstrating bibasilar infiltrates/atelectasis/effusions again left greater than right. Heart not enlarged. No new cardiopulmonary abnormalities - CTA 09/08 Impression: 1. Negative pulmonary embolus. 2. Consolidating left lower lobe airspace disease with small effusion. Rule out aspiration pneumonia. Minimal right lower lobe infiltrate/atelectasis. 3. Chronic findings including arteriosclerotic disease, chronic bony findings, and old granulomatous disease. 09/09/23 - On Baseline oxygen 3LNC @ 99% - Sxs improved Code(s): J96.20 - ACUTE AND CHR RESP FAILURE, UNSP W HYPOXIA OR HYPERCAPNIA (4) CHF (congestive heart failure) Current Visit: No Status: Acute Qualifiers: Heart failure type: systolic Heart failure chronicity: chronic Qualified Code(s): I50.22 - Chronic systolic (congestive) heart failure Assessment & Plan: - Hold diuretics for now - limit salt - tele - Echo 05/31/23 The M-mode 2D, and Doppler echocardiogram including color flow Doppler shows the left ventricle is normal in size. The wall thickness is normal. There is accentuated contractility of the left ventricle. The ejection fraction is estimated to be 60 and 65%. The right ventricle is not well visualized. The left atrium is mildly dilated. The interatrial septum is intact. The right atrium is normal. The aortic valve opens well. It is trileaflet. The mitral valve is normal. There is mild tricuspid regurgitation. The right ventricular systolic pressure is calculated to be 24 mm of Mercury. The pulmonic valve is not well visualized. The aortic root is normal. There is no pericardial effusion present. IMPRESSION: 1) NO PERICARDIAL EFFUSION IS NOTED. 2) ACCENTUATED CONTRACTILITY OF THE LEFT VENTRICLE. THE HEART RATE RANGES FROM 95 TO142 BEATS/MINUTE. 3) MILD LEFT ATRIAL DILATATION. 4) MILD TRICUSPID REGURGITATION. 5) NORMAL RIGHT VENTRICULAR SYSTOLIC PRESSURE. Code(s): I50.9 - HEART FAILURE, UNSPECIFIED Code(s): I50.9 - HEART FAILURE, UNSPECIFIED (5) DM II (diabetes mellitus, type II), controlled Current Visit: No Status: Acute Qualifiers: Diabetes mellitus mcfp insulin use: with continuous churn buttermaker use Assessment & Plan: - FSBS qAC/HS - Metformin stopped for 48 hours d/t CTA - Insulin humalog sliding scale Code(s): E11.9 - TYPE 2 DIABETES MELLITUS WITHOUT COMPLICATIONS (6) Elevated d-dimer Current Visit: Yes Status: Acute Assessment & Plan: -D-dimer 0.77 - CTA negative for PE Code(s): R79.89 - OTHER SPECIFIED ABNORMAL FINDINGS OF BLOOD CHEMISTRY (7) Chronic diarrhea Current Visit: Yes Status: Chronic Assessment & Plan: - stool for c-diff and culture- pending - gentle IVF - probiotics - CT abd/ pelvis VTE: Lovenox PPI: protonix Next of kin: Nilam Busch [phone]- child Code status: Full D/c plan: 2-3 days Code(s): K52.9 - NONINFECTIVE GASTROENTERITIS AND COLITIS, UNSPECIFIED
--- NOTE | 2023-09-09 10:24 | XRAY ---
Indication: Diarrhea. Multiple contiguous axial images obtained through the abdomen and pelvis using 70 cc Isovue 370 contrast. Comparison: None Patient's IV tubing ruptured during injection. Therefore arterial phase images not obtained. Only 2 minutes and 7 minute delayed images obtained. CT PE chest reported one day earlier. Noncontrasted stomach and bowel loops appear nonobstructed with normal appendix. No abnormal bowel wall thickening or inflammatory changes. Distended gallbladder without obvious gallstones or biliary distention. Prominent prostate gland impresses on the base of the bladder. No free fluid/air. Remaining liver, pancreas, spleen, adrenal glands, kidneys, ureters, and bladder are unremarkable. Mild scattered aortoiliac calcifications. No AAA or pathologic retroperitoneal lymphadenopathy. Osseous structures intact with osteopenia, minimal dextroscoliosis centered at L2, mild/moderate multilevel thoracolumbar degenerative spondylosis, bilateral L5 spondylolysis with approximately 1 cm listhesis, and moderate/advanced bilateral hip degenerative arthropathy. Small fatty right inguinal hernia. Impression: 1. Distended gallbladder better evaluated with sonogram if clinically warranted. 2. Chronic findings including prominent prostate gland, arteriosclerotic disease, chronic bony findings, and fatty right inguinal hernia.
[2023-09-09] MEDS: LOPRESSOR INJECTION IV ONE (12:09)
[2023-09-09] MEDS: Xopenex 1.25 MG/0.5 ML UD NEBULE IH PRN (13:01)
[2023-09-09] MEDS: Lopressor 25MG Tab PO SCH (13:32)
--- NOTE | 2023-09-09 15:09 | XRAY ---
Indication: Distended gallbladder on same day CT. Two-dimensional gallbladder sonogram performed. Comparison: None Pancreas obscured due to overlying bowel gas. Visualized liver is distended up to 12.5 cm. Gallbladder demonstrate moderate sludge with tiny stones/gravel in the dependent portion. No abnormal gallbladder wall thickening or pericholecystic fluid. Common bile duct measures 5.5 mm. No intrahepatic biliary distention. Remaining visualized liver and right kidney is sonographically unremarkable. Right kidney measures 10.7 x 6.0 x 5.2 cm. Impression: 1. Nonvisualization pancreas. 2. Distended gallbladder with sludge and tiny stones/gravel. Negative for acute cholecystitis or biliary distention.
[2023-09-09] MEDS: ELIQUIS 2.5 MG TABLET PO SCH (21:43)
[2023-09-10 05:15] LABS: Hematocrit 35.1 % (42-50); Hemoglobin 10.5 g/dL (12.5-18.0); Mean Cell Volume 101.7 fL (78-100); Mean Corpuscular Hemoglobin 30.4 pg (26-32); Mean Corpuscular Hgb Concent. 29.9 g/dL (32-36); Mean Platelet Volume 10.5 fL (7.5-11.0); Platelet Count 238 x10^3/uL (150-450); Red Blood Count 3.45 x10^6/uL (4.1-5.6); Red Cell Distribution Width 15.3 % (11.5-14.0); White Blood Count 5.4 x10^3/uL (4.0-10.5)
[2023-09-10 05:30] LABS: ALBUMIN 3.7 g/dL (3.5-5.0); BILIRUBIN,TOTAL 0.6 mg/dL (0.2-1.3); Calcium 9.3 mg/dL (8.4-10.2); Creatinine 1 0.61 mg/dL (0.66-1.25); EST GLOMERULAR FILTRATION RATE 98.3 ML/MIN; Potassium 3.9 mmol/L (3.5-5.1); Total Protein 6.4 g/dL (6.3-8.2)
[2023-09-10 05:55] LABS: ANION GAP 10.9 MEQ/L (5-15)
[2023-09-10 07:44] VITALS: BP 126/61; TEMP 97.8; O2SAT 100
--- NOTE | 2023-09-10 09:05 | PCM.DS ---
Discharge Summary Date of Admission: 09/07/23 20:45 Date of Discharge: 09/10/23 Admitting Physician: CHARLI ADAMSON MD Consults: Consults on Case 09/09/23 11:59 Consult Cardiology ROUTINE Primary Care Provider: IRMA ALAN Allergies Allergies ampicillin Allergy (Intermediate, Verified 09/07/23 21:33) Swelling of Hands Hospital Summary - Hospital Course Hospital Course: 09/08/23 Mr. VALADEZ is a 78 year old male with a past medical history significant for hypertension, diabetes, CHF and COPD with recent hospitalization for hypoxia. He presented to the hospital on 09/07/23 with a one day history of increasing shortness of breath. He tried his inhalers without success so he came to the ER. He was found to be hypoxic and has been recommended for admission. This morning he was on 15L oxymyzier with O2 at 98%. He was then turned down to 10L oxymizer with O2 at 94%. Will start pt on antibiotics for COPD exacerbation. He has decreased lung sounds throughout. CXR shows atelatasis, procal and BNP elevated. Continue steriods and duonebs. Lasix held d/t elevated Co2. He started having diarrhea this afternoon. Probiotics started. Stool specimen sent for c-diff and culture. He explains he is breathing better today. He denies CP, abd. pain, N/V. 09/09/23 Pt sitting up in chair. He is feeling much better. He is on 3lNC @ 99% today. Loose stools have improved. Abd/ CT pelvis pending CT was negative for PE. Continue to hold lasix. Co2 improving. Continue antibiotics for COPD exacerbation. He continues to have decreased lung sounds throughout. He denies CP, N/V. 3/ Pt sitting up in chair. He has had no diarrhea overnight. He reports feeling much better and would like to d/c home. Heart Rhythm went into a-flutter yesterday evening. He was given lopresser IV x1 and then started on metoprolol PO BID. Cardiology consulted. Echo shows EF of 53% per member of technical staff. He is on baseline 2LNC O2. Pt states he is supposed to wear cpap at night but does not because he does not like it. He will need to f/u with Cardiology, pulmonology, general surgery, and PCP OP. - Vitals & Intake/Output Vital Signs: Vital Signs Temperature 97.8 F 09/10/23 07:44 Pulse Rate 88 09/10/23 07:44 Respiratory Rate 19 09/10/23 07:44 Blood Pressure 126/61 09/10/23 07:44 O2 Sat by Pulse Oximetry 100 09/10/23 07:44 Intake & Output: Intake & Output 09/07/23 09/08/23 09/09/23 09/10/23 11:59 11:59 11:59 11:59 Intake Total 720 1140 1808 Balance 720 1140 1808 Weight 76.6 kg - Lab Result Diagrams: 09/10/23 05:13 09/10/23 05:13 Lab Results-Last 24 Hrs: Lab Results-Last 24 Hours 09/09/23 09/09/23 09/09/23 Range/Units 12:10 15:03 18:13 WBC (4.0-10.5) x10^3/uL RBC (4.1-5.6) x10^6/uL Hgb (12.5-18.0) g/dL Hct (42-50) % MCV (78-100) fL MCH (26-32) pg MCHC (32-36) g/dL RDW (11.5-14.0) % Plt Count (150-450) x10^3/uL MPV (7.5-11.0) fL Sodium (137-145) mmol/L Potassium (3.5-5.1) mmol/L Chloride (98-107) mmol/L Carbon Dioxide (22-30) mmol/L Anion Gap (5-15) MEQ/L BUN (9-20) mg/dL Creatinine (0.66-1.25) mg/dL Estimated GFR ML/MIN Glucose (74-106) mg/dL POC Glucometer (74 to 106) mg/dL Calcium (8.4-10.2) mg/dL Total Bilirubin (0.2-1.3) mg/dL AST (17-59) U/L ALT (0-50) U/L Alkaline Phosphatase (38-126) U/L Troponin I < 0.012 < 0.012 < 0.012 (0.000-0.034) ng/mL Serum Total Protein (6.3-8.2) g/dL Albumin (3.5-5.0) g/dL 09/09/23 09/10/23 09/10/23 Range/Units 21:03 05:13 05:13 WBC 5.4 (4.0-10.5) x10^3/uL RBC 3.45 L (4.1-5.6) x10^6/uL Hgb 10.5 L (12.5-18.0) g/dL Hct 35.1 L (42-50) % MCV 101.7 H (78-100) fL MCH 30.4 (26-32) pg MCHC 29.9 L (32-36) g/dL RDW 15.3 H (11.5-14.0) % Plt Count 238 (150-450) x10^3/uL MPV 10.5 (7.5-11.0) fL Sodium 137 (137-145) mmol/L Potassium 3.9 (3.5-5.1) mmol/L Chloride 93 L (98-107) mmol/L Carbon Dioxide 37 H (22-30) mmol/L Anion Gap 10.9 (5-15) MEQ/L BUN 28 H (9-20) mg/dL Creatinine 0.61 L (0.66-1.25) mg/dL Estimated GFR 98.3 ML/MIN Glucose 182 H (74-106) mg/dL POC Glucometer 164 H (74 to 106) mg/dL Calcium 9.3 (8.4-10.2) mg/dL Total Bilirubin 0.60 (0.2-1.3) mg/dL AST 20 (17-59) U/L ALT 14 (0-50) U/L Alkaline Phosphatase 57 (38-126) U/L Troponin I (0.000-0.034) ng/mL Serum Total Protein 6.4 (6.3-8.2) g/dL Albumin 3.7 (3.5-5.0) g/dL Micro Results-Entire Visit: Microbiology 09/07/23 18:10 Blood Culture - Preliminary Blood 09/07/23 18:15 Blood Culture - Preliminary Blood 09/08/23 Unknown Stool Culture Result 1 - Final Stool Not Reportable Stool Culture Result 2 - Final Not Reportable Stool Culture Result 3 - Final Not Reportable Stool Culture Result 4 - Final Not Reportable Stool Culture Organism Suscept - Final Not Reportable Campylobacter Result 1 - Final Not Reportable Campylobacter Result 2 - Final Not Reportable Campylobactor Result 3 - Final Not Reportable Campylobacter Result 4 - Final Not Reportable Campylobactor Susceptibility - Final Not Reportable Accuchecks Date 09/10/23 Date 09/09/23 Time 07:42 - Radiology Exams Ordered Rad Exams-Entire Visit: Radiology Procedures Category Date Time Status ABDOMEN AND PELVIS W CONTRAST [CT] Urgent Exams 09/09/23 07:45 Completed CHEST WITH CONTRAST [CT] Stat Exams 09/08/23 08:56 Completed ECHO W/2D AND DOPPLER [US] Routine Exams 09/09/23 12:01 Taken Ultrasound Gallbladder [GALLBLADDER] [US] Routine Exams 09/09/23 11:18 Completed - Procedures and Test Procedures and Tests throughout Hospitalization: Therapy Orders & Screens 09/07/23 22:50 Oxygen Oxymizer LPM 15 lpm Comment: Diagnosis: COPD exacerbation 09/07/23 23:00 RT Screen per Nursing Assess ONCE Comment: Protocol Order Physician Instructions: Greater than 3 points order RT Admission Screen Reason For Exam: Triggered on Admission Diagnosis: COPD exacerbation Diagnosis: COPD exacerbation Pneumonia: No Home O2: Yes Asthma: No CHF: Yes Home CPAP/BIPAP: Yes: does not use Home Nebs/MDI: Yes Total Points: 18 09/08/23 04:15 Respiratory MDI BID Comment: Diagnosis: COPD exacerbation 09/09/23 11:47 EKG STAT Comment: Diagnosis: COPD exacerbation Discharge Exam General Appearance: no apparent distress, alert Neurologic Exam: alert, oriented x 3, cooperative, normal mood/affect, nml cerebellar function, sensation nml, No motor deficits Eye Exam: PERRL, EOMI, eyes nml inspection Ears, Nose, Throat Exam: normal ENT inspection, pharynx normal, moist mucous membranes Neck Exam: normal inspection, non-tender, supple, full range of motion Respiratory Exam: normal breath sounds, lungs clear, No respiratory distress Cardiovascular Exam: regular rate/rhythm, normal heart sounds Gastrointestinal/Abdomen Exam: soft, No tenderness, No mass Male Genitalia Exam: deferred Rectal Exam: deferred Back Exam: normal inspection, normal range of motion, No CVA tenderness, No vertebral tenderness Extremity Exam: normal inspection, normal range of motion Skin Exam: normal color, warm, dry Final Diagnosis/Problem List - Final Discharge Diagnosis/Problem (1) Alkalosis, metabolic Current Visit: Yes Status: Acute Code(s): E87.3 - ALKALOSIS (2) COPD exacerbation Current Visit: Yes Status: Acute Code(s): J44.1 - CHRONIC OBSTRUCTIVE PULMONARY DISEASE W (ACUTE) EXACERBATION (3) Acute and chronic respiratory failure ([id number]) Current Visit: No Status: Acute Code(s): J96.20 - ACUTE AND CHR RESP FAILURE, UNSP W HYPOXIA OR HYPERCAPNIA (4) CHF (congestive heart failure) Current Visit: No Status: Acute Code(s): I50.9 - HEART FAILURE, UNSPECIFIED (5) DM II (diabetes mellitus, type II), controlled Current Visit: No Status: Acute Code(s): E11.9 - TYPE 2 DIABETES MELLITUS WITHOUT COMPLICATIONS (6) Elevated d-dimer Current Visit: Yes Status: Acute Code(s): R79.89 - OTHER SPECIFIED ABNORMAL FINDINGS OF BLOOD CHEMISTRY (7) Chronic diarrhea Current Visit: Yes Status: Chronic Assessment & Plan: (1) Alkalosis, metabolic Current Visit: Yes Status: Acute Assessment & Plan: -2:2 chronic diarrhea - Stool sample pending - pt eating and drinking well - probiotics - Hold lasix - gentle IVF - Co2 38- slightly improved - Will check CT adb/pelvis for adrenal concern/ chronic diarrhea 09/09 - Co2 37 - Pt is supposed to be wearing Cpap at night and refuses as he does not like it. _ will need to f/u OP with Pulm- Dr. Stevens Code(s): E87.3 - ALKALOSIS (2) COPD exacerbation Current Visit: Yes Status: Acute Assessment & Plan: - Oxymizer 15L- then turned down to 10L @ 94% - Baseline oxygen 3lNC - Antibiotics, steroids, duonebs - On Baseline oxygen 3LNC @ 99% 09/09 - Continue antibiotics and steroids OP Code(s): J44.1 - CHRONIC OBSTRUCTIVE PULMONARY DISEASE W (ACUTE) EXACERBATION (3) Acute and chronic respiratory failure ([id number]) Current Visit: No Status: Acute Qualifiers: Respiratory failure complication: hypoxia Qualified Code(s): J96.21 - Acute and chronic respiratory failure with hypoxia Assessment & Plan: - 2:2 COPD exacerbation - Oxymyzier 15L- then turned down to 10L @ 94% - Baseline oxygen 3lNC - Antibiotocs, steriods, duonebs - Procal 0.097 - D-dimer 0.77 - CXR 09/07 Portable chest grossly unchanged again demonstrating bibasilar infiltrates/atelectasis/effusions again left greater than right. Heart not enlarged. No new cardiopulmonary abnormalities - CTA 09/08 Impression: 1. Negative pulmonary embolus. 2. Consolidating left lower lobe airspace disease with small effusion. Rule out aspiration pneumonia. Minimal right lower lobe infiltrate/atelectasis. 3. Chronic findings including arteriosclerotic disease, chronic bony findings, and old granulomatous disease. 09/09/23 - On Baseline oxygen 3LNC @ 99% - Sxs improved Code(s): J96.20 - ACUTE AND CHR RESP FAILURE, UNSP W HYPOXIA OR HYPERCAPNIA (4) CHF (congestive heart failure) Current Visit: No Status: Acute Qualifiers: Heart failure type: systolic Heart failure chronicity: chronic Qualified Code(s): I50.22 - Chronic systolic (congestive) heart failure Assessment & Plan: - Hold diuretics for now - limit salt - tele - Echo 05/31/23 The M-mode 2D, and Doppler echocardiogram including color flow Doppler shows the left ventricle is normal in size. The wall thickness is normal. There is accentuated contractility of the left ventricle. The ejection fraction is estimated to be 60 and 65%. The right ventricle is not well visualized. The left atrium is mildly dilated. The interatrial septum is intact. The right atrium is normal. The aortic valve opens well. It is trileaflet. The mitral valve is normal. There is mild tricuspid regurgitation. The right ventricular systolic pressure is calculated to be 24 mm of Mercury. The pulmonic valve is not well visualized. The aortic root is normal. There is no pericardial effusion present. IMPRESSION: 1) NO PERICARDIAL EFFUSION IS NOTED. 2) ACCENTUATED CONTRACTILITY OF THE LEFT VENTRICLE. THE HEART RATE RANGES FROM 95 TO142 BEATS/MINUTE. 3) MILD LEFT ATRIAL DILATATION. 4) MILD TRICUSPID REGURGITATION. 5) NORMAL RIGHT VENTRICULAR SYSTOLIC PRESSURE. 09/09 - Echo - EF 53% per member of technical staff - Will need to f/u with cardiology OP Code(s): I50.9 - HEART FAILURE, UNSPECIFIED Code(s): I50.9 - HEART FAILURE, UNSPECIFIED (5) DM II (diabetes mellitus, type II), controlled Current Visit: No Status: Acute Qualifiers: Diabetes mellitus long term care pharmacist insulin use: with prison use Assessment & Plan: - FSBS qAC/HS - Metformin stopped for 48 hours d/t CTA - Insulin humalog sliding scale Code(s): E11.9 - TYPE 2 DIABETES MELLITUS WITHOUT COMPLICATIONS (6) Elevated d-dimer Current Visit: Yes Status: Acute Assessment & Plan: -D-dimer 0.77 - CTA negative for PE Code(s): R79.89 - OTHER SPECIFIED ABNORMAL FINDINGS OF BLOOD CHEMISTRY (7) Chronic diarrhea Current Visit: Yes Status: Chronic Assessment & Plan: - stool for c-diff and culture- pending - gentle IVF - probiotics - CT abd/ pelvis Impression: 1. Distended gallbladder better evaluated with sonogram if clinically warranted. 2. Chronic findings including prominent prostate gland, arteriosclerotic disease, chronic bony findings, and fatty right inguinal hernia. - US gallbladder Impression: 1. Nonvisualization pancreas. 2. Distended gallbladder with sludge and tiny stones/gravel. Negative for acute cholecystitis or biliary distention. 09/09 - Will need to f/u with [facility] OP - Denies abd. pain - diarrhea resolved - Will need to continue OP probiotics Code(s): K52.9 - NONINFECTIVE GASTROENTERITIS AND COLITIS, UNSPECIFIED (8) Atrial flutter with rapid ventricular response Current Visit: Yes Status: Acute Assessment & Plan: - Started - Lopressor IVX1, then Metoprolol started BID - cardiology consulted - Echo - reviewed - Eliquis BID started 09/09 - Controlled - Continue metoprolol, and Eliquis OP Code(s): I48.92 - UNSPECIFIED ATRIAL FLUTTER - Discharge Discharge Date: 09/10/23 Disposition: HOME HEALTH SERVICE Condition: Stable Prescriptions: New RX: Lactobacillus Acidophilus [Acidophilus TABLET] 1 tab PO DAILY 30 Days #30 tablet RX: Apixaban [Eliquis 2.5 mg Tablet] 5 mg PO BID 30 Days #60 tablet RX: Metoprolol Tartrate 25 mg [Lopressor 25MG Tab] 25 mg PO BID 30 Days #60 tablet RX: Doxycycline Hyclate 100 mg [Vibramycin 100 MG] 100 mg PO BID 5 Days #10 tab RX: Prednisone 20 mg [Deltasone 20 mg] 20 mg PO BID 5 Days #10 tablet Continue RX: Loratadine 10 mg [Claritin 10 mg] 10 mg PO DAILY RX: Gabapentin [Neurontin] 600 mg PO HS RX: Potassium Chloride Tab* [Klor Con] 40 meq PO DAILY RX: Furosemide 40 mg PO DAILY RX: Metformin HCl 850 mg [Glucophage 850 MG] 850 mg PO BID RX: Fluticasone/Umeclidin/Vilanter [Trelegy Ellipta 100-62.5-25] 1 inh PO DAILY RX: Albuterol/Ipratropium 3ml Neb* [DUONEB 0.5-3 MG/3 ml Neb] 3 ml IH QIDPRN PRN PRN Reason: Shortness Of Breath/Wheezing RX: Guaifenesin [Mucus Relief] 400 mg PO DAILY RX: Insulin Detemir [Levemir Flexpen] 10 unit SQ DAILY PRN PRN PRN Reason: Hyperglycemia RX: Acetaminophen/Diphenhydramine [Tylenol Pm Exstr 500-25Mg Cplt] 2 each PO HS RX: glipiZIDE [Glipizide] 10 mg PO BID Additional Instructions: [facility] THEY WILL CONTACT YOU TO ARRANGE A TIME TO SEE YOU. THEIR PHONE # IS [phone]. Follow up with: CANDY STEVENS [CONSULTING PHYSICIAN] - 09/28/23 10:45 am (APPOIMTMENT IS AT [facility] OFFICE. ) IRMA ALAN [Primary Care Provider] - 09/17/23 1:15 pm GUSTABO YATES [CONSULTING PHYSICIAN] - 09/29/23 10:00 am (APPOINTMENT WILL BE AT THE [facility] OFFICE) JULIANA RODAS MD [ACTIVE STAFF] - 09/27/23 1:55 pm (APPOIMTMENT WILL BE AT THE [facility] OFFICE.)
[2023-09-10 12:08] VITALS: PULSE 100; RESP 20
== END 2023-09-10 12:28 | disposition home health service (06) ==
LOC: ED 16:33 → MED SURG 20:45
PROVIDERS: ADMIT Internal Medicine; ATTEND Internal Medicine
DX: E87.3 Alkalosis (principal); J44.1 Chronic obstructive pulmonary disease with (acute) exacerbation; J96.20 Acute and chronic respiratory failure, unspecified whether with hypoxia or hypercapnia; I11.0 Hypertensive heart disease with heart failure; I50.9 Heart failure, unspecified; E11.9 Type 2 diabetes mellitus without complications; R79.89 Other specified abnormal findings of blood chemistry; K52.9 Noninfective gastroenteritis and colitis, unspecified; I48.92 Unspecified atrial flutter; Z79.01 Long term (current) use of anticoagulants; Z79.899 Other long term (current) drug therapy; Z20.828 Contact with and (suspected) exposure to other viral communicable diseases; Z99.81 Dependence on supplemental oxygen
CPT/HCPCS: 0241U; 36000; 36415; 36600; 71045; 71260; 74177; 76705; 80053; 82088; 82375; 82533; 82803; 82947; 83735; 83880; 84145; 84244; 84484; 85025; 85027; 85379; 87040; 93005; 93041; 93306; 94640; 94760; 94762; 96365; 96367; 96374; 99284; Q3014; 93268; J0456; J0696; J1650; J1817; J1940; J1956; J2920; J2930; A9270-GY; G0378

== ENCOUNTER 2023-09-15 10:34 | Emergency (ER) | payer MEDICARE ==
--- NOTE | 2023-09-15 10:40 | ERPHSYRPT ---
- History of Present Illness Time Seen by Provider: 09/15/23 10:40 Source: patient Exam Limitations: no limitations Physician History: This is a 78-year-old white male patient of Dr. Alan who also sees rolling down machine operator Dr. Collado, and warehouse administrative assistant Dr. Stevens and presents via paramedics who provided additional, independent history secondary to the patient's confusion and degree of shortness of breath when and able to answer questions at this time, for evaluation management of worsening shortness of breath and change in mental status. I reviewed the laboratory and radiographic workup and results from the patient's recent admission into [facility]. Patient was admitted on 09/07/2023 and discharged home on 09/10/2023. Since this time at home, his shortness of breath was worsening today followed by altered mental status. Paramedics were contacted and brought the patient to the emergency department. Paramedics provided the patient with DuoNeb, Solu-Medrol 120 mg intravenously followed by a second nebulizer of albuterol. Patient has a significant history of 3 L oxygen dependent COPD, CHF, recurrent pneumonias, type 2 diabetes, arthritis and is on Eliquis. Patient's recent admission was for COPD exacerbation as well as recurrent pneumonia and CHF. The patient underwent CTA of the lungs on 09/08/2023. There was no obvious pulmonary embo lism but there was consolidated left lower lobe airspace disease with small effusion on radiologist interpretation. In addition, an echocardiogram was performed and interpreted by rolling down machine operator which shows no pericardial effusion and a cardiac ejection fraction 53%. Activities at Onset: none Severity of Dyspnea-Max: moderate Severity of Dyspnea-Current: moderate Possible Cause: frequent episodes Modifying Factors: Improves With: oxygen Associated Symptoms: denies symptoms Allergies/Adverse Reactions: ampicillin Allergy (Intermediate, Verified 09/15/23 10:42) Swelling of Hands Home Medications: Furosemide 40 mg PO DAILY 10/21/14 [History] Gabapentin [Neurontin] 600 mg PO HS 10/21/14 [History] Loratadine 10 mg [Claritin 10 mg] 10 mg PO DAILY 10/21/14 [History] Metformin HCl 850 mg [Glucophage 850 MG] 850 mg PO BID 10/21/14 [History] Potassium Chloride Tab* [Klor Con] 40 meq PO DAILY 10/21/14 [History] Fluticasone/Umeclidin/Vilanter [Trelegy Ellipta 100-62.5-25] 1 inh PO DAILY 10/15/18 [History] Albuterol/Ipratropium 3ml Neb* [DUONEB 0.5-3 MG/3 ml Neb] 3 ml IH QIDPRN PRN 05/05/22 [History] Guaifenesin [Mucus Relief] 400 mg PO DAILY 01/09/23 [History] Acetaminophen/Diphenhydramine [Tylenol Pm Exstr 500-25Mg Cplt] 2 each PO HS 08/25/23 [History] Insulin Detemir [Levemir Flexpen] 10 unit SQ DAILY PRN PRN 08/25/23 [History] glipiZIDE [Glipizide] 10 mg PO BID 09/07/23 [History] Hx Tetanus, Diphtheria Vaccination/Date Given: Yes Hx Influenza Vaccination/Date Given: Yes Hx Pneumococcal Vaccination/Date Given: Yes Travel Risk - International Travel Have you traveled outside of the country in past 3 weeks: No - Coronavirus Screening Are you exhibiting any of the following symptoms?: Yes Symptoms: Shortness of Breath Close contact with a COVID-19 positive Pt in past 14-21 Days: No - Vaccine Status Have you recieved a Covid-19 vaccination: Yes Senior Unix Administrator: Moderna - Vaccination Dates Date of 2cond Vaccination (if applicable): 2021 - Review of Systems Constitutional: Weakness Eyes: No Symptoms Ears, Nose, & Throat: No Symptoms Respiratory: Dyspnea Cardiac: No Symptoms Abdominal/Gastrointestinal: No Symptoms Genitourinary Symptoms: No Symptoms Musculoskeletal: No Symptoms Skin: No Symptoms Neurological: No Symptoms Psychological: No Symptoms Endocrine: No Symptoms Hematologic/Lymphatic: No Symptoms Immunological/Allergic: No Symptoms All Other Systems: Reviewed and Negative - Past Medical History Pertinent Past Medical History: Yes Neurological History: No Pertinent History ENT History: Cataracts, Other Cardiac History: Congestive Heart Failure Respiratory History: CHF, COPD, Emphysema, Pneumonia, Sleep Apnea Endocrine Medical History: Diabetes Type II Musculoskeletal History: Arthritis GI Medical History: No Pertinent History History: No Pertinent History Psycho-Social History: No Pertinent History Male Reproductive Disorders: No Pertinent History Other Medical History: Home O2 3L NC, retinal detachment left eye, retinal hemorrhage rt eye - Past Surgical History Past Surgical History: Yes Neuro Surgical History: No Pertinent History Cardiac: No Pertinent History Respiratory: Other Gastrointestinal: No Pertinent History Genitourinary: No Pertinent History Musculoskeletal: No Pertinent History Male Surgical History: No Pertinent History Other Surgical History: Cataract Surgery, retinal surgery, bronchoscopy - Social History Smoking Status: Former smoker How long have you smoked: 45 years Exposure to second hand smoke: No Drug Use: none Patient Lives Alone: No Significant Family History: no pertinent family hx - Nursing Vital Signs Nursing Vital Signs: Initial Vital Signs Temperature 97.5 F 09/15/23 10:35 Pulse Rate 94 H 09/15/23 10:35 Respiratory Rate 22 09/15/23 10:35 Blood Pressure 133/76 09/15/23 10:35 O2 Sat by Pulse Oximetry 65 L 09/15/23 10:35 - Physical Exam General Appearance: moderate distress, lethargy Eye Exam: PERRL/EOMI Ears, Nose, Throat Exam: hearing grossly normal, normal ENT inspection Neck Exam: normal inspection, non-tender, supple, full range of motion Respiratory Exam: normal breath sounds, lungs clear, respiratory distress, airway intact, No chest tenderness Cardiovascular/Chest Exam: normal heart sounds, regular rate/rhythm, normal peripheral pulses Abdominal/Gastrointestinal Exam: soft, normal bowel sounds, No tenderness Rectal Exam: not done Extremity Exam: non-tender, normal range of motion, normal inspection, normal capillary refill, no calf tenderness, no pedal edema, pelvis stable Neurologic Exam: alert, oriented x 3, cooperative, wedding makeup artist II-XII nml as tested, sensation nml Skin Exam: normal color, warm, dry Lymphatic Exam: No adenopathy SpO2 Interpretation: normal O2 Delivery: Room Air - Course Nursing assessment & vital signs reviewed: Yes EKG Interpreted by Me: RATE, Sinus Rhythm, NORMAL AXIS, NORMAL INTERVALS, Right Bundle Branch Block, Other Ordered Tests: Active Orders 24 hr Category Date Time Status Sewer STAT Care 09/15/23 10:44 Active Catheter-[place] STAT Care 09/15/23 10:41 Active EKG-ER Only STAT Care 09/15/23 10:41 Active IV Insertion STAT Care 09/15/23 10:41 Active Pulse Oximetry (ED) STAT Care 09/15/23 10:41 Active CHEST 1 VIEW (PORTABLE) Stat Exams 09/15/23 10:44 Completed HEAD WITHOUT CONTRAST [CT] Stat Exams 09/15/23 10:45 Completed ABG [ARTERIAL BLOOD GASES] Stat Lab 09/15/23 11:44 Completed ARTERIAL BLOOD GASES Stat Lab 09/15/23 10:41 Completed BLOOD CULTURE Stat Lab 09/15/23 11:07 Received CBC W DIFF Stat Lab 09/15/23 10:41 Completed CMP Stat Lab 09/15/23 11:00 Completed CULTURE,URINE Stat Lab 09/15/23 10:43 Received Lactic Acid Stat Lab 09/15/23 10:41 Completed Lactic Acid Stat Lab 09/15/23 12:58 Received MAGNESIUM Stat Lab 09/15/23 11:00 Completed MONO SCREEN Stat Lab 09/15/23 11:00 Completed Manual Differential NC Stat Lab 09/15/23 10:41 Completed NT PRO BNPII Stat Lab 09/15/23 11:00 Completed PROTIME WITH INR Stat Lab 09/15/23 11:00 Completed TROPONIN Q4H Lab 09/15/23 11:00 Completed TROPONIN Q4H Lab 09/15/23 14:45 Ordered TROPONIN Q4H Lab 09/15/23 18:45 Ordered UA W/RFX UR CULTURE Stat Lab 09/15/23 10:42 Completed BiPap/CPAP STAT RT 09/15/23 10:41 Active Standby ROUTINE RT 09/15/23 11:42 Completed Medication Summary Generic Name Dose Route Start Last Admin Trade Name Freq PRN Reason Stop Dose Admin Sodium Chloride 1,000 mls @ 50 mls/hr 09/15/23 10:45 09/15/23 11:16 Sodium Chloride 0.9% 1000 Ml IV 10/15/23 10:44 50 mls/hr .Q20H CHRISTA Administration Levofloxacin/Dextrose 500 mg in 100 mls @ 100 mls/hr 09/15/23 12:30 09/15/23 12:42 Levofloxacin 500mg/100ml D5w IV 09/15/23 13:29 100 mls/hr STAT STA 100 mls/hr Administration Discontinued Medications Generic Name Dose Route Start Last Admin Trade Name Freq PRN Reason Stop Dose Admin Levofloxacin/Dextrose Confirm 09/15/23 12:39 Levofloxacin 500mg/100ml D5w Administered 09/15/23 12:40 Dose 500 mg in 100 mls @ ud IV .STK-MED ONE Sodium Bicarbonate 50 meq 09/15/23 12:13 09/15/23 12:21 Sodium Bicarbonate 1 Meq/Ml 50ml Syringe IV 09/15/23 12:14 50 meq STAT ONE Administration Sodium Bicarbonate Confirm 09/15/23 12:18 Sodium Bicarbonate 1 Meq/Ml 50ml Syringe Administered 09/15/23 12:19 Dose 50 meq IV .STK-MED ONE Lab/Rad Data: Laboratory Result Diagrams 09/15/23 10:41 09/15/23 11:00 Laboratory Results 09/15/23 09/15/23 09/15/23 Range/Units 11:44 11:07 11:00 WBC (4.0-10.5) x10^3/uL RBC (4.1-5.6) x10^6/uL Hgb (12.5-18.0) g/dL Hct (42-50) % MCV (78-100) fL MCH (26-32) pg MCHC (32-36) g/dL RDW (11.5-14.0) % Plt Count (150-450) x10^3/uL MPV (7.5-11.0) fL Segmented Neutrophils (36.-66.) % Lymphocytes (Manual) (24-44) % Monocytes (Manual) (0.0-12.0) % Platelet Estimate (NORMAL) RBC Morphology PT (9.4-12.5) SECONDS INR (0.8-3.0) Puncture Site RRA pCO2 125 H* (35-45) mmHg pO2 281 H* (75-100) mmHg O2 Saturation 98.3 (94-100) g/dF ABG pH 7.20 L* (7.35-7.45) ABG O2 Sat (Measured) 99.5 (95-100) % Dmitriy Test YES Hemoglobin 12.4 Carboxyhemoglobin 0.8 (0.0-6.9) % THgb Methemoglobin 0.4 L (1.4-1.5) % Potassium 5.4 H (3.5-5.1) Temperature 37.0 C POC O2 Flow Rate 100 % Vent Mode Inspiratory BiPAP Expiratory BiPAP Sodium (135-145) mmol/L Chloride (98-107) mmol/L Carbon Dioxide (22-30) mmol/L Anion Gap (5-15) MEQ/L BUN (9-20) mg/dL Creatinine (0.66-1.25) mg/dL Estimated GFR ML/MIN Glucose (74-106) mg/dL Lactic Acid (0.4-2.0) Calcium (8.4-10.2) mg/dL Magnesium (1.6-2.3) mg/dL Total Bilirubin (0.2-1.3) mg/dL AST (17-59) U/L ALT (0-50) U/L Alkaline Phosphatase (38-126) U/L Ammonia < 9 L (9-30) umol/L Troponin I (0.000-0.034) ng/mL NT-Pro-B Natriuret Pep (<300) pg/mL Serum Total Protein (6.3-8.2) g/dL Albumin (3.5-5.0) g/dL Urine Color (Yellow) Urine Appearance (Clear) Urine pH (4.6-8.0) Ur Specific [place] (1.005-1.030) Urine Protein (Negative) Urine Glucose (UA) (Negative) mg/dL Urine Ketones (Negative) Urine Blood (Negative) Urine Nitrite (Negative) Urine Bilirubin (Negative) Urine Urobilinogen (0.2) mg/dL Ur Leukocyte Esterase (Negative) U Hyaline Cast (Auto) (0-2) /LPF Urine Microscopic RBC (0-5) /HPF Urine Microscopic WBC (0-5) /HPF Ur Epithelial Cells (None Seen) /HPF Urine Bacteria (None Seen) /HPF Urine Culture Reflexed (NO) Monoscreen (NEGATIVE) Influenza Type A Ag NEGATIVE (NEGATIVE) Influenza Type B Ag NEGATIVE (NEGATIVE) RSV (PCR) NEGATIVE (NEGATIVE) SARS-CoV-2 (PCR) NEGATIVE (NEGATIVE) Group A Strep Antibody (NEGATIVE) 09/15/23 09/15/23 09/15/23 Range/Units 11:00 11:00 11:00 WBC (4.0-10.5) x10^3/uL RBC (4.1-5.6) x10^6/uL Hgb (12.5-18.0) g/dL Hct (42-50) % MCV (78-100) fL MCH (26-32) pg MCHC (32-36) g/dL RDW (11.5-14.0) % Plt Count (150-450) x10^3/uL MPV (7.5-11.0) fL Segmented Neutrophils (36.-66.) % Lymphocytes (Manual) (24-44) % Monocytes (Manual) (0.0-12.0) % Platelet Estimate (NORMAL) RBC Morphology PT (9.4-12.5) SECONDS INR (0.8-3.0) Puncture Site pCO2 (35-45) mmHg pO2 (75-100) mmHg O2 Saturation (94-100) g/dF ABG pH (7.35-7.45) ABG O2 Sat (Measured) (95-100) % Dmitriy Test Hemoglobin Carboxyhemoglobin (0.0-6.9) % THgb Methemoglobin (1.4-1.5) % Potassium (3.5-5.1) Temperature C POC O2 Flow Rate % Vent Mode Inspiratory BiPAP Expiratory BiPAP Sodium (135-145) mmol/L Chloride (98-107) mmol/L Carbon Dioxide (22-30) mmol/L Anion Gap (5-15) MEQ/L BUN (9-20) mg/dL Creatinine (0.66-1.25) mg/dL Estimated GFR ML/MIN Glucose (74-106) mg/dL Lactic Acid (0.4-2.0) Calcium (8.4-10.2) mg/dL Magnesium (1.6-2.3) mg/dL Total Bilirubin (0.2-1.3) mg/dL AST (17-59) U/L ALT (0-50) U/L Alkaline Phosphatase (38-126) U/L Ammonia (9-30) umol/L Troponin I < 0.012 (0.000-0.034) ng/mL NT-Pro-B Natriuret Pep (<300) pg/mL Serum Total Protein (6.3-8.2) g/dL Albumin (3.5-5.0) g/dL Urine Color (Yellow) Urine Appearance (Clear) Urine pH (4.6-8.0) Ur Specific [place] (1.005-1.030) Urine Protein (Negative) Urine Glucose (UA) (Negative) mg/dL Urine Ketones (Negative) Urine Blood (Negative) Urine Nitrite (Negative) Urine Bilirubin (Negative) Urine Urobilinogen (0.2) mg/dL Ur Leukocyte Esterase (Negative) U Hyaline Cast (Auto) (0-2) /LPF Urine Microscopic RBC (0-5) /HPF Urine Microscopic WBC (0-5) /HPF Ur Epithelial Cells (None Seen) /HPF Urine Bacteria (None Seen) /HPF Urine Culture Reflexed (NO) Monoscreen NEGATIVE (NEGATIVE) Influenza Type A Ag (NEGATIVE) Influenza Type B Ag (NEGATIVE) RSV (PCR) (NEGATIVE) SARS-CoV-2 (PCR) (NEGATIVE) Group A Strep Antibody NOT DETECTED (NEGATIVE) 09/15/23 09/15/23 09/15/23 Range/Units 11:00 11:00 10:42 WBC (4.0-10.5) x10^3/uL RBC (4.1-5.6) x10^6/uL Hgb (12.5-18.0) g/dL Hct (42-50) % MCV (78-100) fL MCH (26-32) pg MCHC (32-36) g/dL RDW (11.5-14.0) % Plt Count (150-450) x10^3/uL MPV (7.5-11.0) fL Segmented Neutrophils (36.-66.) % Lymphocytes (Manual) (24-44) % Monocytes (Manual) (0.0-12.0) % Platelet Estimate (NORMAL) RBC Morphology PT 11.4 (9.4-12.5) SECONDS INR 1.05 (0.8-3.0) Puncture Site pCO2 (35-45) mmHg pO2 (75-100) mmHg O2 Saturation (94-100) g/dF ABG pH (7.35-7.45) ABG O2 Sat (Measured) (95-100) % Dmitriy Test Hemoglobin Carboxyhemoglobin (0.0-6.9) % THgb Methemoglobin (1.4-1.5) % Potassium 4.9 (3.5-5.1) Temperature C POC O2 Flow Rate % Vent Mode Inspiratory BiPAP Expiratory BiPAP Sodium 138 (135-145) mmol/L Chloride 90 L (98-107) mmol/L Carbon Dioxide 39 H (22-30) mmol/L Anion Gap 13.3 (5-15) MEQ/L BUN 32 H (9-20) mg/dL Creatinine 0.80 (0.66-1.25) mg/dL Estimated GFR 90.6 ML/MIN Glucose 197 H (74-106) mg/dL Lactic Acid (0.4-2.0) Calcium 8.7 (8.4-10.2) mg/dL Magnesium 2.0 (1.6-2.3) mg/dL Total Bilirubin 0.60 (0.2-1.3) mg/dL AST 18 (17-59) U/L ALT 18 (0-50) U/L Alkaline Phosphatase 79 (38-126) U/L Ammonia (9-30) umol/L Troponin I (0.000-0.034) ng/mL NT-Pro-B Natriuret Pep 2400 (<300) pg/mL Serum Total Protein 7.0 (6.3-8.2) g/dL Albumin 4.1 (3.5-5.0) g/dL Urine Color Yellow (Yellow) Urine Appearance Clear (Clear) Urine pH 5.0 (4.6-8.0) Ur Specific [place] 1.010 (1.005-1.030) Urine Protein Negative (Negative) Urine Glucose (UA) >=1000 A (Negative) mg/dL Urine Ketones Negative (Negative) Urine Blood Negative (Negative) Urine Nitrite Negative (Negative) Urine Bilirubin Negative (Negative) Urine Urobilinogen 0.2 (0.2) mg/dL Ur Leukocyte Esterase Negative (Negative) U Hyaline Cast (Auto) NONE SEEN (0-2) /LPF Urine Microscopic RBC 0-2 (0-5) /HPF Urine Microscopic WBC 0-2 (0-5) /HPF Ur Epithelial Cells None Seen (None Seen) /HPF Urine Bacteria None Seen (None Seen) /HPF Urine Culture Reflexed ORDERED SEPARATELY (NO) Monoscreen (NEGATIVE) Influenza Type A Ag (NEGATIVE) Influenza Type B Ag (NEGATIVE) RSV (PCR) (NEGATIVE) SARS-CoV-2 (PCR) (NEGATIVE) Group A Strep Antibody (NEGATIVE) 09/15/23 09/15/23 Range/Units 10:41 10:41 WBC 21.8 H (4.0-10.5) x10^3/uL RBC 3.99 L (4.1-5.6) x10^6/uL Hgb 12.1 L (12.5-18.0) g/dL Hct 40.8 L (42-50) % MCV 102.3 H (78-100) fL MCH 30.3 (26-32) pg MCHC 29.7 L (32-36) g/dL RDW 14.9 H (11.5-14.0) % Plt Count 349 (150-450) x10^3/uL MPV 10.5 (7.5-11.0) fL Segmented Neutrophils 88 H (36.-66.) % Lymphocytes (Manual) 7 L (24-44) % Monocytes (Manual) 5 (0.0-12.0) % Platelet Estimate NORMAL (NORMAL) RBC Morphology NORMAL PT (9.4-12.5) SECONDS INR (0.8-3.0) Puncture Site LRA pCO2 125 H* (35-45) mmHg pO2 78 (75-100) mmHg O2 Saturation 88.3 L (94-100) g/dF ABG pH 7.14 L* (7.35-7.45) ABG O2 Sat (Measured) 89.1 L (95-100) % Dmitriy Test YES Hemoglobin 12.2 Carboxyhemoglobin 0.8 (0.0-6.9) % THgb Methemoglobin 0.0 L (1.4-1.5) % Potassium 4.5 (3.5-5.1) Temperature 37.0 C POC O2 Flow Rate 100 % Vent Mode BiPAP Inspiratory BiPAP 18 Expiratory BiPAP 8 Sodium (135-145) mmol/L Chloride (98-107) mmol/L Carbon Dioxide (22-30) mmol/L Anion Gap (5-15) MEQ/L BUN (9-20) mg/dL Creatinine (0.66-1.25) mg/dL Estimated GFR ML/MIN Glucose (74-106) mg/dL Lactic Acid 2.4 H (0.4-2.0) Calcium (8.4-10.2) mg/dL Magnesium (1.6-2.3) mg/dL Total Bilirubin (0.2-1.3) mg/dL AST (17-59) U/L ALT (0-50) U/L Alkaline Phosphatase (38-126) U/L Ammonia (9-30) umol/L Troponin I (0.000-0.034) ng/mL NT-Pro-B Natriuret Pep (<300) pg/mL Serum Total Protein (6.3-8.2) g/dL Albumin (3.5-5.0) g/dL Urine Color (Yellow) Urine Appearance (Clear) Urine pH (4.6-8.0) Ur Specific [place] (1.005-1.030) Urine Protein (Negative) Urine Glucose (UA) (Negative) mg/dL Urine Ketones (Negative) Urine Blood (Negative) Urine Nitrite (Negative) Urine Bilirubin (Negative) Urine Urobilinogen (0.2) mg/dL Ur Leukocyte Esterase (Negative) U Hyaline Cast (Auto) (0-2) /LPF Urine Microscopic RBC (0-5) /HPF Urine Microscopic WBC (0-5) /HPF Ur Epithelial Cells (None Seen) /HPF Urine Bacteria (None Seen) /HPF Urine Culture Reflexed (NO) Monoscreen (NEGATIVE) Influenza Type A Ag (NEGATIVE) Influenza Type B Ag (NEGATIVE) RSV (PCR) (NEGATIVE) SARS-CoV-2 (PCR) (NEGATIVE) Group A Strep Antibody (NEGATIVE) - Progress Progress: improved, re-examined Air Movement: fair Progress Note: 09/15/23 12:21 This patient's medical issue is 1 of high complexity. The level of complexity in the workup performed is based on review of the patient's past medical history, review of the patient's medication list, review the patient drug allergy list, history present illness and physical findings on examination. The workup in this patient includes intravenous line placement, respiratory therapy intervention including placing the patient on BiPAP, arterial blood gas, CT scan of the head, chest x-ray, CBC, CMP, D-dimer, troponin level, BNP level, twelve- lead EKG, placement of [place] catheter and ammonia level. Differential diagnosis includes myocardial infarction, pulmonary embolus, congestive heart failure exacerbation, COPD exacerbation, pneumonia, hyperammonemia, CVA, urinary tract infection CT scan of the head without contrast was interpreted by the radiologist and I reviewed the impression. Impression states nonacute senile brain. Chest x-ray was interpreted by the radiologist and I reviewed the impression. The study reveals unchanged from 09/07/2019 for chest x-ray. There is evidence of bibasilar infiltrates as well as bibasilar effusions left side greater than right. 09/15/23 13:05 I reviewed and interpreted the patient's laboratory data results. The patient has a significant leukocytosis with a left shift. His BNP is elevated and he has clinical, laboratory and radiographic evidence of CHF exacerbation. He was both hypercarbic and hypoxic. He has pleural effusion bilaterally. Clinically, his altered mental status is starting to slowly improve. He is answering some questions and is less lethargic. We contacted [facility]. The patient fulfills criteria for auto acceptance. Dr. Catherine in the emergency department has accepted this patient in transfer. Blood Culture(s) Obtained: Yes Counseled pt/family regarding: lab results, diagnosis, rad results Medical Desision Making - Independent Historian Additional History obtained from: Field Reporter/EMT - External Record(s) Reviewed Records reviewed as a part of evaluation & management: Inpatient, Discharge Summary, EMS - Discussion of managment Reviewed:: Test results, Need for additional workup - Diagnostic Testing Diagnostic test were ordered, analyzed, and reviewed by me: Yes Radiological Interpretation: Reviewed by me, Teleradiologist Report - Risk of complications The pt has a high risk of morbidity or mortality based on: Decision regarding hospitilization or escalation of hosp level of care - Departure Departure Disposition: Transfer Clinical Impression: Leukocytosis, Hypoxia, Hypercarbia, Bilateral pleural effusion, Altered mental status, CHF exacerbation, Bilateral pneumonia Condition: Serious Critical Care Time: Yes Critical Care Time(excluding separately billable procedures): Critical 30-74 mins (60) Referrals: [facility] ALAN [Primary Care Provider] - Follow up/PCP as directed Instructions: Heart Failure
[2023-09-15 10:55] LABS: ABG HEMOGLOBIN 12.2; ABG POTASSIUM 4.5 (3.5-5.1); ARTERIAL BLD GAS O2 SATURATION 89.1 % (95-100); ARTERIAL BLOOD GAS FIO2 100 %; ARTERIAL BLOOD GAS PCO2 125 mmHg (35-45); ARTERIAL BLOOD GAS PO2 78 mmHg (75-100); ARTERIAL BLOOD GAS VENT MODE BiPAP; BIPAP(E) 8; BIPAP(I) 18; CARBOXYHEMOGLOBIN 0.8 % THgb (0.0-6.9); HGB O2 SAT 88.3 g/dF (94-100); Lactic Acid 2.4 (0.4-2.0)
[2023-09-15 10:57] LABS: ARTERIAL BLOOD GAS pH 7.14 (7.35-7.45)
[2023-09-15 10:58] LABS: ABG SITE LRA; ALLEN TEST OK? YES
[2023-09-15] MEDS ORDERED: Sodium Chloride 0.9% 1000 ML 1,000 ML ONE (11:13)
[2023-09-15] MEDS: Sodium Chloride 0.9% 1000 ML 1,000 ML IV SCH (11:16)
[2023-09-15 11:22] LABS: Hematocrit 40.8 % (42-50); Hemoglobin 12.1 g/dL (12.5-18.0); Mean Cell Volume 102.3 fL (78-100); Mean Corpuscular Hemoglobin 30.3 pg (26-32); Mean Corpuscular Hgb Concent. 29.7 g/dL (32-36); Mean Platelet Volume 10.5 fL (7.5-11.0); Platelet Count 349 x10^3/uL (150-450); Red Blood Count 3.99 x10^6/uL (4.1-5.6); Red Cell Distribution Width 14.9 % (11.5-14.0); White Blood Count 21.8 x10^3/uL (4.0-10.5)
[2023-09-15 11:30] LABS: Appearance Clear (Clear); Bacteria None Seen /HPF (None Seen); Bilirubin Negative (Negative); Blood Negative (Negative); Epithelial Cells None Seen /HPF (None Seen); Glucose, Urine >=1000 mg/dL (Negative); Hyaline Casts NONE SEEN /LPF (0-2); Ketones Negative (Negative); Leukocyte Esterase Negative (Negative); Nitrite Negative (Negative); Protein,Urine Dip Negative (Negative); RBC 0-2 /HPF (0-5); Urobilinogen 0.2 mg/dL (0.2); WBC 0-2 /HPF (0-5)
[2023-09-15 11:33] LABS: ADD URINE CULTURE? ORDERED SEPARATELY (NO)
[2023-09-15 11:35] LABS: INR 1.05 (0.8-3.0); PROTIME 11.4 SECONDS (9.4-12.5)
[2023-09-15 11:45] LABS: ALBUMIN 4.1 g/dL (3.5-5.0); ANION GAP 13.3 MEQ/L (5-15); BILIRUBIN,TOTAL 0.6 mg/dL (0.2-1.3); Calcium 8.7 mg/dL (8.4-10.2); Creatinine 1 0.8 mg/dL (0.66-1.25); EST GLOMERULAR FILTRATION RATE 90.6 ML/MIN; Potassium 4.9 mmol/L (3.5-5.1)
--- NOTE | 2023-09-15 11:45 | XRAY ---
Indication: Short of breath. Comparison: September 07, 2023 Portable chest grossly unchanged again demonstrating bibasilar infiltrates/atelectasis/effusions again left greater than right. Heart not enlarged. No new cardiopulmonary abnormalities.
[2023-09-15 11:56] LABS: INFLUENZA A NEGATIVE (NEGATIVE); INFLUENZA B NEGATIVE (NEGATIVE); RESPIRATORY SYNCTIAL VIRUS NEGATIVE (NEGATIVE); SARS-CoV-2 Xpert Express NEGATIVE (NEGATIVE)
[2023-09-15 12:03] LABS: ABG HEMOGLOBIN 12.4; ABG POTASSIUM 5.4 (3.5-5.1); ARTERIAL BLD GAS O2 SATURATION 99.5 % (95-100); ARTERIAL BLOOD GAS FIO2 100 %; ARTERIAL BLOOD GAS PCO2 125 mmHg (35-45); ARTERIAL BLOOD GAS PO2 281 mmHg (75-100); CARBOXYHEMOGLOBIN 0.8 % THgb (0.0-6.9); HGB O2 SAT 98.3 g/dF (94-100); Methhemoglobin 0.4 % (1.4-1.5)
[2023-09-15 12:05] LABS: ABG SITE RRA; ALLEN TEST OK? YES
--- NOTE | 2023-09-15 12:07 | XRAY ---
Indication: Confusion. Multiple contiguous axial images obtained through the head without contrast. Comparison: None Age-appropriate global atrophy and mild periventricular degenerative micro-ischemia bilaterally. No acute intracranial hemorrhage, abnormal extra-axial fluid collection, or mass effect. Fourth ventricle is midline without hydrocephalus. Bony calvarium intact. Visualized paranasal sinuses and mastoid air cells are clear. Impression: Nonacute senile brain.
[2023-09-15 12:11] LABS: Lymphocytes 7 % (24-44); Monocyte 5 % (0.0-12.0); Neutrophils 88 % (36.-66.); Platelet Estimate NORMAL (NORMAL); Total Cells Counted 100
[2023-09-15] MEDS ORDERED: SODIUM BICARBONATE 50 MEQ/50 ML ABBOJECT IV ONE (12:18)
[2023-09-15] MEDS: SODIUM BICARBONATE 50 MEQ/50 ML ABBOJECT IV ONE (12:21)
[2023-09-15] MEDS ORDERED: Levofloxacin 500MG/100ML D5W 500 MG/100 ML BAG IV ONE (12:39)
[2023-09-15] MEDS: Levofloxacin 500MG/100ML D5W 500 MG/100 ML BAG IV STA (12:42)
[2023-09-15 13:25] VITALS: PULSE 91
[2023-09-15 13:32] LABS: A-aADO2 225; ABG POTASSIUM 5.1 (3.5-5.1); ARTERIAL BLD GAS O2 SATURATION 95.6 % (95-100); ARTERIAL BLOOD GAS BASE EXCESS 24.9 (-2.0-2.0); ARTERIAL BLOOD GAS FIO2 60 %; ARTERIAL BLOOD GAS PO2 83 mmHg (75-100); ARTERIAL BLOOD GAS VENT MODE BiPAP; ARTERIAL BLOOD GAS pH 7.37 (7.35-7.45); CARBOXYHEMOGLOBIN 0.9 % THgb (0.0-6.9); HCO3- 55.5 (22-28); HGB O2 SAT 94.5 g/dF (94-100); Methhemoglobin 0.2 % (1.4-1.5); paO2 pAO1 0.27
[2023-09-15 13:33] LABS: ABG SITE LRA; ALLEN TEST OK? YES; ARTERIAL BLOOD GAS PCO2 96 mmHg (35-45)
[2023-09-15 13:42] VITALS: BP 109/57; RESP 27; TEMP 97.9; O2SAT 95
== END 2023-09-15 13:55 | disposition short-term general hospital (02) ==
LOC: ED 10:34
DX: I50.9 Heart failure, unspecified (principal); R41.82 Altered mental status, unspecified; R06.02 Shortness of breath; D72.829 Elevated white blood cell count, unspecified; E11.9 Type 2 diabetes mellitus without complications; J44.9 Chronic obstructive pulmonary disease, unspecified; J18.9 Pneumonia, unspecified organism; J90 Pleural effusion, not elsewhere classified; R09.02 Hypoxemia; Z79.899 Other long term (current) drug therapy; Z20.828 Contact with and (suspected) exposure to other viral communicable diseases; Z99.81 Dependence on supplemental oxygen
CPT/HCPCS: 0241U; 36415; 36600; 51702; 70450; 71045; 80053; 81001; 82140; 82375; 82803; 83605; 83735; 83880; 84244; 84484; 85025; 85610; 86308; 87040; 87086; 87651; 93005; 93041; 94002; 94760; 94799; 99284; 99291; J1956